=== PATIENT | male | born 1935 | race Caucasian/White ===

== ENCOUNTER 2016-12-04 18:40 | Emergency (ER) | payer MEDICARE, MEDICAID ==
[2016-12-04 19:13] LABS: HEMOGLOBIN 12.8 gm/dL (12.6-17.4); MEAN CORPUSCULAR HGB CONC 33.6 pg (28.0-36.0); RED BLOOD COUNT 3.65 Mil/cmm (3.80-5.80); RED CELL DISTRIBUTION WIDTH 18.3 % (11.5-20.0); WHITE BLOOD COUNT 4.7 Th/cmm (4.8-10.8)
--- NOTE | 2016-12-04 19:20 | ED Physician Chart ---
Chief Complaint/HPI - Patient Information Date Seen:: 12/04/16 Time Seen:: 19:00 Chief Complaint:: RIGHT HAND INJURY History of Present Illness:: THIS IS A 80 YO MALE CHRONICALLY ILL ESRD PATIENT SENT [facility] FOR AN EVALUATION OF HIS RIGHT HAND THAT HE INJURED ACCIDENTALLY HIT IT ON A MEDAL PIPE EARLIER TODAY. HE IS A DIALYSIS PATIENT. HE HAS NO OTHER COMPLAINTS Allergies:: Allergies Allergy/AdvReac Type Severity Reaction Status Date / Time milk Allergy Verified 12/04/16 18:53 Vitals:: Vital Signs - 8 hr 12/04/16 18:53 Temp 98.1 F HR 74 RR 16 BP 174/84 O2 Sat % 98 Historian:: Patient Review:: Nurse's Note Reviewed Review of Systems - Review of Systems General/Constitutional: No fever, No chills, No weight loss, No weakness, No diaphoresis, No edema, No loss of appetite Skin: No skin lesions, No rash, No bruising Head: No headache, No light-headedness Eyes: No loss of vision, No pain, No diplopia ENT: No earache, No nasal drainage, No sore throat, No tinnitus Neck: No neck pain, No swelling, No thyromegaly, No stiffness, No mass noted Cardio Vascular: No chest pain, No palpitations, No PND, No orthopnea, No edema Pulmonary: No SOB, No cough, No sputum, No wheezing GI: No nausea, No vomiting, No diarrhea, No pain, No melena, No hematochezia, No constipation, No hematemesis G/U: No dysuria, No frequency, No hematuria Musculoskeletal: Bone or joint pain (RIGHT HAND PAIN), No back pain, No muscle pain Endocrine: No polyuria, No polydipsia Psychiatric: No prior psych history, No depression, No anxiety, No suicidal ideation Hematopoietic: No bruising, No lymphadenopathy Allergic/Immuno: No urticaria, No angioedema Neurological: No syncope, No focal symptoms, No weakness, No paresthesia, No headache, No seizure, No dizziness, No confusion, No vertigo Past Medical History - Past Medical History Obtainable: Yes Past Medical History: HTN, CAD, ESRD, Other (PARKINSON DISEASE) Family History: None Social History: Non Smoker, No Alcohol, No Drug Use Surgical History: other ([facility]) Psychiatricy History: None Medication: Reviewed Family Medical History - Family Member Mother History Unknown: Yes Physical Exam - Physical Examination General/Constitutional: Awake, Well-developed, well-nourished, Alert, No distress, GCS 15, Non-toxic appearing, Ambulatory Head: Atraumatic Eyes: Lids, conjuctiva normal, PERRL, EOMI Skin: Nl inspection, No rash, No skin lesions, No ecchymosis, Well hydrated, No lymphadenopathy ENMT: External ears, nose nl, Nasal exam nl, Lips, teeth, gums nl Neck: Nontender, Full ROM w/o pain, No JVD, No nuchal rigidity, No bruit, No mass, No stridor Respiratory: Nl effort/Exclusion, Clear to Auscultation, No Wheeze/Rhonchi/Rales Cardio Vascular: RRR, No murmur, gallop, rubs, NL S1 S2 GI: No tenderness/rebounding/guarding, No organomegaly, No hernia, Normal BS's, Nondistended, No mass/bruits, No McBurney tenderness : No CVA tenderness Extremities: No tenderness or effusion, Full ROM, normal strength in all extremities, No edema, Normal digits & nails Other Extremities comments:: RIGHT DORSAL HAND OVER THE DISTAL 2ND METACARPAL BONE AREA Neuro/Psych: Alert/oriented, DTR's symmetric, Normal sensory exam, Normal motor strength, Judgement/insight normal, Mood normal, Normal gait, No focal deficits Misc: normal gait, Normal back, No paraspinal tenderness Labs/Radiology/EKG Results - Lab Results Results: Abnormal Lab Results 12/04/16 12/04/16 12/04/16 19:07 19:07 19:07 WBC 4.7 L RBC 3.65 L Hgb 12.8 Hct 38.2 L MCV 104.5 H MCH 35.1 H MCHC Differential 33.6 RDW 18.3 Plt Count 122 L MPV 6.8 PT 10.3 INR 1.04 Sodium 131 L Potassium 5.1 Chloride 97 L Carbon Dioxide 29.3 Anion Gap 9.8 BUN 44 H Creatinine 6.7 H* Est GFR ( Amer) TNP Est GFR (Non-Af Amer) TNP BUN/Creatinine Ratio 6.6 Glucose 138 H Calcium 9.8 Total Bilirubin 0.6 AST 57 H ALT 12 Alkaline Phosphatase 62 Troponin I Total Protein 7.2 Albumin 4.3 Globulin 2.9 Albumin/Globulin Ratio 1.5 12/04/16 19:07 WBC RBC Hgb Hct MCV MCH MCHC Differential RDW Plt Count MPV PT INR Sodium Potassium Chloride Carbon Dioxide Anion Gap BUN Creatinine Est GFR ( Amer) Est GFR (Non-Af Amer) BUN/Creatinine Ratio Glucose Calcium Total Bilirubin AST ALT Alkaline Phosphatase Troponin I 0.02 Total Protein Albumin Globulin Albumin/Globulin Ratio - Radiology Results Results: THE X-RAY OF THE RIGHT HAND WAS NEGATIVE FOR A FRACTURE. ED Septic Shock - . Is Septic Shock (SBP<90, OR Lactate>4 mmol\L) present?: No - <6hrs of presentation: Vital Signs: Vital Signs - 8 hr 12/04/16 18:53 Temp 98.1 F HR 74 RR 16 BP 174/84 O2 Sat % 98 Reassessment (Disposition) - Reassessment Reassessment Condition:: Unchanged - Diagnosis Diagnosis:: CONTUSION OF THE RIGHT HAND - Aftercare/Follow up Instructions Aftercare/Follow-Up Instructions:: Counseled pt regarding lab results/diagnosis & need follow up, Refer to Discharge Instructions, Counseled pt & family regarding lab results/diagnosis & need follow up - Patient Disposition Discharge/Transfer:: [facility] - SNF Condition at Disposition:: Unchanged ED Discharge Plan - Patient Disposition Admit/Discharge/Transfer: Discharge/Transfered to SNF Condition at Disposition: Unchanged
[2016-12-04 19:25] LABS: INR 1.04 (0.5-1.4); PROTHROMBIN TIME (TEST) 10.3 SECONDS (9.5-11.5)
[2016-12-04 19:27] LABS: ALB/GLOB RATIO 1.5 (1.0-1.8); ALKALINE PHOSPHATASE 62 U/L (34-104); ANION GAP 9.8 (7.0-16.0); BILIRUBIN,TOTAL 0.6 mg/dL (0.3-1.0); BUN - UREA NITROGEN 44 mg/dL (7-25); BUN/CREATININE RATIO 6.6; CALCIUM SERUM 9.8 mg/dL (8.6-10.3); CARBON DIOXIDE 29.3 mEq/L (21.0-31.0); CHLORIDE 97 mEq/L (98-107); GLUCOSE 138 mg/dL (70-105); POTASSIUM SERUM 5.1 mEq/L (3.5-5.1); SGOT 57 U/L (13-39); SGPT/ALT 12 U/L (7-52); SODIUM SERUM 131 mEq/L (136-145)
[2016-12-04 19:35] LABS: HEMATOCRIT 38.2 % (39.0-49.0); MEAN CORPUSCULAR HEMOGLOBIN 35.1 pg (27.0-31.0); MEAN PLATELET VOLUME 6.8 fl; PLATELET COUNT 122 Th/cmm (150-400)
[2016-12-04 19:50] LABS: CREATININE - SERUM 6.7 mg/dL (0.7-1.3)
[2016-12-04 20:08] LABS: MEAN CELL VOLUME 104.5 fl (80-99); NEUTROPHILS 48 % (40-80); TOTAL CELLS COUNTED 100
[2016-12-04 20:09] LABS: ANISOCYTOSIS 1+; EOSINOPHIL 2 % (0-5); PLATELET ESTIMATE ADEQUATE (NORMAL); PLATELET MORPHOLOGY NORMAL (NORMAL)
--- NOTE | 2016-12-05 12:04 | Diagnostic Imaging Report ---
Right hand (3 views) HISTORY: Pain, trauma There is deformity involving the head of the fifth metacarpal probably related to old trauma. Generalized narrowing of all DIP and PIP joints. IMPRESSION: 1. No acute bony abnormalities 2. Deformity involving the head of the fifth metacarpal probably related to old trauma 3. Osteoarthritis. In the presence of recent trauma and persistent symptoms, a repeat radiograph in 5-7 days may be helpful for detection of a subtle or occult fracture.
== END 2016-12-04 20:40 ==
LOC: ER 18:40
DX: S60.221A Contusion of right hand, initial encounter (principal); I12.0 Hypertensive chronic kidney disease with stage 5 chronic kidney disease or end stage renal disease; N18.6 End stage renal disease; I25.10 Atherosclerotic heart disease of native coronary artery without angina pectoris; G20 Parkinson's disease; Z91.011 Allergy to milk products; W22.8XXA Striking against or struck by other objects, initial encounter; Y93.89 Activity, other specified; Y92.89 Other specified places as the place of occurrence of the external cause; Y99.8 Other external cause status
CPT/HCPCS: 36415-UA; 73130-TC-RT; 80053-TC; 84484-TC; 85007-TC; 85027-TC; 85610-TC

== ENCOUNTER 2016-12-13 20:03 | Inpatient (IN) | payer MEDICARE, MEDICAID ==
--- NOTE | 2016-12-13 22:14 | ED Physician Chart ---
Chief Complaint/HPI - Patient Information Date Seen:: 12/13/16 Time Seen:: 20:05 Chief Complaint:: Cough for 3 days. History of Present Illness:: Brought in by ambulance from nursing facility because of cough for about 3 days. Pt was also noticed to have low grade fever. Cough has been productive of green sputum. No dyspnea. Pt has had generalized weakness. Pt has h/o ESRD but missed his hemodialysis yesterday. No N/V/D. No lightheadedness. Allergies:: Allergies Allergy/AdvReac Type Severity Reaction Status Date / Time milk Allergy Verified 12/04/16 18:53 Vitals:: Vital Signs - 8 hr 12/13/16 20:36 Temp 98.3 F HR 74 RR 18 BP 148/71 O2 Sat % 96 Historian:: Patient, Medical Records (from transferring facility.) Family MD/PCP:: Dr. Jordan LMP:: N/A Review:: Nurse's Note Reviewed, Transfer documents Reviewed Review of Systems - Review of Systems General/Constitutional: Fever, No chills, No weight loss, Weakness (generalized. ), No diaphoresis, No edema, No loss of appetite Skin: No skin lesions, No rash, No bruising Head: No headache, No light-headedness Eyes: No loss of vision, No pain, No diplopia ENT: No earache, No nasal drainage, No sore throat, No tinnitus Neck: No neck pain, No swelling, No thyromegaly, No stiffness, No mass noted Cardio Vascular: No chest pain, No palpitations, No PND, No orthopnea, No edema Pulmonary: No SOB, Cough, Sputum, No wheezing GI: No nausea, No vomiting, No diarrhea, No pain, No melena, No hematochezia, No constipation, No hematemesis G/U: No dysuria, No frequency, No hematuria Musculoskeletal: Other (chronic R hip pain due to R hip fx about 4 years ago, but he was not a candidate for R hip surgery.) Endocrine: No polyuria, No polydipsia Psychiatric: No prior psych history Hematopoietic: No bruising, No lymphadenopathy Allergic/Immuno: No urticaria, No angioedema Neurological: No syncope, No focal symptoms, No weakness, No paresthesia, No headache, No seizure, No dizziness, No confusion, No vertigo Past Medical History - Past Medical History Past Medical History: HTN, ESRD (on hemodialysis Tuesdays, , and Saturdays.), Other (h/o Parkinson's Disease, chronic anemia, h/o cardiac dysrrhythmia, h/o colon CA with colostomy , ?partial colectomy.) Family History: Heart disease (mother), HTN (mother), Cancer (mother) Social History: Non Smoker, No Alcohol, No Drug Use, , Care Facility Employment:: Retired. Surgical History: Appendectomy (at age 18), other (lower back surgery at age 26. ? partial colectomy with colostomy in related to colon CA) Psychiatricy History: None Medication: Reviewed Family Medical History - Family Member Mother History Unknown: Yes Physical Exam - Physical Examination General/Constitutional: Awake, Well-developed, well-nourished, Alert, No distress, Non-toxic appearing Other Gen/Cons comments:: Breathes comfortably, speaks clearly, and interacts normally. Eyes: Lids, conjuctiva normal, PERRL, EOMI Skin: No skin lesions, No ecchymosis, Well hydrated, No lymphadenopathy ENMT: External ears, nose nl, TM canals nl, Nasal exam nl, Oropharynx nl, Tonsils nl Other ENMT comments:: Poor dentition with multiple missing teeth. Neck: Nontender, Full ROM w/o pain, No JVD, No nuchal rigidity, No bruit, No mass, No stridor Respiratory: Nl effort/Exclusion Other Respiratory comments:: Mild rales at R lower lung field. No wheeze. Cardio Vascular: RRR, No murmur, gallop, rubs GI: No tenderness/rebounding/guarding, No organomegaly, No hernia, Normal BS's, Nondistended, No mass/bruits, No McBurney tenderness Other GI comments:: Abdomen is soft. Colostomy with colostomy bag noticed in L mid abdomen. : No CVA tenderness Extremities: No edema Neuro/Psych: Alert/oriented (oriented x 3.), Mood normal, No focal deficits Labs/Radiology/EKG Results - Lab Results Results: Laboratory Tests 12/13/16 12/13/16 12/13/16 22:30 22:30 22:30 WBC 6.9 D RBC 3.05 L Hgb 10.7 L D Hct 31.0 L D MCV 101.9 H MCH 35.0 H MCHC Differential 34.4 RDW 17.6 Plt Count 82 L D MPV 7.7 Neutrophils % 66.0 Lymphocytes % 16.9 L Monocytes % 12.6 H Eosinophils % 2.9 Basophils % 1.6 PT 10.6 INR 1.07 PTT (Actin FS) 36.2 Sodium 132 L Potassium 4.8 Chloride 100 Carbon Dioxide 20.7 L Anion Gap 16.1 H BUN 81 H* Creatinine 9.7 H* Est GFR ( Amer) TNP Est GFR (Non-Af Amer) TNP BUN/Creatinine Ratio 8.4 Glucose 104 Whole Bld Lactic Acid Calcium 9.6 Total Bilirubin 0.4 AST 31 ALT 10 Alkaline Phosphatase 68 Creatine Kinase 688 H CK-MB (CK-2) 13.7 H Troponin I Total Protein 6.6 Albumin 3.6 L Globulin 3.0 Albumin/Globulin Ratio 1.2 Urine Source Urine Color Urine Clarity Urine pH Ur Specific [place] Urine Protein Urine Glucose (UA) Urine Ketones Urine Blood Urine Nitrate Urine Bilirubin Urine Urobilinogen Ur Leukocyte Esterase Urine RBC Urine WBC Ur Epithelial Cells Urine Bacteria 12/13/16 12/13/16 12/13/16 22:30 22:30 22:55 WBC RBC Hgb Hct MCV MCH MCHC Differential RDW Plt Count MPV Neutrophils % Lymphocytes % Monocytes % Eosinophils % Basophils % PT INR PTT (Actin FS) Sodium Potassium Chloride Carbon Dioxide Anion Gap BUN Creatinine Est GFR ( Amer) Est GFR (Non-Af Amer) BUN/Creatinine Ratio Glucose Whole Bld Lactic Acid 0.54 L Calcium Total Bilirubin AST ALT Alkaline Phosphatase Creatine Kinase CK-MB (CK-2) Troponin I 0.05 Total Protein Albumin Globulin Albumin/Globulin Ratio Urine Source CLEAN C Urine Color YELLOW Urine Clarity CLEAR Urine pH 8.5 Ur Specific [place] 1.015 Urine Protein >300 H Urine Glucose (UA) 100 H Urine Ketones NEGATIVE Urine Blood MODERATE H Urine Nitrate NEGATIVE Urine Bilirubin NEGATIVE Urine Urobilinogen 0.2 Ur Leukocyte Esterase NEGATIVE Urine RBC 2-5 H Urine WBC 0-2 Ur Epithelial Cells OCCASIONAL Urine Bacteria OCCASIONAL - Radiology Results Results: PCXR: Based on my interpretation, cardiomegaly with prominent pulmonary vasculature. Increased density in R lower lung field. Consider early pneumonia. Official report is pending. - EKG Interpretations EKG Time:: 22:54 Rhythm: NSR Rate: 70 Comments:: No acute ischemic changes. ED Septic Shock - . Is Septic Shock (SBP<90, OR Lactate>4 mmol\L) present?: No - <6hrs of presentation: Vital Signs: Vital Signs - 8 hr 12/13/16 20:36 Temp 98.3 F HR 74 RR 18 BP 148/71 O2 Sat % 96 Reassessment (Disposition) - Reassessment Reassessment:: 0040 Pt has been repeatedly evaluated. Pt remains stable with no new findings. CXR just became available. Lab, EKG, and CXR findings have been reviewed with pt. Management plan has been discussed. Dr. Jordan is to be contacted. 0100 Case was discussed with Dr. Jordan with pertinent H & P, EKG, CXR, and lab findings reviewed. Pt is to be admitted to [facility] under his care. Reassessment Condition:: Improved - Diagnosis Diagnosis:: Early RLL pneumonia, stable. End Stage Renal Disease with chronic anemia, stable. h/o colon CA, s/p colostomy , stable HTN, stable. - Patient Disposition Admitted to:: Med/Surg Admitting Medical Physician:: Jose Jordan Time:: 01:05 Condition at Disposition:: Stable, Improved
[2016-12-13 22:36] LABS: % BASOPHILS 1.6 % (0.0-2.0); % EOSINOPHILS 2.9 % (0.0-5.0); % LYMPHOCYTES 16.9 % (20.0-50.0); % MONOCYTES 12.6 % (2.0-10.0); MEAN CELL VOLUME 101.9 fl (80-99); MEAN CORPUSCULAR HGB CONC 34.4 pg (28.0-36.0); MEAN PLATELET VOLUME 7.7 fl; NEUTROPHILE ABSOLUTE 4.5 Th/cmm (1.8-8.0); RED BLOOD COUNT 3.05 Mil/cmm (3.80-5.80); RED CELL DISTRIBUTION WIDTH 17.6 % (11.5-20.0)
[2016-12-13] MEDS ORDERED: cefTRIAXone 1 GM in Sodium Chloride 0.9% 50 ML IV ONE (22:41)
[2016-12-13] MEDS ORDERED: Azithromycin 500 MG in Sodium Chloride 0.9% 250 ML IV ONE (22:41)
[2016-12-13 22:43] LABS: WHITE BLOOD COUNT 6.9 Th/cmm (4.8-10.8)
[2016-12-13 22:44] LABS: HEMOGLOBIN 10.7 gm/dL (12.6-17.4); PLATELET COUNT 82 Th/cmm (150-400)
[2016-12-13 22:56] LABS: INR 1.07 (0.5-1.4); PROTHROMBIN TIME (TEST) 10.6 SECONDS (9.5-11.5)
[2016-12-13 22:59] LABS: ALB/GLOB RATIO 1.2 (1.0-1.8); ALKALINE PHOSPHATASE 68 U/L (34-104); ANION GAP 16.1 (7.0-16.0); BILIRUBIN,TOTAL 0.4 mg/dL (0.3-1.0); BUN/CREATININE RATIO 8.4; CALCIUM SERUM 9.6 mg/dL (8.6-10.3); CARBON DIOXIDE 20.7 mEq/L (21.0-31.0); CHLORIDE 100 mEq/L (98-107); GLUCOSE 104 mg/dL (70-105); POTASSIUM SERUM 4.8 mEq/L (3.5-5.1); SGOT 31 U/L (13-39); SGPT/ALT 10 U/L (7-52); SODIUM SERUM 132 mEq/L (136-145)
[2016-12-13 23:00] LABS: BUN - UREA NITROGEN 81 mg/dL (7-25); CREATININE - SERUM 9.7 mg/dL (0.7-1.3)
[2016-12-13 23:21] LABS: CREATINE KINASE MB 13.7 ng/mL (0.6-6.3)
[2016-12-13 23:28] LABS: URINE BILIRUBIN NEGATIVE (NEGATIVE); URINE COLOR YELLOW; URINE GLUCOSE (UA) 100 mg/dL (NEGATIVE); URINE KETONE NEGATIVE (NEGATIVE)
[2016-12-13 23:29] LABS: URINE BACTERIA OCCASIONAL /hpf (NONE SEEN); URINE BLOOD MODERATE (NEGATIVE); URINE EPITHELIAL CELLS OCCASIONAL /lpf (FEW); URINE PH 8.5; URINE PROTEIN >300 mg/dL (NEGATIVE); URINE UROBILINOGEN 0.2 E.U./dL (0.2 - 1.0); URINE WBC 0-2 /hpf (0-5)
[2016-12-14] MEDS ORDERED: Hydrocodone/APAP 5mg/325mg Tab PO PRN (02:41)
--- NOTE | 2016-12-14 05:14 | Admit Criteria Form ---
Admit Criteria Forms - Admit Criteria Diagnosis: PNEUMONIA, COMMUNITY ACQUIRED Clinical Indications for Admission to Inpatient Care ( Place 'X' for any and all applicable criteria): Admission is indicated for ANY ONE of the following (1)(2)(3): [ ]I. Hypoxemia indicated by ANY ONE of the following: [ ]a) Oxygen saturation less than 90% while breathing room air [ ]b) PO2 less than 60 mm Hg (8.0 kPa) while breathing room air [ ]c) Chronic lung disease with significant deterioration from baseline oxygenation [ ]II. Appropriate diagnostic testing and treatment unavailable in outpatient or recovery facility (eg,testing or infection control measures unavailable(10) [X]III. Moderate-risk or high-risk category patients (Pneumonia Severity Index (PSI) class IV or V, or CURB-65 score of 3 or greater). [ ]IV. Outpatient treatment failure as indicated by ANY ONE of the following(9) : [ ]a) Failure to respond to antibiotic (eg, resistant organism) [ ]b) Clinically significant adverse effects from medication (eg, vomiting) [ ]c) Complications of pneumonia (eg, empyema, bacteremia) [ ]d) Significant worsening of comorbid cond necessitating inpatient care (eg, chronic heart failure) [ ]V. Intermediate-risk category patients (eg, PSI class III or CURB-65 score 2) who do not improve with initial therapy and observation. [ ]. Immunocompromised patients (eg, AIDS, chronic steroid use) at moderate or high risk based on clinical evaluation. [ ]VII. Complicated pleural effusions (eg, exudative, loculated) [ ]VIII.Hemodynamic instability [ ] IX. Altered mental status that is severe or persistent. [ ]X. Dehydration that is severe or persistent. [ ]XI. Bacteremia [ ]XII. Respiratory finding (eg. tachypnea) that do not respond to outpatient or observation care treatment Extended stay beyond goal length of stay may be needed for (20) [ ]a) Unclear diagnosis [ ]b) Pleural disease [ ]c) Severe pneumonia or treatment failure (25 [ ]d) Respiratory failure (anticipate invasive or noninvasive ventilatory support) [ ]e) Abnormal serum electrolytes (serum Na concentration less than 135 mEq/L (mmol/L) (32)(33) [ ]f) Clinically significant comorbid illness (eg, heart failure, atrial fibrillation with rapid heart rate, alcohol withdrawal, renal insufficiency)(34)(35) [ ]g) Comorbid acute exacerbation of COPD(36) [ ]h) Concomitant diagnosis of malignancy that may be associated with malnutrition, immunologic impairment, or bronchial obstruction. [ ]i) Concomitant altered mental status [ ]j) Culture-identified Gram-negative or antibiotic-resistant organism (eg, Pseudomonas, methicillin-resistant Staphylococcus aureus)(30) [ ]k) Healthcare-associated pneumonia The original [facility] content created by [facility] has been revised. The portions of the content which have been revised are identified through the use of italic text or in bold, and [facility] has neither reviewed nor approved the modified material. All other unmodified content is copyright [facility]. Please see references footnoted in the original [facility] [employer] edition 2016 Admit Criteria Met?: Yes
[2016-12-14 07:26] LABS: % BASOPHILS 0.1 % (0.0-2.0); % EOSINOPHILS 1.7 % (0.0-5.0); % LYMPHOCYTES 15.3 % (20.0-50.0); % MONOCYTES 13.6 % (2.0-10.0); % NEUTROPHILS 69.3 % (40.0-80.0); HEMATOCRIT 30.9 % (39.0-49.0); HEMOGLOBIN 10.6 gm/dL (12.6-17.4); MEAN CELL VOLUME 101.8 fl (80-99); MEAN CORPUSCULAR HGB CONC 34.3 pg (28.0-36.0); MEAN PLATELET VOLUME 8.4 fl; NEUTROPHILE ABSOLUTE 4.3 Th/cmm (1.8-8.0); PLATELET COUNT 82 Th/cmm (150-400); RED BLOOD COUNT 3.04 Mil/cmm (3.80-5.80); RED CELL DISTRIBUTION WIDTH 17.9 % (11.5-20.0); WHITE BLOOD COUNT 6.1 Th/cmm (4.8-10.8)
[2016-12-14 07:36] LABS: ANION GAP 16.6 (7.0-16.0); BUN/CREATININE RATIO 8.3; CALCIUM SERUM 9.5 mg/dL (8.6-10.3); CARBON DIOXIDE 21.5 mEq/L (21.0-31.0); CHLORIDE 101 mEq/L (98-107); GLUCOSE 91 mg/dL (70-105); POTASSIUM SERUM 5.1 mEq/L (3.5-5.1); SODIUM SERUM 134 mEq/L (136-145)
[2016-12-14 07:53] LABS: BUN - UREA NITROGEN 84 mg/dL (7-25); CREATININE - SERUM 10.1 mg/dL (0.7-1.3)
--- NOTE | 2016-12-14 08:38 | General Progress Note ---
Objective - Results Result Diagrams: 12/14/16 06:10 12/14/16 06:10 Recent Labs: Laboratory Last Values WBC 6.1 Th/cmm (4.8-10.8) 12/14/16 06:10 RBC 3.04 Mil/cmm (3.80-5.80) L 12/14/16 06:10 Hgb 10.6 gm/dL (12.6-17.4) L 12/14/16 06:10 Hct 30.9 % (39.0-49.0) L 12/14/16 06:10 MCV 101.8 fl (80-99) H 12/14/16 06:10 MCH 35.0 pg (27.0-31.0) H 12/14/16 06:10 MCHC Differential 34.3 pg (28.0-36.0) 12/14/16 06:10 RDW 17.9 % (11.5-20.0) 12/14/16 06:10 Plt Count 82 Th/cmm (150-400) L 12/14/16 06:10 MPV 8.4 fl 12/14/16 06:10 Neutrophils % 69.3 % (40.0-80.0) 12/14/16 06:10 Lymphocytes % 15.3 % (20.0-50.0) L 12/14/16 06:10 Monocytes % 13.6 % (2.0-10.0) H 12/14/16 06:10 Eosinophils % 1.7 % (0.0-5.0) 12/14/16 06:10 Basophils % 0.1 % (0.0-2.0) 12/14/16 06:10 PT 10.6 SECONDS (9.5-11.5) 12/13/16 22:30 INR 1.07 (0.5-1.4) 12/13/16 22:30 PTT (Actin FS) 36.2 SECONDS (26.0-38.0) 12/13/16 22:30 Sodium 134 mEq/L (136-145) L 12/14/16 06:10 Potassium 5.1 mEq/L (3.5-5.1) 12/14/16 06:10 Chloride 101 mEq/L (98-107) 12/14/16 06:10 Carbon Dioxide 21.5 mEq/L (21.0-31.0) 12/14/16 06:10 Anion Gap 16.6 (7.0-16.0) H 12/14/16 06:10 BUN 84 mg/dL (7-25) H* 12/14/16 06:10 Creatinine 10.1 mg/dL (0.7-1.3) H* 12/14/16 06:10 Est GFR ( Amer) TNP 12/14/16 06:10 Est GFR (Non-Af Amer) TNP 12/14/16 06:10 BUN/Creatinine Ratio 8.3 12/14/16 06:10 Glucose 91 mg/dL (70-105) 12/14/16 06:10 Whole Bld Lactic Acid 0.54 mmol/L (0.60-2.00) L 12/13/16 22:30 Calcium 9.5 mg/dL (8.6-10.3) 12/14/16 06:10 Total Bilirubin 0.4 mg/dL (0.3-1.0) 12/13/16 22:30 AST 31 U/L (13-39) 12/13/16 22:30 ALT 10 U/L (7-52) 12/13/16 22:30 Alkaline Phosphatase 68 U/L (34-104) 12/13/16 22:30 Creatine Kinase 688 U/L (30-223) H 12/13/16 22:30 CK-MB (CK-2) 13.7 ng/mL (0.6-6.3) H 12/13/16 22:30 Troponin I 0.05 ng/mL (0.01-0.05) 12/13/16 22:30 Total Protein 6.6 gm/dL (6.0-8.3) 12/13/16 22:30 Albumin 3.6 gm/dL (4.2-5.5) L 12/13/16 22:30 Globulin 3.0 gm/dL 12/13/16 22:30 Albumin/Globulin Ratio 1.2 (1.0-1.8) 12/13/16 22:30 Urine Source CLEAN C 12/13/16 22:55 Urine Color YELLOW 12/13/16 22:55 Urine Clarity CLEAR (CLEAR) 12/13/16 22:55 Urine pH 8.5 12/13/16 22:55 Ur Specific [place] 1.015 (1.005-1.030) 12/13/16 22:55 Urine Protein >300 mg/dL (NEGATIVE) H 12/13/16 22:55 Urine Glucose (UA) 100 mg/dL (NEGATIVE) H 12/13/16 22:55 Urine Ketones NEGATIVE mg/dL (NEGATIVE) 12/13/16 22:55 Urine Blood MODERATE (NEGATIVE) H 12/13/16 22:55 Urine Nitrate NEGATIVE (NEGATIVE) 12/13/16 22:55 Urine Bilirubin NEGATIVE (NEGATIVE) 12/13/16 22:55 Urine Urobilinogen 0.2 E.U./dL (0.2 - 1.0) 12/13/16 22:55 Ur Leukocyte Esterase NEGATIVE (NEGATIVE) 12/13/16 22:55 Urine RBC 2-5 /hpf (0-5) H 12/13/16 22:55 Urine WBC 0-2 /hpf (0-5) 12/13/16 22:55 Ur Epithelial Cells OCCASIONAL /lpf (FEW) 12/13/16 22:55 Urine Bacteria OCCASIONAL /hpf (NONE SEEN) 12/13/16 22:55 - Physical Exam Vitals and I&O: Vital Signs Temp 99.2 F 12/14/16 04:00 Pulse 70 12/14/16 04:00 Resp 20 12/14/16 04:00 BP 145/69 12/14/16 04:00 Pulse Ox 97 12/14/16 04:00 Intake & Output 12/13/16 12/14/16 12/14/16 18:59 06:59 18:59 Intake Total 120 Output Total 200 Balance -80 Weight (lbs) 71.668 kg Intake: Oral 120 Output: Urine 200 Other: # Voids 1 # Bowel Movements 1 Stool Characteristics Soft Formed Brown Black Green Active Medications: Current Medications Acetaminophen (Tylenol) 650 mg PO Q4HR PRN PRN Reason: MILD PAIN Stop: 02/12/17 02:40 Acetaminophen/Hydrocodone Bitart ([place] 5mg/325mg) 1 tab PO Q12H PRN PRN Reason: MODERATE PAIN Stop: 02/12/17 02:40 Amiodarone HCl (Cordarone) 200 mg PO BID GABY Stop: 02/12/17 08:59 Calcitriol (Rocaltrol) 0.25 mcg PO DAILY GABY Stop: 02/12/17 08:59 Carbidopa/Levodopa (Sinemet 25 Mg-250 Mg) 1 tab PO QID GABY Stop: 02/12/17 08:59 Carvedilol (Coreg) 3.125 mg PO BID GABY Stop: 02/12/17 08:59 Cyanocobalamin (Vitamin B12) 100 mcg PO DAILY GABY Stop: 02/12/17 08:59 Docusate Sodium (Colace) 100 mg PO BID GABY Stop: 02/12/17 08:59 Enoxaparin Sodium (Lovenox) 40 mg SUBQ Q12HR GABY Stop: 02/12/17 08:59 Ceftriaxone Sodium 1 gm/ (Sodium Chloride) 50 mls @ 100 mls/hr IV X1 ONE Stop: 12/14/16 23:59 Azithromycin 500 mg/ Sodium (Chloride) 250 mls @ 250 mls/hr IV Q24HR GABY Stop: 02/13/17 00:00 Miscellaneous (Clinical Monitoring) 1 ea MC PRN PRN PRN Reason: RENAL DOSING Stop: 02/12/17 08:02 Sevelamer HCl (Renagel) 2,400 mg PO TIDWM GABY Stop: 02/12/17 07:59 Temazepam (Restoril) 15 mg PO HS PRN; Protocol PRN Reason: Insomnia Stop: 02/12/17 03:16 Last Admin: 12/14/16 03:56 Dose: 15 mg Vitamin B Complex/Vit C/Folic Acid (Vitamin B Complex W/Vitamin C) 1 tab PO DAILY GABY Stop: 02/12/17 08:59 Assessment/Plan - Problem List Patient Problems: All Active Problems COUGH WITH FEVER/CHILLS AND WEAKNESS (Acute) RIGHT HAND TRAUMA, NECK PAIN, FOOT EDEMA (Acute)
[2016-12-14] MEDS ORDERED: Enoxaparin 40 mg/0.4 mL 0.4mL Syr SUBQ SCH (09:00)
[2016-12-14] MEDS: Vitamin B Complex w/Vitamin C Tab PO SCH (09:11)
--- NOTE | 2016-12-14 11:49 | Diagnostic Imaging Report ---
Portable chest x-ray HISTORY: Cough The overall heart size is difficult to assess with portable technique and a poor inspiration. Atherosclerotic calcification seen in the aorta. Faint infiltrate is noted in the right lower lobe. Pneumonia cannot be excluded. Clinical correlation is needed. No evidence of pleural fluid. IMPRESSION: 1. Infiltrate right lower lobe. Findings suggest pneumonia. Clinical correlation is needed. 2. Atherosclerotic vascular changes
--- NOTE | 2016-12-14 13:59 | Infectious Disease Prog Note ---
Infectious Disease Subjective - Review of Systems Service Date: 12/14/16 Subjective: There is no new change. There is no fever. Feels congested. Infectious Disease Objective - Results Result Diagrams: 12/14/16 06:10 12/14/16 06:10 Recent Labs: Laboratory Last Values WBC 6.1 Th/cmm (4.8-10.8) 12/14/16 06:10 RBC 3.04 Mil/cmm (3.80-5.80) L 12/14/16 06:10 Hgb 10.6 gm/dL (12.6-17.4) L 12/14/16 06:10 Hct 30.9 % (39.0-49.0) L 12/14/16 06:10 MCV 101.8 fl (80-99) H 12/14/16 06:10 MCH 35.0 pg (27.0-31.0) H 12/14/16 06:10 MCHC Differential 34.3 pg (28.0-36.0) 12/14/16 06:10 RDW 17.9 % (11.5-20.0) 12/14/16 06:10 Plt Count 82 Th/cmm (150-400) L 12/14/16 06:10 MPV 8.4 fl 12/14/16 06:10 Neutrophils % 69.3 % (40.0-80.0) 12/14/16 06:10 Lymphocytes % 15.3 % (20.0-50.0) L 12/14/16 06:10 Monocytes % 13.6 % (2.0-10.0) H 12/14/16 06:10 Eosinophils % 1.7 % (0.0-5.0) 12/14/16 06:10 Basophils % 0.1 % (0.0-2.0) 12/14/16 06:10 PT 10.6 SECONDS (9.5-11.5) 12/13/16 22:30 INR 1.07 (0.5-1.4) 12/13/16 22:30 PTT (Actin FS) 36.2 SECONDS (26.0-38.0) 12/13/16 22:30 Sodium 134 mEq/L (136-145) L 12/14/16 06:10 Potassium 5.1 mEq/L (3.5-5.1) 12/14/16 06:10 Chloride 101 mEq/L (98-107) 12/14/16 06:10 Carbon Dioxide 21.5 mEq/L (21.0-31.0) 12/14/16 06:10 Anion Gap 16.6 (7.0-16.0) H 12/14/16 06:10 BUN 84 mg/dL (7-25) H* 12/14/16 06:10 Creatinine 10.1 mg/dL (0.7-1.3) H* 12/14/16 06:10 Est GFR ( Amer) TNP 12/14/16 06:10 Est GFR (Non-Af Amer) TNP 12/14/16 06:10 BUN/Creatinine Ratio 8.3 12/14/16 06:10 Glucose 91 mg/dL (70-105) 12/14/16 06:10 Whole Bld Lactic Acid 0.54 mmol/L (0.60-2.00) L 12/13/16 22:30 Calcium 9.5 mg/dL (8.6-10.3) 12/14/16 06:10 Total Bilirubin 0.4 mg/dL (0.3-1.0) 12/13/16 22:30 AST 31 U/L (13-39) 12/13/16 22:30 ALT 10 U/L (7-52) 12/13/16 22:30 Alkaline Phosphatase 68 U/L (34-104) 12/13/16 22:30 Creatine Kinase 688 U/L (30-223) H 12/13/16 22:30 CK-MB (CK-2) 13.7 ng/mL (0.6-6.3) H 12/13/16 22:30 Troponin I 0.05 ng/mL (0.01-0.05) 12/13/16 22:30 Total Protein 6.6 gm/dL (6.0-8.3) 12/13/16 22:30 Albumin 3.6 gm/dL (4.2-5.5) L 12/13/16 22:30 Globulin 3.0 gm/dL 12/13/16 22:30 Albumin/Globulin Ratio 1.2 (1.0-1.8) 12/13/16 22:30 Urine Source CLEAN C 12/13/16 22:55 Urine Color YELLOW 12/13/16 22:55 Urine Clarity CLEAR (CLEAR) 12/13/16 22:55 Urine pH 8.5 12/13/16 22:55 Ur Specific [place] 1.015 (1.005-1.030) 12/13/16 22:55 Urine Protein >300 mg/dL (NEGATIVE) H 12/13/16 22:55 Urine Glucose (UA) 100 mg/dL (NEGATIVE) H 12/13/16 22:55 Urine Ketones NEGATIVE mg/dL (NEGATIVE) 12/13/16 22:55 Urine Blood MODERATE (NEGATIVE) H 12/13/16 22:55 Urine Nitrate NEGATIVE (NEGATIVE) 12/13/16 22:55 Urine Bilirubin NEGATIVE (NEGATIVE) 12/13/16 22:55 Urine Urobilinogen 0.2 E.U./dL (0.2 - 1.0) 12/13/16 22:55 Ur Leukocyte Esterase NEGATIVE (NEGATIVE) 12/13/16 22:55 Urine RBC 2-5 /hpf (0-5) H 12/13/16 22:55 Urine WBC 0-2 /hpf (0-5) 12/13/16 22:55 Ur Epithelial Cells OCCASIONAL /lpf (FEW) 12/13/16 22:55 Urine Bacteria OCCASIONAL /hpf (NONE SEEN) 12/13/16 22:55 - Physical Exam Vitals and I&O: Vital Signs Temp 98.6 F 12/14/16 12:17 Pulse 75 12/14/16 12:17 Resp 19 12/14/16 12:17 BP 150/75 12/14/16 12:17 Pulse Ox 96 12/14/16 12:17 Intake & Output 12/13/16 12/14/16 12/14/16 18:59 06:59 18:59 Intake Total 120 Output Total 200 Balance -80 Weight (lbs) 71.668 kg Intake: Oral 120 Output: Urine 200 Other: # Voids 1 # Bowel Movements 1 Stool Characteristics Soft Soft Formed Formed Brown Brown Black Black Green Green Active Medications: Current Medications Acetaminophen (Tylenol) 650 mg PO Q4HR PRN PRN Reason: MILD PAIN Stop: 02/12/17 02:40 Acetaminophen/Hydrocodone Bitart ([place] 5mg/325mg) 1 tab PO Q12H PRN PRN Reason: MODERATE PAIN Stop: 02/12/17 02:40 Amiodarone HCl (Cordarone) 200 mg PO BID [facility] Stop: 02/12/17 08:59 Last Admin: 12/14/16 09:11 Dose: 200 mg Calcitriol (Rocaltrol) 0.25 mcg PO DAILY [facility] Stop: 02/12/17 08:59 Last Admin: 12/14/16 09:11 Dose: 0.25 mcg Carbidopa/Levodopa (Sinemet 25 Mg-250 Mg) 1 tab PO QID [facility] Stop: 02/12/17 08:59 Last Admin: 12/14/16 12:59 Dose: 1 tab Carvedilol (Coreg) 3.125 mg PO BID [facility] Stop: 02/12/17 08:59 Last Admin: 12/14/16 09:12 Dose: 3.125 mg Cyanocobalamin (Vitamin B12) 100 mcg PO DAILY [facility] Stop: 02/12/17 08:59 Last Admin: 12/14/16 09:11 Dose: 100 mcg Docusate Sodium (Colace) 100 mg PO BID [facility] Stop: 02/12/17 08:59 Last Admin: 12/14/16 09:12 Dose: 100 mg Enoxaparin Sodium (Lovenox) 40 mg SUBQ Q12HR [facility] Stop: 02/12/17 08:59 Ceftriaxone Sodium 1 gm/ (Sodium Chloride) 50 mls @ 100 mls/hr IV X1 ONE Stop: 12/14/16 23:59 Azithromycin 500 mg/ Sodium (Chloride) 250 mls @ 250 mls/hr IV Q24HR [facility] Stop: 02/13/17 00:00 Miscellaneous (Clinical Monitoring) 1 [facility] PRN PRN PRN Reason: RENAL DOSING Stop: 02/12/17 08:02 Sevelamer HCl (Renagel) 2,400 mg PO TIDWM [facility] Stop: 02/12/17 07:59 Last Admin: 12/14/16 12:34 Dose: 2,400 mg Temazepam (Restoril) 15 mg PO HS PRN; Protocol PRN Reason: Insomnia Stop: 02/12/17 03:16 Last Admin: 12/14/16 03:56 Dose: 15 mg Vitamin B Complex/Vit C/Folic Acid (Vitamin B Complex W/Vitamin C) 1 tab PO DAILY [facility] Stop: 02/12/17 08:59 Last Admin: 12/14/16 09:11 Dose: 1 tab General: no acute distress, well developed, well nourished HEENT: atraumatic, normocephalic, PERRLA, EOMI Neck: supple Cardiovascular: S1S2, regular Lungs: clear to auscultation bilaterally, clear to percussion Abdomen: soft, no tender, no distended Extremities: no cyanosis, no clubbing, no edema Neurological: awake, alert, oriented, CN 2-12 intact Skin: intact Infectious Disease Assmt/Plan - Problem List Patient Problems: All Active Problems COUGH WITH FEVER/CHILLS AND WEAKNESS (Acute) RIGHT HAND TRAUMA, NECK PAIN, FOOT EDEMA (Acute) - Assessment Assessment: 1. Pneumonia, RLL. CAP, atypical. 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 3. Colostomy, s/p partial colectomy for Colon CA. 4. HTN. 5. Anemia of CD. - Plan Plan: Continue rocephin and zithromax. Check CXR.
[2016-12-14 16:35] LABS: INR 1.07 (0.5-1.4); PROTHROMBIN TIME (TEST) 10.6 SECONDS (9.5-11.5)
[2016-12-14] MEDS: Albuterol Nebulizer 2.5mg/3mL HHN SCH (19:08)
[2016-12-14] MEDS ORDERED: Non-Formulary Item 1 EA (Temazepam [Restoril*] 7.5 MG) PO SCH (21:00)
[2016-12-14] MEDS ORDERED: cefTRIAXone 1 GM in Sodium Chloride 0.9% 50 ML IV ONE (23:30)
[2016-12-15] MEDS ORDERED: Albumin 25% 25gm/100mL 25 GM/100 ML BTL IV PRN
[2016-12-15] MEDS: Albuterol Nebulizer 2.5mg/3mL HHN SCH ×4 (01:15→19:23)
[2016-12-15] MEDS: Azithromycin 500 MG in Sodium Chloride 0.9% 250 ML IV SCH (05:20)
--- NOTE | 2016-12-15 06:45 | Consultation ---
The patient is patient of Dr. Rancho Eller and Dr. Jordan. HISTORY OF PRESENT ILLNESS: This is an 81-year-old male with 3-days history of cough, congestion and productive of some yellowish sputum. The patient is stating he does not have any lung problems from before and he is a nonsmoker. He is feeling little bit better, continues to have cough and congestion. PAST MEDICAL HISTORY: Hypertension, anemia and chronic kidney disease on dialysis. SOCIAL HISTORY: No smoking and drinking. PHYSICAL EXAMINATION: GENERAL: Awake, alert and in no acute distress. VITAL SIGNS: Temperature is 98.6, pulse 75, respiration is 19, blood pressure 150/75 and saturation 96%. HEENT: Atraumatic and normocephalic. Pupils are equal and react to light and accommodation. Ears, nose and throat are normal. NECK: Supple. No JVD. CHEST: There are scattered rhonchi bilaterally. HEART: Regular rate and rhythm. ABDOMEN: Soft. EXTREMITIES: No edema. LABORATORY DATA: WBC 6.1 and hemoglobin 10.6. Sodium 134 and potassium 5.1. BUN 84 and creatinine 10.1. IMAGING STUDIES: Chest x-ray, right lower lobe infiltrate. IMPRESSION: This is an 81-year-old male with underlying history of end-stage renal disease on dialysis with right lower lobe pneumonia. PLAN: 1. IV antibiotics. 2. Nebulizer treatment. 3. Pulmonary toilet. 4. Follow up chest x-ray and I will follow the patient with you. Thank you very much for this consultation. JOB# [id number] CARMEN
--- NOTE | 2016-12-15 08:07 | Consultation ---
INFECTIOUS DISEASE CONSULTATION REFERRING PHYSICIAN: Dr. Jordan REASON FOR CONSULTATION: Pneumonia. HISTORY OF PRESENT ILLNESS: The patient is an 81-year-old male with a past medical history of hypertension; CKD stage V, on hemodialysis, missed his hemodialysis for the last 3 days; Parkinson disease; dementia; anemia of chronic disease; cardiac arrhythmia; history of colon carcinoma status post colostomy and partial colectomy in 1980. He was brought in from the nursing facility for fever with associative cough producing phlegm. On initial evaluation, the patient's temperature was 98.3 degrees Fahrenheit and WBC count was 6900. Chest x-ray showed right lower lobe infiltrate, pneumonia, so the patient was admitted to the hospital for further antibiotic management. ID consult was called for further antibiotic management. Meanwhile, the patient was already started on Rocephin and Zithromax. PAST MEDICAL HISTORY: Includes hypertension; CKD stage V, on hemodialysis; Parkinson disease; dementia; chronic anemia; cardiac arrhythmia; history of colon carcinoma status post colostomy and partial colectomy performed in 1980, now stable. FAMILY HISTORY: Mother had cancer, hypertension, and heart disease. SOCIAL HISTORY: The patient lives in a nursing facility. No history of smoking, alcohol, or drug use. Retired. PAST SURGICAL HISTORY: Includes appendectomy at age 18, low back surgery at age 26, partial colectomy with colostomy in 1980, related to colon carcinoma. REVIEW OF SYSTEMS: GENERAL: The patient has had a fever at nursing facility. No chills, no weight loss; however, the patient has generalized weakness. No diaphoresis and no edema. No loss of appetite. HEENT: No diplopia, no photophobia, and no sore throat. RESPIRATORY: The patient had a cough with congestion of greenish phlegm. CARDIOVASCULAR: No chest pain or palpitation. GASTROINTESTINAL: The patient has no nausea, no vomiting, no diarrhea, no constipation, and no abdominal pain. GENITOURINARY: No dysuria. NEUROLOGIC: No headache and no dizziness. Nonfocal. PHYSICAL EXAMINATION: VITAL SIGNS: Shows temperature is 98.1 degrees Fahrenheit, pulse 78, respirations 19, and blood pressure 150/89. GENERAL: The patient is comfortable lying in the bed, not in acute distress. HEENT: Head is normocephalic and atraumatic. Oral cavity moist, pink tongue. Eyes: Pallor is present, no icterus. PERRLA. EOMI. NECK: Supple. No JVD. No carotid bruit. Trachea in midline. CHEST: Bilateral breath sounds. No crackles or wheezing. HEART: S1, S2 within normal limits. Regular rhythm. No murmur and no gallop. ABDOMEN: Soft, nontender, and nondistended. Bowel sounds are present, colostomy present. EXTREMITIES: No cyanosis, no clubbing, and no edema. Right upper extremity, the patient has AV shunt with aneurysms present. NEUROLOGIC: Alert, awake, and oriented x 3. Follows the commands. LABORATORY DATA: Current lab shows WBC count is 6900, hemoglobin 10.7, hematocrit 31, platelets are 82,000, neutrophil is 66%, lymphocytes 16.9%. Sodium is 132, potassium 4.8, chloride 100, bicarbonate is 21, BUN is 81, creatinine 9.7, and glucose is 104. Urinalysis showed wbc's 0-2, rbc's 2-5, and occasional bacteria. Chest x-ray showed right lower lobe infiltrate as per the ER physician's note. IMPRESSION: 1. Early pneumonia, right lower lobe. 2. Chronic kidney disease, stage V, on hemodialysis. 3. History of colon cancer status post colostomy and partial colectomy in 1980. 4. Hypertension. RECOMMENDATIONS: We will continue Rocephin and Zithromax, follow the chest x-ray report, and go from the there. Thank you Dr. Jordan for involving me taking care of this patient. JOB# [id number] [facility]
[2016-12-15] MEDS: Enoxaparin 40 mg/0.4 mL 0.4mL Syr SUBQ SCH (09:22)
[2016-12-15] MEDS: Vitamin B Complex w/Vitamin C Tab PO SCH (09:22)
--- NOTE | 2016-12-15 09:52 | General Progress Note ---
Objective - Results Result Diagrams: 12/14/16 06:10 12/14/16 06:10 Recent Labs: Laboratory Last Values WBC 6.1 Th/cmm (4.8-10.8) 12/14/16 06:10 RBC 3.04 Mil/cmm (3.80-5.80) L 12/14/16 06:10 Hgb 10.6 gm/dL (12.6-17.4) L 12/14/16 06:10 Hct 30.9 % (39.0-49.0) L 12/14/16 06:10 MCV 101.8 fl (80-99) H 12/14/16 06:10 MCH 35.0 pg (27.0-31.0) H 12/14/16 06:10 MCHC Differential 34.3 pg (28.0-36.0) 12/14/16 06:10 RDW 17.9 % (11.5-20.0) 12/14/16 06:10 Plt Count 82 Th/cmm (150-400) L 12/14/16 06:10 MPV 8.4 fl 12/14/16 06:10 Neutrophils % 69.3 % (40.0-80.0) 12/14/16 06:10 Lymphocytes % 15.3 % (20.0-50.0) L 12/14/16 06:10 Monocytes % 13.6 % (2.0-10.0) H 12/14/16 06:10 Eosinophils % 1.7 % (0.0-5.0) 12/14/16 06:10 Basophils % 0.1 % (0.0-2.0) 12/14/16 06:10 PT 10.6 SECONDS (9.5-11.5) 12/14/16 06:10 INR 1.07 (0.5-1.4) 12/14/16 06:10 PTT (Actin FS) 33.6 SECONDS (26.0-38.0) 12/14/16 06:10 Sodium 134 mEq/L (136-145) L 12/14/16 06:10 Potassium 5.1 mEq/L (3.5-5.1) 12/14/16 06:10 Chloride 101 mEq/L (98-107) 12/14/16 06:10 Carbon Dioxide 21.5 mEq/L (21.0-31.0) 12/14/16 06:10 Anion Gap 16.6 (7.0-16.0) H 12/14/16 06:10 BUN 84 mg/dL (7-25) H* 12/14/16 06:10 Creatinine 10.1 mg/dL (0.7-1.3) H* 12/14/16 06:10 Est GFR ( Amer) TNP 12/14/16 06:10 Est GFR (Non-Af Amer) TNP 12/14/16 06:10 BUN/Creatinine Ratio 8.3 12/14/16 06:10 Glucose 91 mg/dL (70-105) 12/14/16 06:10 Whole Bld Lactic Acid 0.54 mmol/L (0.60-2.00) L 12/13/16 22:30 Calcium 9.5 mg/dL (8.6-10.3) 12/14/16 06:10 Total Bilirubin 0.4 mg/dL (0.3-1.0) 12/13/16 22:30 AST 31 U/L (13-39) 12/13/16 22:30 ALT 10 U/L (7-52) 12/13/16 22:30 Alkaline Phosphatase 68 U/L (34-104) 12/13/16 22:30 Creatine Kinase 688 U/L (30-223) H 12/13/16 22:30 CK-MB (CK-2) 13.7 ng/mL (0.6-6.3) H 12/13/16 22:30 Troponin I 0.05 ng/mL (0.01-0.05) 12/13/16 22:30 Total Protein 6.6 gm/dL (6.0-8.3) 12/13/16 22:30 Albumin 3.6 gm/dL (4.2-5.5) L 12/13/16 22:30 Globulin 3.0 gm/dL 12/13/16 22:30 Albumin/Globulin Ratio 1.2 (1.0-1.8) 12/13/16 22:30 Urine Source CLEAN C 12/13/16 22:55 Urine Color YELLOW 12/13/16 22:55 Urine Clarity CLEAR (CLEAR) 12/13/16 22:55 Urine pH 8.5 12/13/16 22:55 Ur Specific [place] 1.015 (1.005-1.030) 12/13/16 22:55 Urine Protein >300 mg/dL (NEGATIVE) H 12/13/16 22:55 Urine Glucose (UA) 100 mg/dL (NEGATIVE) H 12/13/16 22:55 Urine Ketones NEGATIVE mg/dL (NEGATIVE) 12/13/16 22:55 Urine Blood MODERATE (NEGATIVE) H 12/13/16 22:55 Urine Nitrate NEGATIVE (NEGATIVE) 12/13/16 22:55 Urine Bilirubin NEGATIVE (NEGATIVE) 12/13/16 22:55 Urine Urobilinogen 0.2 E.U./dL (0.2 - 1.0) 12/13/16 22:55 Ur Leukocyte Esterase NEGATIVE (NEGATIVE) 12/13/16 22:55 Urine RBC 2-5 /hpf (0-5) H 12/13/16 22:55 Urine WBC 0-2 /hpf (0-5) 12/13/16 22:55 Ur Epithelial Cells OCCASIONAL /lpf (FEW) 12/13/16 22:55 Urine Bacteria OCCASIONAL /hpf (NONE SEEN) 12/13/16 22:55 - Physical Exam Vitals and I&O: Vital Signs Temp 99.0 F 12/15/16 04:00 Pulse 79 12/15/16 09:21 Resp 18 12/15/16 04:00 BP 139/68 12/15/16 09:21 Pulse Ox 97 12/15/16 04:00 Intake & Output 12/14/16 12/15/16 12/15/16 18:59 06:59 18:59 Intake Total 300 100 Balance 300 100 Intake: Oral 300 100 Other: # Voids 3 Stool Characteristics Soft Formed Brown Black Green Active Medications: Current Medications Acetaminophen (Tylenol) 650 mg PO Q4HR PRN PRN Reason: MILD PAIN Stop: 02/12/17 02:40 Acetaminophen/Hydrocodone Bitart ([place] 5mg/325mg) 1 tab PO Q12H PRN PRN Reason: MODERATE PAIN Stop: 02/12/17 02:40 Albuterol Sulfate (Albuterol 2.5mg/3ml Neb Ud) 2.5 mg HHN Q6HRT GABY Stop: 02/12/17 18:59 Last Admin: 12/15/16 08:09 Dose: 2.5 mg Amiodarone HCl (Cordarone) 200 mg PO BID [facility] Stop: 02/12/17 08:59 Last Admin: 12/15/16 09:21 Dose: 200 mg Calcitriol (Rocaltrol) 0.25 mcg PO DAILY GABY Stop: 02/12/17 08:59 Last Admin: 12/15/16 09:21 Dose: 0.25 mcg Carbidopa/Levodopa (Sinemet 25 Mg-250 Mg) 1 tab PO QID GABY Stop: 02/12/17 08:59 Last Admin: 12/15/16 09:22 Dose: 1 tab Carvedilol (Coreg) 3.125 mg PO BID GABY Stop: 02/12/17 08:59 Last Admin: 12/15/16 09:21 Dose: 3.125 mg Cyanocobalamin (Vitamin B12) 100 mcg PO DAILY [facility] Stop: 02/12/17 08:59 Last Admin: 12/15/16 09:22 Dose: 100 mcg Docusate Sodium (Colace) 100 mg PO BID [facility] Stop: 02/12/17 08:59 Last Admin: 12/15/16 09:22 Dose: 100 mg Enoxaparin Sodium (Lovenox) 40 mg SUBQ DAILY [facility] Stop: 02/13/17 08:59 Last Admin: 12/15/16 09:22 Dose: 40 mg Azithromycin 500 mg/ Sodium (Chloride) 250 mls @ 250 mls/hr IV Q24HR [facility] Stop: 02/13/17 00:00 Last Admin: 12/15/16 05:20 Dose: 250 mls/hr Albumin Human (Albuminar 25%) 25 gm in 100 mls @ 50 mls/hr IV PRN PRN PRN Reason: BP Support During HD Stop: 12/15/16 23:59 Miscellaneous (Clinical Monitoring) 1 [facility] PRN PRN PRN Reason: RENAL DOSING Stop: 02/12/17 08:02 Sevelamer HCl (Renagel) 2,400 mg PO TIDWM [facility] Stop: 02/12/17 07:59 Last Admin: 12/15/16 09:20 Dose: 2,400 mg Temazepam (Restoril) 15 mg PO HS PRN; Protocol PRN Reason: Insomnia Stop: 02/12/17 03:16 Last Admin: 12/14/16 22:35 Dose: 15 mg Vitamin B Complex/Vit C/Folic Acid (Vitamin B Complex W/Vitamin C) 1 tab PO DAILY [facility] Stop: 02/12/17 08:59 Last Admin: 12/15/16 09:22 Dose: 1 tab Assessment/Plan - Problem List Patient Problems: All Active Problems COUGH WITH FEVER/CHILLS AND WEAKNESS (Acute) RIGHT HAND TRAUMA, NECK PAIN, FOOT EDEMA (Acute)
[2016-12-15 10:24] LABS: % BASOPHILS 0.1 % (0.0-2.0); % EOSINOPHILS 1.5 % (0.0-5.0); % LYMPHOCYTES 19.5 % (20.0-50.0); % MONOCYTES 11.3 % (2.0-10.0); % NEUTROPHILS 67.6 % (40.0-80.0); HEMATOCRIT 30.8 % (39.0-49.0); HEMOGLOBIN 10.4 gm/dL (12.6-17.4); MEAN CELL VOLUME 103.1 fl (80-99); MEAN PLATELET VOLUME 8.2 fl; NEUTROPHILE ABSOLUTE 3.6 Th/cmm (1.8-8.0); RED BLOOD COUNT 2.98 Mil/cmm (3.80-5.80); RED CELL DISTRIBUTION WIDTH 17.5 % (11.5-20.0); WHITE BLOOD COUNT 5.3 Th/cmm (4.8-10.8)
[2016-12-15 10:36] LABS: PLATELET COUNT 105 Th/cmm (150-400)
--- NOTE | 2016-12-15 10:57 | History & Physical ---
HISTORY OF PRESENT ILLNESS: This is an 81-year-old male came in from a long term, [facility], with a chief complaint of coughing and weakness for 3 days. The patient was brought into the Emergency Room. REVIEW OF SYSTEMS: GENERAL: No fever, no chills, no weight loss, positive generalized weakness. SKIN: No skin lesions, no rash. HEENT: No headache. EYES: No eye pain. No loss of vision. ENT: No earache, no nasal drainage. NECK: No neck pain, no neck swelling. CARDIOVASCULAR: No chest pain, no palpitations. PULMONARY: No shortness of breath. RESPIRATORY: Positive with cough, sputum, no wheezing. GASTROINTESTINAL: No nausea, no vomiting, no abdominal pain. GENITOURINARY: No dysuria, no frequency. MUSCULOSKELETAL: Chronic right hip pain. ENDOCRINE: No polyuria, no polydipsia. NEUROLOGICAL: No syncope, no focal symptoms. No weaknesses, no paresthesias. PAST MEDICAL HISTORY: Includes ESRD with dialysis dependent every Wednesday, and Wednesday, history of colon CA, history of Parkinson disease, history of chronic anemia, history of bilateral cataracts. FAMILY HISTORY: Unremarkable. SOCIAL HISTORY: Unremarkable. SURGICAL HISTORY: The patient had surgery done for appendectomy, unknown when. The patient also had colostomy done about 10 years ago per patient. PHYSICAL EXAMINATION: GENERAL: Awake, alert, well-developed, well-nourished male. SKIN: No skin breakdown, but fragile. HEAD: Atraumatic, normocephalic. EYES: Bilateral PERRL. No conjunctival injection. SKIN: No lesions. No ecchymosis. NECK: No JVD, no nuchal rigidity. CARDIOVASCULAR: Regular rate and rhythm, S1 and S2. No murmurs or gallop. PULMONARY: Positive with inspiratory wheezing, patient still coughing. GASTROINTESTINAL: No tenderness. Soft. Positive bowel sounds. GENITOURINARY: Negative for CVA tenderness. EXTREMITIES: No edema. NEUROLOGIC: Awake, alert, oriented x 3. DIAGNOSES: 1. Pneumonia. 2. End-stage renal disease with hemodialysis dependent. 3. History of colon cancer. 4. Positive colostomy. 5. History of Parkinson disease. 6. History of chronic anemia. 7. Osteoarthritis. 8. Bilateral cataracts. PLAN: The patient will be admitted to the floor and we will get a consult with ID, Dr. Rancho Eller, for antibiotic management. We will also get a Renal consultation with Dr. Wild Stover for hemodialysis scheduling. JOB# [id number]
--- NOTE | 2016-12-15 10:57 | Consultation ---
ATTENDING PHYSICIAN: Julian Sierra M.D. REASON FOR CONSULTATION: Electrolyte imbalance and fluid management. HISTORY OF PRESENT ILLNESS: This is an 81-year-old male with past medical history of end-stage renal disease, on hemodialysis, who was brought in because of generalized weakness. Four days prior to admission, the patient was scheduled to have his dialysis treatment. However, his AV fistula was noted to be clotted. Three days prior to admission, he was brought to [facility] for thrombectomy. He had a successful thrombectomy. He missed his 7th day dialysis treatment. A few hours prior to admission, he was quite weak associated with body aches, low-grade fever/chills. He admitted to occasional cough with greenish phlegm. He was then brought to the Emergency Room. Chest x-ray revealed right lower infiltrate and white count was 6.9. He has a history of end-stage renal disease on hemodialysis for 3 years. He had no nausea or vomiting as well as headaches. PAST MEDICAL HISTORY: 1. End-stage renal disease, on hemodialysis. 2. Anemia of chronic kidney disease. 3. Colon CA. 4. Essential hypertension. 5. Parkinson disease. 6. Chronic atrial fibrillation. PAST SURGICAL HISTORY: Status post colectomy with colostomy in 1980. CURRENT MEDICATIONS: He is currently on acetaminophen, albuterol, amiodarone, Zithromax, Rocaltrol, carbidopa/levodopa, carvedilol, B12, Colace, Lovenox, hydrocodone, Sevelamer, temazepam, and vitamin B complex with C. ALLERGIES: No known drug allergies. 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 He does not drink alcoholic beverages. He used to work as a construction site manager. FAMILY HISTORY: This is significant for his father who had a history of heart disease. REVIEW OF SYSTEMS: CONSTITUTIONAL: He did complain of generalized weakness. Appetite had deteriorated. He had low-grade fever/chills. HEENT: No headaches, no dizziness. CARDIORESPIRATORY: No chest pain, palpitations. No diaphoresis or even shortness of breath. He did have occasional cough with greenish phlegm. GASTROINTESTINAL: No nausea or vomiting, abdominal pain or cramping, hematemesis, melena, hematochezia, nor diarrhea. ENDOCRINE: No history of diabetes, no thyroid abnormalities. MUSCULOSKELETAL: He has occasional arthralgias. HEMATOLOGIC: He has anemia of chronic kidney disease. 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 GENITOURINARY: History of kidney failure, now on hemodialysis. He still urinates. Denied any dysuria nor hematuria. NEUROPSYCHIATRIC: No syncopal episode nor seizure activity. PHYSICAL EXAMINATION: GENERAL: The patient is alert, verbal, and comfortable. VITAL SIGNS: Blood pressure is 150/75, pulse 75, and temperature 98.6 degrees. SKIN: Good turgor, warm, no rash, and no jaundice appreciated. HEENT: Head is normocephalic and atraumatic. EYES: Extraocular muscles intact. Pupils are equal, round, and reactive to light and accommodates. Anicteric sclerae. Pale conjunctivae. Nose, midline nasal septum. Mouth, moist mucosa with adequate dentition. NECK: Supple. No adenopathy, no thyromegaly, and no bruits. Trachea palpated in the midline. CHEST AND CVS: S1, S2. No rub, murmur nor gallop appreciated. Point of maximal impulse fifth intercostal space, left midclavicular line. No abdominal or femoral bruits appreciated. LUNGS: Equal expansion. No use of accessory muscles. No supraclavicular retractions, few rhonchi, but no rales nor wheezes appreciated. ABDOMEN: Mildly globular, soft. Positive for bowel sounds. No bruits either diastolic or systolic. RECTAL: The patient refused. GENITOURINARY: Normal appearing male genitalia. MUSCULOSKELETAL: Effusion present in his joints with adequate range of motion. EXTREMITIES: He has a scar on the medial aspect of his right lower leg. There is no evidence of any edema nor cyanosis. NEUROLOGIC: The patient is alert and verbal. Motor is 5/5. Cranial nerves -12 intact. Sensory intact. LABORATORY DATA: Showed sodium 134, potassium 5.1, chloride 101, bicarbonate 29, BUN 84, creatinine 10.1, glucose is 91, and calcium 9.5. White count 6.1, hemoglobin 10.6, hematocrit 30.9, polys 69%, platelets 82,000, and albumin is 3.6. IMPRESSION: 1. End-stage renal disease, on hemodialysis. 2. Generalized weakness with occasional cough/green phlegm secondary to right-sided healthcare-acquired pneumonia, possible uremia also cause of his weakness. 3. Colon cancer with colectomy and left colostomy bag. 4. Essential hypertension. 5. Parkinson disease. 6. Chronic atrial fibrillation. 7. Thrombocythemia, possibly due to Lovenox. PLAN: 1. Hemodialysis today. 2. Monitor electrolytes. 3. Follow up cultures. 4. Continue antibiotics. Thank you, Dr. Jordan for this consult. We will follow the patient closely with you. JOB# [id number]
[2016-12-15 11:02] LABS: ALB/GLOB RATIO 0.9 (1.0-1.8); ALKALINE PHOSPHATASE 68 U/L (34-104); ANION GAP 12.7 (7.0-16.0); BILIRUBIN,TOTAL 0.4 mg/dL (0.3-1.0); BUN - UREA NITROGEN 66 mg/dL (7-25); BUN/CREATININE RATIO 8.5; CALCIUM SERUM 9.7 mg/dL (8.6-10.3); CARBON DIOXIDE 23.6 mEq/L (21.0-31.0); CHLORIDE 107 mEq/L (98-107); GLUCOSE 148 mg/dL (70-105); POTASSIUM SERUM 4.3 mEq/L (3.5-5.1); SGOT 25 U/L (13-39); SGPT/ALT 8 U/L (7-52); SODIUM SERUM 139 mEq/L (136-145)
[2016-12-15 11:18] LABS: CREATININE - SERUM 7.8 mg/dL (0.7-1.3)
[2016-12-15 13:14] LABS: HEP B CORE IGM Negative (Negative); HEP C ANTIBODY >11.0 s/co ratio (0.0-0.9)
--- NOTE | 2016-12-15 15:05 | Infectious Disease Prog Note ---
Infectious Disease Subjective - Review of Systems Service Date: 12/15/16 Subjective: There is no new change. There is no fever. Feels congested. Infectious Disease Objective - Results Result Diagrams: 12/15/16 09:05 12/15/16 09:05 Recent Labs: Laboratory Last Values WBC 5.3 Th/cmm (4.8-10.8) 12/15/16 09:05 RBC 2.98 Mil/cmm (3.80-5.80) L 12/15/16 09:05 Hgb 10.4 gm/dL (12.6-17.4) L 12/15/16 09:05 Hct 30.8 % (39.0-49.0) L 12/15/16 09:05 MCV 103.1 fl (80-99) H 12/15/16 09:05 MCH 35.0 pg (27.0-31.0) H 12/15/16 09:05 MCHC Differential 34.0 pg (28.0-36.0) 12/15/16 09:05 RDW 17.5 % (11.5-20.0) 12/15/16 09:05 Plt Count 105 Th/cmm (150-400) L D 12/15/16 09:05 MPV 8.2 fl 12/15/16 09:05 Neutrophils % 67.6 % (40.0-80.0) 12/15/16 09:05 Lymphocytes % 19.5 % (20.0-50.0) L 12/15/16 09:05 Monocytes % 11.3 % (2.0-10.0) H 12/15/16 09:05 Eosinophils % 1.5 % (0.0-5.0) 12/15/16 09:05 Basophils % 0.1 % (0.0-2.0) 12/15/16 09:05 PT 10.6 SECONDS (9.5-11.5) 12/14/16 06:10 INR 1.07 (0.5-1.4) 12/14/16 06:10 PTT (Actin FS) 33.6 SECONDS (26.0-38.0) 12/14/16 06:10 Sodium 139 mEq/L (136-145) 12/15/16 09:05 Potassium 4.3 mEq/L (3.5-5.1) 12/15/16 09:05 Chloride 107 mEq/L (98-107) 12/15/16 09:05 Carbon Dioxide 23.6 mEq/L (21.0-31.0) 12/15/16 09:05 Anion Gap 12.7 (7.0-16.0) 12/15/16 09:05 BUN 66 mg/dL (7-25) H 12/15/16 09:05 Creatinine 7.8 mg/dL (0.7-1.3) H* 12/15/16 09:05 Est GFR ( Amer) TNP 12/15/16 09:05 Est GFR (Non-Af Amer) TNP 12/15/16 09:05 BUN/Creatinine Ratio 8.5 12/15/16 09:05 Glucose 148 mg/dL (70-105) H 12/15/16 09:05 Whole Bld Lactic Acid 0.54 mmol/L (0.60-2.00) L 12/13/16 22:30 Calcium 9.7 mg/dL (8.6-10.3) 12/15/16 09:05 Phosphorus 3.0 mg/dL (2.5-5.0) 12/15/16 09:05 Total Bilirubin 0.4 mg/dL (0.3-1.0) 12/15/16 09:05 AST 25 U/L (13-39) 12/15/16 09:05 ALT 8 U/L (7-52) 12/15/16 09:05 Alkaline Phosphatase 68 U/L (34-104) 12/15/16 09:05 Creatine Kinase 688 U/L (30-223) H 12/13/16 22:30 CK-MB (CK-2) 13.7 ng/mL (0.6-6.3) H 12/13/16 22:30 Troponin I 0.05 ng/mL (0.01-0.05) 12/13/16 22:30 Total Protein 6.8 gm/dL (6.0-8.3) 12/15/16 09:05 Albumin 3.2 gm/dL (4.2-5.5) L 12/15/16 09:05 Globulin 3.6 gm/dL 12/15/16 09:05 Albumin/Globulin Ratio 0.9 (1.0-1.8) L 12/15/16 09:05 Urine Source CLEAN C 12/13/16 22:55 Urine Color YELLOW 12/13/16 22:55 Urine Clarity CLEAR (CLEAR) 12/13/16 22:55 Urine pH 8.5 12/13/16 22:55 Ur Specific [place] 1.015 (1.005-1.030) 12/13/16 22:55 Urine Protein >300 mg/dL (NEGATIVE) H 12/13/16 22:55 Urine Glucose (UA) 100 mg/dL (NEGATIVE) H 12/13/16 22:55 Urine Ketones NEGATIVE mg/dL (NEGATIVE) 12/13/16 22:55 Urine Blood MODERATE (NEGATIVE) H 12/13/16 22:55 Urine Nitrate NEGATIVE (NEGATIVE) 12/13/16 22:55 Urine Bilirubin NEGATIVE (NEGATIVE) 12/13/16 22:55 Urine Urobilinogen 0.2 E.U./dL (0.2 - 1.0) 12/13/16 22:55 Ur Leukocyte Esterase NEGATIVE (NEGATIVE) 12/13/16 22:55 Urine RBC 2-5 /hpf (0-5) H 12/13/16 22:55 Urine WBC 0-2 /hpf (0-5) 12/13/16 22:55 Ur Epithelial Cells OCCASIONAL /lpf (FEW) 12/13/16 22:55 Urine Bacteria OCCASIONAL /hpf (NONE SEEN) 12/13/16 22:55 Hepatitis A IgM Ab Negative (Negative) 12/13/16 22:20 Hep Bs Antigen Negative (Negative) 12/13/16 22:20 Hep B Core IgM Ab Negative (Negative) 12/13/16 22:20 Hepatitis C Antibody >11.0 s/co ratio (0.0-0.9) H 12/13/16 22:20 - Physical Exam Vitals and I&O: Vital Signs Temp 98.9 F 12/15/16 12:00 Pulse 71 12/15/16 13:00 Resp 20 12/15/16 13:00 BP 142/71 12/15/16 12:00 Pulse Ox 96 12/15/16 13:00 Intake & Output 12/14/16 12/15/16 12/15/16 18:59 06:59 18:59 Intake Total 300 100 Balance 300 100 Intake: Oral 300 100 Other: # Voids 3 Stool Characteristics Soft Soft Formed Formed Brown Black Green Active Medications: Current Medications Acetaminophen (Tylenol) 650 mg PO Q4HR PRN PRN Reason: MILD PAIN Stop: 02/12/17 02:40 Acetaminophen/Hydrocodone Bitart ([place] 5mg/325mg) 1 tab PO Q12H PRN PRN Reason: MODERATE PAIN Stop: 02/12/17 02:40 Albuterol Sulfate (Albuterol 2.5mg/3ml Neb Ud) 2.5 mg HHN Q6HRT GABY Stop: 02/12/17 18:59 Last Admin: 12/15/16 13:25 Dose: 2.5 mg Amiodarone HCl (Cordarone) 200 mg PO BID GABY Stop: 02/12/17 08:59 Last Admin: 12/15/16 09:21 Dose: 200 mg Calcitriol (Rocaltrol) 0.25 mcg PO DAILY GABY Stop: 02/12/17 08:59 Last Admin: 12/15/16 09:21 Dose: 0.25 mcg Carbidopa/Levodopa (Sinemet 25 Mg-250 Mg) 1 tab PO QID GABY Stop: 02/12/17 08:59 Last Admin: 12/15/16 14:12 Dose: 1 tab Carvedilol (Coreg) 3.125 mg PO BID GABY Stop: 02/12/17 08:59 Last Admin: 12/15/16 09:21 Dose: 3.125 mg Cyanocobalamin (Vitamin B12) 100 mcg PO DAILY GABY Stop: 02/12/17 08:59 Last Admin: 12/15/16 09:22 Dose: 100 mcg Docusate Sodium (Colace) 100 mg PO BID GABY Stop: 02/12/17 08:59 Last Admin: 12/15/16 09:22 Dose: 100 mg Enoxaparin Sodium (Lovenox) 40 mg SUBQ DAILY GABY Stop: 02/13/17 08:59 Last Admin: 12/15/16 09:22 Dose: 40 mg Azithromycin 500 mg/ Sodium (Chloride) 250 mls @ 250 mls/hr IV Q24HR GABY Stop: 02/13/17 00:00 Last Admin: 12/15/16 05:20 Dose: 250 mls/hr Albumin Human (Albuminar 25%) 25 gm in 100 mls @ 50 mls/hr IV PRN PRN PRN Reason: BP Support During HD Stop: 12/15/16 23:59 Miscellaneous (Clinical Monitoring) 1 ea MC PRN PRN PRN Reason: RENAL DOSING Stop: 02/12/17 08:02 Sevelamer HCl (Renagel) 2,400 mg PO TIDWM GABY Stop: 02/12/17 07:59 Last Admin: 12/15/16 12:13 Dose: Not Given Temazepam (Restoril) 15 mg PO HS PRN; Protocol PRN Reason: Insomnia Stop: 02/12/17 03:16 Last Admin: 12/14/16 22:35 Dose: 15 mg Vitamin B Complex/Vit C/Folic Acid (Vitamin B Complex W/Vitamin C) 1 tab PO DAILY GABY Stop: 02/12/17 08:59 Last Admin: 12/15/16 09:22 Dose: 1 tab General: no acute distress, well developed, well nourished HEENT: atraumatic, normocephalic, PERRLA, EOMI, other Neck: supple, no thyromegaly, no lymphadenopathy Cardiovascular: S1S2, no regular, no irregular Lungs: clear to auscultation bilaterally, clear to percussion Abdomen: soft, no tender, no distended Extremities: other (right arm fistula.), no cyanosis, no clubbing, no edema Neurological: awake, alert, oriented Infectious Disease Assmt/Plan - Problem List Patient Problems: All Active Problems COUGH WITH FEVER/CHILLS AND WEAKNESS (Acute) RIGHT HAND TRAUMA, NECK PAIN, FOOT EDEMA (Acute) - Assessment Assessment: 1. Pneumonia, RLL. CAP, atypical. 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 3. Colostomy, s/p partial colectomy for Colon CA. 4. HTN. 5. Anemia of CD. - Plan Plan: Continue rocephin and zithromax. Check CXR.
--- NOTE | 2016-12-15 18:26 | General Progress Note ---
Subjective - Review of Systems Service Date: 12/15/16 Subjective: alert, less cough, regained strenght Objective - Results Result Diagrams: 12/15/16 09:05 12/15/16 09:05 Recent Labs: Laboratory Last Values WBC 5.3 Th/cmm (4.8-10.8) 12/15/16 09:05 RBC 2.98 Mil/cmm (3.80-5.80) L 12/15/16 09:05 Hgb 10.4 gm/dL (12.6-17.4) L 12/15/16 09:05 Hct 30.8 % (39.0-49.0) L 12/15/16 09:05 MCV 103.1 fl (80-99) H 12/15/16 09:05 MCH 35.0 pg (27.0-31.0) H 12/15/16 09:05 MCHC Differential 34.0 pg (28.0-36.0) 12/15/16 09:05 RDW 17.5 % (11.5-20.0) 12/15/16 09:05 Plt Count 105 Th/cmm (150-400) L D 12/15/16 09:05 MPV 8.2 fl 12/15/16 09:05 Neutrophils % 67.6 % (40.0-80.0) 12/15/16 09:05 Lymphocytes % 19.5 % (20.0-50.0) L 12/15/16 09:05 Monocytes % 11.3 % (2.0-10.0) H 12/15/16 09:05 Eosinophils % 1.5 % (0.0-5.0) 12/15/16 09:05 Basophils % 0.1 % (0.0-2.0) 12/15/16 09:05 PT 10.6 SECONDS (9.5-11.5) 12/14/16 06:10 INR 1.07 (0.5-1.4) 12/14/16 06:10 PTT (Actin FS) 33.6 SECONDS (26.0-38.0) 12/14/16 06:10 Sodium 139 mEq/L (136-145) 12/15/16 09:05 Potassium 4.3 mEq/L (3.5-5.1) 12/15/16 09:05 Chloride 107 mEq/L (98-107) 12/15/16 09:05 Carbon Dioxide 23.6 mEq/L (21.0-31.0) 12/15/16 09:05 Anion Gap 12.7 (7.0-16.0) 12/15/16 09:05 BUN 66 mg/dL (7-25) H 12/15/16 09:05 Creatinine 7.8 mg/dL (0.7-1.3) H* 12/15/16 09:05 Est GFR ( Amer) TNP 12/15/16 09:05 Est GFR (Non-Af Amer) TNP 12/15/16 09:05 BUN/Creatinine Ratio 8.5 12/15/16 09:05 Glucose 148 mg/dL (70-105) H 12/15/16 09:05 Whole Bld Lactic Acid 0.54 mmol/L (0.60-2.00) L 12/13/16 22:30 Calcium 9.7 mg/dL (8.6-10.3) 12/15/16 09:05 Phosphorus 3.0 mg/dL (2.5-5.0) 12/15/16 09:05 Total Bilirubin 0.4 mg/dL (0.3-1.0) 12/15/16 09:05 AST 25 U/L (13-39) 12/15/16 09:05 ALT 8 U/L (7-52) 12/15/16 09:05 Alkaline Phosphatase 68 U/L (34-104) 12/15/16 09:05 Creatine Kinase 688 U/L (30-223) H 12/13/16 22:30 CK-MB (CK-2) 13.7 ng/mL (0.6-6.3) H 12/13/16 22:30 Troponin I 0.05 ng/mL (0.01-0.05) 12/13/16 22:30 Total Protein 6.8 gm/dL (6.0-8.3) 12/15/16 09:05 Albumin 3.2 gm/dL (4.2-5.5) L 12/15/16 09:05 Globulin 3.6 gm/dL 12/15/16 09:05 Albumin/Globulin Ratio 0.9 (1.0-1.8) L 12/15/16 09:05 Urine Source CLEAN C 12/13/16 22:55 Urine Color YELLOW 12/13/16 22:55 Urine Clarity CLEAR (CLEAR) 12/13/16 22:55 Urine pH 8.5 12/13/16 22:55 Ur Specific [place] 1.015 (1.005-1.030) 12/13/16 22:55 Urine Protein >300 mg/dL (NEGATIVE) H 12/13/16 22:55 Urine Glucose (UA) 100 mg/dL (NEGATIVE) H 12/13/16 22:55 Urine Ketones NEGATIVE mg/dL (NEGATIVE) 12/13/16 22:55 Urine Blood MODERATE (NEGATIVE) H 12/13/16 22:55 Urine Nitrate NEGATIVE (NEGATIVE) 12/13/16 22:55 Urine Bilirubin NEGATIVE (NEGATIVE) 12/13/16 22:55 Urine Urobilinogen 0.2 E.U./dL (0.2 - 1.0) 12/13/16 22:55 Ur Leukocyte Esterase NEGATIVE (NEGATIVE) 12/13/16 22:55 Urine RBC 2-5 /hpf (0-5) H 12/13/16 22:55 Urine WBC 0-2 /hpf (0-5) 12/13/16 22:55 Ur Epithelial Cells OCCASIONAL /lpf (FEW) 12/13/16 22:55 Urine Bacteria OCCASIONAL /hpf (NONE SEEN) 12/13/16 22:55 Hepatitis A IgM Ab Negative (Negative) 12/13/16 22:20 Hep Bs Antigen Negative (Negative) 12/13/16 22:20 Hep B Core IgM Ab Negative (Negative) 12/13/16 22:20 Hepatitis C Antibody >11.0 s/co ratio (0.0-0.9) H 12/13/16 22:20 - Physical Exam Vitals and I&O: Vital Signs Temp 99.4 F 12/15/16 16:24 Pulse 72 12/15/16 16:58 Resp 19 12/15/16 16:24 BP 142/64 12/15/16 16:58 Pulse Ox 94 12/15/16 16:24 Intake & Output 12/14/16 12/15/16 12/15/16 18:59 06:59 18:59 Intake Total 300 100 Balance 300 100 Intake: Oral 300 100 Other: # Voids 3 Stool Characteristics Soft Soft Formed Formed Brown Black Green Active Medications: Current Medications Acetaminophen (Tylenol) 650 mg PO Q4HR PRN PRN Reason: MILD PAIN Stop: 02/12/17 02:40 Acetaminophen/Hydrocodone Bitart ([place] 5mg/325mg) 1 tab PO Q12H PRN PRN Reason: MODERATE PAIN Stop: 02/12/17 02:40 Albuterol Sulfate (Albuterol 2.5mg/3ml Neb Ud) 2.5 mg HHN Q6HRT GABY Stop: 02/12/17 18:59 Last Admin: 12/15/16 13:25 Dose: 2.5 mg Amiodarone HCl (Cordarone) 200 mg PO BID GABY Stop: 02/12/17 08:59 Last Admin: 12/15/16 16:57 Dose: 200 mg Calcitriol (Rocaltrol) 0.25 mcg PO DAILY GABY Stop: 02/12/17 08:59 Last Admin: 12/15/16 09:21 Dose: 0.25 mcg Carbidopa/Levodopa (Sinemet 25 Mg-250 Mg) 1 tab PO QID GABY Stop: 02/12/17 08:59 Last Admin: 12/15/16 16:57 Dose: 1 tab Carvedilol (Coreg) 3.125 mg PO BID GABY Stop: 02/12/17 08:59 Last Admin: 12/15/16 16:58 Dose: 3.125 mg Cyanocobalamin (Vitamin B12) 100 mcg PO DAILY GABY Stop: 02/12/17 08:59 Last Admin: 12/15/16 09:22 Dose: 100 mcg Docusate Sodium (Colace) 100 mg PO BID GABY Stop: 02/12/17 08:59 Last Admin: 12/15/16 16:57 Dose: 100 mg Enoxaparin Sodium (Lovenox) 40 mg SUBQ DAILY GABY Stop: 02/13/17 08:59 Last Admin: 12/15/16 09:22 Dose: 40 mg Azithromycin 500 mg/ Sodium (Chloride) 250 mls @ 250 mls/hr IV Q24HR GABY Stop: 02/13/17 00:00 Last Admin: 12/15/16 05:20 Dose: 250 mls/hr Albumin Human (Albuminar 25%) 25 gm in 100 mls @ 50 mls/hr IV PRN PRN PRN Reason: BP Support During HD Stop: 12/15/16 23:59 Miscellaneous (Clinical Monitoring) 1 ea MC PRN PRN PRN Reason: RENAL DOSING Stop: 02/12/17 08:02 Sevelamer HCl (Renagel) 2,400 mg PO TIDWM GABY Stop: 02/12/17 07:59 Last Admin: 12/15/16 16:57 Dose: 2,400 mg Temazepam (Restoril) 15 mg PO HS PRN; Protocol PRN Reason: Insomnia Stop: 02/12/17 03:16 Last Admin: 12/14/16 22:35 Dose: 15 mg Vitamin B Complex/Vit C/Folic Acid (Vitamin B Complex W/Vitamin C) 1 tab PO DAILY GABY Stop: 02/12/17 08:59 Last Admin: 12/15/16 09:22 Dose: 1 tab General: Alert, No acute distress HEENT: Atraumatic, Mucous membr. moist/pink Neck: Supple, +2 carotid pulse wo bruit Cardiovascular: Regular rate, Normal S1, Normal S2 Lungs: Other (scattered rhonchi) Abdomen: Bowel sounds, Soft Extremities: no Edema Neurological: Sensation intact Skin: no Rash Assessment/Plan - Problem List Patient Problems: All Active Problems COUGH WITH FEVER/CHILLS AND WEAKNESS (Acute) RIGHT HAND TRAUMA, NECK PAIN, FOOT EDEMA (Acute) - Assessment Assessment: esrd on hd right CAP colon ca w/ colectomy & left colostomy ess htn chronic A. fib thrombocytopenia hep C parkinson ds - Plan Plan: schedule for hd in am continue ABx f/u electrolytes, cbc
[2016-12-16] MEDS: Albuterol Nebulizer 2.5mg/3mL HHN SCH ×4 (01:41→19:28)
[2016-12-16] MEDS: Azithromycin 500 MG in Sodium Chloride 0.9% 250 ML IV SCH (03:08)
[2016-12-16] MEDS: Vitamin B Complex w/Vitamin C Tab PO SCH (08:44)
[2016-12-16] MEDS: Enoxaparin 40 mg/0.4 mL 0.4mL Syr SUBQ SCH (08:45)
--- NOTE | 2016-12-16 09:41 | General Progress Note ---
Objective - Results Result Diagrams: 12/15/16 09:05 12/15/16 09:05 Recent Labs: Laboratory Last Values WBC 5.3 Th/cmm (4.8-10.8) 12/15/16 09:05 RBC 2.98 Mil/cmm (3.80-5.80) L 12/15/16 09:05 Hgb 10.4 gm/dL (12.6-17.4) L 12/15/16 09:05 Hct 30.8 % (39.0-49.0) L 12/15/16 09:05 MCV 103.1 fl (80-99) H 12/15/16 09:05 MCH 35.0 pg (27.0-31.0) H 12/15/16 09:05 MCHC Differential 34.0 pg (28.0-36.0) 12/15/16 09:05 RDW 17.5 % (11.5-20.0) 12/15/16 09:05 Plt Count 105 Th/cmm (150-400) L D 12/15/16 09:05 MPV 8.2 fl 12/15/16 09:05 Neutrophils % 67.6 % (40.0-80.0) 12/15/16 09:05 Lymphocytes % 19.5 % (20.0-50.0) L 12/15/16 09:05 Monocytes % 11.3 % (2.0-10.0) H 12/15/16 09:05 Eosinophils % 1.5 % (0.0-5.0) 12/15/16 09:05 Basophils % 0.1 % (0.0-2.0) 12/15/16 09:05 PT 10.6 SECONDS (9.5-11.5) 12/14/16 06:10 INR 1.07 (0.5-1.4) 12/14/16 06:10 PTT (Actin FS) 33.6 SECONDS (26.0-38.0) 12/14/16 06:10 Sodium 139 mEq/L (136-145) 12/15/16 09:05 Potassium 4.3 mEq/L (3.5-5.1) 12/15/16 09:05 Chloride 107 mEq/L (98-107) 12/15/16 09:05 Carbon Dioxide 23.6 mEq/L (21.0-31.0) 12/15/16 09:05 Anion Gap 12.7 (7.0-16.0) 12/15/16 09:05 BUN 66 mg/dL (7-25) H 12/15/16 09:05 Creatinine 7.8 mg/dL (0.7-1.3) H* 12/15/16 09:05 Est GFR ( Amer) TNP 12/15/16 09:05 Est GFR (Non-Af Amer) TNP 12/15/16 09:05 BUN/Creatinine Ratio 8.5 12/15/16 09:05 Glucose 148 mg/dL (70-105) H 12/15/16 09:05 Whole Bld Lactic Acid 0.54 mmol/L (0.60-2.00) L 12/13/16 22:30 Calcium 9.7 mg/dL (8.6-10.3) 12/15/16 09:05 Phosphorus 3.0 mg/dL (2.5-5.0) 12/15/16 09:05 Total Bilirubin 0.4 mg/dL (0.3-1.0) 12/15/16 09:05 AST 25 U/L (13-39) 12/15/16 09:05 ALT 8 U/L (7-52) 12/15/16 09:05 Alkaline Phosphatase 68 U/L (34-104) 12/15/16 09:05 Creatine Kinase 688 U/L (30-223) H 12/13/16 22:30 CK-MB (CK-2) 13.7 ng/mL (0.6-6.3) H 12/13/16 22:30 Troponin I 0.05 ng/mL (0.01-0.05) 12/13/16 22:30 Total Protein 6.8 gm/dL (6.0-8.3) 12/15/16 09:05 Albumin 3.2 gm/dL (4.2-5.5) L 12/15/16 09:05 Globulin 3.6 gm/dL 12/15/16 09:05 Albumin/Globulin Ratio 0.9 (1.0-1.8) L 12/15/16 09:05 Urine Source CLEAN C 12/13/16 22:55 Urine Color YELLOW 12/13/16 22:55 Urine Clarity CLEAR (CLEAR) 12/13/16 22:55 Urine pH 8.5 12/13/16 22:55 Ur Specific [place] 1.015 (1.005-1.030) 12/13/16 22:55 Urine Protein >300 mg/dL (NEGATIVE) H 12/13/16 22:55 Urine Glucose (UA) 100 mg/dL (NEGATIVE) H 12/13/16 22:55 Urine Ketones NEGATIVE mg/dL (NEGATIVE) 12/13/16 22:55 Urine Blood MODERATE (NEGATIVE) H 12/13/16 22:55 Urine Nitrate NEGATIVE (NEGATIVE) 12/13/16 22:55 Urine Bilirubin NEGATIVE (NEGATIVE) 12/13/16 22:55 Urine Urobilinogen 0.2 E.U./dL (0.2 - 1.0) 12/13/16 22:55 Ur Leukocyte Esterase NEGATIVE (NEGATIVE) 12/13/16 22:55 Urine RBC 2-5 /hpf (0-5) H 12/13/16 22:55 Urine WBC 0-2 /hpf (0-5) 12/13/16 22:55 Ur Epithelial Cells OCCASIONAL /lpf (FEW) 12/13/16 22:55 Urine Bacteria OCCASIONAL /hpf (NONE SEEN) 12/13/16 22:55 Hepatitis A IgM Ab Negative (Negative) 12/13/16 22:20 Hep Bs Antigen Negative (Negative) 12/13/16 22:20 Hep B Core IgM Ab Negative (Negative) 12/13/16 22:20 Hepatitis C Antibody >11.0 s/co ratio (0.0-0.9) H 12/13/16 22:20 - Physical Exam Vitals and I&O: Vital Signs Temp 98.8 F 12/16/16 04:00 Pulse 69 12/16/16 08:44 Resp 18 12/16/16 07:43 BP 160/76 12/16/16 08:44 Pulse Ox 95 12/16/16 07:43 Intake & Output 12/15/16 12/16/16 12/16/16 18:59 06:59 18:59 Intake Total 1850 Output Total 900 Balance 950 Intake: Oral 1850 Output: Urine 900 Other: Stool Characteristics Soft Soft Formed Formed Active Medications: Current Medications Acetaminophen (Tylenol) 650 mg PO Q4HR PRN PRN Reason: MILD PAIN Stop: 02/12/17 02:40 Last Admin: 12/16/16 03:09 Dose: 650 mg Acetaminophen/Hydrocodone Bitart ([place] 5mg/325mg) 1 tab PO Q12H PRN PRN Reason: MODERATE PAIN Stop: 02/12/17 02:40 Albuterol Sulfate (Albuterol 2.5mg/3ml Neb Ud) 2.5 mg HHN Q6HRT GABY Stop: 02/12/17 18:59 Last Admin: 12/16/16 07:41 Dose: 2.5 mg Amiodarone HCl (Cordarone) 200 mg PO BID GABY Stop: 02/12/17 08:59 Last Admin: 12/16/16 08:43 Dose: 200 mg Calcitriol (Rocaltrol) 0.25 mcg PO DAILY GABY Stop: 02/12/17 08:59 Last Admin: 12/16/16 08:44 Dose: 0.25 mcg Carbidopa/Levodopa (Sinemet 25 Mg-250 Mg) 1 tab PO QID GABY Stop: 02/12/17 08:59 Last Admin: 12/16/16 08:44 Dose: 1 tab Carvedilol (Coreg) 3.125 mg PO BID GABY Stop: 02/12/17 08:59 Last Admin: 12/16/16 08:44 Dose: 3.125 mg Cyanocobalamin (Vitamin B12) 100 mcg PO DAILY GABY Stop: 02/12/17 08:59 Last Admin: 12/15/16 09:22 Dose: 100 mcg Docusate Sodium (Colace) 100 mg PO BID GABY Stop: 02/12/17 08:59 Last Admin: 12/16/16 08:44 Dose: 100 mg Enoxaparin Sodium (Lovenox) 40 mg SUBQ DAILY GABY Stop: 02/13/17 08:59 Last Admin: 12/16/16 08:45 Dose: 40 mg Azithromycin 500 mg/ Sodium (Chloride) 250 mls @ 250 mls/hr IV Q24HR GABY Stop: 02/13/17 00:00 Last Admin: 12/16/16 03:08 Dose: 250 mls/hr Miscellaneous (Clinical Monitoring) 1 ea MC PRN PRN PRN Reason: RENAL DOSING Stop: 02/12/17 08:02 Sevelamer HCl (Renagel) 2,400 mg PO TIDWM GABY Stop: 02/12/17 07:59 Last Admin: 12/16/16 08:45 Dose: Not Given Temazepam (Restoril) 15 mg PO HS PRN; Protocol PRN Reason: Insomnia Stop: 02/12/17 03:16 Last Admin: 12/15/16 22:52 Dose: 15 mg Vitamin B Complex/Vit C/Folic Acid (Vitamin B Complex W/Vitamin C) 1 tab PO DAILY [facility] Stop: 02/12/17 08:59 Last Admin: 12/16/16 08:44 Dose: 1 tab Assessment/Plan - Problem List Patient Problems: All Active Problems COUGH WITH FEVER/CHILLS AND WEAKNESS (Acute) RIGHT HAND TRAUMA, NECK PAIN, FOOT EDEMA (Acute)
--- NOTE | 2016-12-16 13:43 | General Progress Note ---
Subjective - Review of Systems Service Date: 12/16/16 Subjective: alert, less cough, regained strenght, eager to go home Objective - Results Result Diagrams: 12/15/16 09:05 12/15/16 09:05 Recent Labs: Laboratory Last Values WBC 5.3 Th/cmm (4.8-10.8) 12/15/16 09:05 RBC 2.98 Mil/cmm (3.80-5.80) L 12/15/16 09:05 Hgb 10.4 gm/dL (12.6-17.4) L 12/15/16 09:05 Hct 30.8 % (39.0-49.0) L 12/15/16 09:05 MCV 103.1 fl (80-99) H 12/15/16 09:05 MCH 35.0 pg (27.0-31.0) H 12/15/16 09:05 MCHC Differential 34.0 pg (28.0-36.0) 12/15/16 09:05 RDW 17.5 % (11.5-20.0) 12/15/16 09:05 Plt Count 105 Th/cmm (150-400) L D 12/15/16 09:05 MPV 8.2 fl 12/15/16 09:05 Neutrophils % 67.6 % (40.0-80.0) 12/15/16 09:05 Lymphocytes % 19.5 % (20.0-50.0) L 12/15/16 09:05 Monocytes % 11.3 % (2.0-10.0) H 12/15/16 09:05 Eosinophils % 1.5 % (0.0-5.0) 12/15/16 09:05 Basophils % 0.1 % (0.0-2.0) 12/15/16 09:05 PT 10.6 SECONDS (9.5-11.5) 12/14/16 06:10 INR 1.07 (0.5-1.4) 12/14/16 06:10 PTT (Actin FS) 33.6 SECONDS (26.0-38.0) 12/14/16 06:10 Sodium 139 mEq/L (136-145) 12/15/16 09:05 Potassium 4.3 mEq/L (3.5-5.1) 12/15/16 09:05 Chloride 107 mEq/L (98-107) 12/15/16 09:05 Carbon Dioxide 23.6 mEq/L (21.0-31.0) 12/15/16 09:05 Anion Gap 12.7 (7.0-16.0) 12/15/16 09:05 BUN 66 mg/dL (7-25) H 12/15/16 09:05 Creatinine 7.8 mg/dL (0.7-1.3) H* 12/15/16 09:05 Est GFR ( Amer) TNP 12/15/16 09:05 Est GFR (Non-Af Amer) TNP 12/15/16 09:05 BUN/Creatinine Ratio 8.5 12/15/16 09:05 Glucose 148 mg/dL (70-105) H 12/15/16 09:05 Whole Bld Lactic Acid 0.54 mmol/L (0.60-2.00) L 12/13/16 22:30 Calcium 9.7 mg/dL (8.6-10.3) 12/15/16 09:05 Phosphorus 3.0 mg/dL (2.5-5.0) 12/15/16 09:05 Total Bilirubin 0.4 mg/dL (0.3-1.0) 12/15/16 09:05 AST 25 U/L (13-39) 12/15/16 09:05 ALT 8 U/L (7-52) 12/15/16 09:05 Alkaline Phosphatase 68 U/L (34-104) 12/15/16 09:05 Creatine Kinase 688 U/L (30-223) H 12/13/16 22:30 CK-MB (CK-2) 13.7 ng/mL (0.6-6.3) H 12/13/16 22:30 Troponin I 0.05 ng/mL (0.01-0.05) 12/13/16 22:30 Total Protein 6.8 gm/dL (6.0-8.3) 12/15/16 09:05 Albumin 3.2 gm/dL (4.2-5.5) L 12/15/16 09:05 Globulin 3.6 gm/dL 12/15/16 09:05 Albumin/Globulin Ratio 0.9 (1.0-1.8) L 12/15/16 09:05 Urine Source CLEAN C 12/13/16 22:55 Urine Color YELLOW 12/13/16 22:55 Urine Clarity CLEAR (CLEAR) 12/13/16 22:55 Urine pH 8.5 12/13/16 22:55 Ur Specific [place] 1.015 (1.005-1.030) 12/13/16 22:55 Urine Protein >300 mg/dL (NEGATIVE) H 12/13/16 22:55 Urine Glucose (UA) 100 mg/dL (NEGATIVE) H 12/13/16 22:55 Urine Ketones NEGATIVE mg/dL (NEGATIVE) 12/13/16 22:55 Urine Blood MODERATE (NEGATIVE) H 12/13/16 22:55 Urine Nitrate NEGATIVE (NEGATIVE) 12/13/16 22:55 Urine Bilirubin NEGATIVE (NEGATIVE) 12/13/16 22:55 Urine Urobilinogen 0.2 E.U./dL (0.2 - 1.0) 12/13/16 22:55 Ur Leukocyte Esterase NEGATIVE (NEGATIVE) 12/13/16 22:55 Urine RBC 2-5 /hpf (0-5) H 12/13/16 22:55 Urine WBC 0-2 /hpf (0-5) 12/13/16 22:55 Ur Epithelial Cells OCCASIONAL /lpf (FEW) 12/13/16 22:55 Urine Bacteria OCCASIONAL /hpf (NONE SEEN) 12/13/16 22:55 Hepatitis A IgM Ab Negative (Negative) 12/13/16 22:20 Hep Bs Antigen Negative (Negative) 12/13/16 22:20 Hep B Core IgM Ab Negative (Negative) 12/13/16 22:20 Hepatitis C Antibody >11.0 s/co ratio (0.0-0.9) H 12/13/16 22:20 - Physical Exam Vitals and I&O: Vital Signs Temp 97.8 F 12/16/16 10:19 Pulse 69 12/16/16 10:19 Resp 18 12/16/16 10:19 BP 160/74 12/16/16 10:19 Pulse Ox 94 12/16/16 10:19 Intake & Output 12/15/16 12/16/16 12/16/16 18:59 06:59 18:59 Intake Total 1850 Output Total 900 Balance 950 Intake: Oral 1850 Output: Urine 900 Other: Stool Characteristics Soft Soft Formed Formed Active Medications: Current Medications Acetaminophen (Tylenol) 650 mg PO Q4HR PRN PRN Reason: MILD PAIN Stop: 02/12/17 02:40 Last Admin: 12/16/16 10:25 Dose: 650 mg Acetaminophen/Hydrocodone Bitart ([place] 5mg/325mg) 1 tab PO Q12H PRN PRN Reason: MODERATE PAIN Stop: 02/12/17 02:40 Albuterol Sulfate (Albuterol 2.5mg/3ml Neb Ud) 2.5 mg HHN Q6HRT GABY Stop: 02/12/17 18:59 Last Admin: 12/16/16 07:41 Dose: 2.5 mg Amiodarone HCl (Cordarone) 200 mg PO BID GABY Stop: 02/12/17 08:59 Last Admin: 12/16/16 08:43 Dose: 200 mg Calcitriol (Rocaltrol) 0.25 mcg PO DAILY GABY Stop: 02/12/17 08:59 Last Admin: 12/16/16 08:44 Dose: 0.25 mcg Carbidopa/Levodopa (Sinemet 25 Mg-250 Mg) 1 tab PO QID GABY Stop: 02/12/17 08:59 Last Admin: 12/16/16 12:28 Dose: 1 tab Carvedilol (Coreg) 3.125 mg PO BID GABY Stop: 02/12/17 08:59 Last Admin: 12/16/16 08:44 Dose: 3.125 mg Cyanocobalamin (Vitamin B12) 100 mcg PO DAILY GABY Stop: 02/12/17 08:59 Last Admin: 12/16/16 10:20 Dose: 100 mcg Docusate Sodium (Colace) 100 mg PO BID GABY Stop: 02/12/17 08:59 Last Admin: 12/16/16 08:44 Dose: 100 mg Enoxaparin Sodium (Lovenox) 40 mg SUBQ DAILY GABY Stop: 02/13/17 08:59 Last Admin: 12/16/16 08:45 Dose: 40 mg Azithromycin 500 mg/ Sodium (Chloride) 250 mls @ 250 mls/hr IV Q24HR GABY Stop: 02/13/17 00:00 Last Admin: 12/16/16 03:08 Dose: 250 mls/hr Miscellaneous (Clinical Monitoring) 1 ea MC PRN PRN PRN Reason: RENAL DOSING Stop: 02/12/17 08:02 Sevelamer HCl (Renagel) 2,400 mg PO TIDWM GABY Stop: 02/12/17 07:59 Last Admin: 12/16/16 12:28 Dose: 2,400 mg Temazepam (Restoril) 15 mg PO HS PRN; Protocol PRN Reason: Insomnia Stop: 02/12/17 03:16 Last Admin: 12/15/16 22:52 Dose: 15 mg Vitamin B Complex/Vit C/Folic Acid (Vitamin B Complex W/Vitamin C) 1 tab PO DAILY GABY Stop: 02/12/17 08:59 Last Admin: 12/16/16 08:44 Dose: 1 tab General: Alert, No acute distress HEENT: Atraumatic, EOMI, Mucous membr. 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 fib thrombocytopenia hep C parkinson ds - Plan Plan: schedule for hd today continue hd f/u cxr
[2016-12-17] MEDS: Albuterol Nebulizer 2.5mg/3mL HHN SCH ×4 (00:30→19:17)
[2016-12-17] MEDS: Azithromycin 500 MG in Sodium Chloride 0.9% 250 ML IV SCH (00:42)
--- NOTE | 2016-12-17 08:22 | General Progress Note ---
Objective - Results Result Diagrams: 12/15/16 09:05 12/15/16 09:05 Recent Labs: Laboratory Last Values WBC 5.3 Th/cmm (4.8-10.8) 12/15/16 09:05 RBC 2.98 Mil/cmm (3.80-5.80) L 12/15/16 09:05 Hgb 10.4 gm/dL (12.6-17.4) L 12/15/16 09:05 Hct 30.8 % (39.0-49.0) L 12/15/16 09:05 MCV 103.1 fl (80-99) H 12/15/16 09:05 MCH 35.0 pg (27.0-31.0) H 12/15/16 09:05 MCHC Differential 34.0 pg (28.0-36.0) 12/15/16 09:05 RDW 17.5 % (11.5-20.0) 12/15/16 09:05 Plt Count 105 Th/cmm (150-400) L D 12/15/16 09:05 MPV 8.2 fl 12/15/16 09:05 Neutrophils % 67.6 % (40.0-80.0) 12/15/16 09:05 Lymphocytes % 19.5 % (20.0-50.0) L 12/15/16 09:05 Monocytes % 11.3 % (2.0-10.0) H 12/15/16 09:05 Eosinophils % 1.5 % (0.0-5.0) 12/15/16 09:05 Basophils % 0.1 % (0.0-2.0) 12/15/16 09:05 PT 10.6 SECONDS (9.5-11.5) 12/14/16 06:10 INR 1.07 (0.5-1.4) 12/14/16 06:10 PTT (Actin FS) 33.6 SECONDS (26.0-38.0) 12/14/16 06:10 Sodium 139 mEq/L (136-145) 12/15/16 09:05 Potassium 4.3 mEq/L (3.5-5.1) 12/15/16 09:05 Chloride 107 mEq/L (98-107) 12/15/16 09:05 Carbon Dioxide 23.6 mEq/L (21.0-31.0) 12/15/16 09:05 Anion Gap 12.7 (7.0-16.0) 12/15/16 09:05 BUN 66 mg/dL (7-25) H 12/15/16 09:05 Creatinine 7.8 mg/dL (0.7-1.3) H* 12/15/16 09:05 Est GFR ( Amer) TNP 12/15/16 09:05 Est GFR (Non-Af Amer) TNP 12/15/16 09:05 BUN/Creatinine Ratio 8.5 12/15/16 09:05 Glucose 148 mg/dL (70-105) H 12/15/16 09:05 Whole Bld Lactic Acid 0.54 mmol/L (0.60-2.00) L 12/13/16 22:30 Calcium 9.7 mg/dL (8.6-10.3) 12/15/16 09:05 Phosphorus 3.0 mg/dL (2.5-5.0) 12/15/16 09:05 Total Bilirubin 0.4 mg/dL (0.3-1.0) 12/15/16 09:05 AST 25 U/L (13-39) 12/15/16 09:05 ALT 8 U/L (7-52) 12/15/16 09:05 Alkaline Phosphatase 68 U/L (34-104) 12/15/16 09:05 Creatine Kinase 688 U/L (30-223) H 12/13/16 22:30 CK-MB (CK-2) 13.7 ng/mL (0.6-6.3) H 12/13/16 22:30 Troponin I 0.05 ng/mL (0.01-0.05) 12/13/16 22:30 Total Protein 6.8 gm/dL (6.0-8.3) 12/15/16 09:05 Albumin 3.2 gm/dL (4.2-5.5) L 12/15/16 09:05 Globulin 3.6 gm/dL 12/15/16 09:05 Albumin/Globulin Ratio 0.9 (1.0-1.8) L 12/15/16 09:05 Urine Source CLEAN C 12/13/16 22:55 Urine Color YELLOW 12/13/16 22:55 Urine Clarity CLEAR (CLEAR) 12/13/16 22:55 Urine pH 8.5 12/13/16 22:55 Ur Specific [place] 1.015 (1.005-1.030) 12/13/16 22:55 Urine Protein >300 mg/dL (NEGATIVE) H 12/13/16 22:55 Urine Glucose (UA) 100 mg/dL (NEGATIVE) H 12/13/16 22:55 Urine Ketones NEGATIVE mg/dL (NEGATIVE) 12/13/16 22:55 Urine Blood MODERATE (NEGATIVE) H 12/13/16 22:55 Urine Nitrate NEGATIVE (NEGATIVE) 12/13/16 22:55 Urine Bilirubin NEGATIVE (NEGATIVE) 12/13/16 22:55 Urine Urobilinogen 0.2 E.U./dL (0.2 - 1.0) 12/13/16 22:55 Ur Leukocyte Esterase NEGATIVE (NEGATIVE) 12/13/16 22:55 Urine RBC 2-5 /hpf (0-5) H 12/13/16 22:55 Urine WBC 0-2 /hpf (0-5) 12/13/16 22:55 Ur Epithelial Cells OCCASIONAL /lpf (FEW) 12/13/16 22:55 Urine Bacteria OCCASIONAL /hpf (NONE SEEN) 12/13/16 22:55 Hepatitis A IgM Ab Negative (Negative) 12/13/16 22:20 Hep Bs Antigen Negative (Negative) 12/13/16 22:20 Hep B Core IgM Ab Negative (Negative) 12/13/16 22:20 Hepatitis C Antibody >11.0 s/co ratio (0.0-0.9) H 12/13/16 22:20 - Physical Exam Vitals and I&O: Vital Signs Temp 99.5 F 12/17/16 04:00 Pulse 64 12/17/16 04:00 Resp 18 12/17/16 04:00 BP 150/65 12/17/16 04:00 Pulse Ox 96 12/17/16 04:00 Intake & Output 12/16/16 12/17/16 12/17/16 18:59 06:59 18:59 Intake Total 1200 700 Output Total 2400 501 Balance -1200 199 Intake: Oral 1200 700 Output: Urine 400 500 Stool 1 Hemodialysis 2000 Other: # Bowel Movements 1 Stool Characteristics Soft Soft Formed Formed Active Medications: Current Medications Acetaminophen (Tylenol) 650 mg PO Q4HR PRN PRN Reason: MILD PAIN Stop: 02/12/17 02:40 Last Admin: 12/17/16 05:54 Dose: 650 mg Acetaminophen/Hydrocodone Bitart ([place] 5mg/325mg) 1 tab PO Q12H PRN PRN Reason: MODERATE PAIN Stop: 02/12/17 02:40 Albuterol Sulfate (Albuterol 2.5mg/3ml Neb Ud) 2.5 mg HHN Q6HRT GABY Stop: 02/12/17 18:59 Last Admin: 12/17/16 00:30 Dose: 2.5 mg Amiodarone HCl (Cordarone) 200 mg PO BID GABY Stop: 02/12/17 08:59 Last Admin: 12/16/16 17:27 Dose: 200 mg Calcitriol (Rocaltrol) 0.25 mcg PO DAILY GABY Stop: 02/12/17 08:59 Last Admin: 12/16/16 08:44 Dose: 0.25 mcg Carbidopa/Levodopa (Sinemet 25 Mg-250 Mg) 1 tab PO QID GABY Stop: 02/12/17 08:59 Last Admin: 12/16/16 21:06 Dose: 1 tab Carvedilol (Coreg) 3.125 mg PO BID GABY Stop: 02/12/17 08:59 Last Admin: 12/16/16 17:28 Dose: 3.125 mg Cyanocobalamin (Vitamin B12) 100 mcg PO DAILY GABY Stop: 02/12/17 08:59 Last Admin: 12/16/16 10:20 Dose: 100 mcg Docusate Sodium (Colace) 100 mg PO BID GABY Stop: 02/12/17 08:59 Last Admin: 12/16/16 17:27 Dose: 100 mg Enoxaparin Sodium (Lovenox) 40 mg SUBQ DAILY GABY Stop: 02/13/17 08:59 Last Admin: 12/16/16 08:45 Dose: 40 mg Azithromycin 500 mg/ Sodium (Chloride) 250 mls @ 250 mls/hr IV Q24HR GABY Stop: 02/13/17 00:00 Last Admin: 12/17/16 00:42 Dose: 250 mls/hr Miscellaneous (Clinical Monitoring) 1 ea MC PRN PRN PRN Reason: RENAL DOSING Stop: 02/12/17 08:02 Sevelamer HCl (Renagel) 2,400 mg PO TIDWM [facility] Stop: 02/12/17 07:59 Last Admin: 12/16/16 17:30 Dose: Not Given Temazepam (Restoril) 15 mg PO HS PRN; Protocol PRN Reason: Insomnia Stop: 02/12/17 03:16 Last Admin: 12/16/16 21:06 Dose: 15 mg Vitamin B Complex/Vit C/Folic Acid (Vitamin B Complex W/Vitamin C) 1 tab PO DAILY [facility] Stop: 02/12/17 08:59 Last Admin: 12/16/16 08:44 Dose: 1 tab Assessment/Plan - Problem List Patient Problems: All Active Problems COUGH WITH FEVER/CHILLS AND WEAKNESS (Acute) RIGHT HAND TRAUMA, NECK PAIN, FOOT EDEMA (Acute)
[2016-12-17] MEDS: Vitamin B Complex w/Vitamin C Tab PO SCH (08:51)
[2016-12-17] MEDS: Enoxaparin 40 mg/0.4 mL 0.4mL Syr SUBQ SCH (08:51)
--- NOTE | 2016-12-17 09:45 | Diagnostic Imaging Report ---
Portable chest x-ray HISTORY: Shortness of breath Compared with the prior exam of 12/13/2016, the heart remains enlarged. There is accentuation of the interstitial lung markings particularly within the right lower lobe. Faint infiltrate cannot be excluded. A linear density seen in the right perihilar region unchanged suggesting subsegmental atelectasis or scarring. IMPRESSION: 1. Little change in the cardiopulmonary status as noted above.
--- NOTE | 2016-12-17 15:00 | General Progress Note ---
Subjective - Review of Systems Service Date: 12/17/16 Subjective: alert, less cough, regained strenght, eager to go home Objective - Results Result Diagrams: 12/15/16 09:05 12/15/16 09:05 Recent Labs: Laboratory Last Values WBC 5.3 Th/cmm (4.8-10.8) 12/15/16 09:05 RBC 2.98 Mil/cmm (3.80-5.80) L 12/15/16 09:05 Hgb 10.4 gm/dL (12.6-17.4) L 12/15/16 09:05 Hct 30.8 % (39.0-49.0) L 12/15/16 09:05 MCV 103.1 fl (80-99) H 12/15/16 09:05 MCH 35.0 pg (27.0-31.0) H 12/15/16 09:05 MCHC Differential 34.0 pg (28.0-36.0) 12/15/16 09:05 RDW 17.5 % (11.5-20.0) 12/15/16 09:05 Plt Count 105 Th/cmm (150-400) L D 12/15/16 09:05 MPV 8.2 fl 12/15/16 09:05 Neutrophils % 67.6 % (40.0-80.0) 12/15/16 09:05 Lymphocytes % 19.5 % (20.0-50.0) L 12/15/16 09:05 Monocytes % 11.3 % (2.0-10.0) H 12/15/16 09:05 Eosinophils % 1.5 % (0.0-5.0) 12/15/16 09:05 Basophils % 0.1 % (0.0-2.0) 12/15/16 09:05 PT 10.6 SECONDS (9.5-11.5) 12/14/16 06:10 INR 1.07 (0.5-1.4) 12/14/16 06:10 PTT (Actin FS) 33.6 SECONDS (26.0-38.0) 12/14/16 06:10 Sodium 139 mEq/L (136-145) 12/15/16 09:05 Potassium 4.3 mEq/L (3.5-5.1) 12/15/16 09:05 Chloride 107 mEq/L (98-107) 12/15/16 09:05 Carbon Dioxide 23.6 mEq/L (21.0-31.0) 12/15/16 09:05 Anion Gap 12.7 (7.0-16.0) 12/15/16 09:05 BUN 66 mg/dL (7-25) H 12/15/16 09:05 Creatinine 7.8 mg/dL (0.7-1.3) H* 12/15/16 09:05 Est GFR ( Amer) TNP 12/15/16 09:05 Est GFR (Non-Af Amer) TNP 12/15/16 09:05 BUN/Creatinine Ratio 8.5 12/15/16 09:05 Glucose 148 mg/dL (70-105) H 12/15/16 09:05 Whole Bld Lactic Acid 0.54 mmol/L (0.60-2.00) L 12/13/16 22:30 Calcium 9.7 mg/dL (8.6-10.3) 12/15/16 09:05 Phosphorus 3.0 mg/dL (2.5-5.0) 12/15/16 09:05 Total Bilirubin 0.4 mg/dL (0.3-1.0) 12/15/16 09:05 AST 25 U/L (13-39) 12/15/16 09:05 ALT 8 U/L (7-52) 12/15/16 09:05 Alkaline Phosphatase 68 U/L (34-104) 12/15/16 09:05 Creatine Kinase 688 U/L (30-223) H 12/13/16 22:30 CK-MB (CK-2) 13.7 ng/mL (0.6-6.3) H 12/13/16 22:30 Troponin I 0.05 ng/mL (0.01-0.05) 12/13/16 22:30 Total Protein 6.8 gm/dL (6.0-8.3) 12/15/16 09:05 Albumin 3.2 gm/dL (4.2-5.5) L 12/15/16 09:05 Globulin 3.6 gm/dL 12/15/16 09:05 Albumin/Globulin Ratio 0.9 (1.0-1.8) L 12/15/16 09:05 Urine Source CLEAN C 12/13/16 22:55 Urine Color YELLOW 12/13/16 22:55 Urine Clarity CLEAR (CLEAR) 12/13/16 22:55 Urine pH 8.5 12/13/16 22:55 Ur Specific [place] 1.015 (1.005-1.030) 12/13/16 22:55 Urine Protein >300 mg/dL (NEGATIVE) H 12/13/16 22:55 Urine Glucose (UA) 100 mg/dL (NEGATIVE) H 12/13/16 22:55 Urine Ketones NEGATIVE mg/dL (NEGATIVE) 12/13/16 22:55 Urine Blood MODERATE (NEGATIVE) H 12/13/16 22:55 Urine Nitrate NEGATIVE (NEGATIVE) 12/13/16 22:55 Urine Bilirubin NEGATIVE (NEGATIVE) 12/13/16 22:55 Urine Urobilinogen 0.2 E.U./dL (0.2 - 1.0) 12/13/16 22:55 Ur Leukocyte Esterase NEGATIVE (NEGATIVE) 12/13/16 22:55 Urine RBC 2-5 /hpf (0-5) H 12/13/16 22:55 Urine WBC 0-2 /hpf (0-5) 12/13/16 22:55 Ur Epithelial Cells OCCASIONAL /lpf (FEW) 12/13/16 22:55 Urine Bacteria OCCASIONAL /hpf (NONE SEEN) 12/13/16 22:55 Hepatitis A IgM Ab Negative (Negative) 12/13/16 22:20 Hep Bs Antigen Negative (Negative) 12/13/16 22:20 Hep B Core IgM Ab Negative (Negative) 12/13/16 22:20 Hepatitis C Antibody >11.0 s/co ratio (0.0-0.9) H 12/13/16 22:20 - Physical Exam Vitals and I&O: Vital Signs Temp 99 F 12/17/16 12:00 Pulse 66 12/17/16 13:37 Resp 18 12/17/16 13:37 BP 175/85 12/17/16 12:00 Pulse Ox 95 12/17/16 13:37 Intake & Output 12/16/16 12/17/16 12/17/16 18:59 06:59 18:59 Intake Total 1200 700 Output Total 2400 501 Balance -1200 199 Intake: Oral 1200 700 Output: Urine 400 500 Stool 1 Hemodialysis 2000 Other: # Bowel Movements 1 Stool Characteristics Soft Soft Soft Formed Formed Formed Active Medications: Current Medications Acetaminophen (Tylenol) 650 mg PO Q4HR PRN PRN Reason: MILD PAIN Stop: 02/12/17 02:40 Last Admin: 12/17/16 05:54 Dose: 650 mg Acetaminophen/Hydrocodone Bitart ([place] 5mg/325mg) 1 tab PO Q12H PRN PRN Reason: MODERATE PAIN Stop: 02/12/17 02:40 Albuterol Sulfate (Albuterol 2.5mg/3ml Neb Ud) 2.5 mg HHN Q6HRT GABY Stop: 02/12/17 18:59 Last Admin: 12/17/16 13:36 Dose: 2.5 mg Amiodarone HCl (Cordarone) 200 mg PO BID GABY Stop: 02/12/17 08:59 Last Admin: 12/17/16 08:51 Dose: 200 mg Calcitriol (Rocaltrol) 0.25 mcg PO DAILY GABY Stop: 02/12/17 08:59 Last Admin: 12/17/16 08:52 Dose: 0.25 mcg Carbidopa/Levodopa (Sinemet 25 Mg-250 Mg) 1 tab PO QID GABY Stop: 02/12/17 08:59 Last Admin: 12/17/16 12:39 Dose: 1 tab Carvedilol (Coreg) 3.125 mg PO BID GABY Stop: 02/12/17 08:59 Last Admin: 12/17/16 08:52 Dose: 3.125 mg Cyanocobalamin (Vitamin B12) 100 mcg PO DAILY GABY Stop: 02/12/17 08:59 Last Admin: 12/17/16 08:52 Dose: 100 mcg Docusate Sodium (Colace) 100 mg PO BID GABY Stop: 02/12/17 08:59 Last Admin: 12/17/16 08:52 Dose: 100 mg Enoxaparin Sodium (Lovenox) 40 mg SUBQ DAILY GABY Stop: 02/13/17 08:59 Last Admin: 12/17/16 08:51 Dose: 40 mg Azithromycin 500 mg/ Sodium (Chloride) 250 mls @ 250 mls/hr IV Q24HR GABY Stop: 02/13/17 00:00 Last Admin: 12/17/16 00:42 Dose: 250 mls/hr Miscellaneous (Clinical Monitoring) 1 ea MC PRN PRN PRN Reason: RENAL DOSING Stop: 02/12/17 08:02 Sevelamer HCl (Renagel) 2,400 mg PO TIDWM GABY Stop: 02/12/17 07:59 Last Admin: 12/17/16 12:39 Dose: 2,400 mg Temazepam (Restoril) 15 mg PO HS PRN; Protocol PRN Reason: Insomnia Stop: 02/12/17 03:16 Last Admin: 12/16/16 21:06 Dose: 15 mg Vitamin B Complex/Vit C/Folic Acid (Vitamin B Complex W/Vitamin C) 1 tab PO DAILY GABY Stop: 02/12/17 08:59 Last Admin: 12/17/16 08:51 Dose: 1 tab General: Alert, No acute distress HEENT: Atraumatic, Mucous membr. 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 fib thrombocytopenia hep C parkinson ds - Plan Plan: pt. was dialyzed yesterday & tolerated it well continue ABx f/u cxr
--- NOTE | 2016-12-17 17:54 | Infectious Disease Prog Note ---
Infectious Disease Subjective - Review of Systems Service Date: 12/17/16 Subjective: There is no new change. There is no fever. Feels better. Infectious Disease Objective - Results Result Diagrams: 12/15/16 09:05 12/15/16 09:05 Recent Labs: Laboratory Last Values WBC 5.3 Th/cmm (4.8-10.8) 12/15/16 09:05 RBC 2.98 Mil/cmm (3.80-5.80) L 12/15/16 09:05 Hgb 10.4 gm/dL (12.6-17.4) L 12/15/16 09:05 Hct 30.8 % (39.0-49.0) L 12/15/16 09:05 MCV 103.1 fl (80-99) H 12/15/16 09:05 MCH 35.0 pg (27.0-31.0) H 12/15/16 09:05 MCHC Differential 34.0 pg (28.0-36.0) 12/15/16 09:05 RDW 17.5 % (11.5-20.0) 12/15/16 09:05 Plt Count 105 Th/cmm (150-400) L D 12/15/16 09:05 MPV 8.2 fl 12/15/16 09:05 Neutrophils % 67.6 % (40.0-80.0) 12/15/16 09:05 Lymphocytes % 19.5 % (20.0-50.0) L 12/15/16 09:05 Monocytes % 11.3 % (2.0-10.0) H 12/15/16 09:05 Eosinophils % 1.5 % (0.0-5.0) 12/15/16 09:05 Basophils % 0.1 % (0.0-2.0) 12/15/16 09:05 PT 10.6 SECONDS (9.5-11.5) 12/14/16 06:10 INR 1.07 (0.5-1.4) 12/14/16 06:10 PTT (Actin FS) 33.6 SECONDS (26.0-38.0) 12/14/16 06:10 Sodium 139 mEq/L (136-145) 12/15/16 09:05 Potassium 4.3 mEq/L (3.5-5.1) 12/15/16 09:05 Chloride 107 mEq/L (98-107) 12/15/16 09:05 Carbon Dioxide 23.6 mEq/L (21.0-31.0) 12/15/16 09:05 Anion Gap 12.7 (7.0-16.0) 12/15/16 09:05 BUN 66 mg/dL (7-25) H 12/15/16 09:05 Creatinine 7.8 mg/dL (0.7-1.3) H* 12/15/16 09:05 Est GFR ( Amer) TNP 12/15/16 09:05 Est GFR (Non-Af Amer) TNP 12/15/16 09:05 BUN/Creatinine Ratio 8.5 12/15/16 09:05 Glucose 148 mg/dL (70-105) H 12/15/16 09:05 Whole Bld Lactic Acid 0.54 mmol/L (0.60-2.00) L 12/13/16 22:30 Calcium 9.7 mg/dL (8.6-10.3) 12/15/16 09:05 Phosphorus 3.0 mg/dL (2.5-5.0) 12/15/16 09:05 Total Bilirubin 0.4 mg/dL (0.3-1.0) 12/15/16 09:05 AST 25 U/L (13-39) 12/15/16 09:05 ALT 8 U/L (7-52) 12/15/16 09:05 Alkaline Phosphatase 68 U/L (34-104) 12/15/16 09:05 Creatine Kinase 688 U/L (30-223) H 12/13/16 22:30 CK-MB (CK-2) 13.7 ng/mL (0.6-6.3) H 12/13/16 22:30 Troponin I 0.05 ng/mL (0.01-0.05) 12/13/16 22:30 Total Protein 6.8 gm/dL (6.0-8.3) 12/15/16 09:05 Albumin 3.2 gm/dL (4.2-5.5) L 12/15/16 09:05 Globulin 3.6 gm/dL 12/15/16 09:05 Albumin/Globulin Ratio 0.9 (1.0-1.8) L 12/15/16 09:05 Urine Source CLEAN C 12/13/16 22:55 Urine Color YELLOW 12/13/16 22:55 Urine Clarity CLEAR (CLEAR) 12/13/16 22:55 Urine pH 8.5 12/13/16 22:55 Ur Specific [place] 1.015 (1.005-1.030) 12/13/16 22:55 Urine Protein >300 mg/dL (NEGATIVE) H 12/13/16 22:55 Urine Glucose (UA) 100 mg/dL (NEGATIVE) H 12/13/16 22:55 Urine Ketones NEGATIVE mg/dL (NEGATIVE) 12/13/16 22:55 Urine Blood MODERATE (NEGATIVE) H 12/13/16 22:55 Urine Nitrate NEGATIVE (NEGATIVE) 12/13/16 22:55 Urine Bilirubin NEGATIVE (NEGATIVE) 12/13/16 22:55 Urine Urobilinogen 0.2 E.U./dL (0.2 - 1.0) 12/13/16 22:55 Ur Leukocyte Esterase NEGATIVE (NEGATIVE) 12/13/16 22:55 Urine RBC 2-5 /hpf (0-5) H 12/13/16 22:55 Urine WBC 0-2 /hpf (0-5) 12/13/16 22:55 Ur Epithelial Cells OCCASIONAL /lpf (FEW) 12/13/16 22:55 Urine Bacteria OCCASIONAL /hpf (NONE SEEN) 12/13/16 22:55 Hepatitis A IgM Ab Negative (Negative) 12/13/16 22:20 Hep Bs Antigen Negative (Negative) 12/13/16 22:20 Hep B Core IgM Ab Negative (Negative) 12/13/16 22:20 Hepatitis C Antibody >11.0 s/co ratio (0.0-0.9) H 12/13/16 22:20 - Physical Exam Vitals and I&O: Vital Signs Temp 98.8 F 12/17/16 16:00 Pulse 67 12/17/16 16:08 Resp 18 12/17/16 16:00 BP 175/70 12/17/16 16:08 Pulse Ox 97 12/17/16 16:00 Intake & Output 12/16/16 12/17/16 12/17/16 18:59 06:59 18:59 Intake Total 1200 700 Output Total 2400 501 Balance -1200 199 Intake: Oral 1200 700 Output: Urine 400 500 Stool 1 Hemodialysis 2000 Other: # Bowel Movements 1 Stool Characteristics Soft Soft Soft Formed Formed Formed Active Medications: Current Medications Acetaminophen (Tylenol) 650 mg PO Q4HR PRN PRN Reason: MILD PAIN Stop: 02/12/17 02:40 Last Admin: 12/17/16 05:54 Dose: 650 mg Acetaminophen/Hydrocodone Bitart ([place] 5mg/325mg) 1 tab PO Q12H PRN PRN Reason: MODERATE PAIN Stop: 02/12/17 02:40 Albuterol Sulfate (Albuterol 2.5mg/3ml Neb Ud) 2.5 mg HHN Q6HRT GABY Stop: 02/12/17 18:59 Last Admin: 12/17/16 13:36 Dose: 2.5 mg Amiodarone HCl (Cordarone) 200 mg PO BID GABY Stop: 02/12/17 08:59 Last Admin: 12/17/16 16:08 Dose: 200 mg Calcitriol (Rocaltrol) 0.25 mcg PO DAILY GABY Stop: 02/12/17 08:59 Last Admin: 12/17/16 08:52 Dose: 0.25 mcg Carbidopa/Levodopa (Sinemet 25 Mg-250 Mg) 1 tab PO QID GABY Stop: 02/12/17 08:59 Last Admin: 12/17/16 16:08 Dose: 1 tab Carvedilol (Coreg) 3.125 mg PO BID GABY Stop: 02/12/17 08:59 Last Admin: 12/17/16 16:08 Dose: 3.125 mg Cyanocobalamin (Vitamin B12) 100 mcg PO DAILY GABY Stop: 02/12/17 08:59 Last Admin: 12/17/16 08:52 Dose: 100 mcg Docusate Sodium (Colace) 100 mg PO BID GABY Stop: 02/12/17 08:59 Last Admin: 12/17/16 16:08 Dose: 100 mg Enoxaparin Sodium (Lovenox) 40 mg SUBQ DAILY GABY Stop: 02/13/17 08:59 Last Admin: 12/17/16 08:51 Dose: 40 mg Azithromycin 500 mg/ Sodium (Chloride) 250 mls @ 250 mls/hr IV Q24HR GABY Stop: 02/13/17 00:00 Last Admin: 12/17/16 00:42 Dose: 250 mls/hr Miscellaneous (Clinical Monitoring) 1 ea MC PRN PRN PRN Reason: RENAL DOSING Stop: 02/12/17 08:02 Sevelamer HCl (Renagel) 2,400 mg PO TIDWM GABY Stop: 02/12/17 07:59 Last Admin: 12/17/16 16:07 Dose: 2,400 mg Temazepam (Restoril) 15 mg PO HS PRN; Protocol PRN Reason: Insomnia Stop: 02/12/17 03:16 Last Admin: 12/16/16 21:06 Dose: 15 mg Vitamin B Complex/Vit C/Folic Acid (Vitamin B Complex W/Vitamin C) 1 tab PO DAILY GABY Stop: 02/12/17 08:59 Last Admin: 12/17/16 08:51 Dose: 1 tab General: no acute distress, well developed, well nourished HEENT: atraumatic, normocephalic, PERRLA Neck: supple, no thyromegaly, no lymphadenopathy Cardiovascular: S1S2, regular Lungs: clear to auscultation bilaterally, clear to percussion Abdomen: soft, no tender, no distended Extremities: no cyanosis, no clubbing, no edema Neurological: awake, alert, oriented, CN 2-12 intact Skin: intact Infectious Disease Assmt/Plan - Problem List Patient Problems: All Active Problems COUGH WITH FEVER/CHILLS AND WEAKNESS (Acute) RIGHT HAND TRAUMA, NECK PAIN, FOOT EDEMA (Acute) - Assessment Assessment: 1. Pneumonia, RLL. CAP, atypical. 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 3. Colostomy, s/p partial colectomy for Colon CA. 4. HTN. 5. Anemia of CD. - Plan Plan: Change antibiotics to Augmentin po.
--- NOTE | 2016-12-17 21:01 | General Progress Note ---
Subjective - Review of Systems Service Date: 12/17/16 Subjective: C/O HOARSE VOICE Objective - Results Result Diagrams: 12/15/16 09:05 12/15/16 09:05 Recent Labs: Laboratory Last Values WBC 5.3 Th/cmm (4.8-10.8) 12/15/16 09:05 RBC 2.98 Mil/cmm (3.80-5.80) L 12/15/16 09:05 Hgb 10.4 gm/dL (12.6-17.4) L 12/15/16 09:05 Hct 30.8 % (39.0-49.0) L 12/15/16 09:05 MCV 103.1 fl (80-99) H 12/15/16 09:05 MCH 35.0 pg (27.0-31.0) H 12/15/16 09:05 MCHC Differential 34.0 pg (28.0-36.0) 12/15/16 09:05 RDW 17.5 % (11.5-20.0) 12/15/16 09:05 Plt Count 105 Th/cmm (150-400) L D 12/15/16 09:05 MPV 8.2 fl 12/15/16 09:05 Neutrophils % 67.6 % (40.0-80.0) 12/15/16 09:05 Lymphocytes % 19.5 % (20.0-50.0) L 12/15/16 09:05 Monocytes % 11.3 % (2.0-10.0) H 12/15/16 09:05 Eosinophils % 1.5 % (0.0-5.0) 12/15/16 09:05 Basophils % 0.1 % (0.0-2.0) 12/15/16 09:05 PT 10.6 SECONDS (9.5-11.5) 12/14/16 06:10 INR 1.07 (0.5-1.4) 12/14/16 06:10 PTT (Actin FS) 33.6 SECONDS (26.0-38.0) 12/14/16 06:10 Sodium 139 mEq/L (136-145) 12/15/16 09:05 Potassium 4.3 mEq/L (3.5-5.1) 12/15/16 09:05 Chloride 107 mEq/L (98-107) 12/15/16 09:05 Carbon Dioxide 23.6 mEq/L (21.0-31.0) 12/15/16 09:05 Anion Gap 12.7 (7.0-16.0) 12/15/16 09:05 BUN 66 mg/dL (7-25) H 12/15/16 09:05 Creatinine 7.8 mg/dL (0.7-1.3) H* 12/15/16 09:05 Est GFR ( Amer) TNP 12/15/16 09:05 Est GFR (Non-Af Amer) TNP 12/15/16 09:05 BUN/Creatinine Ratio 8.5 12/15/16 09:05 Glucose 148 mg/dL (70-105) H 12/15/16 09:05 Whole Bld Lactic Acid 0.54 mmol/L (0.60-2.00) L 12/13/16 22:30 Calcium 9.7 mg/dL (8.6-10.3) 12/15/16 09:05 Phosphorus 3.0 mg/dL (2.5-5.0) 12/15/16 09:05 Total Bilirubin 0.4 mg/dL (0.3-1.0) 12/15/16 09:05 AST 25 U/L (13-39) 12/15/16 09:05 ALT 8 U/L (7-52) 12/15/16 09:05 Alkaline Phosphatase 68 U/L (34-104) 12/15/16 09:05 Creatine Kinase 688 U/L (30-223) H 12/13/16 22:30 CK-MB (CK-2) 13.7 ng/mL (0.6-6.3) H 12/13/16 22:30 Troponin I 0.05 ng/mL (0.01-0.05) 12/13/16 22:30 Total Protein 6.8 gm/dL (6.0-8.3) 12/15/16 09:05 Albumin 3.2 gm/dL (4.2-5.5) L 12/15/16 09:05 Globulin 3.6 gm/dL 12/15/16 09:05 Albumin/Globulin Ratio 0.9 (1.0-1.8) L 12/15/16 09:05 Urine Source CLEAN C 12/13/16 22:55 Urine Color YELLOW 12/13/16 22:55 Urine Clarity CLEAR (CLEAR) 12/13/16 22:55 Urine pH 8.5 12/13/16 22:55 Ur Specific [place] 1.015 (1.005-1.030) 12/13/16 22:55 Urine Protein >300 mg/dL (NEGATIVE) H 12/13/16 22:55 Urine Glucose (UA) 100 mg/dL (NEGATIVE) H 12/13/16 22:55 Urine Ketones NEGATIVE mg/dL (NEGATIVE) 12/13/16 22:55 Urine Blood MODERATE (NEGATIVE) H 12/13/16 22:55 Urine Nitrate NEGATIVE (NEGATIVE) 12/13/16 22:55 Urine Bilirubin NEGATIVE (NEGATIVE) 12/13/16 22:55 Urine Urobilinogen 0.2 E.U./dL (0.2 - 1.0) 12/13/16 22:55 Ur Leukocyte Esterase NEGATIVE (NEGATIVE) 12/13/16 22:55 Urine RBC 2-5 /hpf (0-5) H 12/13/16 22:55 Urine WBC 0-2 /hpf (0-5) 12/13/16 22:55 Ur Epithelial Cells OCCASIONAL /lpf (FEW) 12/13/16 22:55 Urine Bacteria OCCASIONAL /hpf (NONE SEEN) 12/13/16 22:55 Hepatitis A IgM Ab Negative (Negative) 12/13/16 22:20 Hep Bs Antigen Negative (Negative) 12/13/16 22:20 Hep B Core IgM Ab Negative (Negative) 12/13/16 22:20 Hepatitis C Antibody >11.0 s/co ratio (0.0-0.9) H 12/13/16 22:20 - Physical Exam Vitals and I&O: Vital Signs Temp 98.8 F 12/17/16 16:00 Pulse 69 12/17/16 19:17 Resp 18 12/17/16 19:17 BP 175/70 12/17/16 16:08 Pulse Ox 97 12/17/16 19:17 Intake & Output 12/17/16 12/17/16 12/18/16 06:59 18:59 06:59 Intake Total 700 850 Output Total 501 Balance 199 850 Intake: Intake, IV Amount 250 Azithromycin 500 mg In 250 Sodium Chloride 0.9% 250 ml @ 250 mls/hr IV Q24HR [facility] Rx#:[id number] Oral 700 600 Output: Urine 500 Stool 1 Other: # Voids 2 # Bowel Movements 1 Stool Characteristics Soft Soft Formed Formed Active Medications: Current Medications Acetaminophen (Tylenol) 650 mg PO Q4HR PRN PRN Reason: MILD PAIN Stop: 02/12/17 02:40 Last Admin: 12/17/16 05:54 Dose: 650 mg Acetaminophen/Hydrocodone Bitart ([place] 5mg/325mg) 1 tab PO Q12H PRN PRN Reason: MODERATE PAIN Stop: 02/12/17 02:40 Albuterol Sulfate (Albuterol 2.5mg/3ml Neb Ud) 2.5 mg HHN Q6HRT GABY Stop: 02/12/17 18:59 Last Admin: 12/17/16 19:17 Dose: 2.5 mg Amiodarone HCl (Cordarone) 200 mg PO BID GABY Stop: 02/12/17 08:59 Last Admin: 12/17/16 16:08 Dose: 200 mg Calcitriol (Rocaltrol) 0.25 mcg PO DAILY GABY Stop: 02/12/17 08:59 Last Admin: 12/17/16 08:52 Dose: 0.25 mcg Carbidopa/Levodopa (Sinemet 25 Mg-250 Mg) 1 tab PO QID GABY Stop: 02/12/17 08:59 Last Admin: 12/17/16 16:08 Dose: 1 tab Carvedilol (Coreg) 3.125 mg PO BID GABY Stop: 02/12/17 08:59 Last Admin: 12/17/16 16:08 Dose: 3.125 mg Cyanocobalamin (Vitamin B12) 100 mcg PO DAILY GABY Stop: 02/12/17 08:59 Last Admin: 12/17/16 08:52 Dose: 100 mcg Docusate Sodium (Colace) 100 mg PO BID GABY Stop: 02/12/17 08:59 Last Admin: 12/17/16 16:08 Dose: 100 mg Enoxaparin Sodium (Lovenox) 40 mg SUBQ DAILY GABY Stop: 02/13/17 08:59 Last Admin: 12/17/16 08:51 Dose: 40 mg Azithromycin 500 mg/ Sodium (Chloride) 250 mls @ 250 mls/hr IV Q24HR GABY Stop: 02/13/17 00:00 Last Infusion: 12/17/16 18:34 Dose: Infused Miscellaneous (Clinical Monitoring) 1 ea MC PRN PRN PRN Reason: RENAL DOSING Stop: 02/12/17 08:02 Sevelamer HCl (Renagel) 2,400 mg PO TIDWM GABY Stop: 02/12/17 07:59 Last Admin: 12/17/16 16:07 Dose: 2,400 mg Temazepam (Restoril) 15 mg PO HS PRN; Protocol PRN Reason: Insomnia Stop: 02/12/17 03:16 Last Admin: 12/16/16 21:06 Dose: 15 mg Vitamin B Complex/Vit C/Folic Acid (Vitamin B Complex W/Vitamin C) 1 tab PO DAILY GABY Stop: 02/12/17 08:59 Last Admin: 12/17/16 08:51 Dose: 1 tab General: Moderate distress Neck: Supple Cardiovascular: Regular rate Lungs: Clear to auscultation Abdomen: Bowel sounds, Soft Neurological: Normal gait (HIP PAIN) Psych/Mental Status: Mental status NL Assessment/Plan - Problem List Patient Problems: All Active Problems COUGH WITH FEVER/CHILLS AND WEAKNESS (Acute) LARYNGITIS (Acute) TRACHITIS (Acute) RIGHT HAND TRAUMA, NECK PAIN, FOOT EDEMA (Acute)
--- NOTE | 2016-12-28 19:26 | Discharge Summary ---
HOSPITAL COURSE: The patient was admitted from a longterm through the Emergency Room with chief complaint of cough and weakness for 3 days, and from ER, the patient was found to have right lower lobe pneumonia. Then, the patient was admitted to medical floor. The patient was given series of IV antibiotics with a consultation with ID doctor. The patient was discharged back to [facility]. FINAL DIAGNOSES: Right lower lobe pneumonia, end-stage renal disease, hypertension, anemia, Parkinson's disease, history of colon cancer, positive colostomy, and anemia. [facility]# [id number]
== END 2016-12-17 20:40 | DRG 682 ==
LOC: ER 20:03 → MSI 12-14 01:00
PROVIDERS: ADMIT Internal Medicine; ATTEND Internal Medicine
PROC: 5A1D60Z (ICD-10-PCS; principal; 2016-12-14)
DX: I12.0 Hypertensive chronic kidney disease with stage 5 chronic kidney disease or end stage renal disease (principal); J18.9 Pneumonia, unspecified organism; N18.6 End stage renal disease; G20 Parkinson's disease; D69.6 Thrombocytopenia, unspecified; I48.2 Chronic atrial fibrillation; B19.20 Unspecified viral hepatitis C without hepatic coma; M19.90 Unspecified osteoarthritis, unspecified site; M54.2 Cervicalgia; J04.0 Acute laryngitis; D63.1 Anemia in chronic kidney disease; Z99.2 Dependence on renal dialysis; Z93.3 Colostomy status; Z85.038 Personal history of other malignant neoplasm of large intestine; Z90.49 Acquired absence of other specified parts of digestive tract; Z91.011 Allergy to milk products; Z82.49 Family history of ischemic heart disease and other diseases of the circulatory system; Z98.42 Cataract extraction status, left eye; Z98.41 Cataract extraction status, right eye
CPT/HCPCS: 36415-UA; 71010-TC; 80048-TC; 80053-TC; 80074-90; 81001-TC; 82550-TC; 82553; 83605; 84100-TC; 84484-TC; 85025-TC; 85610-TC; 87070; 90937; 93005; 94760; 96379; J0456; J0696; J1650; J7030; J7613; Z7610

== ENCOUNTER 2017-06-15 21:45 | Inpatient (IN) | payer MEDICARE, MEDICAID ==
--- NOTE | 2017-06-15 21:57 | ED Physician Chart ---
Chief Complaint/HPI - Patient Information Date Seen:: 06/15/17 Time Seen:: 21:52 Chief Complaint:: pulmonary infiltrate History of Present Illness:: pt of Dr Ceballos...sent from [place] for pulmonary infiltrate (small LLL) on recent cxr from earlier today outpt. pt is alert on arrival. he recalls has had a cough prod of yellow/green sputum. no recall of fever. no cp. no sob. no rash. no stiff neck. no rhinitis. no st. no abd pain. pt has colostomy ...no infection there Allergies:: Allergies Allergy/AdvReac Type Severity Reaction Status Date / Time milk Allergy Verified 12/04/16 18:53 Historian:: Patient Review of Systems - Review of Systems General/Constitutional: No fever, No chills, No weight loss, No weakness, No diaphoresis, No edema, No loss of appetite Skin: No skin lesions, No rash, No bruising Head: No headache, No light-headedness Eyes: No loss of vision, No pain, No diplopia ENT: No earache, No nasal drainage, No sore throat, No tinnitus Neck: No neck pain, No swelling, No thyromegaly, No stiffness, No mass noted Cardio Vascular: No chest pain, No palpitations, No PND, No orthopnea, No edema Pulmonary: No SOB, Cough, Sputum, No wheezing GI: No nausea, No vomiting, No diarrhea, No pain, No melena, No hematochezia, No constipation, No hematemesis G/U: No dysuria, No frequency, No hematuria Musculoskeletal: No bone or joint pain, No back pain, No muscle pain Endocrine: No polyuria, No polydipsia Psychiatric: No prior psych history, No depression, No anxiety, No suicidal ideation Hematopoietic: No bruising, No lymphadenopathy Allergic/Immuno: No urticaria, No angioedema Neurological: No syncope, No focal symptoms, No weakness, No paresthesia, No headache, No seizure, No dizziness, No confusion, No vertigo Past Medical History - Past Medical History Past Medical History: ESRD, Other (afib, colostomy(ca hx)) Social History: Smoker (former), Care Facility Surgical History: other (colostomy, cateract eye sx 2 wks ago) Medication: Reviewed Family Medical History - Family Member Mother History Unknown: Yes Living Status: Physical Exam - Physical Examination General/Constitutional: Awake, Well-developed, well-nourished, Alert, No distress, GCS 15, Non-toxic appearing, Ambulatory Head: Atraumatic Eyes: Lids, conjuctiva normal, PERRL, EOMI Skin: Nl inspection, No rash, No skin lesions, No ecchymosis, Well hydrated, No lymphadenopathy ENMT: External ears, nose nl, Nasal exam nl, Lips, teeth, gums nl Neck: Nontender, Full ROM w/o pain, No JVD, No nuchal rigidity, No bruit, No mass, No stridor Respiratory: Nl effort/Exclusion, Clear to Auscultation, No Wheeze/Rhonchi/Rales Other Respiratory comments:: lungs clear no cough heard during my exam. nonlabored breathing. Cardio Vascular: RRR, No murmur, gallop, rubs, NL S1 S2 GI: No tenderness/rebounding/guarding, No organomegaly, No hernia, Normal BS's, Nondistended, No mass/bruits, No McBurney tenderness Other GI comments:: colostomy site llq ok no infection. nrml feces in bag. : No CVA tenderness Extremities: No tenderness or effusion, Full ROM, normal strength in all extremities, No edema, Normal digits & nails Neuro/Psych: Alert/oriented, DTR's symmetric, Normal sensory exam, Normal motor strength, Judgement/insight normal, Mood normal, Normal gait, No focal deficits Misc: normal gait, Normal back, No paraspinal tenderness Labs/Radiology/EKG Results - Lab Results Results: Laboratory Tests 06/15/17 06/15/17 23:13 23:13 WBC 6.3 RBC 2.97 L Hgb 10.7 L Hct 32.0 L MCH 35.9 H MCHC Differential 33.2 RDW 15.6 MPV 7.1 Neutrophils % 52.0 Lymphocytes % 34.6 Monocytes % 9.9 Eosinophils % 2.9 Basophils % 0.6 Sodium 130 L Potassium 3.7 Chloride 93 L Carbon Dioxide 26.8 Anion Gap 13.9 BUN 34 H Creatinine 6.0 H* Est GFR ( Amer) TNP Est GFR (Non-Af Amer) TNP BUN/Creatinine Ratio 5.7 Glucose 85 Calcium 9.8 Total Bilirubin 0.4 AST 72 H ALT 13 Alkaline Phosphatase 74 Total Protein 7.1 Albumin 4.2 Globulin 2.9 Albumin/Globulin Ratio 1.5 - Radiology Results Results: cxr l base obscurred poss inf - EKG Interpretations EKG Time:: 22:30 Rate & Rhythm: nsr 67 [place]: -14 Intervals: qtc 543 Comments:: nsr, nonspecific interventric cond delay ED Septic Shock - . Is Septic Shock (SBP<90, OR Lactate>4 mmol\L) present?: No Reassessment (Disposition) - Reassessment Reassessment:: 3am have been awaiting callback from dr ceballos >3 phone calls and 2+ hrs.... dr ceballos called in admit orders to staff. Reassessment Condition:: Unchanged - Diagnosis Diagnosis:: 1 pneumonia - Patient Disposition Admitted to:: Telemetry Condition at Disposition:: Improved ED Discharge Plan - Patient Disposition Admit/Discharge/Transfer: Acute Care w/in this hosp
[2017-06-15 23:32] LABS: % BASOPHILS 0.6 % (0.0-2.0); % EOSINOPHILS 2.9 % (0.0-5.0); % LYMPHOCYTES 34.6 % (20.0-50.0); % MONOCYTES 9.9 % (2.0-10.0); HEMOGLOBIN 10.7 gm/dL (12.6-17.4); MEAN CORPUSCULAR HEMOGLOBIN 35.9 pg (27.0-31.0); MEAN CORPUSCULAR HGB CONC 33.2 pg (28.0-36.0); MEAN PLATELET VOLUME 7.1 fl; NEUTROPHILE ABSOLUTE 3.3 Th/cmm (1.8-8.0); RED BLOOD COUNT 2.97 Mil/cmm (3.80-5.80); RED CELL DISTRIBUTION WIDTH 15.6 % (11.5-20.0); WHITE BLOOD COUNT 6.3 Th/cmm (4.8-10.8)
[2017-06-15 23:42] LABS: ALB/GLOB RATIO 1.5 (1.0-1.8); ALKALINE PHOSPHATASE 74 U/L (34-104); ANION GAP 13.9 (7.0-16.0); BILIRUBIN,TOTAL 0.4 mg/dL (0.3-1.0); BUN - UREA NITROGEN 34 mg/dL (7-25); BUN/CREATININE RATIO 5.7; CALCIUM SERUM 9.8 mg/dL (8.6-10.3); CARBON DIOXIDE 26.8 mEq/L (21.0-31.0); CHLORIDE 93 mEq/L (98-107); GLUCOSE 85 mg/dL (70-105); POTASSIUM SERUM 3.7 mEq/L (3.5-5.1); SGOT 72 U/L (13-39); SGPT/ALT 13 U/L (7-52); SODIUM SERUM 130 mEq/L (136-145)
[2017-06-15 23:58] LABS: PLATELET COUNT 119 Th/cmm (150-400)
[2017-06-15 23:59] LABS: MEAN CELL VOLUME 107.9 fl (80-99)
[2017-06-16] MEDS ORDERED: Levofloxacin 500mg/100mL 500 MG/100 ML BAG IV ONE ×2 (00:28→01:00)
[2017-06-16] MEDS ORDERED: Sodium Chloride 0.9% 1,000 ML IV ONE (02:53)
[2017-06-16] MEDS ORDERED: Codeine /Guaifenesin 10 mL UDC PO STA (03:00)
[2017-06-16] MEDS ORDERED: Codeine /Guaifenesin 10 mL UDC ONE (03:01)
[2017-06-16] MEDS ORDERED: Piperacillin/Tazobact 2.25 gm in 0.9% NS 50 ML IV ONE (05:00)
[2017-06-16 05:31] VITALS: BP 138/77
[2017-06-16] MEDS ORDERED: Piperacillin Sodium/Tazobact 2.25 gm Vial IV ONE (06:15)
[2017-06-16] MEDS: Ipratropium Neb 0.5 mg/2.5 mL UD HHN SCH ×3 (08:00→23:41)
[2017-06-16] MEDS: Albuterol Nebulizer 2.5mg/3mL HHN SCH ×5 (08:00→23:41)
[2017-06-16] MEDS ORDERED: Vancomycin HCl 1.75 GM in Sodium Chloride 0.9% 500 ML IV ONE (08:45)
[2017-06-16] MEDS ORDERED: Vancomycin HCl 1.5 GM in Sodium Chloride 0.9% 500 ML IV ONE (10:00)
--- NOTE | 2017-06-16 10:09 | Diagnostic Imaging Report ---
CHEST X-RAY: AP view INDICATION: Cough COMPARISON: 12/17/2016 FINDINGS: Chronic lung changes are seen with increased left basal lung markings and trace left effusion versus left basal pleural thickening. No focal consolidation identified. Borderline prominent heart is noted with atherosclerosis. Degenerative changes of the spine are noted. IMPRESSION: Chronic lung changes with trace left effusion versus left basal pleural thickening. No focal consolidation identified. Left basal atelectatic changes. Atherosclerotic vascular disease.
[2017-06-16] MEDS ORDERED: Hydrocodone/APAP 5mg/325mg Tab PO PRN (10:20)
[2017-06-16] MEDS: Piperacillin/Tazobact 2.25 gm in 0.9% NS 50 ML IV SCH ×3 (12:51→23:29)
[2017-06-16 13:33] LABS: ANION GAP 17.7 (7.0-16.0); BUN - UREA NITROGEN 45 mg/dL (7-25); BUN/CREATININE RATIO 6.5; CALCIUM SERUM 10.1 mg/dL (8.6-10.3); CARBON DIOXIDE 24.4 mEq/L (21.0-31.0); CHLORIDE 95 mEq/L (98-107); GLUCOSE 170 mg/dL (70-105); POTASSIUM SERUM 5.1 mEq/L (3.5-5.1); SODIUM SERUM 132 mEq/L (136-145)
[2017-06-16 13:36] LABS: CREATININE - SERUM 6.9 mg/dL (0.7-1.3)
[2017-06-16 13:39] LABS: % BASOPHILS 0.1 % (0.0-2.0); % EOSINOPHILS 0.3 % (0.0-5.0); % MONOCYTES 1.3 % (2.0-10.0); % NEUTROPHILS 84.3 % (40.0-80.0); HEMATOCRIT 34.2 % (39.0-49.0); HEMOGLOBIN 11.5 gm/dL (12.6-17.4); MEAN CORPUSCULAR HEMOGLOBIN 35.5 pg (27.0-31.0); MEAN CORPUSCULAR HGB CONC 33.6 pg (28.0-36.0); MEAN PLATELET VOLUME 6.7 fl; NEUTROPHILE ABSOLUTE 4.7 Th/cmm (1.8-8.0); PLATELET COUNT 121 Th/cmm (150-400); RED BLOOD COUNT 3.24 Mil/cmm (3.80-5.80); RED CELL DISTRIBUTION WIDTH 14.9 % (11.5-20.0); WHITE BLOOD COUNT 5.6 Th/cmm (4.8-10.8)
[2017-06-16 13:40] LABS: MEAN CELL VOLUME 105.5 fl (80-99)
--- NOTE | 2017-06-16 14:01 | Consultation ---
Consult Note - Consult Note Service Date: 06/16/17 Referring Physician: Jose Jordan Consult Note: PHYSICIAN Consultation Note: Date of Admission: 06/16/17 Purpose of Consultation: Pneumonia. Chief Complaint: . Patient SHANNON LYNN was admitted to [facility] with PNEUMONIA. 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 Patient denies any fever or chills. As patient had complained of a cough chest x-ray was performed and it revealed left lower lobe infiltrate so he was sent to the ER for further evaluation and management. On initial evaluation, the patient's temperature was 97.9F and 6300. Chest x-ray has revealed left lower lobe chronic changes and pleural effusion. Past Medical History: CKD stage V on hemodialysis, colon carcinoma colostomy. Allergies Allergy/AdvReac Type Severity Reaction Status Date / Time milk Allergy Verified 12/04/16 18:53 Vital Signs Temp 97.8 F 06/16/17 08:32 Pulse 72 06/16/17 11:56 Resp 18 06/16/17 13:00 BP 138/77 06/16/17 08:32 Pulse Ox 96 06/16/17 11:56 Intake & Output 06/15/17 06/16/17 06/16/17 18:59 06:59 18:59 Intake Total 360 Balance 360 Weight (lbs) 87.997 kg Intake: Intake, IV Amount 260 Sodium Chloride 0.9% 1, 130 000 ml @ 100 mls/hr IV . Q10H ONE Rx#:[id number] Oral 100 Other: Stool Characteristics Soft Soft Laboratory Results - last 24 hr 06/16/17 06/16/17 12:56 12:56 WBC 5.6 RBC 3.24 L Hgb 11.5 L Hct 34.2 L MCV 105.5 H MCH 35.5 H MCHC Differential 33.6 RDW 14.9 Plt Count 121 L MPV 6.7 Neutrophils % 84.3 H Lymphocytes % 14.0 L Monocytes % 1.3 L Eosinophils % 0.3 Basophils % 0.1 Sodium 132 L Potassium 5.1 Chloride 95 L Carbon Dioxide 24.4 Anion Gap 17.7 H BUN 45 H Creatinine 6.9 H* Est GFR ( Amer) TNP Est GFR (Non-Af Amer) TNP BUN/Creatinine Ratio 6.5 Glucose 170 H Calcium 10.1 Home Medication Medication Instructions Recorded Type Acetaminophen [Tylenol] 325 mg PO Q6HR PRN 06/15/17 History Amiodarone [Cordarone] 200 mg PO BID 06/15/17 History Calcitriol [Rocaltrol] 0.25 mcg PO DAILY 06/15/17 History Carbidopa/Levodopa 25/250 mg 1 tab PO QID 06/15/17 History [Sinemet 25 mg-250 mg] Carvedilol [Coreg] 3.125 mg PO QSUN 06/15/17 History Clonidine HCl [Catapres] 0.1 mg PO Q8H PRN 06/15/17 History Cyanocobalamin [Vitamin B12] 100 mcg PO DAILY 06/15/[address] [Depmariselate DR] 250 mg PO Q12H 06/15/17 History Ferrous Sulfate [Iron] 325 mg PO BID 06/15/17 History Folic Acid [Folate*] 1 mg PO DAILY 06/15/17 History Folic Acid/Vit Bcomp,C [Full 0.8 mg PO DAILY 06/15/17 History Spectrum B with Vit C Tab] Hydrocodone/Acetaminophen [[place] 1 tab PO BID PRN 06/15/17 History 325 mg-5 mg*] Sevelamer [Renagel] 2,400 mg PO TID 06/15/17 History Temazepam [Restoril*] 7.5 mg PO HS PRN 06/15/17 History Current Medications Generic Name Dose Route Start Last Admin Trade Name Vladislav PRN Reason Stop Dose Admin Acetaminophen 650 mg 06/16/17 12:41 Tylenol PO 08/15/17 12:35 Q6H PRN pain and fever >100 F Acetaminophen/Hydrocodone Bitart 1 tab 06/16/17 10:20 [place] 5mg/325mg PO 08/15/17 10:19 BID PRN Pain (Moderate) Albuterol Sulfate 2.5 mg 06/16/17 07:00 06/16/17 11:50 Albuterol 2.5mg/3ml Neb Ud HHN 08/15/17 06:59 2.5 mg Q4HRT GABY Administration Amiodarone HCl 200 mg 06/16/17 17:00 Cordarone PO 08/15/17 16:59 BID GABY Calcitriol 0.25 mcg 06/17/17 09:00 Rocaltrol PO 08/16/17 08:59 DAILY GABY Carbidopa/Levodopa 1 tab 06/16/17 13:00 06/16/17 12:47 Sinemet 25 Mg-250 Mg PO 08/15/17 12:59 1 tab QID GABY Administration Carvedilol 3.125 mg 06/16/17 14:00 Coreg PO 08/15/17 13:59 [email or web address] Clonidine HCl 0.1 mg 06/16/17 10:20 Catapres PO 08/15/17 10:19 Q8H PRN SBP ABOVE 160 Cyanocobalamin 100 mcg 06/17/17 09:00 Vitamin B12 PO 08/16/17 08:59 DAILY [facility] Divalproex Sodium 250 mg 06/16/17 10:30 06/16/17 11:[address] PO 08/15/17 10:29 250 mg Q12H GABY Administration Protocol Docusate Sodium 100 mg 06/16/17 13:39 06/16/17 13:58 Colace PO 08/16/17 08:59 100 mg DAILY PRN Administration Constipation Ferrous Sulfate 325 mg 06/16/17 17:00 Iron PO 08/15/17 16:59 BID GABY Folic Acid 1 mg 06/17/17 09:00 Folate PO 08/16/17 08:59 DAILY [facility] Piperacillin Sod/Tazobactam 50 mls @ 100 mls/hr 06/16/17 12:00 06/16/17 12:51 Sod 2.25 gm/ Sodium Chloride IV 08/15/17 11:59 100 mls/hr Q6HR GABY Administration Ipratropium [place] 0.5 mg 06/16/17 07:00 06/16/17 08:00 Atrovent Neb 0.5mg/2.5ml HHN 08/15/17 06:59 0.5 mg Q8HRT GABY Administration Methylprednisolone Sodium Succinate 60 mg 06/16/17 05:00 06/16/17 12:47 Solu-Medrol IVP 08/15/17 04:59 60 mg Q8HR GABY Administration Miscellaneous 1 ea 06/16/17 04:50 Vancomycin Iv Per Pharmacy 08/15/17 04:49 PRN PRN PROTOCOL Miscellaneous 1 ea 06/16/17 04:50 Zosyn Iv Per Pharmacy 08/15/17 04:49 PRN PRN PROTOCOL Sevelamer HCl 2,400 mg 06/16/17 14:00 06/16/17 13:58 Renagel PO 08/15/17 13:59 2,400 mg TID GABY Administration Temazepam 7.5 mg 06/16/17 10:20 Restoril PO HS PRN Insomnia Vitamin B Complex/Vit C/Folic Acid 1 tab 06/17/17 09:00 Vitamin B Complex W/Vitamin C PO 08/16/17 08:59 DAILY GABY Review of Systems: A 12 point ROS was reviewed with the pertinent positive and negatives noted in the HPI. Social History Smoking Status Former smoker, quit smoking at the age of 46. Drug Use Yes: LONG TIME AGO Alcohol Use Yes: LONG TIME AGO Family Medical History Unknown Physical Exam: General: Comfortable, not in distress. HEENT: Head: Normocephalic, atraumatic. Oral cavity: Moist, pink tongue. Eyes : Pallor is present. No icterus. Neck: Supple, no JVD, no use of X his neck muscles. Cardio: S1 and S2 within normal limits regular rhythm no murmur or gallop. Respiratory: Vesicular breath sound, crackles present mainly on the right side. Abdominal: Abdomen soft, nontender, bowel sounds present colostomy. Genital/Urinary: Deferred. Extremities: No cyanosis, no clubbing 1 no edema. Neurological: Alert, awake, oriented 3 Assessment: 1. Pneumonia, left lower lobe. 2. CK D5 on hemodialysis. 3. History of colon CA 4. Colostomy. Plan: Continue Zosyn. When patient is stable may change antibiotic to Levaquin by mouth for total 10 days from now. Patient was seen and discussed and presents off RN. Thank you, Dr. Jordan for involving me taking care of Mr. Lynn. Signed, Rancho Eller M.D. [id number]
[2017-06-16] MEDS ORDERED: VTE Chemical Prophylaxis Screen/Admission MC PRN (16:32)
[2017-06-16] MEDS: Ferrous Sulfate 325 MG TAB PO SCH (17:47)
--- NOTE | 2017-06-16 21:40 | Consultation ---
DATE OF CONSULTATION: 06/16/2017 ATTENDING: Jose Martin Jordan M.D. MENAGERIE SUPERINTENDENT: Yaron Stover M.D. REASON FOR CONSULTATION: Electrolyte imbalance and fluid management. HISTORY OF PRESENT ILLNESS: This is an 81-year-old male with past medical history of end-stage renal disease, on hemodialysis; who came in because of cough and congestion. Two weeks prior to admission, the patient developed cough and congestion. This was associated with progressive hoarseness of his voice and mild sore throat. A few hours prior to admission, his respiratory status worsened along with his cough and congestion. He then proceeded to the Emergency Room. Chest x-ray revealed chronic lung changes with trace left effusion versus pleural thickening. His temperature was 97.9 degrees with a white count of 6.3. He does have a history of end-stage renal disease and his schedule is on Tuesdays, , and Saturdays. PAST MEDICAL HISTORY: 1. End-stage renal disease, on hemodialysis. 2. Colon cancer. 3. Anemia of chronic kidney disease. 4. Parkinson disease. 5. Chronic atrial fibrillation. PAST SURGICAL HISTORY: 1. Status post colectomy with left colostomy in 1980. 2. Status post creation of right AV fistula. CURRENT MEDICATIONS: He is currently on acetaminophen, albuterol, amiodarone, calcitriol, calcium acetate, carbidopa/levodopa, carvedilol, codeine with guaifenesin, divalproex, docusate sodium, ferrous sulfate, folic acid, hydrocodone APAP, ipratropium, methylprednisolone, Zosyn, , temazepam, and vancomycin. ALLERGIES: Milk. SOCIAL HISTORY: No history of alcohol or tobacco use. He used to be a construction safety manager. FAMILY HISTORY: Father had a history of heart disease. REVIEW OF SYSTEMS: CONSTITUTIONAL: Denied any weakness. Appetite had been fair. HEENT: No mention of headaches or dizziness. Vision and hearing acuity has diminished due to age. CARDIORESPIRATORY: He has a history of hypertension and chronic AFib. Denied any chest pain, palpitations, or diaphoresis. He does have cough and shortness of breath. GASTROINTESTINAL: No nausea and vomiting, abdominal pain or cramping, hematemesis, melena, hematochezia, no diarrhea. ENDOCRINE: No history of diabetes or thyroid abnormalities. MUSCULOSKELETAL: Multiple joint arthralgias. GENITOURINARY: History of kidney failure, on hemodialysis. The patient no longer urinates. MUSCULOSKELETAL: Multiple joint arthralgias. HEMATOLOGIC: History of anemia of chronic kidney disease. NEUROPSYCH: No syncopal episode. No seizure activity. Has Parkinson disease. NEUROLOGIC: The patient is alert, verbal, continue to have cough, respiratory status much improved. SKIN: Good turgor, warm, no rash, no jaundice appreciated. HEENT: Head normocephalic and atraumatic. EYES: Extraocular muscles intact. Pupils are equal, round, and reactive to light and accommodates. Anicteric sclerae. Pale conjunctivae. Nose, midline nasal septum. Mouth, moist mucosa with adequate dentition. NECK: Supple. No adenopathy, no thyromegaly, and no bruits. Trachea palpated in the midline. CHEST AND CVS: S1 and S2. No rub, murmur, or gallop appreciated. Point of maximal impulse fifth intercostal space, left midclavicular line. No abdominal or femoral bruits appreciated. LUNGS: Equal expansion. No use of accessory muscles. No supraclavicular retractions, a few rhonchi, but no rales nor wheezes appreciated. ABDOMEN: Mildly globular, soft. Positive for bowel sounds. No bruits either diastolic or systolic, presence of a left colostomy bag. RECTAL: Lax sphincter tone. GENITOURINARY: Normal appearing male genitalia. MUSCULOSKELETAL: No effusions present in his joints with adequate range of motion. EXTREMITIES: No evidence of edema, cyanosis, no clubbing with palpable femoral, popliteal and dorsalis pedis pulses. 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 NEUROLOGIC: Alert and oriented. Motor is 5/5. Cranial nerves 3-12 intact. Sensory intact. LABORATORY DATA: Did reveal a white count 5.6, hemoglobin 11.5, hematocrit 34.2, platelets 121,000, sodium 132, potassium 5.5, chloride 95, bicarbonate 24, BUN 45, creatinine 6.9, glucose 170, and calcium 10.1. Troponin 0.02 and albumin 4.2. IMPRESSION: 1. End-stage renal disease, on hemodialysis. 2. Cough with congestion, likely secondary to acute tracheobronchitis, possible healthcare-acquired pneumonia. 3. Colon cancer, status post left colectomy with colostomy. 4. Anemia of chronic kidney disease. 5. Parkinson disease. 6. Chronic atrial fibrillation. 7. Essential hypertension. PLAN: 1. Continue hemodialysis as scheduled. 2. Follow up sputum culture and sensitivity. 3. Continue on with antibiotics. 4. Follow up chest x-ray. Thank you Dr. Jordan for this consult. I will follow the patient closely with you. JOB# [id number]
--- NOTE | 2017-06-16 23:22 | Admit Criteria Form ---
Admit Criteria Forms - Admit Criteria Diagnosis: PNEUMONIA, COMMUNITY ACQUIRED Clinical Indications for Admission to Inpatient Care (Place ' X' for any and all applicable criteria): Admission to inpatient status for two midnights or more is indicated for ANY ONE of the following (1)(2)(3): [ ]I. Hypoxia [ ]II. Hemodynamic instability [ ]III. Altered mental status that is severe or persistent [ ]IV. Dehydration that is severe or persistent. [ ]V. Bacteremia [X ]. Moderate-risk or high-risk category patients (Pneumonia Severity Index ( PSI) class IV or V, or CURB-65 score of 3 or greater). [ ]VII. Intermediate-risk category patients (e.g., PSI class III or CURB-65 score 2) who do not improve with outpatient and observation care treatment [ ]VIII. Outpatient treatment failure as indicated by 1 or more of the following(9): [ ]a) Failure to respond to antibiotic (eg, resistant organism) [ ]b) Clinically significant adverse effects from medication (eg, vomiting) [ ]c) Complications of pneumonia (eg, empyema, bacteremia) [ ]d) Significant worsening of comorbid cond necessitating inpatient care (eg, chronic heart failure) [ ]IX. Appropriate diagnostic testing and treatment unavailable in outpatient or recovery facility (eg, testing or infection control measures unavailable) [ ]X. Respiratory finding (eg. tachypnea) that do not respond to outpatient observation care treatment [ ]XI. Complicated pleural effusions (eg, emphysema, exudative, loculated) [ ]XII. Immunocompromised patients (e.g., AIDS, chronic steroid use) at moderate or high risk based on clinical evaluation. Extended stay beyond goal length of stay may be needed for (20) [ ]a) Unclear diagnosis [ ]b) Pleural disease [ ]c) Severe pneumonia or treatment failure [ ]d) Respiratory failure [ ]e) New onset hyponatremia (serum Na concentration less than 135 mEq/L(mmol/ L) [ ]f) Clinically significant comorbid illness (eg, heart failure, atrial fibrillation with rapid heart rate, alcohol withdrawal, renal insufficiency)(34)(35) [ ]g) Comorbid acute exacerbation of COPD(36) [ ]h) Concomitant diagnosis of malignancy [ ]i) Concomitant altered mental status [ ]j) Culture-identified Gram-negative or antibiotic-resistant organism (eg, Pseudomonas, methicillin-resistant Staphylococcus aureus MRSA)(30) [ ]k) Healthcare-associated pneumonia (36) The original [facility] [employer] content created by [facility] has been revised. The portions of the content which have been revised are identified through the use of italic text or in bold, and [facility] has neither reviewed nor approved the modified material. All other unmodified content is copyright [facility]. Please see references footnoted in the original [facility] edition 2017 Admit Criteria Met?: Yes
[2017-06-17] MEDS ORDERED: Albumin 25% 25gm/100mL 25 GM/100 ML BTL IV PRN
[2017-06-17] MEDS: Albuterol Nebulizer 2.5mg/3mL HHN SCH ×6 (02:59→19:37)
--- NOTE | 2017-06-17 04:37 | Consultation ---
DATE OF CONSULTATION: 06/16/2017 PATIENT OF: Dr. Jordan. Thank you very much Dr. Jordan for this consultation. HISTORY OF PRESENT ILLNESS: This is a pleasant 81-year-old male with history of end-stage renal disease, on dialysis, presented with cough and congestion and some shortness of breath and was admitted for further treatment and management. The patient is feeling better. Cough has decreased. He denies any chest pain. No fever or chills. Last chest x-ray done in [place] showed an infiltrate in the left lower lobe area. PAST MEDICAL HISTORY: History of colostomy. SOCIAL HISTORY: Smoking. Said he was a heavy smoker and quit at the age of 46. At that time, he was also doing heroin REVIEW OF SYSTEMS: GENERAL: No weakness or fatigue. CARDIOVASCULAR: No chest pain. RESPIRATORY: Shortness of breath and cough. GASTROINTESTINAL: No nausea, no vomiting. PHYSICAL EXAMINATION: GENERAL: Awake, alert, not in acute distress. VITAL SIGNS: Temperature is 97.8, pulse is 86, respirations 18, blood pressure 132/77, saturation 97%. HEENT: Atraumatic, normocephalic. Eyes: Pupils are reactive to light and accommodation. Ears, nose, and throat normal. NECK: Supple. No JVD. CHEST: There are decreased breath sounds, few rhonchi and wheezing. HEART: Regular rate and rhythm. ABDOMEN: Soft. EXTREMITIES: No edema. LABORATORY DATA: WBC is 5.6, hemoglobin 11.5, hematocrit 34.2, platelets 121. Sodium 132, potassium 5.1, BUN is 45, creatinine 6.9. Chest x-ray showed a small infiltrate in the left lower lobe area with pulmonary hypertension with prominent pulmonary arteries. IMPRESSION: This is an 81-year-old male with: 1. Early pneumonia. 2. Chronic obstructive pulmonary disease exacerbation. 3. End-stage renal disease, on dialysis. PLAN: 1. IV antibiotics. 2. Nebulizer treatment. 3. Add Pulmicort nebulizer to Solu-Medrol. 4. Followup chest x-ray. Thank you very much for this consultation. I will follow the patient with you. JOB# [id number] [email or web address]
[2017-06-17] MEDS: Piperacillin/Tazobact 2.25 gm in 0.9% NS 50 ML IV SCH ×3 (05:11→17:23)
[2017-06-17] MEDS: Ipratropium Neb 0.5 mg/2.5 mL UD HHN SCH ×2 (07:29→16:20)
[2017-06-17] MEDS: Ferrous Sulfate 325 MG TAB PO SCH ×2 (09:02→16:12)
[2017-06-17] MEDS: Vitamin B Complex w/Vitamin C Tab PO SCH (09:02)
--- NOTE | 2017-06-17 09:08 | General Progress Note ---
Subjective - Review of Systems Events since last encounter: patient c/o cough patient is congested , no fever Objective - Results Result Diagrams: 06/16/17 12:56 06/16/17 12:56 Recent Labs: Laboratory Last Values WBC 5.6 Th/cmm (4.8-10.8) 06/16/17 12:56 RBC 3.24 Mil/cmm (3.80-5.80) L 06/16/17 12:56 Hgb 11.5 gm/dL (12.6-17.4) L 06/16/17 12:56 Hct 34.2 % (39.0-49.0) L 06/16/17 12:56 MCV 105.5 fl (80-99) H 06/16/17 12:56 MCH 35.5 pg (27.0-31.0) H 06/16/17 12:56 MCHC Differential 33.6 pg (28.0-36.0) 06/16/17 12:56 RDW 14.9 % (11.5-20.0) 06/16/17 12:56 Plt Count 121 Th/cmm (150-400) L 06/16/17 12:56 MPV 6.7 fl 06/16/17 12:56 Neutrophils % 84.3 % (40.0-80.0) H 06/16/17 12:56 Lymphocytes % 14.0 % (20.0-50.0) L 06/16/17 12:56 Monocytes % 1.3 % (2.0-10.0) L 06/16/17 12:56 Eosinophils % 0.3 % (0.0-5.0) 06/16/17 12:56 Basophils % 0.1 % (0.0-2.0) 06/16/17 12:56 Sodium 132 mEq/L (136-145) L 06/16/17 12:56 Potassium 5.1 mEq/L (3.5-5.1) 06/16/17 12:56 Chloride 95 mEq/L (98-107) L 06/16/17 12:56 Carbon Dioxide 24.4 mEq/L (21.0-31.0) 06/16/17 12:56 Anion Gap 17.7 (7.0-16.0) H 06/16/17 12:56 BUN 45 mg/dL (7-25) H 06/16/17 12:56 Creatinine 6.9 mg/dL (0.7-1.3) H* 06/16/17 12:56 Est GFR ( Amer) TNP 06/16/17 12:56 Est GFR (Non-Af Amer) TNP 06/16/17 12:56 BUN/Creatinine Ratio 6.5 06/16/17 12:56 Glucose 170 mg/dL (70-105) H 06/16/17 12:56 Whole Bld Lactic Acid 0.73 mmol/L (0.60-1.99) 06/15/17 23:13 Calcium 10.1 mg/dL (8.6-10.3) 06/16/17 12:56 Total Bilirubin 0.4 mg/dL (0.3-1.0) 06/15/17 23:13 AST 72 U/L (13-39) H 06/15/17 23:13 ALT 13 U/L (7-52) 06/15/17 23:13 Alkaline Phosphatase 74 U/L (34-104) 06/15/17 23:13 Troponin I 0.02 ng/mL (0.01-0.05) 06/15/17 23:13 Total Protein 7.1 gm/dL (6.0-8.3) 06/15/17 23:13 Albumin 4.2 gm/dL (4.2-5.5) 06/15/17 23:13 Globulin 2.9 gm/dL 06/15/17 23:13 Albumin/Globulin Ratio 1.5 (1.0-1.8) 06/15/17 23:13 Random Vancomycin 14.0 ug/mL (5.0-40.0) 06/17/17 06:50 - Physical Exam Vitals and I&O: Vital Signs Temp 97.7 F 06/17/17 07:51 Pulse 69 06/17/17 07:51 Resp 19 06/17/17 07:51 BP 150/71 06/17/17 07:51 Pulse Ox 95 06/17/17 07:51 Intake & Output 06/16/17 06/17/17 06/17/17 18:59 06:59 18:59 Intake Total 1000 350 Output Total 400 0 Balance 600 350 Weight (lbs) 87.997 kg 88.632 kg Intake: Intake, IV Amount 100 50 Piperacillin Sodium/ 100 50 Tazobact 2.25 gm In Sodium Chloride 0.9% 50 ml @ 100 mls/hr IV Q6HR [facility] Rx#:[id number] Oral 900 300 Output: Urine 400 0 Other: # Voids 3 # Bowel Movements 1 0 Stool Characteristics Soft Soft Active Medications: Current Medications Acetaminophen (Tylenol) 650 mg PO Q6H PRN PRN Reason: pain and fever >100 F Stop: 08/15/17 12:35 Last Admin: 06/16/17 21:45 Dose: 650 mg Acetaminophen/Hydrocodone Bitart ([place] 5mg/325mg) 1 tab PO BID PRN PRN Reason: Pain (Moderate) Stop: 08/15/17 10:19 Albuterol Sulfate (Albuterol 2.5mg/3ml Neb Ud) 2.5 mg HHN Q4HRT [facility] Stop: 08/15/17 06:59 Last Admin: 06/17/17 07:29 Dose: 2.5 mg Amiodarone HCl (Cordarone) 200 mg PO BID [facility] Stop: 08/15/17 16:59 Last Admin: 06/16/17 17:51 Dose: 200 mg Calcitriol (Rocaltrol) 0.25 mcg PO DAILY [facility] Stop: 08/16/17 08:59 Carbidopa/Levodopa (Sinemet 25 Mg-250 Mg) 1 tab PO QID [facility] Stop: 08/15/17 12:59 Last Admin: 06/16/17 21:44 Dose: 1 tab Carvedilol (Coreg) 3.125 mg PO SuMoWe@TID [facility] Stop: 08/15/17 13:59 Last Admin: 06/16/17 21:47 Dose: 3.125 mg Clonidine HCl (Catapres) 0.1 mg PO Q8H PRN PRN Reason: SBP ABOVE 160 Stop: 08/15/17 10:19 Cyanocobalamin (Vitamin B12) 100 mcg PO DAILY [facility] Stop: 08/16/17 08:59 Divalproex Sodium (Depakote Dr) 250 mg PO Q12H GABY PRN Reason: Protocol Stop: 08/15/17 10:29 Last Admin: 06/16/17 21:44 Dose: 250 mg Docusate Sodium (Colace) 100 mg PO DAILY PRN PRN Reason: Constipation Stop: 10/02/17 08:59 Last Admin: 06/16/17 13:58 Dose: 100 mg Ferrous Sulfate (Iron) 325 mg PO BID [facility] Stop: 08/15/17 16:59 Last Admin: 06/16/17 17:47 Dose: 325 mg Folic Acid (Folate) 1 mg PO DAILY [facility] Stop: 08/16/17 08:59 Piperacillin Sod/Tazobactam (Sod 2.25 gm/ Sodium Chloride) 50 mls @ 100 mls/hr IV Q6HR GABY Stop: 08/15/17 11:59 Last Admin: 06/17/17 05:11 Dose: 100 mls/hr Albumin Human (Albuminar 25%) 25 gm in 100 mls @ 50 mls/hr IV PRN PRN PRN Reason: BP Support During HD Stop: 06/18/17 00:00 Ipratropium [place] (Atrovent Neb 0.5mg/2.5ml) 0.5 mg HHN Q8HRT [facility] Stop: 08/15/17 06:59 Last Admin: 06/17/17 07:29 Dose: 0.5 mg Methylprednisolone Sodium Succinate (Solu-Medrol) 60 mg IVP Q8HR [facility] Stop: 08/15/17 04:59 Last Admin: 06/17/17 05:11 Dose: 60 mg Miscellaneous (Vancomycin Iv Per Pharmacy) 1 [facility] PRN PRN PRN Reason: PROTOCOL Stop: 08/15/17 04:49 Miscellaneous (Zosyn Iv Per Pharmacy) 1 [facility] PRN PRN PRN Reason: PROTOCOL Stop: 08/15/17 04:49 Miscellaneous (Clinical Monitoring) 1 [facility] DAILY PRN PRN Reason: RENAL/CA LEVEL Stop: 08/15/17 15:01 Miscellaneous ([employer] Prophylaxis Screen/ Admission) 1 [facility] PRN PRN PRN Reason: PROTOCOL Stop: 08/15/17 16:31 Sevelamer HCl (Renagel) 2,400 mg PO TID [facility] Stop: 08/15/17 20:59 Last Admin: 06/16/17 21:44 Dose: 2,400 mg Temazepam (Restoril) 7.5 mg PO HS PRN PRN Reason: Insomnia Last Admin: 06/16/17 23:42 Dose: 7.5 mg Vitamin B Complex/Vit C/Folic Acid (Vitamin B Complex W/Vitamin C) 1 tab PO DAILY GABY Stop: 08/16/17 08:59 General: No acute distress HEENT: Atraumatic Cardiovascular: Regular rate, Normal S1, Normal S2 Lungs: Other (aisha rhonchi) - Procedures Procedures: Procedures Procedure Code Date PERFORMANCE OF URINARY FILTRATION, MULTIPLE [id number] 12/14/16 Assessment/Plan - Problem List Patient Problems: All Active Problems COUGH WITH FEVER/CHILLS AND WEAKNESS (Acute) LARYNGITIS (Acute) RIGHT HAND TRAUMA, NECK PAIN, FOOT EDEMA (Acute) TRACHITIS (Acute) - Assessment Assessment: pneumonia - Plan Plan: monitor vitals/diet labs f/up pulmo continue current management
[2017-06-17] MEDS ORDERED: Vancomycin HCl 1.5 GM in Sodium Chloride 0.9% 500 ML IV ONE (10:00)
--- NOTE | 2017-06-17 13:11 | Infectious Disease Prog Note ---
Infectious Disease Subjective - Review of Systems Service Date: 06/17/17 Subjective: There is no new change, there is no fever. Infectious Disease Objective - Results Result Diagrams: 06/18/17 09:15 06/18/17 09:15 Recent Labs: Laboratory Last Values WBC 5.6 Th/cmm (4.8-10.8) 06/16/17 12:56 RBC 3.24 Mil/cmm (3.80-5.80) L 06/16/17 12:56 Hgb 11.5 gm/dL (12.6-17.4) L 06/16/17 12:56 Hct 34.2 % (39.0-49.0) L 06/16/17 12:56 MCV 105.5 fl (80-99) H 06/16/17 12:56 MCH 35.5 pg (27.0-31.0) H 06/16/17 12:56 MCHC Differential 33.6 pg (28.0-36.0) 06/16/17 12:56 RDW 14.9 % (11.5-20.0) 06/16/17 12:56 Plt Count 121 Th/cmm (150-400) L 06/16/17 12:56 MPV 6.7 fl 06/16/17 12:56 Neutrophils % 84.3 % (40.0-80.0) H 06/16/17 12:56 Lymphocytes % 14.0 % (20.0-50.0) L 06/16/17 12:56 Monocytes % 1.3 % (2.0-10.0) L 06/16/17 12:56 Eosinophils % 0.3 % (0.0-5.0) 06/16/17 12:56 Basophils % 0.1 % (0.0-2.0) 06/16/17 12:56 Sodium 132 mEq/L (136-145) L 06/16/17 12:56 Potassium 5.1 mEq/L (3.5-5.1) 06/16/17 12:56 Chloride 95 mEq/L (98-107) L 06/16/17 12:56 Carbon Dioxide 24.4 mEq/L (21.0-31.0) 06/16/17 12:56 Anion Gap 17.7 (7.0-16.0) H 06/16/17 12:56 BUN 45 mg/dL (7-25) H 06/16/17 12:56 Creatinine 6.9 mg/dL (0.7-1.3) H* 06/16/17 12:56 Est GFR ( Amer) TNP 06/16/17 12:56 Est GFR (Non-Af Amer) TNP 06/16/17 12:56 BUN/Creatinine Ratio 6.5 06/16/17 12:56 Glucose 170 mg/dL (70-105) H 06/16/17 12:56 Whole Bld Lactic Acid 0.73 mmol/L (0.60-1.99) 06/15/17 23:13 Calcium 10.1 mg/dL (8.6-10.3) 06/16/17 12:56 Total Bilirubin 0.4 mg/dL (0.3-1.0) 06/15/17 23:13 AST 72 U/L (13-39) H 06/15/17 23:13 ALT 13 U/L (7-52) 06/15/17 23:13 Alkaline Phosphatase 74 U/L (34-104) 06/15/17 23:13 Troponin I 0.02 ng/mL (0.01-0.05) 06/15/17 23:13 Total Protein 7.1 gm/dL (6.0-8.3) 06/15/17 23:13 Albumin 4.2 gm/dL (4.2-5.5) 06/15/17 23:13 Globulin 2.9 gm/dL 06/15/17 23:13 Albumin/Globulin Ratio 1.5 (1.0-1.8) 06/15/17 23:13 Random Vancomycin 14.0 ug/mL (5.0-40.0) 06/17/17 06:50 - Physical Exam Vitals and I&O: Vital Signs Temp 97.7 F 06/17/17 07:51 Pulse 69 06/17/17 09:04 Resp 19 06/17/17 07:51 BP 150/71 06/17/17 07:51 Pulse Ox 95 06/17/17 07:51 Intake & Output 06/16/17 06/17/17 06/17/17 18:59 06:59 18:59 Intake Total 1000 400 Output Total 400 0 Balance 600 400 Weight (lbs) 87.997 kg 88.632 kg Intake: Intake, IV Amount 100 100 Piperacillin Sodium/ 100 100 Tazobact 2.25 gm In Sodium Chloride 0.9% 50 ml @ 100 mls/hr IV Q6HR [facility] Rx#:[id number] Oral 900 300 Output: Urine 400 0 Other: # Voids 3 # Bowel Movements 1 0 Stool Characteristics Soft Soft Active Medications: Current Medications Acetaminophen (Tylenol) 650 mg PO Q6H PRN PRN Reason: pain and fever >100 F Stop: 08/15/17 12:35 Last Admin: 06/16/17 21:45 Dose: 650 mg Acetaminophen/Hydrocodone Bitart ([place] 5mg/325mg) 1 tab PO BID PRN PRN Reason: Pain (Moderate) Stop: 08/15/17 10:19 Albuterol Sulfate (Albuterol 2.5mg/3ml Neb Ud) 2.5 mg HHN Q4HRT [facility] Stop: 08/15/17 06:59 Last Admin: 06/17/17 07:29 Dose: 2.5 mg Amiodarone HCl (Cordarone) 200 mg PO BID [facility] Stop: 08/15/17 16:59 Last Admin: 06/17/17 09:04 Dose: Not Given Calcitriol (Rocaltrol) 0.25 mcg PO DAILY [facility] Stop: 08/16/17 08:59 Last Admin: 06/17/17 09:02 Dose: 0.25 mcg Carbidopa/Levodopa (Sinemet 25 Mg-250 Mg) 1 tab PO QID [facility] Stop: 08/15/17 12:59 Last Admin: 06/17/17 09:02 Dose: 1 tab Carvedilol (Coreg) 3.125 mg PO SuMoWe@TID [facility] Stop: 08/15/17 13:59 Last Admin: 06/16/17 21:47 Dose: 3.125 mg Clonidine HCl (Catapres) 0.1 mg PO Q8H PRN PRN Reason: SBP ABOVE 160 Stop: 08/15/17 10:19 Cyanocobalamin (Vitamin B12) 100 mcg PO DAILY [facility] Stop: 08/16/17 08:59 Last Admin: 06/17/17 09:01 Dose: 100 mcg Divalproex Sodium (Depakote Dr) 250 mg PO Q12H [facility] PRN Reason: Protocol Stop: 08/15/17 10:29 Last Admin: 06/17/17 11:03 Dose: 250 mg Docusate Sodium (Colace) 100 mg PO DAILY PRN PRN Reason: Constipation Stop: 08/16/17 08:59 Last Admin: 06/16/17 13:58 Dose: 100 mg Ferrous Sulfate (Iron) 325 mg PO BID [facility] Stop: 08/15/17 16:59 Last Admin: 06/17/17 09:02 Dose: 325 mg Folic Acid (Folate) 1 mg PO DAILY [facility] Stop: 08/16/17 08:59 Last Admin: 06/17/17 09:02 Dose: 1 mg Piperacillin Sod/Tazobactam (Sod 2.25 gm/ Sodium Chloride) 50 mls @ 100 mls/hr IV Q6HR [facility] Stop: 08/15/17 11:59 Last Admin: 06/17/17 11:07 Dose: 100 mls/hr Albumin Human (Albuminar 25%) 25 gm in 100 mls @ 50 mls/hr IV PRN PRN PRN Reason: BP Support During HD Stop: 06/18/17 00:00 Vancomycin HCl 1.5 gm/ Sodium (Chloride) 500 mls @ 250 mls/hr IV 1000 ONE Stop: 06/17/17 11:59 Ipratropium [place] (Atrovent Neb 0.5mg/2.5ml) 0.5 mg HHN Q8HRT [facility] Stop: 08/15/17 06:59 Last Admin: 06/17/17 07:29 Dose: 0.5 mg Methylprednisolone Sodium Succinate (Solu-Medrol) 60 mg IVP Q8HR [facility] Stop: 08/15/17 04:59 Last Admin: 06/17/17 05:11 Dose: 60 mg Miscellaneous (Vancomycin Iv Per Pharmacy) 1 ea [facility] PRN PRN PRN Reason: PROTOCOL Stop: 08/15/17 04:49 Miscellaneous (Zosyn Iv Per Pharmacy) 1 ea [facility] PRN PRN PRN Reason: PROTOCOL Stop: 08/15/17 04:49 Miscellaneous (Clinical Monitoring) 1 ea [facility] DAILY PRN PRN Reason: RENAL/CA LEVEL Stop: 08/15/17 15:01 Miscellaneous (Vte Chemical Prophylaxis Screen/ Admission) 1 e[facility] PRN PRN PRN Reason: PROTOCOL Stop: 08/15/17 16:31 Sevelamer HCl (Renagel) 2,400 mg PO TID [facility] Stop: 08/15/17 20:59 Last Admin: 06/17/17 09:02 Dose: 2,400 mg Temazepam (Restoril) 7.5 mg PO HS PRN PRN Reason: Insomnia Last Admin: 06/16/17 23:42 Dose: 7.5 mg Vitamin B Complex/Vit C/Folic Acid (Vitamin B Complex W/Vitamin C) 1 tab PO DAILY [facility] Stop: 08/16/17 08:59 Last Admin: 06/17/17 09:02 Dose: 1 tab General: no acute distress, well developed, well nourished HEENT: atraumatic, normocephalic, PERRLA, EOMI Neck: supple, no thyromegaly Cardiovascular: S1S2, regular Lungs: clear to auscultation bilaterally, crackles Abdomen: soft, no tender, no distended, no mass Extremities: no cyanosis, no clubbing, no edema Neurological: awake, alert, oriented Skin: intact - Procedures Procedures: Procedures Procedure Code Date PERFORMANCE OF URINARY FILTRATION, MULTIPLE [id number] 12/14/16 Infectious Disease Assmt/Plan - Problem List Patient Problems: All Active Problems COUGH WITH FEVER/CHILLS AND WEAKNESS (Acute) LARYNGITIS (Acute) RIGHT HAND TRAUMA, NECK PAIN, FOOT EDEMA (Acute) TRACHITIS (Acute) - Assessment Assessment: 1. Pneumonia, left lower lobe. 2. CK D5 on hemodialysis. 3. History of colon CA 4. Colostomy. - Plan Plan: Continue Zosyn. When patient is stable may change antibiotic to Levaquin by mouth for total 8 days from now.
--- NOTE | 2017-06-17 13:13 | General Progress Note ---
Subjective - Review of Systems Service Date: 06/17/17 Subjective: Alert, still has cough but less hoarseness of voice Objective - Results Result Diagrams: 06/16/17 12:56 06/16/17 12:56 Recent Labs: Laboratory Last Values WBC 5.6 Th/cmm (4.8-10.8) 06/16/17 12:56 RBC 3.24 Mil/cmm (3.80-5.80) L 06/16/17 12:56 Hgb 11.5 gm/dL (12.6-17.4) L 06/16/17 12:56 Hct 34.2 % (39.0-49.0) L 06/16/17 12:56 MCV 105.5 fl (80-99) H 06/16/17 12:56 MCH 35.5 pg (27.0-31.0) H 06/16/17 12:56 MCHC Differential 33.6 pg (28.0-36.0) 06/16/17 12:56 RDW 14.9 % (11.5-20.0) 06/16/17 12:56 Plt Count 121 Th/cmm (150-400) L 06/16/17 12:56 MPV 6.7 fl 06/16/17 12:56 Neutrophils % 84.3 % (40.0-80.0) H 06/16/17 12:56 Lymphocytes % 14.0 % (20.0-50.0) L 06/16/17 12:56 Monocytes % 1.3 % (2.0-10.0) L 06/16/17 12:56 Eosinophils % 0.3 % (0.0-5.0) 06/16/17 12:56 Basophils % 0.1 % (0.0-2.0) 06/16/17 12:56 Sodium 132 mEq/L (136-145) L 06/16/17 12:56 Potassium 5.1 mEq/L (3.5-5.1) 06/16/17 12:56 Chloride 95 mEq/L (98-107) L 06/16/17 12:56 Carbon Dioxide 24.4 mEq/L (21.0-31.0) 06/16/17 12:56 Anion Gap 17.7 (7.0-16.0) H 06/16/17 12:56 BUN 45 mg/dL (7-25) H 06/16/17 12:56 Creatinine 6.9 mg/dL (0.7-1.3) H* 06/16/17 12:56 Est GFR ( Amer) TNP 06/16/17 12:56 Est GFR (Non-Af Amer) TNP 06/16/17 12:56 BUN/Creatinine Ratio 6.5 06/16/17 12:56 Glucose 170 mg/dL (70-105) H 06/16/17 12:56 Whole Bld Lactic Acid 0.73 mmol/L (0.60-1.99) 06/15/17 23:13 Calcium 10.1 mg/dL (8.6-10.3) 06/16/17 12:56 Total Bilirubin 0.4 mg/dL (0.3-1.0) 06/15/17 23:13 AST 72 U/L (13-39) H 06/15/17 23:13 ALT 13 U/L (7-52) 06/15/17 23:13 Alkaline Phosphatase 74 U/L (34-104) 06/15/17 23:13 Troponin I 0.02 ng/mL (0.01-0.05) 06/15/17 23:13 Total Protein 7.1 gm/dL (6.0-8.3) 06/15/17 23:13 Albumin 4.2 gm/dL (4.2-5.5) 06/15/17 23:13 Globulin 2.9 gm/dL 06/15/17 23:13 Albumin/Globulin Ratio 1.5 (1.0-1.8) 06/15/17 23:13 Random Vancomycin 14.0 ug/mL (5.0-40.0) 06/17/17 06:50 - Physical Exam Vitals and I&O: Vital Signs Temp 98.4 F 06/17/17 11:50 Pulse 70 06/17/17 12:09 Resp 18 06/17/17 12:09 BP 154/74 06/17/17 11:50 Pulse Ox 95 06/17/17 12:09 Intake & Output 06/16/17 06/17/17 06/17/17 18:59 06:59 18:59 Intake Total 1000 400 Output Total 400 0 Balance 600 400 Weight (lbs) 87.997 kg 88.632 kg Intake: Intake, IV Amount 100 100 Piperacillin Sodium/ 100 100 Tazobact 2.25 gm In Sodium Chloride 0.9% 50 ml @ 100 mls/hr IV Q6HR [facility] Rx#:[id number] Oral 900 300 Output: Urine 400 0 Other: # Voids 3 # Bowel Movements 1 0 Stool Characteristics Soft Soft Active Medications: Current Medications Acetaminophen (Tylenol) 650 mg PO Q6H PRN PRN Reason: pain and fever >100 F Stop: 08/15/17 12:35 Last Admin: 06/16/17 21:45 Dose: 650 mg Acetaminophen/Hydrocodone Bitart ([place] 5mg/325mg) 1 tab PO BID PRN PRN Reason: Pain (Moderate) Stop: 08/15/17 10:19 Albuterol Sulfate (Albuterol 2.5mg/3ml Neb Ud) 2.5 mg HHN Q4HRT [facility] Stop: 08/15/17 06:59 Last Admin: 06/17/17 12:09 Dose: 2.5 mg Amiodarone HCl (Cordarone) 200 mg PO BID [facility] Stop: 08/15/17 16:59 Last Admin: 06/17/17 09:04 Dose: Not Given Calcitriol (Rocaltrol) 0.25 mcg PO DAILY [facility] Stop: 08/16/17 08:59 Last Admin: 06/17/17 09:02 Dose: 0.25 mcg Carbidopa/Levodopa (Sinemet 25 Mg-250 Mg) 1 tab PO QID [facility] Stop: 08/15/17 12:59 Last Admin: 06/17/17 12:38 Dose: 1 tab Carvedilol (Coreg) 3.125 mg PO SuMoWe@TID [facility] Stop: 08/15/17 13:59 Last Admin: 06/16/17 21:47 Dose: 3.125 mg Clonidine HCl (Catapres) 0.1 mg PO Q8H PRN PRN Reason: SBP ABOVE 160 Stop: 08/15/17 10:19 Cyanocobalamin (Vitamin B12) 100 mcg PO DAILY [facility] Stop: 08/16/17 08:59 Last Admin: 06/17/17 09:01 Dose: 100 mcg Divalproex Sodium (Depakote Dr) 250 mg PO Q12H [facility] PRN Reason: Protocol Stop: 08/15/17 10:29 Last Admin: 06/17/17 11:03 Dose: 250 mg Docusate Sodium (Colace) 100 mg PO DAILY PRN PRN Reason: Constipation Stop: 08/16/17 08:59 Last Admin: 06/16/17 13:58 Dose: 100 mg Ferrous Sulfate (Iron) 325 mg PO BID [facility] Stop: 08/15/17 16:59 Last Admin: 06/17/17 09:02 Dose: 325 mg Folic Acid (Folate) 1 mg PO DAILY [facility] Stop: 08/16/17 08:59 Last Admin: 06/17/17 09:02 Dose: 1 mg Piperacillin Sod/Tazobactam (Sod 2.25 gm/ Sodium Chloride) 50 mls @ 100 mls/hr IV Q6HR [facility] Stop: 08/15/17 11:59 Last Admin: 06/17/17 11:07 Dose: 100 mls/hr Albumin Human (Albuminar 25%) 25 gm in 100 mls @ 50 mls/hr IV PRN PRN PRN Reason: BP Support During HD Stop: 06/18/17 00:00 Ipratropium [place] (Atrovent Neb 0.5mg/2.5ml) 0.5 mg HHN Q8HRT [facility] Stop: 08/15/17 06:59 Last Admin: 06/17/17 07:29 Dose: 0.5 mg Methylprednisolone Sodium Succinate (Solu-Medrol) 60 mg IVP Q8HR [facility] Stop: 08/15/17 04:59 Last Admin: 06/17/17 12:38 Dose: 60 mg Miscellaneous (Vancomycin Iv Per Pharmacy) 1 [facility] PRN PRN PRN Reason: PROTOCOL Stop: 08/15/17 04:49 Miscellaneous (Zosyn Iv Per Pharmacy) 1 [facility] PRN PRN PRN Reason: PROTOCOL Stop: 08/15/17 04:49 Miscellaneous (Clinical Monitoring) 1 [facility] DAILY PRN PRN Reason: RENAL/CA LEVEL Stop: 08/15/17 15:01 Miscellaneous (Vte Chemical Prophylaxis Screen/ Admission) 1 [facility] PRN PRN PRN Reason: PROTOCOL Stop: 08/15/17 16:31 Sevelamer HCl (Renagel) 2,400 mg PO TID [facility] Stop: 08/15/17 20:59 Last Admin: 06/17/17 09:02 Dose: 2,400 mg Temazepam (Restoril) 7.5 mg PO HS PRN PRN Reason: Insomnia Last Admin: 06/16/17 23:42 Dose: 7.5 mg Vitamin B Complex/Vit C/Folic Acid (Vitamin B Complex W/Vitamin C) 1 tab PO DAILY [facility] Stop: 08/16/17 08:59 Last Admin: 06/17/17 09:02 Dose: 1 tab General: No acute distress HEENT: Atraumatic Cardiovascular: Regular rate, Normal S1, Normal S2 Lungs: Other (aisha rhonchi) Abdomen: Bowel sounds, Soft Extremities: Other (bruit right avf), no Edema Neurological: Strength at 5/5 X4 ext, Sensation intact Skin: no Rash Psych/Mental Status: Mood NL - Procedures Procedures: Procedures Procedure Code Date PERFORMANCE OF URINARY FILTRATION, MULTIPLE [id number] 12/14/16 Assessment/Plan - Problem List Patient Problems: All Active Problems COUGH WITH FEVER/CHILLS AND WEAKNESS (Acute) LARYNGITIS (Acute) RIGHT HAND TRAUMA, NECK PAIN, FOOT EDEMA (Acute) TRACHITIS (Acute) - Assessment Assessment: End-stage renal disease on hemodialysis Acute tracheobronchitis Colon CA status post colectomy with colostomy Anemia of chronic kidney disease Parkinson disease Chronic atrial fibrillation Essential hypertension - Plan Plan: Lab - Result Diagrams 06/16/17 12:56 06/16/17 12:56 Current Medications Acetaminophen (Tylenol) 650 mg PO Q6H PRN PRN Reason: pain and fever >100 F Stop: 08/15/17 12:35 Last Admin: 06/16/17 21:45 Dose: 650 mg Acetaminophen/Hydrocodone Bitart ([place] 5mg/325mg) 1 tab PO BID PRN PRN Reason: Pain (Moderate) Stop: 08/15/17 10:19 Albuterol Sulfate (Albuterol 2.5mg/3ml Neb Ud) 2.5 mg HHN Q4HRT [facility] Stop: 08/15/17 06:59 Last Admin: 06/17/17 12:09 Dose: 2.5 mg Amiodarone HCl (Cordarone) 200 mg PO BID [facility] Stop: 08/15/17 16:59 Last Admin: 06/17/17 09:04 Dose: Not Given Calcitriol (Rocaltrol) 0.25 mcg PO DAILY [facility] Stop: 08/16/17 08:59 Last Admin: 06/17/17 09:02 Dose: 0.25 mcg Carbidopa/Levodopa (Sinemet 25 Mg-250 Mg) 1 tab PO QID [facility] Stop: 08/15/17 12:59 Last Admin: 06/17/17 12:38 Dose: 1 tab Carvedilol (Coreg) 3.125 mg PO SuMoWe@TID [facility] Stop: 08/15/17 13:59 Last Admin: 06/16/17 21:47 Dose: 3.125 mg Clonidine HCl (Catapres) 0.1 mg PO Q8H PRN PRN Reason: SBP ABOVE 160 Stop: 08/15/17 10:19 Cyanocobalamin (Vitamin B12) 100 mcg PO DAILY [facility] Stop: 08/16/17 08:59 Last Admin: 06/17/17 09:01 Dose: 100 mcg Divalproex Sodium (Depakote Dr) 250 mg PO Q12H [facility] PRN Reason: Protocol Stop: 08/15/17 10:29 Last Admin: 06/17/17 11:03 Dose: 250 mg Docusate Sodium (Colace) 100 mg PO DAILY PRN PRN Reason: Constipation Stop: 08/16/17 08:59 Last Admin: 06/16/17 13:58 Dose: 100 mg Ferrous Sulfate (Iron) 325 mg PO BID [facility] Stop: 08/15/17 16:59 Last Admin: 06/17/17 09:02 Dose: 325 mg Folic Acid (Folate) 1 mg PO DAILY [facility] Stop: 08/16/17 08:59 Last Admin: 06/17/17 09:02 Dose: 1 mg Piperacillin Sod/Tazobactam (Sod 2.25 gm/ Sodium Chloride) 50 mls @ 100 mls/hr IV Q6HR [facility] Stop: 08/15/17 11:59 Last Admin: 06/17/17 11:07 Dose: 100 mls/hr Albumin Human (Albuminar 25%) 25 gm in 100 mls @ 50 mls/hr IV PRN PRN PRN Reason: BP Support During HD Stop: 06/18/17 00:00 Ipratropium [place] (Atrovent Neb 0.5mg/2.5ml) 0.5 mg HHN Q8HRT [facility] Stop: 08/15/17 06:59 Last Admin: 06/17/17 07:29 Dose: 0.5 mg Methylprednisolone Sodium Succinate (Solu-Medrol) 60 mg IVP Q8HR [facility] Stop: 08/15/17 04:59 Last Admin: 06/17/17 12:38 Dose: 60 mg Miscellaneous (Vancomycin Iv Per Pharmacy) 1 ea PRN PRN PRN Reason: PROTOCOL Stop: 08/15/17 04:49 Miscellaneous (Zosyn Iv Per Pharmacy) 1 ea PRN PRN PRN Reason: PROTOCOL Stop: 08/15/17 04:49 Miscellaneous (Clinical Monitoring) 1 ea DAILY PRN PRN Reason: RENAL/CA LEVEL Stop: 08/15/17 15:01 Miscellaneous (Vte Chemical Prophylaxis Screen/ Admission) 1 [facility] PRN PRN PRN Reason: PROTOCOL Stop: 08/15/17 16:31 Sevelamer HCl (Renagel) 2,400 mg PO TID [facility] Stop: 08/15/17 20:59 Last Admin: 06/17/17 09:02 Dose: 2,400 mg Temazepam (Restoril) 7.5 mg PO HS PRN PRN Reason: Insomnia Last Admin: 06/16/17 23:42 Dose: 7.5 mg Vitamin B Complex/Vit C/Folic Acid (Vitamin B Complex W/Vitamin C) 1 tab PO DAILY [facility] Stop: 08/16/17 08:59 Last Admin: 06/17/17 09:02 Dose: 1 tab Scheduled for hemodialysis today Continue on antibiotics Follow-up chest x-ray
[2017-06-18] MEDS: Albuterol Nebulizer 2.5mg/3mL HHN SCH ×7 (00:04→22:51)
[2017-06-18] MEDS: Ipratropium Neb 0.5 mg/2.5 mL UD HHN SCH ×4 (00:04→22:51)
[2017-06-18] MEDS: Piperacillin/Tazobact 2.25 gm in 0.9% NS 50 ML IV SCH ×5 (01:00→23:27)
--- NOTE | 2017-06-18 08:37 | General Progress Note ---
Subjective - Review of Systems Events since last encounter: patient still c/o cough but better Objective - Results Result Diagrams: 06/16/17 12:56 06/16/17 12:56 Recent Labs: Laboratory Last Values WBC 5.6 Th/cmm (4.8-10.8) 06/16/17 12:56 RBC 3.24 Mil/cmm (3.80-5.80) L 06/16/17 12:56 Hgb 11.5 gm/dL (12.6-17.4) L 06/16/17 12:56 Hct 34.2 % (39.0-49.0) L 06/16/17 12:56 MCV 105.5 fl (80-99) H 06/16/17 12:56 MCH 35.5 pg (27.0-31.0) H 06/16/17 12:56 MCHC Differential 33.6 pg (28.0-36.0) 06/16/17 12:56 RDW 14.9 % (11.5-20.0) 06/16/17 12:56 Plt Count 121 Th/cmm (150-400) L 06/16/17 12:56 MPV 6.7 fl 06/16/17 12:56 Neutrophils % 84.3 % (40.0-80.0) H 06/16/17 12:56 Lymphocytes % 14.0 % (20.0-50.0) L 06/16/17 12:56 Monocytes % 1.3 % (2.0-10.0) L 06/16/17 12:56 Eosinophils % 0.3 % (0.0-5.0) 06/16/17 12:56 Basophils % 0.1 % (0.0-2.0) 06/16/17 12:56 Sodium 132 mEq/L (136-145) L 06/16/17 12:56 Potassium 5.1 mEq/L (3.5-5.1) 06/16/17 12:56 Chloride 95 mEq/L (98-107) L 06/16/17 12:56 Carbon Dioxide 24.4 mEq/L (21.0-31.0) 06/16/17 12:56 Anion Gap 17.7 (7.0-16.0) H 06/16/17 12:56 BUN 45 mg/dL (7-25) H 06/16/17 12:56 Creatinine 6.9 mg/dL (0.7-1.3) H* 06/16/17 12:56 Est GFR ( Amer) TNP 06/16/17 12:56 Est GFR (Non-Af Amer) TNP 06/16/17 12:56 BUN/Creatinine Ratio 6.5 06/16/17 12:56 Glucose 170 mg/dL (70-105) H 06/16/17 12:56 Whole Bld Lactic Acid 0.73 mmol/L (0.60-1.99) 06/15/17 23:13 Calcium 10.1 mg/dL (8.6-10.3) 06/16/17 12:56 Total Bilirubin 0.4 mg/dL (0.3-1.0) 06/15/17 23:13 AST 72 U/L (13-39) H 06/15/17 23:13 ALT 13 U/L (7-52) 06/15/17 23:13 Alkaline Phosphatase 74 U/L (34-104) 06/15/17 23:13 Troponin I 0.02 ng/mL (0.01-0.05) 06/15/17 23:13 Total Protein 7.1 gm/dL (6.0-8.3) 06/15/17 23:13 Albumin 4.2 gm/dL (4.2-5.5) 06/15/17 23:13 Globulin 2.9 gm/dL 06/15/17 23:13 Albumin/Globulin Ratio 1.5 (1.0-1.8) 06/15/17 23:13 Random Vancomycin 14.0 ug/mL (5.0-40.0) 06/17/17 06:50 - Physical Exam Vitals and I&O: Vital Signs Temp 97.1 F 06/18/17 08:00 Pulse 66 06/18/17 08:00 Resp 18 06/18/17 08:00 BP 159/77 06/18/17 08:00 Pulse Ox 99 06/18/17 08:00 Intake & Output 06/17/17 06/18/17 06/18/17 18:59 06:59 18:59 Intake Total 100 50 Balance 100 50 Weight (lbs) 88.632 kg Intake: Intake, IV Amount 100 50 Piperacillin Sodium/ 100 50 Tazobact 2.25 gm In Sodium Chloride 0.9% 50 ml @ 100 mls/hr IV Q6HR [facility] Rx#:[id number] Other: Stool Characteristics Soft Active Medications: Current Medications Acetaminophen (Tylenol) 650 mg PO Q6H PRN PRN Reason: pain and fever >100 F Stop: 08/15/17 12:35 Last Admin: 06/16/17 21:45 Dose: 650 mg Acetaminophen/Hydrocodone Bitart ([place] 5mg/325mg) 1 tab PO BID PRN PRN Reason: Pain (Moderate) Stop: 08/15/17 10:19 Albuterol Sulfate (Albuterol 2.5mg/3ml Neb Ud) 2.5 mg HHN Q4HRT [facility] Stop: 08/15/17 06:59 Last Admin: 06/18/17 07:31 Dose: 2.5 mg Amiodarone HCl (Cordarone) 200 mg PO BID [facility] Stop: 08/15/17 16:59 Last Admin: 06/17/17 16:13 Dose: Not Given Calcitriol (Rocaltrol) 0.25 mcg PO DAILY [facility] Stop: 08/16/17 08:59 Last Admin: 06/17/17 09:02 Dose: 0.25 mcg Carbidopa/Levodopa (Sinemet 25 Mg-250 Mg) 1 tab PO QID [facility] Stop: 08/15/17 12:59 Last Admin: 06/17/17 21:34 Dose: 1 tab Carvedilol (Coreg) 3.125 mg PO SuMoWe@TID [facility] Stop: 08/15/17 13:59 Last Admin: 06/17/17 21:44 Dose: 3.125 mg Clonidine HCl (Catapres) 0.1 mg PO Q8H PRN PRN Reason: SBP ABOVE 160 Stop: 08/15/17 10:19 Cyanocobalamin (Vitamin B12) 100 mcg PO DAILY [facility] Stop: 08/16/17 08:59 Last Admin: 06/17/17 09:01 Dose: 100 mcg Divalproex Sodium (Depakote Dr) 250 mg PO Q12H [facility] PRN Reason: Protocol Stop: 08/15/17 10:29 Last Admin: 06/17/17 22:53 Dose: Not Given Docusate Sodium (Colace) 100 mg PO DAILY PRN PRN Reason: Constipation Stop: 08/16/17 08:59 Last Admin: 06/16/17 13:58 Dose: 100 mg Ferrous Sulfate (Iron) 325 mg PO BID [facility] Stop: 08/15/17 16:59 Last Admin: 06/17/17 16:12 Dose: 325 mg Folic Acid (Folate) 1 mg PO DAILY [facility] Stop: 08/16/17 08:59 Last Admin: 06/17/17 09:02 Dose: 1 mg Piperacillin Sod/Tazobactam (Sod 2.25 gm/ Sodium Chloride) 50 mls @ 100 mls/hr IV Q6HR [facility] Stop: 08/15/17 11:59 Last Admin: 06/18/17 05:42 Dose: 50 mls/hr Ipratropium Paia (Atrovent Neb 0.5mg/2.5ml) 0.5 mg HHN Q8HRT [facility] Stop: 08/15/17 06:59 Last Admin: 06/18/17 07:31 Dose: 0.5 mg Methylprednisolone Sodium Succinate (Solu-Medrol) 60 mg IVP Q8HR [facility] Stop: 08/15/17 04:59 Last Admin: 06/18/17 05:41 Dose: 60 mg Miscellaneous (Vancomycin Iv Per Pharmacy) 1 [facility] PRN PRN PRN Reason: PROTOCOL Stop: 08/15/17 04:49 Miscellaneous (Zosyn Iv Per Pharmacy) 1 [facility] PRN PRN PRN Reason: PROTOCOL Stop: 08/15/17 04:49 Miscellaneous (Clinical Monitoring) 1 [facility] DAILY PRN PRN Reason: RENAL/CA LEVEL Stop: 08/15/17 15:01 Miscellaneous (Vte Chemical Prophylaxis Screen/ Admission) 1 [facility] PRN PRN PRN Reason: PROTOCOL Stop: 08/15/17 16:31 Sevelamer HCl (Renagel) 2,400 mg PO TID [facility] Stop: 08/15/17 20:59 Last Admin: 06/17/17 21:34 Dose: Not Given Temazepam (Restoril) 7.5 mg PO HS PRN PRN Reason: Insomnia Last Admin: 06/16/17 23:42 Dose: 7.5 mg Vitamin B Complex/Vit C/Folic Acid (Vitamin B Complex W/Vitamin C) 1 tab PO DAILY [facility] Stop: 08/16/17 08:59 Last Admin: 06/17/17 09:02 Dose: 1 tab General: No acute distress HEENT: Atraumatic Cardiovascular: Regular rate, Normal S1, Normal S2 Lungs: Other (aisha rhonchi) Abdomen: Bowel sounds, Soft Extremities: Other (bruit right avf), no Edema Neurological: Strength at 5/5 X4 ext, Sensation intact Skin: no Rash Psych/Mental Status: Mood NL - Procedures Procedures: Procedures Procedure Code Date PERFORMANCE OF URINARY FILTRATION, MULTIPLE [id number] 12/14/16 Assessment/Plan - Problem List Patient Problems: All Active Problems COUGH WITH FEVER/CHILLS AND WEAKNESS (Acute) LARYNGITIS (Acute) RIGHT HAND TRAUMA, NECK PAIN, FOOT EDEMA (Acute) TRACHITIS (Acute) - Assessment Assessment: pneumonia - Plan Plan: monitor vitals/diet labs f/up pulmo continue current management
[2017-06-18] MEDS: Vitamin B Complex w/Vitamin C Tab PO SCH (08:54)
[2017-06-18] MEDS: Ferrous Sulfate 325 MG TAB PO SCH ×2 (09:01→16:03)
--- NOTE | 2017-06-18 09:24 | Diagnostic Imaging Report ---
Portable chest x-ray HISTORY: Pneumonia Compared with prior exam of June 15, 2017, faint parenchymal density noted in the left lower lobe unchanged. Findings may be chronic. Pneumonia or subsegmental atelectasis cannot be excluded. No other changes. IMPRESSION: 1. Persistent faint parenchymal density left lower lobe. This may be chronic. Pneumonia or subsegmental atelectasis cannot be definitely excluded.
[2017-06-18 10:02] LABS: ANION GAP 16.6 (7.0-16.0); BUN - UREA NITROGEN 51 mg/dL (7-25); BUN/CREATININE RATIO 7.7; CALCIUM SERUM 9.6 mg/dL (8.6-10.3); CARBON DIOXIDE 23.7 mEq/L (21.0-31.0); CHLORIDE 98 mEq/L (98-107); GLUCOSE 184 mg/dL (70-105); POTASSIUM SERUM 4.3 mEq/L (3.5-5.1); SODIUM SERUM 134 mEq/L (136-145)
[2017-06-18 10:06] LABS: CREATININE - SERUM 6.6 mg/dL (0.7-1.3)
[2017-06-18 10:20] LABS: HEMATOCRIT 32.2 % (39.0-49.0); HEMOGLOBIN 10.8 gm/dL (12.6-17.4); RED BLOOD COUNT 3.04 Mil/cmm (3.80-5.80); WHITE BLOOD COUNT 5.1 Th/cmm (4.8-10.8)
[2017-06-18 10:24] LABS: MEAN CELL VOLUME 106.2 fl (80-99); MEAN CORPUSCULAR HEMOGLOBIN 35.5 pg (27.0-31.0); MEAN CORPUSCULAR HGB CONC 33.5 pg (28.0-36.0); PLATELET COUNT 115 Th/cmm (150-400); RED CELL DISTRIBUTION WIDTH 15.5 % (11.5-20.0)
[2017-06-18 10:49] LABS: BAND NEUTROPHILE 1 % (0-10); NEUTROPHILS 90 % (40-80); TOTAL CELLS COUNTED 100
[2017-06-18 10:50] LABS: PLATELET ESTIMATE DECREASED PLATELETS (NORMAL); PLATELET MORPHOLOGY NORMAL (NORMAL)
--- NOTE | 2017-06-18 12:50 | General Progress Note ---
Subjective - Review of Systems Service Date: 06/18/17 Subjective: Alert, still has cough but much less hoarseness of voice Objective - Results Result Diagrams: 06/18/17 09:15 06/18/17 09:15 Recent Labs: Laboratory Last Values WBC 5.1 Th/cmm (4.8-10.8) 06/18/17 09:15 RBC 3.04 Mil/cmm (3.80-5.80) L 06/18/17 09:15 Hgb 10.8 gm/dL (12.6-17.4) L 06/18/17 09:15 Hct 32.2 % (39.0-49.0) L 06/18/17 09:15 MCV 106.2 fl (80-99) H 06/18/17 09:15 MCH 35.5 pg (27.0-31.0) H 06/18/17 09:15 MCHC Differential 33.5 pg (28.0-36.0) 06/18/17 09:15 RDW 15.5 % (11.5-20.0) 06/18/17 09:15 Plt Count 115 Th/cmm (150-400) L 06/18/17 09:15 MPV 7.0 fl 06/18/17 09:15 Neutrophils % 84.3 % (40.0-80.0) H 06/16/17 12:56 Band Neutrophils % 1 % (0-10) 06/18/17 09:15 Lymphocytes % 14.0 % (20.0-50.0) L 06/16/17 12:56 Monocytes % 1.3 % (2.0-10.0) L 06/16/17 12:56 Eosinophils % 0.3 % (0.0-5.0) 06/16/17 12:56 Basophils % 0.1 % (0.0-2.0) 06/16/17 12:56 Neutrophils (Manual) 90 % (40-80) H 06/18/17 09:15 Lymphocytes 8 % (20-50) L 06/18/17 09:15 Monocytes 1 % (2-10) L 06/18/17 09:15 Platelet Estimate DECREASED PLATELETS (NORMAL) 06/18/17 09:15 Platelet Morphology NORMAL (NORMAL) 06/18/17 09:15 Macrocytosis 1+ 06/18/17 09:15 RBC Morph Micro Appear ABNORMAL (NORMAL) 06/18/17 09:15 Sodium 134 mEq/L (136-145) L 06/18/17 09:15 Potassium 4.3 mEq/L (3.5-5.1) 06/18/17 09:15 Chloride 98 mEq/L (98-107) 06/18/17 09:15 Carbon Dioxide 23.7 mEq/L (21.0-31.0) 06/18/17 09:15 Anion Gap 16.6 (7.0-16.0) H 06/18/17 09:15 BUN 51 mg/dL (7-25) H 06/18/17 09:15 Creatinine 6.6 mg/dL (0.7-1.3) H* 06/18/17 09:15 Est GFR ( Amer) TNP 06/18/17 09:15 Est GFR (Non-Af Amer) TNP 06/18/17 09:15 BUN/Creatinine Ratio 7.7 06/18/17 09:15 Glucose 184 mg/dL (70-105) H 06/18/17 09:15 Hemoglobin A1c % 4.9 % (4.0-6.0) 06/18/17 09:15 Whole Bld Lactic Acid 0.73 mmol/L (0.60-1.99) 06/15/17 23:13 Calcium 9.6 mg/dL (8.6-10.3) 06/18/17 09:15 Total Bilirubin 0.4 mg/dL (0.3-1.0) 06/15/17 23:13 AST 72 U/L (13-39) H 06/15/17 23:13 ALT 13 U/L (7-52) 06/15/17 23:13 Alkaline Phosphatase 74 U/L (34-104) 06/15/17 23:13 Troponin I 0.02 ng/mL (0.01-0.05) 06/15/17 23:13 Total Protein 7.1 gm/dL (6.0-8.3) 06/15/17 23:13 Albumin 4.2 gm/dL (4.2-5.5) 06/15/17 23:13 Globulin 2.9 gm/dL 06/15/17 23:13 Albumin/Globulin Ratio 1.5 (1.0-1.8) 06/15/17 23:13 Random Vancomycin 24.9 ug/mL (5.0-40.0) 06/18/17 09:15 - Physical Exam Vitals and I&O: Vital Signs Temp 98.1 F 06/18/17 11:53 Pulse 55 06/18/17 12:43 Resp 18 06/18/17 12:43 BP 169/84 06/18/17 11:53 Pulse Ox 98 06/18/17 12:43 Intake & Output 06/17/17 06/18/17 06/18/17 18:59 06:59 18:59 Intake Total 100 100 Balance 100 100 Weight (lbs) 88.632 kg 88.632 kg Intake: Intake, IV Amount 100 100 Piperacillin Sodium/ 100 100 Tazobact 2.25 gm In Sodium Chloride 0.9% 50 ml @ 100 mls/hr IV Q6HR [facility] Rx#:[id number] Other: Stool Characteristics Soft Active Medications: Current Medications Acetaminophen (Tylenol) 650 mg PO Q6H PRN PRN Reason: pain and fever >100 F Stop: 08/15/17 12:35 Last Admin: 06/16/17 21:45 Dose: 650 mg Acetaminophen/Hydrocodone Bitart ([place] 5mg/325mg) 1 tab PO BID PRN PRN Reason: Pain (Moderate) Stop: 08/15/17 10:19 Albuterol Sulfate (Albuterol 2.5mg/3ml Neb Ud) 2.5 mg HHN Q4HRT [facility] Stop: 08/15/17 06:59 Last Admin: 06/18/17 12:42 Dose: Not Given Amiodarone HCl (Cordarone) 200 mg PO BID [facility] Stop: 08/15/17 16:59 Last Admin: 06/18/17 08:55 Dose: 200 mg Calcitriol (Rocaltrol) 0.25 mcg PO DAILY [facility] Stop: 08/16/17 08:59 Last Admin: 06/18/17 08:54 Dose: 0.25 mcg Carbidopa/Levodopa (Sinemet 25 Mg-250 Mg) 1 tab PO QID [facility] Stop: 08/15/17 12:59 Last Admin: 06/18/17 08:54 Dose: 1 tab Carvedilol (Coreg) 3.125 mg PO SuMoWe@TID [facility] Stop: 08/15/17 13:59 Last Admin: 06/17/17 21:44 Dose: 3.125 mg Clonidine HCl (Catapres) 0.1 mg PO Q8H PRN PRN Reason: SBP ABOVE 160 Stop: 08/15/17 10:19 Cyanocobalamin (Vitamin B12) 100 mcg PO DAILY [facility] Stop: 08/16/17 08:59 Last Admin: 06/18/17 08:54 Dose: 100 mcg Divalproex Sodium (Depakote Dr) 250 mg PO Q12H [facility] PRN Reason: Protocol Stop: 08/15/17 10:29 Last Admin: 06/18/17 11:12 Dose: 250 mg Docusate Sodium (Colace) 100 mg PO DAILY PRN PRN Reason: Constipation Stop: 08/16/17 08:59 Last Admin: 06/16/17 13:58 Dose: 100 mg Ferrous Sulfate (Iron) 325 mg PO BID [facility] Stop: 08/15/17 16:59 Last Admin: 06/18/17 09:01 Dose: 325 mg Folic Acid (Folate) 1 mg PO DAILY [facility] Stop: 08/16/17 08:59 Last Admin: 06/18/17 08:54 Dose: 1 mg Piperacillin Sod/Tazobactam (Sod 2.25 gm/ Sodium Chloride) 50 mls @ 100 mls/hr IV Q6HR [facility] Stop: 08/15/17 11:59 Last Admin: 06/18/17 11:12 Dose: 50 mls/hr Ipratropium [place] (Atrovent Neb 0.5mg/2.5ml) 0.5 mg HHN Q8HRT [facility] Stop: 08/15/17 06:59 Last Admin: 06/18/17 07:31 Dose: 0.5 mg Methylprednisolone Sodium Succinate (Solu-Medrol) 60 mg IVP Q8HR [facility] Stop: 08/15/17 04:59 Last Admin: 06/18/17 05:41 Dose: 60 mg Miscellaneous (Vancomycin Iv Per Pharmacy) 1 ea PRN PRN PRN Reason: PROTOCOL Stop: 08/15/17 04:49 Miscellaneous (Zosyn Iv Per Pharmacy) 1 ea PRN PRN PRN Reason: PROTOCOL Stop: 08/15/17 04:49 Miscellaneous (Clinical Monitoring) 1 ea [facility] DAILY PRN PRN Reason: RENAL/CA LEVEL Stop: 08/15/17 15:01 Miscellaneous (Vte Chemical Prophylaxis Screen/ Admission) 1 ea [facility] PRN PRN PRN Reason: PROTOCOL Stop: 08/15/17 16:31 Sevelamer HCl (Renagel) 2,400 mg PO TID [facility] Stop: 08/15/17 20:59 Last Admin: 06/18/17 08:54 Dose: 2,400 mg Temazepam (Restoril) 7.5 mg PO HS PRN PRN Reason: Insomnia Last Admin: 06/16/17 23:42 Dose: 7.5 mg Vitamin B Complex/Vit C/Folic Acid (Vitamin B Complex W/Vitamin C) 1 tab PO DAILY [facility] Stop: 08/16/17 08:59 Last Admin: 06/18/17 08:54 Dose: 1 tab General: No acute distress HEENT: Atraumatic Cardiovascular: Regular rate, Normal S1, Normal S2 Lungs: Other (few rhonchi) Abdomen: Bowel sounds, Soft Extremities: Other (bruit right avf), no Edema Neurological: Strength at 5/5 X4 ext, Sensation intact Skin: no Rash Psych/Mental Status: Mood NL - Procedures Procedures: Procedures Procedure Code Date PERFORMANCE OF URINARY FILTRATION, MULTIPLE [id number] 12/14/16 Assessment/Plan - Problem List Patient Problems: All Active Problems COUGH WITH FEVER/CHILLS AND WEAKNESS (Acute) LARYNGITIS (Acute) RIGHT HAND TRAUMA, NECK PAIN, FOOT EDEMA (Acute) TRACHITIS (Acute) - Assessment Assessment: End-stage renal disease on hemodialysis Acute tracheobronchitis possible Left HAP vs. ATx Colon CA status post colectomy with colostomy Anemia of chronic kidney disease Parkinson disease Chronic atrial fibrillation Essential hypertension - Plan Plan: Lab - Result Diagrams 06/16/17 12:56 06/16/17 12:56 Current Medications Acetaminophen (Tylenol) 650 mg PO Q6H PRN PRN Reason: pain and fever >100 F Stop: 08/15/17 12:35 Last Admin: 06/16/17 21:45 Dose: 650 mg Acetaminophen/Hydrocodone Bitart ([place] 5mg/325mg) 1 tab PO BID PRN PRN Reason: Pain (Moderate) Stop: 08/15/17 10:19 Albuterol Sulfate (Albuterol 2.5mg/3ml Neb Ud) 2.5 mg HHN Q4HRT [facility] Stop: 08/15/17 06:59 Last Admin: 06/17/17 12:09 Dose: 2.5 mg Amiodarone HCl (Cordarone) 200 mg PO BID [facility] Stop: 08/15/17 16:59 Last Admin: 06/17/17 09:04 Dose: Not Given Calcitriol (Rocaltrol) 0.25 mcg PO DAILY [facility] Stop: 08/16/17 08:59 Last Admin: 06/17/17 09:02 Dose: 0.25 mcg Carbidopa/Levodopa (Sinemet 25 Mg-250 Mg) 1 tab PO QID [facility] Stop: 08/15/17 12:59 Last Admin: 06/17/17 12:38 Dose: 1 tab Carvedilol (Coreg) 3.125 mg PO SuMoWe@TID [facility] Stop: 08/15/17 13:59 Last Admin: 06/16/17 21:47 Dose: 3.125 mg Clonidine HCl (Catapres) 0.1 mg PO Q8H PRN PRN Reason: SBP ABOVE 160 Stop: 08/15/17 10:19 Cyanocobalamin (Vitamin B12) 100 mcg PO DAILY [facility] Stop: 08/16/17 08:59 Last Admin: 06/17/17 09:01 Dose: 100 mcg Divalproex Sodium (Depakote Dr) 250 mg PO Q12H [facility] PRN Reason: Protocol Stop: 08/15/17 10:29 Last Admin: 06/17/17 11:03 Dose: 250 mg Docusate Sodium (Colace) 100 mg PO DAILY PRN PRN Reason: Constipation Stop: 08/16/17 08:59 Last Admin: 06/16/17 13:58 Dose: 100 mg Ferrous Sulfate (Iron) 325 mg PO BID [facility] Stop: 08/15/17 16:59 Last Admin: 06/17/17 09:02 Dose: 325 mg Folic Acid (Folate) 1 mg PO DAILY [facility] Stop: 08/16/17 08:59 Last Admin: 06/17/17 09:02 Dose: 1 mg Piperacillin Sod/Tazobactam (Sod 2.25 gm/ Sodium Chloride) 50 mls @ 100 mls/hr IV Q6HR [facility] Stop: 08/15/17 11:59 Last Admin: 06/17/17 11:07 Dose: 100 mls/hr Albumin Human (Albuminar 25%) 25 gm in 100 mls @ 50 mls/hr IV PRN PRN PRN Reason: BP Support During HD Stop: 06/18/17 00:00 Ipratropium [place] (Atrovent Neb 0.5mg/2.5ml) 0.5 mg HHN Q8HRT [facility] Stop: 08/15/17 06:59 Last Admin: 06/17/17 07:29 Dose: 0.5 mg Methylprednisolone Sodium Succinate (Solu-Medrol) 60 mg IVP Q8HR [facility] Stop: 08/15/17 04:59 Last Admin: 06/17/17 12:38 Dose: 60 mg Miscellaneous (Vancomycin Iv Per Pharmacy) 1 [facility] PRN PRN PRN Reason: PROTOCOL Stop: 08/15/17 04:49 Miscellaneous (Zosyn Iv Per Pharmacy) 1 [facility] PRN PRN PRN Reason: PROTOCOL Stop: 08/15/17 04:49 Miscellaneous (Clinical Monitoring) 1 [facility] DAILY PRN PRN Reason: RENAL/CA LEVEL Stop: 08/15/17 15:01 Miscellaneous (Vte Chemical Prophylaxis Screen/ Admission) 1 [facility] PRN PRN PRN Reason: PROTOCOL Stop: 08/15/17 16:31 Sevelamer HCl (Renagel) 2,400 mg PO TID [facility] Stop: 08/15/17 20:59 Last Admin: 06/17/17 09:02 Dose: 2,400 mg Temazepam (Restoril) 7.5 mg PO HS PRN PRN Reason: Insomnia Last Admin: 06/16/17 23:42 Dose: 7.5 mg Vitamin B Complex/Vit C/Folic Acid (Vitamin B Complex W/Vitamin C) 1 tab PO DAILY [facility] Stop: 08/16/17 08:59 Last Admin: 06/17/17 09:02 Dose: 1 tab Scheduled for hemodialysis tomorrow Continue on antibiotics WBC stable, afebrile
--- NOTE | 2017-06-18 13:07 | History & Physical ---
ADMIT DATE: 06/16/2017 HISTORY OF PRESENT ILLNESS: The patient is very well known to me. This patient is a gentleman. The patient is known to have a history of hypertension, history of end-stage renal disease on dialysis. [facility], the patient was complaining of shortness of breath and was having some rhonchi and rales. The patient had an x-ray done antibiotics and will begin treatment. Apparently, the x-ray showed pneumonia, occasionally more short of breath, the patient was brought to the hospital. The patient was seen in the Emergency Room and the patient was admitted for right lower lobe pneumonia and increasing shortness of breath, and increasing respiratory insufficiency. The patient had all the labs done in the Emergency Room. The patient was given bronchodilators and antibiotic therapy and I had asked Dr. Eller to see the patient as well as Dr. Cardoso to see the patient. PAST MEDICAL HISTORY: As enumerated above, history of hypertension, history of end-stage renal disease. MEDICATIONS: See medication reconciliation sheet. ALLERGIES: As noted. PHYSICAL EXAMINATION: GENERAL: The patient is alert, oriented male. HEAD: Normal. ENT: Normal. LUNGS: Bilateral rales. CARDIOVASCULAR SYSTEM: S1, S2 heard. ABDOMEN: Soft. Bowel sounds are heard, ____ fistula was noted. DIAGNOSES: 1. Pneumonia, possible sepsis. 2. History of end-stage renal disease. 3. Left lower lobe pneumonia. PLAN: The patient is going to be treated with IV antibiotics, bronchodilators and both ID as well as pulmonary consults and I will follow the patient. JOB# [id number]
--- NOTE | 2017-06-18 17:22 | Infectious Disease Prog Note ---
Infectious Disease Subjective - Review of Systems Service Date: 06/18/17 Subjective: There is no new change, there is no fever. Infectious Disease Objective - Results Result Diagrams: 06/18/17 09:15 06/18/17 09:15 Recent Labs: Laboratory Last Values WBC 5.1 Th/cmm (4.8-10.8) 06/18/17 09:15 RBC 3.04 Mil/cmm (3.80-5.80) L 06/18/17 09:15 Hgb 10.8 gm/dL (12.6-17.4) L 06/18/17 09:15 Hct 32.2 % (39.0-49.0) L 06/18/17 09:15 MCV 106.2 fl (80-99) H 06/18/17 09:15 MCH 35.5 pg (27.0-31.0) H 06/18/17 09:15 MCHC Differential 33.5 pg (28.0-36.0) 06/18/17 09:15 RDW 15.5 % (11.5-20.0) 06/18/17 09:15 Plt Count 115 Th/cmm (150-400) L 06/18/17 09:15 MPV 7.0 fl 06/18/17 09:15 Neutrophils % 84.3 % (40.0-80.0) H 06/16/17 12:56 Band Neutrophils % 1 % (0-10) 06/18/17 09:15 Lymphocytes % 14.0 % (20.0-50.0) L 06/16/17 12:56 Monocytes % 1.3 % (2.0-10.0) L 06/16/17 12:56 Eosinophils % 0.3 % (0.0-5.0) 06/16/17 12:56 Basophils % 0.1 % (0.0-2.0) 06/16/17 12:56 Neutrophils (Manual) 90 % (40-80) H 06/18/17 09:15 Lymphocytes 8 % (20-50) L 06/18/17 09:15 Monocytes 1 % (2-10) L 06/18/17 09:15 Platelet Estimate DECREASED PLATELETS (NORMAL) 06/18/17 09:15 Platelet Morphology NORMAL (NORMAL) 06/18/17 09:15 Macrocytosis 1+ 06/18/17 09:15 RBC Morph Micro Appear ABNORMAL (NORMAL) 06/18/17 09:15 Sodium 134 mEq/L (136-145) L 06/18/17 09:15 Potassium 4.3 mEq/L (3.5-5.1) 06/18/17 09:15 Chloride 98 mEq/L (98-107) 06/18/17 09:15 Carbon Dioxide 23.7 mEq/L (21.0-31.0) 06/18/17 09:15 Anion Gap 16.6 (7.0-16.0) H 06/18/17 09:15 BUN 51 mg/dL (7-25) H 06/18/17 09:15 Creatinine 6.6 mg/dL (0.7-1.3) H* 06/18/17 09:15 Est GFR ( Amer) TNP 06/18/17 09:15 Est GFR (Non-Af Amer) TNP 06/18/17 09:15 BUN/Creatinine Ratio 7.7 06/18/17 09:15 Glucose 184 mg/dL (70-105) H 06/18/17 09:15 Hemoglobin A1c % 4.9 % (4.0-6.0) 06/18/17 09:15 Whole Bld Lactic Acid 0.73 mmol/L (0.60-1.99) 06/15/17 23:13 Calcium 9.6 mg/dL (8.6-10.3) 06/18/17 09:15 Total Bilirubin 0.4 mg/dL (0.3-1.0) 06/15/17 23:13 AST 72 U/L (13-39) H 06/15/17 23:13 ALT 13 U/L (7-52) 06/15/17 23:13 Alkaline Phosphatase 74 U/L (34-104) 06/15/17 23:13 Troponin I 0.02 ng/mL (0.01-0.05) 06/15/17 23:13 Total Protein 7.1 gm/dL (6.0-8.3) 06/15/17 23:13 Albumin 4.2 gm/dL (4.2-5.5) 06/15/17 23:13 Globulin 2.9 gm/dL 06/15/17 23:13 Albumin/Globulin Ratio 1.5 (1.0-1.8) 06/15/17 23:13 Random Vancomycin 24.9 ug/mL (5.0-40.0) 06/18/17 09:15 - Physical Exam Vitals and I&O: Vital Signs Temp 98.2 F 06/18/17 15:22 Pulse 77 06/18/17 16:02 Resp 18 06/18/17 15:40 BP 188/99 06/18/17 15:22 Pulse Ox 98 06/18/17 15:40 Intake & Output 06/17/17 06/18/17 06/18/17 18:59 06:59 18:59 Intake Total 100 100 50 Balance 100 100 50 Weight (lbs) 88.632 kg 88.632 kg Intake: Intake, IV Amount 100 100 50 Piperacillin Sodium/ 100 100 50 Tazobact 2.25 gm In Sodium Chloride 0.9% 50 ml @ 100 mls/hr IV Q6HR [facility] Rx#:[id number] Other: Stool Characteristics Soft Active Medications: Current Medications Acetaminophen (Tylenol) 650 mg PO Q6H PRN PRN Reason: pain and fever >100 F Stop: 08/15/17 12:35 Last Admin: 06/16/17 21:45 Dose: 650 mg Acetaminophen/Hydrocodone Bitart ([place] 5mg/325mg) 1 tab PO BID PRN PRN Reason: Pain (Moderate) Stop: 08/15/17 10:19 Albuterol Sulfate (Albuterol 2.5mg/3ml Neb Ud) 2.5 mg HHN Q4HRT [facility] Stop: 08/15/17 06:59 Last Admin: 06/18/17 15:40 Dose: 2.5 mg Amiodarone HCl (Cordarone) 200 mg PO BID [facility] Stop: 08/15/17 16:59 Last Admin: 06/18/17 16:02 Dose: 200 mg Calcitriol (Rocaltrol) 0.25 mcg PO DAILY [facility] Stop: 08/16/17 08:59 Last Admin: 06/18/17 08:54 Dose: 0.25 mcg Carbidopa/Levodopa (Sinemet 25 Mg-250 Mg) 1 tab PO QID [facility] Stop: 08/15/17 12:59 Last Admin: 06/18/17 16:02 Dose: 1 tab Carvedilol (Coreg) 3.125 mg PO SuMoWe@TID [facility] Stop: 08/15/17 13:59 Last Admin: 06/17/17 21:44 Dose: 3.125 mg Cyanocobalamin (Vitamin B12) 100 mcg PO DAILY [facility] Stop: 08/16/17 08:59 Last Admin: 06/18/17 08:54 Dose: 100 mcg Divalproex Sodium (Depakote Dr) 250 mg PO Q12H [facility] PRN Reason: Protocol Stop: 08/15/17 10:29 Last Admin: 06/18/17 11:12 Dose: 250 mg Docusate Sodium (Colace) 100 mg PO DAILY PRN PRN Reason: Constipation Stop: 08/16/17 08:59 Last Admin: 06/16/17 13:58 Dose: 100 mg Ferrous Sulfate (Iron) 325 mg PO BID [facility] Stop: 08/15/17 16:59 Last Admin: 06/18/17 16:03 Dose: 325 mg Folic Acid (Folate) 1 mg PO DAILY [facility] Stop: 08/16/17 08:59 Last Admin: 06/18/17 08:54 Dose: 1 mg Piperacillin Sod/Tazobactam (Sod 2.25 gm/ Sodium Chloride) 50 mls @ 100 mls/hr IV Q6HR [facility] Stop: 08/15/17 11:59 Last Infusion: 06/18/17 12:15 Dose: Infused Albumin Human (Albuminar 25%) 25 gm in 100 mls @ 50 mls/hr IV X1 ONE Stop: 06/19/17 14:51 Ipratropium [place] (Atrovent Neb 0.5mg/2.5ml) 0.5 mg HHN Q8HRT [facility] Stop: 08/15/17 06:59 Last Admin: 06/18/17 15:40 Dose: 0.5 mg Methylprednisolone Sodium Succinate (Solu-Medrol) 40 mg IVP Q12H [facility] Stop: 08/17/17 20:59 Miscellaneous (Vancomycin Iv Per Pharmacy) 1 ea PRN PRN PRN Reason: PROTOCOL Stop: 08/15/17 04:49 Miscellaneous (Zosyn Iv Per Pharmacy) 1 ea PRN PRN PRN Reason: PROTOCOL Stop: 08/15/17 04:49 Miscellaneous (Clinical Monitoring) 1 ea DAILY PRN PRN Reason: RENAL/CA LEVEL Stop: 08/15/17 15:01 Miscellaneous (Vte Chemical Prophylaxis Screen/ Admission) 1 ea PRN PRN PRN Reason: PROTOCOL Stop: 08/15/17 16:31 Sevelamer HCl (Renagel) 2,400 mg PO TIDWM [facility] Stop: 08/17/17 16:59 Last Admin: 06/18/17 16:34 Dose: 2,400 mg Temazepam (Restoril) 7.5 mg PO HS PRN PRN Reason: Insomnia Last Admin: 06/16/17 23:42 Dose: 7.5 mg Vitamin B Complex/Vit C/Folic Acid (Vitamin B Complex W/Vitamin C) 1 tab PO DAILY [facility] Stop: 08/16/17 08:59 Last Admin: 06/18/17 08:54 Dose: 1 tab General: no acute distress, well developed, well nourished HEENT: atraumatic, normocephalic, EOMI Neck: supple, no thyromegaly, no rigid Cardiovascular: S1S2, regular, no systolic murmur Lungs: clear to auscultation bilaterally, clear to percussion, no crackles Abdomen: soft, bowel sounds, no tender, no distended Extremities: no cyanosis, no clubbing, no edema Neurological: awake, alert, oriented - Procedures Procedures: Procedures Procedure Code Date PERFORMANCE OF URINARY FILTRATION, MULTIPLE [id number] 12/14/16 Infectious Disease Assmt/Plan - Problem List Patient Problems: All Active Problems COUGH WITH FEVER/CHILLS AND WEAKNESS (Acute) LARYNGITIS (Acute) RIGHT HAND TRAUMA, NECK PAIN, FOOT EDEMA (Acute) TRACHITIS (Acute) - Assessment Assessment: 1. Pneumonia, left lower lobe. 2. CK D5 on hemodialysis. 3. History of colon CA 4. Colostomy. - Plan Plan: Continue Zosyn. When patient is stable may change antibiotic to Levaquin by mouth for total 8 days from now.
[2017-06-18] MEDS: methylPREDNISolone SS 40 mg Vial IVP SCH (21:43)
[2017-06-19] MEDS: Albuterol Nebulizer 2.5mg/3mL HHN SCH ×6 (02:52→23:36)
[2017-06-19] MEDS: Piperacillin/Tazobact 2.25 gm in 0.9% NS 50 ML IV SCH ×4 (05:26→23:19)
[2017-06-19] MEDS: Ipratropium Neb 0.5 mg/2.5 mL UD HHN SCH ×3 (07:06→23:38)
[2017-06-19] MEDS: Ferrous Sulfate 325 MG TAB PO SCH ×2 (08:10→17:51)
[2017-06-19] MEDS: methylPREDNISolone SS 40 mg Vial IVP SCH ×2 (08:11→20:20)
[2017-06-19] MEDS: Vitamin B Complex w/Vitamin C Tab PO SCH (08:11)
[2017-06-19] MEDS ORDERED: Albumin 25% 25gm/100mL 25 GM/100 ML BTL IV ONE (12:52)
--- NOTE | 2017-06-19 13:11 | General Progress Note ---
Subjective - Review of Systems Service Date: 06/19/17 Subjective: Alert, still has cough but much less hoarseness of voice, eating lunch Objective - Results Result Diagrams: 06/18/17 09:15 06/18/17 09:15 Recent Labs: Laboratory Last Values WBC 5.1 Th/cmm (4.8-10.8) 06/18/17 09:15 RBC 3.04 Mil/cmm (3.80-5.80) L 06/18/17 09:15 Hgb 10.8 gm/dL (12.6-17.4) L 06/18/17 09:15 Hct 32.2 % (39.0-49.0) L 06/18/17 09:15 MCV 106.2 fl (80-99) H 06/18/17 09:15 MCH 35.5 pg (27.0-31.0) H 06/18/17 09:15 MCHC Differential 33.5 pg (28.0-36.0) 06/18/17 09:15 RDW 15.5 % (11.5-20.0) 06/18/17 09:15 Plt Count 115 Th/cmm (150-400) L 06/18/17 09:15 MPV 7.0 fl 06/18/17 09:15 Neutrophils % 84.3 % (40.0-80.0) H 06/16/17 12:56 Band Neutrophils % 1 % (0-10) 06/18/17 09:15 Lymphocytes % 14.0 % (20.0-50.0) L 06/16/17 12:56 Monocytes % 1.3 % (2.0-10.0) L 06/16/17 12:56 Eosinophils % 0.3 % (0.0-5.0) 06/16/17 12:56 Basophils % 0.1 % (0.0-2.0) 06/16/17 12:56 Neutrophils (Manual) 90 % (40-80) H 06/18/17 09:15 Lymphocytes 8 % (20-50) L 06/18/17 09:15 Monocytes 1 % (2-10) L 06/18/17 09:15 Platelet Estimate DECREASED PLATELETS (NORMAL) 06/18/17 09:15 Platelet Morphology NORMAL (NORMAL) 06/18/17 09:15 Macrocytosis 1+ 06/18/17 09:15 RBC Morph Micro Appear ABNORMAL (NORMAL) 06/18/17 09:15 Sodium 134 mEq/L (136-145) L 06/18/17 09:15 Potassium 4.3 mEq/L (3.5-5.1) 06/18/17 09:15 Chloride 98 mEq/L (98-107) 06/18/17 09:15 Carbon Dioxide 23.7 mEq/L (21.0-31.0) 06/18/17 09:15 Anion Gap 16.6 (7.0-16.0) H 06/18/17 09:15 BUN 51 mg/dL (7-25) H 06/18/17 09:15 Creatinine 6.6 mg/dL (0.7-1.3) H* 06/18/17 09:15 Est GFR ( Amer) TNP 06/18/17 09:15 Est GFR (Non-Af Amer) TNP 06/18/17 09:15 BUN/Creatinine Ratio 7.7 06/18/17 09:15 Glucose 184 mg/dL (70-105) H 06/18/17 09:15 Hemoglobin A1c % 4.9 % (4.0-6.0) 06/18/17 09:15 Whole Bld Lactic Acid 0.73 mmol/L (0.60-1.99) 06/15/17 23:13 Calcium 9.6 mg/dL (8.6-10.3) 06/18/17 09:15 Total Bilirubin 0.4 mg/dL (0.3-1.0) 06/15/17 23:13 AST 72 U/L (13-39) H 06/15/17 23:13 ALT 13 U/L (7-52) 06/15/17 23:13 Alkaline Phosphatase 74 U/L (34-104) 06/15/17 23:13 Troponin I 0.02 ng/mL (0.01-0.05) 06/15/17 23:13 Total Protein 7.1 gm/dL (6.0-8.3) 06/15/17 23:13 Albumin 4.2 gm/dL (4.2-5.5) 06/15/17 23:13 Globulin 2.9 gm/dL 06/15/17 23:13 Albumin/Globulin Ratio 1.5 (1.0-1.8) 06/15/17 23:13 Random Vancomycin 22.2 ug/mL (5.0-40.0) 06/19/17 08:34 - Physical Exam Vitals and I&O: Vital Signs Temp 97.3 F 06/19/17 11:51 Pulse 67 06/19/17 11:51 Resp 18 06/19/17 11:51 BP 139/70 06/19/17 11:51 Pulse Ox 97 06/19/17 11:51 Intake & Output 06/18/17 06/19/17 06/19/17 18:59 06:59 18:59 Intake Total 500 50 300 Output Total 350 Balance 500 50 -50 Weight (lbs) 88.451 kg 87.175 kg 87.175 kg Intake: Intake, IV Amount 100 50 100 Piperacillin Sodium/ 100 50 100 Tazobact 2.25 gm In Sodium Chloride 0.9% 50 ml @ 100 mls/hr IV Q6HR [facility] Rx#:[id number] Oral 400 200 Output: Urine 350 Other: # Voids 3 # Bowel Movements 1 Active Medications: Current Medications Acetaminophen (Tylenol) 650 mg PO Q6H PRN PRN Reason: pain and fever >100 F Stop: 08/15/17 12:35 Last Admin: 06/16/17 21:45 Dose: 650 mg Acetaminophen/Hydrocodone Bitart ([place] 5mg/325mg) 1 tab PO BID PRN PRN Reason: Pain (Moderate) Stop: 08/15/17 10:19 Albuterol Sulfate (Albuterol 2.5mg/3ml Neb Ud) 2.5 mg HHN Q4HRT [facility] Stop: 08/15/17 06:59 Last Admin: 06/19/17 10:40 Dose: 2.5 mg Amiodarone HCl (Cordarone) 200 mg PO BID [facility] Stop: 08/15/17 16:59 Last Admin: 06/19/17 08:10 Dose: 200 mg Calcitriol (Rocaltrol) 0.25 mcg PO DAILY [facility] Stop: 08/16/17 08:59 Last Admin: 06/19/17 08:10 Dose: 0.25 mcg Carbidopa/Levodopa (Sinemet 25 Mg-250 Mg) 1 tab PO QID [facility] Stop: 08/15/17 12:59 Last Admin: 06/19/17 12:27 Dose: 1 tab Carvedilol (Coreg) 3.125 mg PO SuMoWe@TID [facility] Stop: 08/15/17 13:59 Last Admin: 06/17/17 21:44 Dose: 3.125 mg Cyanocobalamin (Vitamin B12) 100 mcg PO DAILY [facility] Stop: 08/16/17 08:59 Last Admin: 06/19/17 10:47 Dose: 100 mcg Divalproex Sodium (Depakote Dr) 250 mg PO Q12H [facility] PRN Reason: Protocol Stop: 08/15/17 10:29 Last Admin: 06/19/17 10:44 Dose: 250 mg Docusate Sodium (Colace) 100 mg PO DAILY PRN PRN Reason: Constipation Stop: 08/16/17 08:59 Last Admin: 06/16/17 13:58 Dose: 100 mg Ferrous Sulfate (Iron) 325 mg PO BID [facility] Stop: 08/15/17 16:59 Last Admin: 06/19/17 08:10 Dose: 325 mg Folic Acid (Folate) 1 mg PO DAILY [facility] Stop: 08/16/17 08:59 Last Admin: 06/19/17 08:10 Dose: 1 mg Piperacillin Sod/Tazobactam (Sod 2.25 gm/ Sodium Chloride) 50 mls @ 100 mls/hr IV Q6HR [facility] Stop: 08/15/17 11:59 Last Infusion: 06/19/17 12:27 Dose: Infused Albumin Human (Albuminar 25%) 25 gm in 100 mls @ 50 mls/hr IV X1 ONE Stop: 06/19/17 14:51 Ipratropium [place] (Atrovent Neb 0.5mg/2.5ml) 0.5 mg HHN Q8HRT [facility] Stop: 08/15/17 06:59 Last Admin: 06/19/17 07:06 Dose: 0.5 mg Methylprednisolone Sodium Succinate (Solu-Medrol) 40 mg IVP Q12H [facility] Stop: 08/17/17 20:59 Last Admin: 06/19/17 08:11 Dose: 40 mg Miscellaneous (Vancomycin Iv Per Pharmacy) [address] [facility] PRN PRN PRN Reason: PROTOCOL Stop: 08/15/17 04:49 Miscellaneous (Zosyn Iv Per Pharmacy) [address] [facility] PRN PRN PRN Reason: PROTOCOL Stop: 08/15/17 04:49 Miscellaneous (Clinical Monitoring) 1 ea [facility] DAILY PRN PRN Reason: RENAL/CA LEVEL Stop: 08/15/17 15:01 Miscellaneous (Vte Chemical Prophylaxis Screen/ Admission) 1 [facility] PRN PRN PRN Reason: PROTOCOL Stop: 08/15/17 16:31 Sevelamer HCl (Renagel) 2,400 mg PO TIDWM [facility] Stop: 08/17/17 16:59 Last Admin: 06/19/17 12:26 Dose: 2,400 mg Vitamin B Complex/Vit C/Folic Acid (Vitamin B Complex W/Vitamin C) 1 tab PO DAILY [facility] Stop: 08/16/17 08:59 Last Admin: 06/19/17 08:11 Dose: 1 tab Zolpidem Tartrate (Ambien) 10 mg PO HS PRN PRN Reason: Insomnia Stop: 08/17/17 20:58 Last Admin: 06/19/17 01:24 Dose: 10 mg General: Alert, No acute distress HEENT: Atraumatic, PERRLA, EOMI, Mucous membr. moist/pink Neck: Supple Cardiovascular: Regular rate, Normal S1, Normal S2 Lungs: Other (few rhonchi) Abdomen: Bowel sounds, Soft Extremities: Other (bruit right avf), no Edema Neurological: Strength at 5/5 X4 ext, Sensation intact Skin: no Rash Psych/Mental Status: Mood NL - Procedures Procedures: Procedures Procedure Code Date PERFORMANCE OF URINARY FILTRATION, MULTIPLE [id number] 12/14/16 Assessment/Plan - Problem List Patient Problems: All Active Problems COUGH WITH FEVER/CHILLS AND WEAKNESS (Acute) LARYNGITIS (Acute) RIGHT HAND TRAUMA, NECK PAIN, FOOT EDEMA (Acute) TRACHITIS (Acute) - Assessment Assessment: End-stage renal disease on hemodialysis Acute tracheobronchitis possible Left HAP vs. ATx Colon CA status post colectomy with colostomy Anemia of chronic kidney disease Parkinson disease Chronic atrial fibrillation Essential hypertension - Plan Plan: Lab - Result Diagrams 06/16/17 12:56 06/16/17 12:56 Current Medications Acetaminophen (Tylenol) 650 mg PO Q6H PRN PRN Reason: pain and fever >100 F Stop: 08/15/17 12:35 Last Admin: 06/16/17 21:45 Dose: 650 mg Acetaminophen/Hydrocodone Bitart ([place] 5mg/325mg) 1 tab PO BID PRN PRN Reason: Pain (Moderate) Stop: 08/15/17 10:19 Albuterol Sulfate (Albuterol 2.5mg/3ml Neb Ud) 2.5 mg HHN Q4HRT [facility] Stop: 08/15/17 06:59 Last Admin: 06/17/17 12:09 Dose: 2.5 mg Amiodarone HCl (Cordarone) 200 mg PO BID [facility] Stop: 08/15/17 16:59 Last Admin: 06/17/17 09:04 Dose: Not Given Calcitriol (Rocaltrol) 0.25 mcg PO DAILY [facility] Stop: 08/16/17 08:59 Last Admin: 06/17/17 09:02 Dose: 0.25 mcg Carbidopa/Levodopa (Sinemet 25 Mg-250 Mg) 1 tab PO QID [facility] Stop: 08/15/17 12:59 Last Admin: 06/17/17 12:38 Dose: 1 tab Carvedilol (Coreg) 3.125 mg PO SuMoWe@TID [facility] Stop: 08/15/17 13:59 Last Admin: 06/16/17 21:47 Dose: 3.125 mg Clonidine HCl (Catapres) 0.1 mg PO Q8H PRN PRN Reason: SBP ABOVE 160 Stop: 08/15/17 10:19 Cyanocobalamin (Vitamin B12) 100 mcg PO DAILY [facility] Stop: 08/16/17 08:59 Last Admin: 06/17/17 09:01 Dose: 100 mcg Divalproex Sodium (Depakote Dr) 250 mg PO Q12H [facility] PRN Reason: Protocol Stop: 08/15/17 10:29 Last Admin: 06/17/17 11:03 Dose: 250 mg Docusate Sodium (Colace) 100 mg PO DAILY PRN PRN Reason: Constipation Stop: 08/16/17 08:59 Last Admin: 06/16/17 13:58 Dose: 100 mg Ferrous Sulfate (Iron) 325 mg PO BID [facility] Stop: 08/15/17 16:59 Last Admin: 06/17/17 09:02 Dose: 325 mg Folic Acid (Folate) 1 mg PO DAILY [facility] Stop: 08/16/17 08:59 Last Admin: 06/17/17 09:02 Dose: 1 mg Piperacillin Sod/Tazobactam (Sod 2.25 gm/ Sodium Chloride) 50 mls @ 100 mls/hr IV Q6HR [facility] Stop: 08/15/17 11:59 Last Admin: 06/17/17 11:07 Dose: 100 mls/hr Albumin Human (Albuminar 25%) 25 gm in 100 mls @ 50 mls/hr IV PRN PRN PRN Reason: BP Support During HD Stop: 06/18/17 00:00 Ipratropium [place] (Atrovent Neb 0.5mg/2.5ml) 0.5 mg HHN Q8HRT [facility] Stop: 08/15/17 06:59 Last Admin: 06/17/17 07:29 Dose: 0.5 mg Methylprednisolone Sodium Succinate (Solu-Medrol) 60 mg IVP Q8HR [facility] Stop: 08/15/17 04:59 Last Admin: 06/17/17 12:38 Dose: 60 mg Miscellaneous (Vancomycin Iv Per Pharmacy) [address] [facility] PRN PRN PRN Reason: PROTOCOL Stop: 08/15/17 04:49 Miscellaneous (Zosyn Iv Per Pharmacy) [address] [facility] PRN PRN PRN Reason: PROTOCOL Stop: 08/15/17 04:49 Miscellaneous (Clinical Monitoring) [address] [facility] DAILY PRN PRN Reason: RENAL/CA LEVEL Stop: 08/15/17 15:01 Miscellaneous (Vte Chemical Prophylaxis Screen/ Admission) [address] [facility] PRN PRN PRN Reason: PROTOCOL Stop: 08/15/17 16:31 Sevelamer HCl (Renagel) 2,400 mg PO TID [facility] Stop: 08/15/17 20:59 Last Admin: 06/17/17 09:02 Dose: 2,400 mg Temazepam (Restoril) 7.5 mg PO HS PRN PRN Reason: Insomnia Last Admin: 06/16/17 23:42 Dose: 7.5 mg Vitamin B Complex/Vit C/Folic Acid (Vitamin B Complex W/Vitamin C) 1 tab PO DAILY [facility] Stop: 08/16/17 08:59 Last Admin: 06/17/17 09:02 Dose: 1 tab Scheduled for hemodialysis today Continue on antibiotics WBC stable, afebrile
[2017-06-20] MEDS: Albuterol Nebulizer 2.5mg/3mL HHN SCH ×6 (03:34→22:14)
[2017-06-20] MEDS: Piperacillin/Tazobact 2.25 gm in 0.9% NS 50 ML IV SCH ×4 (05:12→23:32)
--- NOTE | 2017-06-20 07:25 | General Progress Note ---
Subjective - Review of Systems Events since last encounter: no new changes, no fever Objective - Results Result Diagrams: 06/18/17 09:15 06/18/17 09:15 Recent Labs: Laboratory Last Values WBC 5.1 Th/cmm (4.8-10.8) 06/18/17 09:15 RBC 3.04 Mil/cmm (3.80-5.80) L 06/18/17 09:15 Hgb 10.8 gm/dL (12.6-17.4) L 06/18/17 09:15 Hct 32.2 % (39.0-49.0) L 06/18/17 09:15 MCV 106.2 fl (80-99) H 06/18/17 09:15 MCH 35.5 pg (27.0-31.0) H 06/18/17 09:15 MCHC Differential 33.5 pg (28.0-36.0) 06/18/17 09:15 RDW 15.5 % (11.5-20.0) 06/18/17 09:15 Plt Count 115 Th/cmm (150-400) L 06/18/17 09:15 MPV 7.0 fl 06/18/17 09:15 Neutrophils % 84.3 % (40.0-80.0) H 06/16/17 12:56 Band Neutrophils % 1 % (0-10) 06/18/17 09:15 Lymphocytes % 14.0 % (20.0-50.0) L 06/16/17 12:56 Monocytes % 1.3 % (2.0-10.0) L 06/16/17 12:56 Eosinophils % 0.3 % (0.0-5.0) 06/16/17 12:56 Basophils % 0.1 % (0.0-2.0) 06/16/17 12:56 Neutrophils (Manual) 90 % (40-80) H 06/18/17 09:15 Lymphocytes 8 % (20-50) L 06/18/17 09:15 Monocytes 1 % (2-10) L 06/18/17 09:15 Platelet Estimate DECREASED PLATELETS (NORMAL) 06/18/17 09:15 Platelet Morphology NORMAL (NORMAL) 06/18/17 09:15 Macrocytosis 1+ 06/18/17 09:15 RBC Morph Micro Appear ABNORMAL (NORMAL) 06/18/17 09:15 Sodium 134 mEq/L (136-145) L 06/18/17 09:15 Potassium 4.3 mEq/L (3.5-5.1) 06/18/17 09:15 Chloride 98 mEq/L (98-107) 06/18/17 09:15 Carbon Dioxide 23.7 mEq/L (21.0-31.0) 06/18/17 09:15 Anion Gap 16.6 (7.0-16.0) H 06/18/17 09:15 BUN 51 mg/dL (7-25) H 06/18/17 09:15 Creatinine 6.6 mg/dL (0.7-1.3) H* 06/18/17 09:15 Est GFR ( Amer) TNP 06/18/17 09:15 Est GFR (Non-Af Amer) TNP 06/18/17 09:15 BUN/Creatinine Ratio 7.7 06/18/17 09:15 Glucose 184 mg/dL (70-105) H 06/18/17 09:15 Hemoglobin A1c % 4.9 % (4.0-6.0) 06/18/17 09:15 Whole Bld Lactic Acid 0.73 mmol/L (0.60-1.99) 06/15/17 23:13 Calcium 9.6 mg/dL (8.6-10.3) 06/18/17 09:15 Total Bilirubin 0.4 mg/dL (0.3-1.0) 06/15/17 23:13 AST 72 U/L (13-39) H 06/15/17 23:13 ALT 13 U/L (7-52) 06/15/17 23:13 Alkaline Phosphatase 74 U/L (34-104) 06/15/17 23:13 Troponin I 0.02 ng/mL (0.01-0.05) 06/15/17 23:13 Total Protein 7.1 gm/dL (6.0-8.3) 06/15/17 23:13 Albumin 4.2 gm/dL (4.2-5.5) 06/15/17 23:13 Globulin 2.9 gm/dL 06/15/17 23:13 Albumin/Globulin Ratio 1.5 (1.0-1.8) 06/15/17 23:13 Random Vancomycin 22.2 ug/mL (5.0-40.0) 06/19/17 08:34 - Physical Exam Vitals and I&O: Vital Signs Temp 98.0 F 06/20/17 04:00 Pulse 83 06/20/17 04:00 Resp 18 06/20/17 04:00 BP 112/77 06/20/17 04:00 Pulse Ox 95 06/20/17 04:00 Intake & Output 06/19/17 06/20/17 06/20/17 18:59 06:59 18:59 Intake Total 350 50 Output Total 350 Balance 0 50 Weight (lbs) 87.175 kg Intake: Intake, IV Amount 150 50 Piperacillin Sodium/ 150 50 Tazobact 2.25 gm In Sodium Chloride 0.9% 50 ml @ 100 mls/hr IV Q6HR [facility] Rx#:[id number] Oral 200 Output: Urine 350 Other: # Voids 3 Active Medications: Current Medications Acetaminophen (Tylenol) 650 mg PO Q6H PRN PRN Reason: pain and fever >100 F Stop: 08/15/17 12:35 Last Admin: 06/16/17 21:45 Dose: 650 mg Acetaminophen/Hydrocodone Bitart ([place] 5mg/325mg) 1 tab PO BID PRN PRN Reason: Pain (Moderate) Stop: 08/15/17 10:19 Albuterol Sulfate (Albuterol 2.5mg/3ml Neb Ud) 2.5 mg HHN Q4HRT [facility] Stop: 08/15/17 06:59 Last Admin: 06/20/17 03:34 Dose: 2.5 mg Amiodarone HCl (Cordarone) 200 mg PO BID [facility] Stop: 08/15/17 16:59 Last Admin: 06/19/17 17:51 Dose: 200 mg Calcitriol (Rocaltrol) 0.25 mcg PO DAILY [facility] Stop: 08/16/17 08:59 Last Admin: 06/19/17 08:10 Dose: 0.25 mcg Carbidopa/Levodopa (Sinemet 25 Mg-250 Mg) 1 tab PO QID [facility] Stop: 08/15/17 12:59 Last Admin: 06/19/17 20:20 Dose: 1 tab Carvedilol (Coreg) 3.125 mg PO SuMoWe@TID [facility] Stop: 08/15/17 13:59 Last Admin: 06/17/17 21:44 Dose: 3.125 mg Cyanocobalamin (Vitamin B12) 100 mcg PO DAILY [facility] Stop: 08/16/17 08:59 Last Admin: 06/19/17 10:47 Dose: 100 mcg Divalproex Sodium (Depakote Dr) 250 mg PO Q12H [facility] PRN Reason: Protocol Stop: 08/15/17 10:29 Last Admin: 06/20/17 00:11 Dose: 250 mg Docusate Sodium (Colace) 100 mg PO DAILY PRN PRN Reason: Constipation Stop: 08/16/17 08:59 Last Admin: 06/16/17 13:58 Dose: 100 mg Ferrous Sulfate (Iron) 325 mg PO BID [facility] Stop: 08/15/17 16:59 Last Admin: 06/19/17 17:51 Dose: 325 mg Folic Acid (Folate) 1 mg PO DAILY [facility] Stop: 08/16/17 08:59 Last Admin: 06/19/17 08:10 Dose: 1 mg Piperacillin Sod/Tazobactam (Sod 2.25 gm/ Sodium Chloride) 50 mls @ 100 mls/hr IV Q6HR [facility] Stop: 08/15/17 11:59 Last Admin: 06/20/17 05:12 Dose: 100 mls/hr Ipratropium [place] (Atrovent Neb 0.5mg/2.5ml) 0.5 mg HHN Q8HRT [facility] Stop: 08/15/17 06:59 Last Admin: 06/19/17 23:38 Dose: 0.5 mg Methylprednisolone Sodium Succinate (Solu-Medrol) 40 mg IVP Q12H [facility] Stop: 08/17/17 20:59 Last Admin: 06/19/17 20:20 Dose: 40 mg Miscellaneous (Vancomycin Iv Per Pharmacy) 1 [facility]a PRN PRN PRN Reason: PROTOCOL Stop: 08/15/17 04:49 Miscellaneous (Zosyn Iv Per Pharmacy) 1 [facility] PRN PRN PRN Reason: PROTOCOL Stop: 08/15/17 04:49 Miscellaneous (Clinical Monitoring) 1 ea DAILY PRN PRN Reason: RENAL/CA LEVEL Stop: 08/15/17 15:01 Miscellaneous (Vte Chemical Prophylaxis Screen/ Admission) 1 ea PRN PRN PRN Reason: PROTOCOL Stop: 08/15/17 16:31 Sevelamer HCl (Renagel) 2,400 mg PO TIDWM [facility] Stop: 08/17/17 16:59 Last Admin: 06/19/17 17:51 Dose: 2,400 mg Vitamin B Complex/Vit C/Folic Acid (Vitamin B Complex W/Vitamin C) 1 tab PO DAILY [facility] Stop: 08/16/17 08:59 Last Admin: 06/19/17 08:11 Dose: 1 tab Zolpidem Tartrate (Ambien) 10 mg PO HS PRN PRN Reason: Insomnia Stop: 08/17/17 20:58 Last Admin: 06/20/17 01:17 Dose: 10 mg General: Alert, No acute distress HEENT: Atraumatic, PERRLA, EOMI, Mucous membr. moist/pink Neck: Supple Cardiovascular: Regular rate, Normal S1, Normal S2 Lungs: Other (few rhonchi) Abdomen: Bowel sounds, Soft Extremities: Other (bruit right avf), no Edema Neurological: Strength at 5/5 X4 ext, Sensation intact Skin: no Rash Psych/Mental Status: Mood NL - Procedures Procedures: Procedures Procedure Code Date PERFORMANCE OF URINARY FILTRATION, MULTIPLE 6E0I58H 12/14/16 Assessment/Plan - Problem List Patient Problems: All Active Problems COUGH WITH FEVER/CHILLS AND WEAKNESS (Acute) LARYNGITIS (Acute) RIGHT HAND TRAUMA, NECK PAIN, FOOT EDEMA (Acute) TRACHITIS (Acute) - Assessment Assessment: pneumonia - Plan Plan: monitor vitals/diet labs f/up pulmo continue current management
[2017-06-20] MEDS: Ipratropium Neb 0.5 mg/2.5 mL UD HHN SCH ×3 (07:51→22:14)
[2017-06-20] MEDS: Vitamin B Complex w/Vitamin C Tab PO SCH (08:46)
[2017-06-20] MEDS: Ferrous Sulfate 325 MG TAB PO SCH ×2 (08:46→16:29)
[2017-06-20] MEDS: methylPREDNISolone SS 40 mg Vial IVP SCH ×2 (08:46→20:39)
--- NOTE | 2017-06-20 13:04 | General Progress Note ---
Subjective - Review of Systems Service Date: 06/20/17 Subjective: Alert, still has cough but no more hoarseness of voice, eating lunch Objective - Results Result Diagrams: 06/18/17 09:15 06/18/17 09:15 Recent Labs: Laboratory Last Values WBC 5.1 Th/cmm (4.8-10.8) 06/18/17 09:15 RBC 3.04 Mil/cmm (3.80-5.80) L 06/18/17 09:15 Hgb 10.8 gm/dL (12.6-17.4) L 06/18/17 09:15 Hct 32.2 % (39.0-49.0) L 06/18/17 09:15 MCV 106.2 fl (80-99) H 06/18/17 09:15 MCH 35.5 pg (27.0-31.0) H 06/18/17 09:15 MCHC Differential 33.5 pg (28.0-36.0) 06/18/17 09:15 RDW 15.5 % (11.5-20.0) 06/18/17 09:15 Plt Count 115 Th/cmm (150-400) L 06/18/17 09:15 MPV 7.0 fl 06/18/17 09:15 Neutrophils % 84.3 % (40.0-80.0) H 06/16/17 12:56 Band Neutrophils % 1 % (0-10) 06/18/17 09:15 Lymphocytes % 14.0 % (20.0-50.0) L 06/16/17 12:56 Monocytes % 1.3 % (2.0-10.0) L 06/16/17 12:56 Eosinophils % 0.3 % (0.0-5.0) 06/16/17 12:56 Basophils % 0.1 % (0.0-2.0) 06/16/17 12:56 Neutrophils (Manual) 90 % (40-80) H 06/18/17 09:15 Lymphocytes 8 % (20-50) L 06/18/17 09:15 Monocytes 1 % (2-10) L 06/18/17 09:15 Platelet Estimate DECREASED PLATELETS (NORMAL) 06/18/17 09:15 Platelet Morphology NORMAL (NORMAL) 06/18/17 09:15 Macrocytosis 1+ 06/18/17 09:15 RBC Morph Micro Appear ABNORMAL (NORMAL) 06/18/17 09:15 Sodium 134 mEq/L (136-145) L 06/18/17 09:15 Potassium 4.3 mEq/L (3.5-5.1) 06/18/17 09:15 Chloride 98 mEq/L (98-107) 06/18/17 09:15 Carbon Dioxide 23.7 mEq/L (21.0-31.0) 06/18/17 09:15 Anion Gap 16.6 (7.0-16.0) H 06/18/17 09:15 BUN 51 mg/dL (7-25) H 06/18/17 09:15 Creatinine 6.6 mg/dL (0.7-1.3) H* 06/18/17 09:15 Est GFR ( Amer) TNP 06/18/17 09:15 Est GFR (Non-Af Amer) TNP 06/18/17 09:15 BUN/Creatinine Ratio 7.7 06/18/17 09:15 Glucose 184 mg/dL (70-105) H 06/18/17 09:15 Hemoglobin A1c % 4.9 % (4.0-6.0) 06/18/17 09:15 Whole Bld Lactic Acid 0.73 mmol/L (0.60-1.99) 06/15/17 23:13 Calcium 9.6 mg/dL (8.6-10.3) 06/18/17 09:15 Total Bilirubin 0.4 mg/dL (0.3-1.0) 06/15/17 23:13 AST 72 U/L (13-39) H 06/15/17 23:13 ALT 13 U/L (7-52) 06/15/17 23:13 Alkaline Phosphatase 74 U/L (34-104) 06/15/17 23:13 Troponin I 0.02 ng/mL (0.01-0.05) 06/15/17 23:13 Total Protein 7.1 gm/dL (6.0-8.3) 06/15/17 23:13 Albumin 4.2 gm/dL (4.2-5.5) 06/15/17 23:13 Globulin 2.9 gm/dL 06/15/17 23:13 Albumin/Globulin Ratio 1.5 (1.0-1.8) 06/15/17 23:13 Random Vancomycin 16.8 ug/mL (5.0-40.0) 06/20/17 07:30 - Physical Exam Vitals and I&O: Vital Signs Temp 97.3 F 06/20/17 11:50 Pulse 77 06/20/17 11:56 Resp 19 06/20/17 11:50 BP 172/85 06/20/17 11:50 Pulse Ox 99 06/20/17 11:50 Intake & Output 06/19/17 06/20/17 06/20/17 18:59 06:59 18:59 Intake Total 350 100 Output Total 350 Balance 0 100 Weight (lbs) 87.175 kg Intake: Intake, IV Amount 150 100 Piperacillin Sodium/ 150 100 Tazobact 2.25 gm In Sodium Chloride 0.9% 50 ml @ 100 mls/hr IV Q6HR [facility] Rx#:[id number] Oral 200 Output: Urine 350 Other: # Voids 3 Stool Characteristics Soft Active Medications: Current Medications Acetaminophen (Tylenol) 650 mg PO Q6H PRN PRN Reason: pain and fever >100 F Stop: 08/15/17 12:35 Last Admin: 06/16/17 21:45 Dose: 650 mg Acetaminophen/Hydrocodone Bitart ([place] 5mg/325mg) 1 tab PO BID PRN PRN Reason: Pain (Moderate) Stop: 08/15/17 10:19 Albuterol Sulfate (Albuterol 2.5mg/3ml Neb Ud) 2.5 mg HHN Q4HRT [facility] Stop: 08/15/17 06:59 Last Admin: 06/20/17 11:15 Dose: 2.5 mg Amiodarone HCl (Cordarone) 200 mg PO BID [facility] Stop: 08/15/17 16:59 Last Admin: 06/20/17 08:47 Dose: 200 mg Calcitriol (Rocaltrol) 0.25 mcg PO DAILY [facility] Stop: 08/16/17 08:59 Last Admin: 06/20/17 08:46 Dose: 0.25 mcg Carbidopa/Levodopa (Sinemet 25 Mg-250 Mg) 1 tab PO QID [facility] Stop: 08/15/17 12:59 Last Admin: 06/20/17 08:47 Dose: 1 tab Carvedilol (Coreg) 3.125 mg PO SuMoWe@TID [facility] Stop: 08/15/17 13:59 Last Admin: 06/20/17 08:47 Dose: 3.125 mg Cyanocobalamin (Vitamin B12) 100 mcg PO DAILY [facility] Stop: 08/16/17 08:59 Last Admin: 06/20/17 08:46 Dose: 100 mcg Divalproex Sodium (Depakote Dr) 250 mg PO Q12H [facility] PRN Reason: Protocol Stop: 08/15/17 10:29 Last Admin: 06/20/17 09:54 Dose: 250 mg Docusate Sodium (Colace) 100 mg PO DAILY PRN PRN Reason: Constipation Stop: 08/16/17 08:59 Last Admin: 06/16/17 13:58 Dose: 100 mg Ferrous Sulfate (Iron) 325 mg PO BID [facility] Stop: 08/15/17 16:59 Last Admin: 06/20/17 08:46 Dose: 325 mg Folic Acid (Folate) 1 mg PO DAILY [facility] Stop: 08/16/17 08:59 Last Admin: 06/20/17 08:47 Dose: 1 mg Piperacillin Sod/Tazobactam (Sod 2.25 gm/ Sodium Chloride) 50 mls @ 100 mls/hr IV Q6HR [facility] Stop: 08/15/17 11:59 Last Admin: 06/20/17 11:55 Dose: 100 mls/hr Ipratropium [place] (Atrovent Neb 0.5mg/2.5ml) 0.5 mg HHN Q8HRT [facility] Stop: 08/15/17 06:59 Last Admin: 06/20/17 07:51 Dose: 0.5 mg Methylprednisolone Sodium Succinate (Solu-Medrol) 40 mg IVP Q12H [facility] Stop: 08/17/17 20:59 Last Admin: 06/20/17 08:46 Dose: 40 mg Miscellaneous (Vancomycin Iv Per Pharmacy) 1 ea PRN PRN PRN Reason: PROTOCOL Stop: 08/15/17 04:49 Miscellaneous (Zosyn Iv Per Pharmacy) 1 ea PRN PRN PRN Reason: PROTOCOL Stop: 08/15/17 04:49 Miscellaneous (Clinical Monitoring) 1 ea DAILY PRN PRN Reason: RENAL/CA LEVEL Stop: 08/15/17 15:01 Miscellaneous (Vte Chemical Prophylaxis Screen/ Admission) 1 e[facility] PRN PRN PRN Reason: PROTOCOL Stop: 08/15/17 16:31 Sevelamer HCl (Renagel) 2,400 mg PO TIDWM [facility] Stop: 08/17/17 16:59 Last Admin: 06/20/17 11:54 Dose: 2,400 mg Vitamin B Complex/Vit C/Folic Acid (Vitamin B Complex W/Vitamin C) 1 tab PO DAILY [facility] Stop: 08/16/17 08:59 Last Admin: 06/20/17 08:46 Dose: 1 tab Zolpidem Tartrate (Ambien) 10 mg PO HS PRN PRN Reason: Insomnia Stop: 08/17/17 20:58 Last Admin: 06/20/17 01:17 Dose: 10 mg General: Alert, No acute distress HEENT: Atraumatic, PERRLA, EOMI, Mucous membr. moist/pink Neck: Supple Cardiovascular: Regular rate, Normal S1, Normal S2 Lungs: Other (few rhonchi) Abdomen: Bowel sounds, Soft Extremities: Other (bruit right avf), no Edema Neurological: Strength at 5/5 X4 ext, Sensation intact Skin: no Rash Psych/Mental Status: Mood NL - Procedures Procedures: Procedures Procedure Code Date PERFORMANCE OF URINARY FILTRATION, MULTIPLE 9A4H03C 12/14/16 Assessment/Plan - Problem List Patient Problems: All Active Problems COUGH WITH FEVER/CHILLS AND WEAKNESS (Acute) LARYNGITIS (Acute) RIGHT HAND TRAUMA, NECK PAIN, FOOT EDEMA (Acute) TRACHITIS (Acute) - Assessment Assessment: End-stage renal disease on hemodialysis Acute tracheobronchitis possible Left HAP vs. ATx Colon CA status post colectomy with colostomy Anemia of chronic kidney disease Parkinson disease Chronic atrial fibrillation Essential hypertension - Plan Plan: Lab - Result Diagrams 06/16/17 12:56 06/16/17 12:56 Current Medications Acetaminophen (Tylenol) 650 mg PO Q6H PRN PRN Reason: pain and fever >100 F Stop: 08/15/17 12:35 Last Admin: 06/16/17 21:45 Dose: 650 mg Acetaminophen/Hydrocodone Bitart ([place] 5mg/325mg) 1 tab PO BID PRN PRN Reason: Pain (Moderate) Stop: 08/15/17 10:19 Albuterol Sulfate (Albuterol 2.5mg/3ml Neb Ud) 2.5 mg HHN Q4HRT [facility] Stop: 08/15/17 06:59 Last Admin: 06/17/17 12:09 Dose: 2.5 mg Amiodarone HCl (Cordarone) 200 mg PO BID [facility] Stop: 08/15/17 16:59 Last Admin: 06/17/17 09:04 Dose: Not Given Calcitriol (Rocaltrol) 0.25 mcg PO DAILY [facility] Stop: 08/16/17 08:59 Last Admin: 06/17/17 09:02 Dose: 0.25 mcg Carbidopa/Levodopa (Sinemet 25 Mg-250 Mg) 1 tab PO QID [facility] Stop: 08/15/17 12:59 Last Admin: 06/17/17 12:38 Dose: 1 tab Carvedilol (Coreg) 3.125 mg PO SuMoWe@TID [facility] Stop: 08/15/17 13:59 Last Admin: 06/16/17 21:47 Dose: 3.125 mg Clonidine HCl (Catapres) 0.1 mg PO Q8H PRN PRN Reason: SBP ABOVE 160 Stop: 08/15/17 10:19 Cyanocobalamin (Vitamin B12) 100 mcg PO DAILY [facility] Stop: 08/16/17 08:59 Last Admin: 06/17/17 09:01 Dose: 100 mcg Divalproex Sodium (Depakote Dr) 250 mg PO Q12H [facility] PRN Reason: Protocol Stop: 08/15/17 10:29 Last Admin: 06/17/17 11:03 Dose: 250 mg Docusate Sodium (Colace) 100 mg PO DAILY PRN PRN Reason: Constipation Stop: 08/16/17 08:59 Last Admin: 06/16/17 13:58 Dose: 100 mg Ferrous Sulfate (Iron) 325 mg PO BID [facility] Stop: 08/15/17 16:59 Last Admin: 06/17/17 09:02 Dose: 325 mg Folic Acid (Folate) 1 mg PO DAILY [facility] Stop: 08/16/17 08:59 Last Admin: 06/17/17 09:02 Dose: 1 mg Piperacillin Sod/Tazobactam (Sod 2.25 gm/ Sodium Chloride) 50 mls @ 100 mls/hr IV Q6HR [facility] Stop: 08/15/17 11:59 Last Admin: 06/17/17 11:07 Dose: 100 mls/hr Albumin Human (Albuminar 25%) 25 gm in 100 mls @ 50 mls/hr IV PRN PRN PRN Reason: BP Support During HD Stop: 06/18/17 00:00 Ipratropium [place] (Atrovent Neb 0.5mg/2.5ml) 0.5 mg HHN Q8HRT [facility] Stop: 08/15/17 06:59 Last Admin: 06/17/17 07:29 Dose: 0.5 mg Methylprednisolone Sodium Succinate (Solu-Medrol) 60 mg IVP Q8HR [facility] Stop: 08/15/17 04:59 Last Admin: 06/17/17 12:38 Dose: 60 mg Miscellaneous (Vancomycin Iv Per Pharmacy) 1 [facility] PRN PRN PRN Reason: PROTOCOL Stop: 08/15/17 04:49 Miscellaneous (Zosyn Iv Per Pharmacy) 1 [facility] PRN PRN PRN Reason: PROTOCOL Stop: 08/15/17 04:49 Miscellaneous (Clinical Monitoring) 1 [facility] DAILY PRN PRN Reason: RENAL/CA LEVEL Stop: 08/15/17 15:01 Miscellaneous (Vte Chemical Prophylaxis Screen/ Admission) 1 [facility] PRN PRN PRN Reason: PROTOCOL Stop: 08/15/17 16:31 Sevelamer HCl (Renagel) 2,400 mg PO TID [facility] Stop: 08/15/17 20:59 Last Admin: 06/17/17 09:02 Dose: 2,400 mg Temazepam (Restoril) 7.5 mg PO HS PRN PRN Reason: Insomnia Last Admin: 06/16/17 23:42 Dose: 7.5 mg Vitamin B Complex/Vit C/Folic Acid (Vitamin B Complex W/Vitamin C) 1 tab PO DAILY [facility] Stop: 08/16/17 08:59 Last Admin: 06/17/17 09:02 Dose: 1 tab Pt. was dialyzed yesterday & tolerated it well Continue on antibiotics WBC stable, afebrile repeat cxr
--- NOTE | 2017-06-20 23:58 | Infectious Disease Prog Note ---
Infectious Disease Subjective - Review of Systems Service Date: 06/20/17 Subjective: There is no new change, there is no fever. Infectious Disease Objective - Results Result Diagrams: 06/18/17 09:15 06/18/17 09:15 Recent Labs: Laboratory Last Values WBC 5.1 Th/cmm (4.8-10.8) 06/18/17 09:15 RBC 3.04 Mil/cmm (3.80-5.80) L 06/18/17 09:15 Hgb 10.8 gm/dL (12.6-17.4) L 06/18/17 09:15 Hct 32.2 % (39.0-49.0) L 06/18/17 09:15 MCV 106.2 fl (80-99) H 06/18/17 09:15 MCH 35.5 pg (27.0-31.0) H 06/18/17 09:15 MCHC Differential 33.5 pg (28.0-36.0) 06/18/17 09:15 RDW 15.5 % (11.5-20.0) 06/18/17 09:15 Plt Count 115 Th/cmm (150-400) L 06/18/17 09:15 MPV 7.0 fl 06/18/17 09:15 Neutrophils % 84.3 % (40.0-80.0) H 06/16/17 12:56 Band Neutrophils % 1 % (0-10) 06/18/17 09:15 Lymphocytes % 14.0 % (20.0-50.0) L 06/16/17 12:56 Monocytes % 1.3 % (2.0-10.0) L 06/16/17 12:56 Eosinophils % 0.3 % (0.0-5.0) 06/16/17 12:56 Basophils % 0.1 % (0.0-2.0) 06/16/17 12:56 Neutrophils (Manual) 90 % (40-80) H 06/18/17 09:15 Lymphocytes 8 % (20-50) L 06/18/17 09:15 Monocytes 1 % (2-10) L 06/18/17 09:15 Platelet Estimate DECREASED PLATELETS (NORMAL) 06/18/17 09:15 Platelet Morphology NORMAL (NORMAL) 06/18/17 09:15 Macrocytosis 1+ 06/18/17 09:15 RBC Morph Micro Appear ABNORMAL (NORMAL) 06/18/17 09:15 Sodium 134 mEq/L (136-145) L 06/18/17 09:15 Potassium 4.3 mEq/L (3.5-5.1) 06/18/17 09:15 Chloride 98 mEq/L (98-107) 06/18/17 09:15 Carbon Dioxide 23.7 mEq/L (21.0-31.0) 06/18/17 09:15 Anion Gap 16.6 (7.0-16.0) H 06/18/17 09:15 BUN 51 mg/dL (7-25) H 06/18/17 09:15 Creatinine 6.6 mg/dL (0.7-1.3) H* 06/18/17 09:15 Est GFR ( Amer) TNP 06/18/17 09:15 Est GFR (Non-Af Amer) TNP 06/18/17 09:15 BUN/Creatinine Ratio 7.7 06/18/17 09:15 Glucose 184 mg/dL (70-105) H 06/18/17 09:15 Hemoglobin A1c % 4.9 % (4.0-6.0) 06/18/17 09:15 Whole Bld Lactic Acid 0.73 mmol/L (0.60-1.99) 06/15/17 23:13 Calcium 9.6 mg/dL (8.6-10.3) 06/18/17 09:15 Total Bilirubin 0.4 mg/dL (0.3-1.0) 06/15/17 23:13 AST 72 U/L (13-39) H 06/15/17 23:13 ALT 13 U/L (7-52) 06/15/17 23:13 Alkaline Phosphatase 74 U/L (34-104) 06/15/17 23:13 Troponin I 0.02 ng/mL (0.01-0.05) 06/15/17 23:13 Total Protein 7.1 gm/dL (6.0-8.3) 06/15/17 23:13 Albumin 4.2 gm/dL (4.2-5.5) 06/15/17 23:13 Globulin 2.9 gm/dL 06/15/17 23:13 Albumin/Globulin Ratio 1.5 (1.0-1.8) 06/15/17 23:13 Random Vancomycin 16.8 ug/mL (5.0-40.0) 06/20/17 07:30 - Physical Exam Vitals and I&O: Vital Signs Temp 97.4 F 06/20/17 23:36 Pulse 72 06/20/17 23:36 Resp 19 06/20/17 23:36 BP 163/84 06/20/17 23:36 Pulse Ox 98 06/20/17 23:36 Intake & Output 06/20/17 06/20/17 06/21/17 06:59 18:59 06:59 Intake Total 100 100 Balance 100 100 Intake: Intake, IV Amount 100 100 Piperacillin Sodium/ 100 100 Tazobact 2.25 gm In Sodium Chloride 0.9% 50 ml @ 100 mls/hr IV Q6HR [facility] Rx#:[id number] Other: Stool Characteristics Soft Active Medications: Current Medications Acetaminophen (Tylenol) 650 mg PO Q6H PRN PRN Reason: pain and fever >100 F Stop: 08/15/17 12:35 Last Admin: 06/16/17 21:45 Dose: 650 mg Acetaminophen/Hydrocodone Bitart ([place] 5mg/325mg) 1 tab PO BID PRN PRN Reason: Pain (Moderate) Stop: 08/15/17 10:19 Albuterol Sulfate (Albuterol 2.5mg/3ml Neb Ud) 2.5 mg HHN Q4HRT [facility] Stop: 08/15/17 06:59 Last Admin: 06/20/17 22:14 Dose: 2.5 mg Amiodarone HCl (Cordarone) 200 mg PO BID [facility] Stop: 08/15/17 16:59 Last Admin: 06/20/17 16:29 Dose: 200 mg Calcitriol (Rocaltrol) 0.25 mcg PO DAILY [facility] Stop: 08/16/17 08:59 Last Admin: 06/20/17 08:46 Dose: 0.25 mcg Carbidopa/Levodopa (Sinemet 25 Mg-250 Mg) 1 tab PO QID [facility] Stop: 08/15/17 12:59 Last Admin: 06/20/17 20:38 Dose: 1 tab Carvedilol (Coreg) 3.125 mg PO SuMoWe@TID [facility] Stop: 08/15/17 13:59 Last Admin: 06/20/17 20:38 Dose: 3.125 mg Cyanocobalamin (Vitamin B12) 100 mcg PO DAILY [facility] Stop: 08/16/17 08:59 Last Admin: 06/20/17 08:46 Dose: 100 mcg Divalproex Sodium (Depakote Dr) 250 mg PO Q12H [facility] PRN Reason: Protocol Stop: 08/15/17 10:29 Last Admin: 06/20/17 21:41 Dose: 250 mg Docusate Sodium (Colace) 100 mg PO DAILY PRN PRN Reason: Constipation Stop: 08/16/17 08:59 Last Admin: 06/16/17 13:58 Dose: 100 mg Ferrous Sulfate (Iron) 325 mg PO BID [facility] Stop: 08/15/17 16:59 Last Admin: 06/20/17 16:29 Dose: 325 mg Folic Acid (Folate) 1 mg PO DAILY [facility] Stop: 08/16/17 08:59 Last Admin: 06/20/17 08:47 Dose: 1 mg Piperacillin Sod/Tazobactam (Sod 2.25 gm/ Sodium Chloride) 50 mls @ 100 mls/hr IV Q6HR [facility] Stop: 08/15/17 11:59 Last Admin: 06/20/17 23:32 Dose: 100 mls/hr Ipratropium [place] (Atrovent Neb 0.5mg/2.5ml) 0.5 mg HHN Q8HRT [facility] Stop: 08/15/17 06:59 Last Admin: 06/20/17 22:14 Dose: 0.5 mg Methylprednisolone Sodium Succinate (Solu-Medrol) 40 mg IVP Q12H [facility] Stop: 08/17/17 20:59 Last Admin: 06/20/17 20:39 Dose: 40 mg Miscellaneous (Vancomycin Iv Per Pharmacy) 1 ea [facility] PRN PRN PRN Reason: PROTOCOL Stop: 08/15/17 04:49 Miscellaneous (Zosyn Iv Per Pharmacy) 1 ea PRN PRN PRN Reason: PROTOCOL Stop: 08/15/17 04:49 Miscellaneous (Clinical Monitoring) 1 ea [facility] DAILY PRN PRN Reason: RENAL/CA LEVEL Stop: 08/15/17 15:01 Miscellaneous (Vte Chemical Prophylaxis Screen/ Admission) 1 ea PRN PRN PRN Reason: PROTOCOL Stop: 08/15/17 16:31 Sevelamer HCl (Renagel) 2,400 mg PO TIDWM [facility] Stop: 08/17/17 16:59 Last Admin: 06/20/17 16:34 Dose: 2,400 mg Vitamin B Complex/Vit C/Folic Acid (Vitamin B Complex W/Vitamin C) 1 tab PO DAILY [facility] Stop: 08/16/17 08:59 Last Admin: 06/20/17 08:46 Dose: 1 tab Zolpidem Tartrate (Ambien) 10 mg PO HS PRN PRN Reason: Insomnia Stop: 08/17/17 20:58 Last Admin: 06/20/17 01:17 Dose: 10 mg General: no acute distress, well developed, well nourished HEENT: atraumatic, normocephalic, PERRLA, EOMI Neck: supple, no thyromegaly Cardiovascular: S1S2, regular Lungs: clear to auscultation bilaterally, clear to percussion, crackles Abdomen: soft, bowel sounds, other (Colostomy.), no tender, no distended, no mass, no hepatomegaly, no splenomegaly, no obese Extremities: no cyanosis, no clubbing, no edema, no lines Neurological: awake, alert, oriented Skin: intact - Procedures Procedures: Procedures Procedure Code Date PERFORMANCE OF URINARY FILTRATION, MULTIPLE [id number] 12/14/16 Infectious Disease Assmt/Plan - Problem List Patient Problems: All Active Problems COUGH WITH FEVER/CHILLS AND WEAKNESS (Acute) LARYNGITIS (Acute) RIGHT HAND TRAUMA, NECK PAIN, FOOT EDEMA (Acute) TRACHITIS (Acute) - Assessment Assessment: 1. Pneumonia, left lower lobe. 2. CK D5 on hemodialysis. 3. History of colon CA 4. Colostomy. - Plan Plan: Continue Zosyn. When patient is stable may change antibiotic to Levaquin by mouth for total 6 days from now.
[2017-06-21] MEDS: Albuterol Nebulizer 2.5mg/3mL HHN SCH ×4 (02:04→14:37)
[2017-06-21] MEDS: Piperacillin/Tazobact 2.25 gm in 0.9% NS 50 ML IV SCH ×2 (05:07→12:15)
[2017-06-21 06:02] LABS: % BASOPHILS 0.1 % (0.0-2.0); % EOSINOPHILS 0.2 % (0.0-5.0); % LYMPHOCYTES 11.4 % (20.0-50.0); % MONOCYTES 4.8 % (2.0-10.0); % NEUTROPHILS 83.5 % (40.0-80.0); HEMATOCRIT 32.7 % (39.0-49.0); HEMOGLOBIN 11.1 gm/dL (12.6-17.4); MEAN CORPUSCULAR HEMOGLOBIN 36.3 pg (27.0-31.0); MEAN CORPUSCULAR HGB CONC 33.9 pg (28.0-36.0); MEAN PLATELET VOLUME 7.7 fl; NEUTROPHILE ABSOLUTE 4.6 Th/cmm (1.8-8.0); PLATELET COUNT 98 Th/cmm (150-400); RED BLOOD COUNT 3.06 Mil/cmm (3.80-5.80); RED CELL DISTRIBUTION WIDTH 15.5 % (11.5-20.0); WHITE BLOOD COUNT 5.5 Th/cmm (4.8-10.8)
[2017-06-21 06:06] LABS: MEAN CELL VOLUME 107.1 fl (80-99)
[2017-06-21] MEDS: Ipratropium Neb 0.5 mg/2.5 mL UD HHN SCH ×2 (06:42→14:37)
[2017-06-21] MEDS: methylPREDNISolone SS 40 mg Vial IVP SCH (08:34)
[2017-06-21] MEDS: Ferrous Sulfate 325 MG TAB PO SCH (08:34)
[2017-06-21] MEDS: Vitamin B Complex w/Vitamin C Tab PO SCH (08:34)
--- NOTE | 2017-06-21 10:30 | General Progress Note ---
Subjective - Review of Systems Events since last encounter: no new changes Objective - Results Result Diagrams: 06/21/17 05:25 06/18/17 09:15 Recent Labs: Laboratory Last Values WBC 5.5 Th/cmm (4.8-10.8) 06/21/17 05:25 RBC 3.06 Mil/cmm (3.80-5.80) L 06/21/17 05:25 Hgb 11.1 gm/dL (12.6-17.4) L 06/21/17 05:25 Hct 32.7 % (39.0-49.0) L 06/21/17 05:25 MCV 107.1 fl (80-99) H 06/21/17 05:25 MCH 36.3 pg (27.0-31.0) H 06/21/17 05:25 MCHC Differential 33.9 pg (28.0-36.0) 06/21/17 05:25 RDW 15.5 % (11.5-20.0) 06/21/17 05:25 Plt Count 98 Th/cmm (150-400) L 06/21/17 05:25 MPV 7.7 fl 06/21/17 05:25 Neutrophils % 83.5 % (40.0-80.0) H 06/21/17 05:25 Band Neutrophils % 1 % (0-10) 06/18/17 09:15 Lymphocytes % 11.4 % (20.0-50.0) L 06/21/17 05:25 Monocytes % 4.8 % (2.0-10.0) 06/21/17 05:25 Eosinophils % 0.2 % (0.0-5.0) 06/21/17 05:25 Basophils % 0.1 % (0.0-2.0) 06/21/17 05:25 Neutrophils (Manual) 90 % (40-80) H 06/18/17 09:15 Lymphocytes 8 % (20-50) L 06/18/17 09:15 Monocytes 1 % (2-10) L 06/18/17 09:15 Platelet Estimate DECREASED PLATELETS (NORMAL) 06/18/17 09:15 Platelet Morphology NORMAL (NORMAL) 06/18/17 09:15 Macrocytosis 1+ 06/18/17 09:15 RBC Morph Micro Appear ABNORMAL (NORMAL) 08/04/17 09:15 Sodium 134 mEq/L (136-145) L 06/18/17 09:15 Potassium 4.3 mEq/L (3.5-5.1) 06/18/17 09:15 Chloride 98 mEq/L (98-107) 06/18/17 09:15 Carbon Dioxide 23.7 mEq/L (21.0-31.0) 06/18/17 09:15 Anion Gap 16.6 (7.0-16.0) H 06/18/17 09:15 BUN 51 mg/dL (7-25) H 06/18/17 09:15 Creatinine 6.6 mg/dL (0.7-1.3) H* 06/18/17 09:15 Est GFR ( Amer) TNP 06/18/17 09:15 Est GFR (Non-Af Amer) TNP 06/18/17 09:15 BUN/Creatinine Ratio 7.7 06/18/17 09:15 Glucose 184 mg/dL (70-105) H 06/18/17 09:15 Hemoglobin A1c % 4.9 % (4.0-6.0) 06/18/17 09:15 Whole Bld Lactic Acid 0.73 mmol/L (0.60-1.99) 06/15/17 23:13 Calcium 9.6 mg/dL (8.6-10.3) 06/18/17 09:15 Total Bilirubin 0.4 mg/dL (0.3-1.0) 06/15/17 23:13 AST 72 U/L (13-39) H 06/15/17 23:13 ALT 13 U/L (7-52) 06/15/17 23:13 Alkaline Phosphatase 74 U/L (34-104) 06/15/17 23:13 Troponin I 0.02 ng/mL (0.01-0.05) 06/15/17 23:13 Total Protein 7.1 gm/dL (6.0-8.3) 06/15/17 23:13 Albumin 4.2 gm/dL (4.2-5.5) 06/15/17 23:13 Globulin 2.9 gm/dL 06/15/17 23:13 Albumin/Globulin Ratio 1.5 (1.0-1.8) 06/15/17 23:13 Random Vancomycin 26.0 ug/mL (5.0-40.0) 06/21/17 05:25 - Physical Exam Vitals and I&O: Vital Signs Temp 97.1 F 06/21/17 07:31 Pulse 62 06/21/17 08:39 Resp 18 06/21/17 07:31 BP 143/75 06/21/17 08:39 Pulse Ox 100 06/21/17 07:31 Intake & Output 06/20/17 06/21/17 06/21/17 18:59 06:59 18:59 Intake Total 100 100 Balance 100 100 Intake: Intake, IV Amount 100 100 Piperacillin Sodium/ 100 100 Tazobact 2.25 gm In Sodium Chloride 0.9% 50 ml @ 100 mls/hr IV Q6HR [facility] Rx#:[id number] Other: Stool Characteristics Soft Active Medications: Current Medications Acetaminophen (Tylenol) 650 mg PO Q6H PRN PRN Reason: pain and fever >100 F Stop: 08/15/17 12:35 Last Admin: 06/16/17 21:45 Dose: 650 mg Acetaminophen/Hydrocodone Bitart ([place] 5mg/325mg) 1 tab PO BID PRN PRN Reason: Pain (Moderate) Stop: 08/15/17 10:19 Albuterol Sulfate (Albuterol 2.5mg/3ml Neb Ud) 2.5 mg HHN Q4HRT [facility] Stop: 08/15/17 06:59 Last Admin: 06/21/17 06:42 Dose: 2.5 mg Amiodarone HCl (Cordarone) 200 mg PO BID [facility] Stop: 08/15/17 16:59 Last Admin: 06/21/17 08:34 Dose: 200 mg Calcitriol (Rocaltrol) 0.25 mcg PO DAILY [facility] Stop: 08/16/17 08:59 Last Admin: 06/21/17 08:38 Dose: 0.25 mcg Carbidopa/Levodopa (Sinemet 25 Mg-250 Mg) 1 tab PO QID [facility] Stop: 08/15/17 12:59 Last Admin: 06/21/17 08:34 Dose: 1 tab Carvedilol (Coreg) 3.125 mg PO SuMoWe@TID [facility] Stop: 08/15/17 13:59 Last Admin: 06/21/17 08:39 Dose: Not Given Cyanocobalamin (Vitamin B12) 100 mcg PO DAILY [facility] Stop: 08/16/17 08:59 Last Admin: 06/21/17 08:34 Dose: 100 mcg Divalproex Sodium (Depakote Dr) 250 mg PO Q12H [facility] PRN Reason: Protocol Stop: 08/15/17 10:29 Last Admin: 06/20/17 21:41 Dose: 250 mg Docusate Sodium (Colace) 100 mg PO DAILY PRN PRN Reason: Constipation Stop: 08/16/17 08:59 Last Admin: 06/16/17 13:58 Dose: 100 mg Ferrous Sulfate (Iron) 325 mg PO BID [facility] Stop: 08/15/17 16:59 Last Admin: 06/21/17 08:34 Dose: 325 mg Folic Acid (Folate) 1 mg PO DAILY [facility] Stop: 08/16/17 08:59 Last Admin: 06/21/17 08:34 Dose: 1 mg Piperacillin Sod/Tazobactam (Sod 2.25 gm/ Sodium Chloride) 50 mls @ 100 mls/hr IV Q6HR [facility] Stop: 08/15/17 11:59 Last Infusion: 06/21/17 05:37 Dose: Infused Ipratropium [place] (Atrovent Neb 0.5mg/2.5ml) 0.5 mg HHN Q8HRT [facility] Stop: 08/15/17 06:59 Last Admin: 06/21/17 06:42 Dose: 0.5 mg Methylprednisolone Sodium Succinate (Solu-Medrol) 40 mg IVP Q12H [facility] Stop: 08/17/17 20:59 Last Admin: 06/21/17 08:34 Dose: 40 mg Miscellaneous (Vancomycin Iv Per Pharmacy) 1 ea PRN PRN PRN Reason: PROTOCOL Stop: 08/15/17 04:49 Miscellaneous (Zosyn Iv Per Pharmacy) 1 ea PRN PRN PRN Reason: PROTOCOL Stop: 08/15/17 04:49 Miscellaneous (Clinical Monitoring) 1 ea DAILY PRN PRN Reason: RENAL/CA LEVEL Stop: 08/15/17 15:01 Miscellaneous (Vte Chemical Prophylaxis Screen/ Admission) 1 ea PRN PRN PRN Reason: PROTOCOL Stop: 08/15/17 16:31 Sevelamer HCl (Renagel) 2,400 mg PO TIDWM [facility] Stop: 08/17/17 16:59 Last Admin: 06/21/17 08:52 Dose: 2,400 mg Vitamin B Complex/Vit C/Folic Acid (Vitamin B Complex W/Vitamin C) 1 tab PO DAILY [facility] Stop: 08/16/17 08:59 Last Admin: 06/21/17 08:34 Dose: 1 tab Zolpidem Tartrate (Ambien) 10 mg PO HS PRN PRN Reason: Insomnia Stop: 08/17/17 20:58 Last Admin: 06/21/17 01:08 Dose: 10 mg General: Alert, No acute distress HEENT: Atraumatic, PERRLA, EOMI, Mucous membr. moist/pink Neck: Supple Cardiovascular: Regular rate, Normal S1, Normal S2 Lungs: Other (few rhonchi) Abdomen: Bowel sounds, Soft Extremities: Other (bruit right avf), no Edema Neurological: Strength at 5/5 X4 ext, Sensation intact Skin: no Rash Psych/Mental Status: Mood NL - Procedures Procedures: Procedures Procedure Code Date PERFORMANCE OF URINARY FILTRATION, MULTIPLE [id number] 12/14/16 Assessment/Plan - Problem List Patient Problems: All Active Problems COUGH WITH FEVER/CHILLS AND WEAKNESS (Acute) LARYNGITIS (Acute) RIGHT HAND TRAUMA, NECK PAIN, FOOT EDEMA (Acute) TRACHITIS (Acute) - Assessment Assessment: pneumonia - Plan Plan: monitor vitals/diet labs f/up pulmo continue current management
--- NOTE | 2017-06-21 10:57 | Diagnostic Imaging Report ---
Portable chest x-ray HISTORY: Shortness of breath Compared to prior exam of June 18, 2017, there remains accentuation of interstitial lung markings in the left lung base. This appears chronic. A chronic linear density remains in the right perihilar region consistent with scarring. The heart appears enlarged. Atherosclerotic calcification noted in the aorta. IMPRESSION: 1. Bilateral parenchymal changes that appear chronic. No definite acute abnormalities 2. Generous heart size with atherosclerotic vascular changes
--- NOTE | 2017-06-21 13:41 | General Progress Note ---
Subjective - Review of Systems Service Date: 06/21/17 Subjective: Alert, feels better, eating lunch Objective - Results Result Diagrams: 06/21/17 05:25 06/18/17 09:15 Recent Labs: Laboratory Last Values WBC 5.5 Th/cmm (4.8-10.8) 06/21/17 05:25 RBC 3.06 Mil/cmm (3.80-5.80) L 06/21/17 05:25 Hgb 11.1 gm/dL (12.6-17.4) L 06/21/17 05:25 Hct 32.7 % (39.0-49.0) L 06/21/17 05:25 MCV 107.1 fl (80-99) H 06/21/17 05:25 MCH 36.3 pg (27.0-31.0) H 06/21/17 05:25 MCHC Differential 33.9 pg (28.0-36.0) 06/21/17 05:25 RDW 15.5 % (11.5-20.0) 06/21/17 05:25 Plt Count 98 Th/cmm (150-400) L 06/21/17 05:25 MPV 7.7 fl 06/21/17 05:25 Neutrophils % 83.5 % (40.0-80.0) H 06/21/17 05:25 Band Neutrophils % 1 % (0-10) 06/18/17 09:15 Lymphocytes % 11.4 % (20.0-50.0) L 06/21/17 05:25 Monocytes % 4.8 % (2.0-10.0) 06/21/17 05:25 Eosinophils % 0.2 % (0.0-5.0) 06/21/17 05:25 Basophils % 0.1 % (0.0-2.0) 06/21/17 05:25 Neutrophils (Manual) 90 % (40-80) H 06/18/17 09:15 Lymphocytes 8 % (20-50) L 06/18/17 09:15 Monocytes 1 % (2-10) L 06/18/17 09:15 Platelet Estimate DECREASED PLATELETS (NORMAL) 06/18/17 09:15 Platelet Morphology NORMAL (NORMAL) 06/18/17 09:15 Macrocytosis 1+ 06/18/17 09:15 RBC Morph Micro Appear ABNORMAL (NORMAL) 06/18/17 09:15 Sodium 134 mEq/L (136-145) L 06/18/17 09:15 Potassium 4.3 mEq/L (3.5-5.1) 06/18/17 09:15 Chloride 98 mEq/L (98-107) 06/18/17 09:15 Carbon Dioxide 23.7 mEq/L (21.0-31.0) 06/18/17 09:15 Anion Gap 16.6 (7.0-16.0) H 06/18/17 09:15 BUN 51 mg/dL (7-25) H 06/18/17 09:15 Creatinine 6.6 mg/dL (0.7-1.3) H* 06/18/17 09:15 Est GFR ( Amer) TNP 06/18/17 09:15 Est GFR (Non-Af Amer) TNP 06/18/17 09:15 BUN/Creatinine Ratio 7.7 06/18/17 09:15 Glucose 184 mg/dL (70-105) H 06/18/17 09:15 Hemoglobin A1c % 4.9 % (4.0-6.0) 06/18/17 09:15 Whole Bld Lactic Acid 0.73 mmol/L (0.60-1.99) 06/15/17 23:13 Calcium 9.6 mg/dL (8.6-10.3) 06/18/17 09:15 Total Bilirubin 0.4 mg/dL (0.3-1.0) 06/15/17 23:13 AST 72 U/L (13-39) H 06/15/17 23:13 ALT 13 U/L (7-52) 06/15/17 23:13 Alkaline Phosphatase 74 U/L (34-104) 06/15/17 23:13 Troponin I 0.02 ng/mL (0.01-0.05) 06/15/17 23:13 Total Protein 7.1 gm/dL (6.0-8.3) 06/15/17 23:13 Albumin 4.2 gm/dL (4.2-5.5) 06/15/17 23:13 Globulin 2.9 gm/dL 06/15/17 23:13 Albumin/Globulin Ratio 1.5 (1.0-1.8) 06/15/17 23:13 Random Vancomycin 26.0 ug/mL (5.0-40.0) 06/21/17 05:25 - Physical Exam Vitals and I&O: Vital Signs Temp 97.4 F 06/21/17 11:34 Pulse 74 06/21/17 11:34 Resp 17 06/21/17 11:34 BP 161/78 06/21/17 11:34 Pulse Ox 98 06/21/17 11:34 Intake & Output 06/20/17 06/21/17 06/21/17 18:59 06:59 18:59 Intake Total 100 100 Balance 100 100 Intake: Intake, IV Amount 100 100 Piperacillin Sodium/ 100 100 Tazobact 2.25 gm In Sodium Chloride 0.9% 50 ml @ 100 mls/hr IV Q6HR [facility] Rx#:[id number] Other: Stool Characteristics Soft Active Medications: Current Medications Acetaminophen (Tylenol) 650 mg PO Q6H PRN PRN Reason: pain and fever >100 F Stop: 08/15/17 12:35 Last Admin: 06/16/17 21:45 Dose: 650 mg Acetaminophen/Hydrocodone Bitart ([place] 5mg/325mg) 1 tab PO BID PRN PRN Reason: Pain (Moderate) Stop: 08/15/17 10:19 Albuterol Sulfate (Albuterol 2.5mg/3ml Neb Ud) 2.5 mg HHN Q4HRT [facility] Stop: 08/15/17 06:59 Last Admin: 06/21/17 10:40 Dose: 2.5 mg Amiodarone HCl (Cordarone) 200 mg PO BID [facility] Stop: 08/15/17 16:59 Last Admin: 06/21/17 08:34 Dose: 200 mg Calcitriol (Rocaltrol) 0.25 mcg PO DAILY [facility] Stop: 08/16/17 08:59 Last Admin: 06/21/17 08:38 Dose: 0.25 mcg Carbidopa/Levodopa (Sinemet 25 Mg-250 Mg) 1 tab PO QID [facility] Stop: 08/15/17 12:59 Last Admin: 06/21/17 12:25 Dose: 1 tab Carvedilol (Coreg) 3.125 mg PO [email or web address] [facility] Stop: 08/15/17 13:59 Last Admin: 06/21/17 08:39 Dose: Not Given Cyanocobalamin (Vitamin B12) 100 mcg PO DAILY [facility] Stop: 08/16/17 08:59 Last Admin: 06/21/17 08:34 Dose: 100 mcg Divalproex Sodium (Depakote Dr) 250 mg PO Q12H [facility] PRN Reason: Protocol Stop: 08/15/17 10:29 Last Admin: 06/21/17 10:54 Dose: 250 mg Docusate Sodium (Colace) 100 mg PO DAILY PRN PRN Reason: Constipation Stop: 08/16/17 08:59 Last Admin: 06/16/17 13:58 Dose: 100 mg Ferrous Sulfate (Iron) 325 mg PO BID [facility] Stop: 08/15/17 16:59 Last Admin: 06/21/17 08:34 Dose: 325 mg Folic Acid (Folate) 1 mg PO DAILY [facility] Stop: 08/16/17 08:59 Last Admin: 06/21/17 08:34 Dose: 1 mg Piperacillin Sod/Tazobactam (Sod 2.25 gm/ Sodium Chloride) 50 mls @ 100 mls/hr IV Q6HR [facility] Stop: 08/15/17 11:59 Last Admin: 06/21/17 12:15 Dose: 100 mls/hr Ipratropium [place] (Atrovent Neb 0.5mg/2.5ml) 0.5 mg HHN Q8HRT [facility] Stop: 08/15/17 06:59 Last Admin: 06/21/17 06:42 Dose: 0.5 mg Methylprednisolone Sodium Succinate (Solu-Medrol) 40 mg IVP Q12H [facility] Stop: 08/17/17 20:59 Last Admin: 06/21/17 08:34 Dose: 40 mg Miscellaneous (Vancomycin Iv Per Pharmacy) 1 ea [facility] PRN PRN PRN Reason: PROTOCOL Stop: 08/15/17 04:49 Miscellaneous (Zosyn Iv Per Pharmacy) 1 ea [facility] PRN PRN PRN Reason: PROTOCOL Stop: 08/15/17 04:49 Miscellaneous (Clinical Monitoring) 1 ea [facility] DAILY PRN PRN Reason: RENAL/CA LEVEL Stop: 08/15/17 15:01 Miscellaneous (Vte Chemical Prophylaxis Screen/ Admission) 1 ea [facility] PRN PRN PRN Reason: PROTOCOL Stop: 08/15/17 16:31 Sevelamer HCl (Renagel) 2,400 mg PO TIDWM [facility] Stop: 08/17/17 16:59 Last Admin: 06/21/17 12:25 Dose: 2,400 mg Vitamin B Complex/Vit C/Folic Acid (Vitamin B Complex W/Vitamin C) 1 tab PO DAILY [facility] Stop: 08/16/17 08:59 Last Admin: 06/21/17 08:34 Dose: 1 tab Zolpidem Tartrate (Ambien) 10 mg PO HS PRN PRN Reason: Insomnia Stop: 08/17/17 20:58 Last Admin: 06/21/17 01:08 Dose: 10 mg General: Alert, No acute distress HEENT: Atraumatic, PERRLA, EOMI, Mucous membr. moist/pink Neck: Supple Cardiovascular: Regular rate, Normal S1, Normal S2 Lungs: Other (few rhonchi) Abdomen: Bowel sounds, Soft Extremities: Other (bruit right avf), no Edema Neurological: Strength at 5/5 X4 ext, Sensation intact Skin: no Rash Psych/Mental Status: Mood NL - Procedures Procedures: Procedures Procedure Code Date PERFORMANCE OF URINARY FILTRATION, MULTIPLE [id number] 12/14/16 Assessment/Plan - Problem List Patient Problems: All Active Problems COUGH WITH FEVER/CHILLS AND WEAKNESS (Acute) LARYNGITIS (Acute) RIGHT HAND TRAUMA, NECK PAIN, FOOT EDEMA (Acute) TRACHITIS (Acute) - Assessment Assessment: End-stage renal disease on hemodialysis Acute tracheobronchitis possible Left HAP vs. ATx Colon CA status post colectomy with colostomy Anemia of chronic kidney disease Parkinson disease Chronic atrial fibrillation Essential hypertension - Plan Plan: Lab - Result Diagrams 06/16/17 12:56 06/16/17 12:56 Current Medications Acetaminophen (Tylenol) 650 mg PO Q6H PRN PRN Reason: pain and fever >100 F Stop: 08/15/17 12:35 Last Admin: 06/16/17 21:45 Dose: 650 mg Acetaminophen/Hydrocodone Bitart ([place] 5mg/325mg) 1 tab PO BID PRN PRN Reason: Pain (Moderate) Stop: 08/15/17 10:19 Albuterol Sulfate (Albuterol 2.5mg/3ml Neb Ud) 2.5 mg HHN Q4HRT [facility] Stop: 08/15/17 06:59 Last Admin: 06/17/17 12:09 Dose: 2.5 mg Amiodarone HCl (Cordarone) 200 mg PO BID [facility] Stop: 08/15/17 16:59 Last Admin: 06/17/17 09:04 Dose: Not Given Calcitriol (Rocaltrol) 0.25 mcg PO DAILY [facility] Stop: 08/16/17 08:59 Last Admin: 06/17/17 09:02 Dose: 0.25 mcg Carbidopa/Levodopa (Sinemet 25 Mg-250 Mg) 1 tab PO QID [facility] Stop: 08/15/17 12:59 Last Admin: 06/17/17 12:38 Dose: 1 tab Carvedilol (Coreg) 3.125 mg PO [email or web address]@TID [facility] Stop: 08/15/17 13:59 Last Admin: 06/16/17 21:47 Dose: 3.125 mg Clonidine HCl (Catapres) 0.1 mg PO Q8H PRN PRN Reason: SBP ABOVE 160 Stop: 08/15/17 10:19 Cyanocobalamin (Vitamin B12) 100 mcg PO DAILY [facility] Stop: 08/16/17 08:59 Last Admin: 06/17/17 09:01 Dose: 100 mcg Divalproex Sodium (Depakote Dr) 250 mg PO Q12H [facility] PRN Reason: Protocol Stop: 08/15/17 10:29 Last Admin: 06/17/17 11:03 Dose: 250 mg Docusate Sodium (Colace) 100 mg PO DAILY PRN PRN Reason: Constipation Stop: 08/16/17 08:59 Last Admin: 06/16/17 13:58 Dose: 100 mg Ferrous Sulfate (Iron) 325 mg PO BID [facility] Stop: 08/15/17 16:59 Last Admin: 06/17/17 09:02 Dose: 325 mg Folic Acid (Folate) 1 mg PO DAILY [facility] Stop: 08/16/17 08:59 Last Admin: 06/17/17 09:02 Dose: 1 mg Piperacillin Sod/Tazobactam (Sod 2.25 gm/ Sodium Chloride) 50 mls @ 100 mls/hr IV Q6HR [facility] Stop: 08/15/17 11:59 Last Admin: 06/17/17 11:07 Dose: 100 mls/hr Albumin Human (Albuminar 25%) 25 gm in 100 mls @ 50 mls/hr IV PRN PRN PRN Reason: BP Support During HD Stop: 06/18/17 00:00 Ipratropium [place] (Atrovent Neb 0.5mg/2.5ml) 0.5 mg HHN Q8HRT [facility] Stop: 08/15/17 06:59 Last Admin: 06/17/17 07:29 Dose: 0.5 mg Methylprednisolone Sodium Succinate (Solu-Medrol) 60 mg IVP Q8HR [facility] Stop: 08/15/17 04:59 Last Admin: 06/17/17 12:38 Dose: 60 mg Miscellaneous (Vancomycin Iv Per Pharmacy) 1 [facility] PRN PRN PRN Reason: PROTOCOL Stop: 08/15/17 04:49 Miscellaneous (Zosyn Iv Per Pharmacy) 1 [facility] PRN PRN PRN Reason: PROTOCOL Stop: 08/15/17 04:49 Miscellaneous (Clinical Monitoring) 1 [facility] DAILY PRN PRN Reason: RENAL/CA LEVEL Stop: 08/15/17 15:01 Miscellaneous (Vte Chemical Prophylaxis Screen/ Admission) 1 [facility] PRN PRN PRN Reason: PROTOCOL Stop: 08/15/17 16:31 Sevelamer HCl (Renagel) 2,400 mg PO TID [facility] Stop: 08/15/17 20:59 Last Admin: 06/17/17 09:02 Dose: 2,400 mg Temazepam (Restoril) 7.5 mg PO HS PRN PRN Reason: Insomnia Last Admin: 06/16/17 23:42 Dose: 7.5 mg Vitamin B Complex/Vit C/Folic Acid (Vitamin B Complex W/Vitamin C) 1 tab PO DAILY [facility] Stop: 08/16/17 08:59 Last Admin: 06/17/17 09:02 Dose: 1 tab Pt. was dialyzed Sat & tolerated it well Continue on antibiotics WBC stable, afebrile CXR revealed no definite acute abnormalities DC planning
--- NOTE | 2017-06-24 16:59 | Discharge Summary ---
DATE OF DISCHARGE: 06/21/2017 The patient is very well known to me. The patient is from [facility], apparently developed shortness of breath, had bronchospasm and ____ acute respiratory problem, was sent to [facility] where he was admitted for acute pneumonia, left lower lobe pneumonia, end-stage renal disease, acute exacerbation of COPD. The patient was given IV antibiotics. ID doctor saw the patient, Dr. Eller, and the patient gradually improved. The patient was in stable condition on June 21, and the patient was sent back to [facility] where I will be following the patient. CONDITION AT THE TIME OF DISCHARGE: Stable. JOB# [id number]
== END 2017-06-21 15:40 | disposition home or self-care (01) | DRG 177 ==
LOC: ER 21:45 → TELE 06-16 04:28 → MSI 06-16 18:36
PROVIDERS: ADMIT Internal Medicine; ATTEND Internal Medicine
PROC: 5A1D60Z (ICD-10-PCS; principal; 2017-06-17)
DX: J69.0 Pneumonitis due to inhalation of food and vomit (principal); N18.6 End stage renal disease; I12.0 Hypertensive chronic kidney disease with stage 5 chronic kidney disease or end stage renal disease; J90 Pleural effusion, not elsewhere classified; G20 Parkinson's disease; I48.2 Chronic atrial fibrillation; J44.0 Chronic obstructive pulmonary disease with (acute) lower respiratory infection; J44.1 Chronic obstructive pulmonary disease with (acute) exacerbation; J20.9 Acute bronchitis, unspecified; D63.1 Anemia in chronic kidney disease; Z93.3 Colostomy status; Z85.038 Personal history of other malignant neoplasm of large intestine; Z99.2 Dependence on renal dialysis; Z87.891 Personal history of nicotine dependence; Z91.011 Allergy to milk products; Z79.899 Other long term (current) drug therapy
CPT/HCPCS: 36415-UA; 71010-TC; 80048-TC; 80053-TC; 80202-TC; 83036-90; 83605; 84484-TC; 85007-TC; 85025-TC; 85027-TC; 87070; 90779; 93005; 94760; 96379; J1956; J2543; J2920; J2930; J3370; J7030; J7040; J7613; P9046; Z7610

== ENCOUNTER 2017-10-03 13:51 | Inpatient (IN) | payer MEDICARE, MEDICAID ==
--- NOTE | 2017-10-03 15:05 | ED Physician Chart ---
ED Chief Complaint/HPI - Patient Information Date Seen:: 10/03/17 Time Seen:: 14:09 Chief Complaint:: Right hand swelling for one week. History of Present Illness:: Brought in by ambulance from nursing facility because of R hand swelling for one week. Pt denies any injury to R hand. No fever. No definite pain in R hand. No weakness or numbness in R hand or RUE. Allergies:: Allergies Allergy/AdvReac Type Severity Reaction Status Date / Time milk Allergy Verified 10/03/17 14:44 Vitals:: Vital Signs - 8 hr 10/03/17 14:44 Temp 98.4 F HR 74 RR 18 BP 168/77 O2 Sat % 97 Historian:: Patient, Medical Records (from transferring facility.) Family MD/PCP:: Dr. Jordan LMP:: N/A Review:: Nurse's Note Reviewed, Transfer documents Reviewed ED Past Medical History - Past Medical History Past Medical History: HTN, ESRD (on hemodialysis), Other (A. fibrillation, chronic anemia, Parkinson's Dz., h/o colon CA, s/p partial colectomy with colostomy .) Family History: Heart disease (parents), Diabetes Melitus (father), HTN (mother) , Cancer (mother) Social History: Non Smoker, No Alcohol, No Drug Use, , Care Facility Employment:: Retired. Surgical History: Appendectomy (about 20 y/a), other (Partial colectomy with colostomy.) Psychiatricy History: None Medication: Reviewed Family Medical History - Family Member Mother History Unknown: Yes Living Status: Hx Family Cancer: Yes Hx Family Coronary Artery Disease: No Hx Family Congestive Heart Failure: No Hx Family Hypertension: No Hx Family Stroke: No Hx Family Diabetes: No Hx Family Seizures: No Hx Family Dementia: No Hx Family AIDS: No Hx Family HIV: No Hx Family COPD: No Hx Family Hepatitis: No Hx Family Psychiatric Problems: No Hx Family Tuberculosis: No ED Physical Exam - Physical Examination General/Constitutional: Awake, Well-developed, well-nourished, Alert, No distress, Non-toxic appearing Other Gen/Cons comments:: Breathes comfortably, speaks clearly, and interacts normally. Head: Atraumatic Eyes: Lids, conjuctiva normal, PERRL, EOMI Skin: No ecchymosis, Well hydrated, No lymphadenopathy ENMT: External ears, nose nl, Nasal exam nl, Oropharynx nl Neck: Nontender, Full ROM w/o pain, No JVD, No nuchal rigidity, No mass, No stridor Respiratory: Nl effort/Exclusion, Clear to Auscultation, No Wheeze/Rhonchi/Rales Cardio Vascular: RRR, No murmur, gallop, rubs GI: No tenderness/rebounding/guarding, No organomegaly, Nondistended, No mass/ bruits Other GI comments:: Colostomy bag noticed in L flank. There an oblique well healed surgical scar noticed in upper abdomen extending from right to left side. There is a midline well healed longitudinal surgical scar above the umbilicus. Abdomen is soft. Other Extremities comments:: RUE: An AV shunt noticed in upper arm with thrill. No erythema, swelling or open wound. R hand shows mild to moderate edema in dorsum, especially at medial aspect with mild erythema. No red streaking. No unusual warmth. Pt can make full fist with R hand without difficulty. No detectable motor/sensory/vascular deficit. Good distal capillary refill. Neuro/Psych: Alert/oriented (oriented x 3), No focal deficits ED Labs/Radiology/EKG Results - Lab Results Results: Laboratory Tests 10/03/17 17:19 WBC 5.2 RBC 3.23 L Hgb 10.4 L Hct 31.3 L MCV 97.0 MCH 32.1 H MCHC Differential 33.1 RDW 14.4 Plt Count 86 L MPV 6.2 Neutrophils % 46.1 Lymphocytes % 33.5 Monocytes % 13.6 H Eosinophils % 6.1 H Basophils % 0.7 Laboratory Last Values WBC 5.2 Th/cmm (4.8-10.8) 10/03/17 17:19 RBC 3.23 Mil/cmm (3.80-5.80) L 10/03/17 17:19 Hgb 10.4 gm/dL (12-16) L 10/03/17 17:19 Hct 31.3 % (41.0-60) L 10/03/17 17:19 MCV 97.0 fl (80-99) 10/03/17 17:19 MCH 32.1 pg (27.0-31.0) H 10/03/17 17:19 MCHC Differential 33.1 pg (28.0-36.0) 10/03/17 17:19 RDW 14.4 % (11.5-20.0) 10/03/17 17:19 Plt Count 86 Th/cmm (150-400) L 10/03/17 17:19 MPV 6.2 fl 10/03/17 17:19 Neutrophils % 46.1 % (40.0-80.0) 10/03/17 17:19 Lymphocytes % 33.5 % (20.0-50.0) 10/03/17 17:19 Monocytes % 13.6 % (2.0-10.0) H 10/03/17 17:19 Eosinophils % 6.1 % (0.0-5.0) H 10/03/17 17: Basophils % 0.7 % (0.0-2.0) 10/03/17 17:19 PT 10.1 SECONDS (9.5-11.5) 10/03/17 17:19 INR 0.97 (0.5-1.4) 10/03/17 17:19 PTT (Actin FS) 28.1 SECONDS (26.0-38.0) 10/03/17 17:19 Sodium 135 mEq/L (136-145) L 10/03/17 17:19 Potassium 4.4 mEq/L (3.5-5.1) 10/03/17 17:19 Chloride 100 mEq/L (98-107) 10/03/17 17:19 Carbon Dioxide 28.2 mEq/L (21.0-31.0) 10/03/17 17:19 Anion Gap 11.2 (7.0-16.0) 10/03/17 17:19 BUN 41 mg/dL (7-25) H 10/03/17 17:19 Creatinine 6.5 mg/dL (0.7-1.3) H* 10/03/17 17:19 Est GFR ( Amer) TNP 10/03/17 17:19 Est GFR (Non-Af Amer) TNP 10/03/17 17:19 BUN/Creatinine Ratio 6.3 10/03/17 17:19 Glucose 92 mg/dL (70-105) 10/03/17 17:19 Calcium 9.4 mg/dL (8.6-10.3) 10/03/17 17:19 Total Bilirubin 0.5 mg/dL (0.3-1.0) 10/03/17 17:19 AST 19 U/L (13-39) 10/03/17 17:19 ALT 5 U/L (7-52) L 10/03/17 17:19 Alkaline Phosphatase 99 U/L (34-104) 10/03/17 17:19 Total Protein 6.5 gm/dL (6.0-8.3) 10/03/17 17:19 Albumin 3.8 gm/dL (4.2-5.5) L 10/03/17 17:19 Globulin 2.7 gm/dL 10/03/17 17:19 Albumin/Globulin Ratio 1.4 (1.0-1.8) 10/03/17 17:19 - Radiology Results Results: R hand X-ray (3v): Based on my interpretation, mild soft tissue swelling. No acute fx or subluxation. Offfical report is pending. ED Septic Shock - . Is Septic Shock (SBP<90, OR Lactate>4 mmol\L) present?: No - <6hrs of presentation: Vital Signs: Vital Signs - 8 hr 10/03/17 14:44 Temp 98.4 F HR 74 RR 18 BP 168/77 O2 Sat % 97 ED Reassessment (Disposition) - Reassessment Reassessment:: 1755 Pt remains stable. No new complaint or findings. Remaining lab results just became available. Lab findings have been reviewed with pt. Management plan has been discussed. Pt's attending physician is to be contacted. 1802 Case was discussed with Dr. Jordan with pertinent H & P, and lab findings reviewed. He concurred with present management and decided to admit pt to [facility] under his care. - Diagnosis Diagnosis:: R hand edema with erythema c/w early cellulitis. ESRD on hemodiaysis. Chronic anemia. H/O colon CA, s/p colostomy. HTN. - Patient Disposition Admitted to:: Med/Surg Admitting Medical Physician:: Jose Jordan Time:: 18:05 Condition at Disposition:: Stable ED Discharge Plan - Patient Disposition Admit/Discharge/Transfer: Acute Care w/in this hosp
[2017-10-03 17:25] LABS: % BASOPHILS 0.7 % (0.0-2.0); % EOSINOPHILS 6.1 % (0.0-5.0); % LYMPHOCYTES 33.5 % (20.0-50.0); % MONOCYTES 13.6 % (2.0-10.0); % NEUTROPHILS 46.1 % (40.0-80.0); HEMATOCRIT 31.3 % (41.0-60); HEMOGLOBIN 10.4 gm/dL (12-16); MEAN CORPUSCULAR HEMOGLOBIN 32.1 pg (27.0-31.0); MEAN CORPUSCULAR HGB CONC 33.1 pg (28.0-36.0); MEAN PLATELET VOLUME 6.2 fl; NEUTROPHILE ABSOLUTE 2.5 Th/cmm (1.8-8.0); PLATELET COUNT 86 Th/cmm (150-400); RED BLOOD COUNT 3.23 Mil/cmm (3.80-5.80); RED CELL DISTRIBUTION WIDTH 14.4 % (11.5-20.0); WHITE BLOOD COUNT 5.2 Th/cmm (4.8-10.8)
[2017-10-03 17:38] LABS: INR 0.97 (0.5-1.4); PROTHROMBIN TIME (TEST) 10.1 SECONDS (9.5-11.5)
[2017-10-03] MEDS ORDERED: ceFAZolin 1 GM in Sodium Chloride 0.9% 50 ML IV ONE (17:38)
[2017-10-03 17:42] LABS: ALB/GLOB RATIO 1.4 (1.0-1.8); ALKALINE PHOSPHATASE 99 U/L (34-104); ANION GAP 11.2 (7.0-16.0); BILIRUBIN,TOTAL 0.5 mg/dL (0.3-1.0); BUN - UREA NITROGEN 41 mg/dL (7-25); BUN/CREATININE RATIO 6.3; CALCIUM SERUM 9.4 mg/dL (8.6-10.3); CARBON DIOXIDE 28.2 mEq/L (21.0-31.0); CHLORIDE 100 mEq/L (98-107); GLUCOSE 92 mg/dL (70-105); POTASSIUM SERUM 4.4 mEq/L (3.5-5.1); SGOT 19 U/L (13-39); SGPT/ALT 5 U/L (7-52); SODIUM SERUM 135 mEq/L (136-145)
[2017-10-03 17:44] LABS: CREATININE - SERUM 6.5 mg/dL (0.7-1.3)
[2017-10-04 01:42] VITALS: BP 138/62
[2017-10-04 06:31] LABS: % BASOPHILS 0.2 % (0.0-2.0); % EOSINOPHILS 6.1 % (0.0-5.0); % LYMPHOCYTES 32.9 % (20.0-50.0); % MONOCYTES 11.5 % (2.0-10.0); % NEUTROPHILS 49.3 % (40.0-80.0); HEMATOCRIT 31.5 % (41.0-60); HEMOGLOBIN 10.3 gm/dL (12-16); MEAN CELL VOLUME 97.1 fl (80-99); MEAN CORPUSCULAR HEMOGLOBIN 31.6 pg (27.0-31.0); MEAN CORPUSCULAR HGB CONC 32.5 pg (28.0-36.0); MEAN PLATELET VOLUME 6.8 fl; NEUTROPHILE ABSOLUTE 2.9 Th/cmm (1.8-8.0); PLATELET COUNT 90 Th/cmm (150-400); RED BLOOD COUNT 3.25 Mil/cmm (3.80-5.80); RED CELL DISTRIBUTION WIDTH 14.7 % (11.5-20.0); WHITE BLOOD COUNT 5.9 Th/cmm (4.8-10.8)
[2017-10-04 06:38] LABS: ALB/GLOB RATIO 1.3 (1.0-1.8); ALKALINE PHOSPHATASE 90 U/L (34-104); ANION GAP 12.5 (7.0-16.0); BILIRUBIN,TOTAL 0.5 mg/dL (0.3-1.0); BUN - UREA NITROGEN 51 mg/dL (7-25); BUN/CREATININE RATIO 6.8; CALCIUM SERUM 9.3 mg/dL (8.6-10.3); CHLORIDE 99 mEq/L (98-107); GLUCOSE 84 mg/dL (70-105); POTASSIUM SERUM 4.5 mEq/L (3.5-5.1); SGOT 15 U/L (13-39); SGPT/ALT 8 U/L (7-52); SODIUM SERUM 134 mEq/L (136-145)
[2017-10-04 06:54] LABS: CREATININE - SERUM 7.5 mg/dL (0.7-1.3)
--- NOTE | 2017-10-04 07:53 | Diagnostic Imaging Report ---
Exam: Right hand. HISTORY: Pain swelling Findings: Multiple views of right hand reviewed. The study demonstrates degenerative osteopenia with superimposed osteopenia changes. There is no evidence for acute fracture dislocation. Soft tissue swelling consistent with cellulitis. There is evidence for deformity of the distal and of the right fifth metacarpal bone. IMPRESSION 1. Cellulitis right hand right hand 2. Degenerative osteopenia
[2017-10-04] MEDS ORDERED: Albuterol Nebulizer 2.5mg/3mL HHN ONE (08:00)
[2017-10-04] MEDS ORDERED: Magnesium Hydroxide (MOM) 30 mL UDC PO PRN (09:00)
[2017-10-04] MEDS: Ferrous Sulfate 325 MG TAB PO SCH ×2 (09:03→18:29)
[2017-10-04] MEDS: Albuterol Nebulizer 2.5mg/3mL HHN PRN ×2 (09:36→16:39)
--- NOTE | 2017-10-04 13:15 | Consultation ---
Consult Note - Consult Note Service Date: 10/04/17 Referring Physician: Jose Jordan Consult Note: PHYSICIAN Consultation Note: Date of Admission: 10/03/17 Purpose of Consultation: right hand cellulitis. Chief Complaint: Patient SHANNON LYNN was admitted to location Medical/ Surgical Unit I with RIGHT HAND SWELLING. History of Present Illness: 81 year old male with history of ckd 5 on HD, HTN admitted to the hospital for swelling of the right hand, av fistula in the right arm. He stated that he developed intermittent swelling of the right arm and had vascular surgeries ( 3 times ) performed at the [facility] [place]. He was thought to have cellulitis and ID consult was called for antibiotic management. On initial evaluation, his temperature was 98.4 degree F and WBC count was 5,200. Past Medical History: HTN, CKD 5 on hd, h/o colon CA with colostomy in 1980. Parkinson's disease. Allergies Allergy/AdvReac Type Severity Reaction Status Date / Time milk Allergy Verified 10/03/17 14:44 Vital Signs Temp 97.8 F 10/04/17 12:00 Pulse 69 10/04/17 12:00 Resp 18 10/04/17 12:00 BP 164/68 10/04/17 12:00 Pulse Ox 96 10/04/17 12:00 Intake & Output 10/03/17 10/04/17 10/04/17 18:59 06:59 18:59 Weight (lbs) 81.238 kg Other: Stool Characteristics Soft Soft Laboratory Results - last 24 hr 10/04/17 10/04/17 06:00 06:00 WBC 5.9 RBC 3.25 L Hgb 10.3 L Hct 31.5 L MCV 97.1 MCH 31.6 H MCHC Differential 32.5 RDW 14.7 Plt Count 90 L MPV 6.8 Neutrophils % 49.3 Lymphocytes % 32.9 Monocytes % 11.5 H Eosinophils % 6.1 H Basophils % 0.2 Sodium 134 L Potassium 4.5 Chloride 99 Carbon Dioxide 27.0 Anion Gap 12.5 BUN 51 H Creatinine 7.5 H* Est GFR ( Amer) TNP Est GFR (Non-Af Amer) TNP BUN/Creatinine Ratio 6.8 Glucose 84 Calcium 9.3 Total Bilirubin 0.5 AST 15 ALT 8 Alkaline Phosphatase 90 Total Protein 6.3 Albumin 3.5 L Globulin 2.8 Albumin/Globulin Ratio 1.3 Home Medication Medication Instructions Recorded Type Acetaminophen [Tylenol] 325 mg PO Q6HR PRN 06/15/17 History Amiodarone [Cordarone] 200 mg PO BID 06/15/17 History Calcitriol [Rocaltrol] 0.25 mcg PO DAILY 06/15/17 History Carbidopa/Levodopa 25/250 mg 1 tab PO QID 06/15/17 History [Sinemet 25 mg-250 mg] Carvedilol [Coreg] 3.125 mg PO QSUN 06/15/17 History Clonidine HCl [Catapres] 0.1 mg PO Q8H PRN 06/15/17 History Cyanocobalamin [Vitamin B12] 100 mcg PO DAILY 06/15/17 History Ferrous Sulfate [Iron] 325 mg PO BID 06/15/17 History Folic Acid [Folate*] 1 mg PO DAILY 06/15/17 History Sevelamer Hydrochloride [Renagel] 2,400 mg PO TID 06/15/17 History Acetaminophen 650 mg PO Q4H PRN 10/03/17 History Albuterol Nebulizer 2.5mg/3mL 0.63 mg HHN Q4H PRN 10/03/17 History [Albuterol Neb UD*] Docusate Sodium [Colace] 100 mg PO DAILY 10/03/17 History Docusate Sodium [Stool Softener] 250 mg PO DAILY 10/03/17 History Magnesium Hydroxide [Milk of 30 ml PO PRN PRN 10/03/17 History Magnesia] Zolpidem Tartrate [Ambien] 5 mg PO HS PRN 10/03/17 History Current Medications Generic Name Dose Route Start Last Admin Trade Name Freq PRN Reason Stop Dose Admin Acetaminophen 650 mg 10/04/17 07:28 10/04/17 08:52 Tylenol PO 12/03/17 07:27 650 mg Q4H PRN Administration Fever > 101 Acetaminophen 325 mg 10/04/17 07:28 Tylenol PO 12/03/17 07:27 Q6H PRN Pain (Mild) Albuterol Sulfate 2.5 mg 10/04/17 07:28 10/04/17 09:36 Albuterol 2.5mg/3ml Neb Ud HHN 12/03/17 07:27 2.5 mg Q4HRT PRN Administration Wheezing Amiodarone HCl 200 mg 10/04/17 09:00 10/04/17 08:52 Cordarone PO 12/03/17 08:59 200 mg BID GABY Administration Calcitriol 0.25 mcg 10/04/17 09:00 10/04/17 08:50 Rocaltrol PO 12/03/17 08:59 0.25 mcg DAILY GABY Administration Carbidopa/Levodopa 1 tab 10/04/17 09:00 10/04/17 08:52 Sinemet 25 Mg-250 Mg PO 12/03/17 08:59 1 tab QID G[facility]Y Administration Carvedilol 3.125 mg 10/10/17 09:00 Coreg PO 12/09/17 08:59 QSUN GABY Cyanocobalamin 100 mcg 10/04/17 09:00 10/04/17 08:57 Vitamin B12 PO 12/03/17 08:59 100 mcg DAILY GABY Administration Docusate Sodium 250 mg 10/04/17 09:00 10/04/17 09:03 Colace PO 12/03/17 08:59 250 mg DAILY GABY Administration Ferrous Sulfate 325 mg 10/04/17 09:00 10/04/17 09:03 Iron PO 12/03/17 08:59 325 mg BID GABY Administration Folic Acid 1 mg 10/04/17 09:00 10/04/17 09:03 Folate PO 12/03/17 08:59 1 mg DAILY GABY Administration Albumin Human 25 gm in 100 mls @ 50 mls/hr 10/05/17 12:46 Albuminar 25% IV 10/05/17 14:45 X1 ONE Magnesium Hydroxide 30 ml 10/04/17 09:00 Milk Of Magnesia PO 12/03/17 08:59 DAILY PRN bowel management Miscellaneous 1 ea 10/04/17 13:15 Vancomycin Iv Per Pharmacy 12/03/17 13:14 PRN GABY Sevelamer HCl 2,400 mg 10/04/17 09:00 10/04/17 10:26 Renagel PO 12/03/17 08:59 Not Given TID [facility]Y Zolpidem Tartrate 5 mg 10/04/17 21:00 Ambien PO 12/03/17 20:59 HS PRN Insomnia Review of Systems: A 12 point ROS was reviewed with the pertinent positive and negatives noted in the HPI. Social History Smoking Status Unknown if ever smoked Family Medical History Unknown. Physical Exam: General: Comfortable, not in any acute distress. HEENT: Head is normocephalic, atraumatic, oral cavity moist pink tongue. Eys n o pallor, no icterus. Neck: supple no JVD, no carotid bruit. Cardio: S1 and S2 WNL. no murmur. Respiratory: CTAP. Abdominal: soft NT ND BS present. Genital/Urinary: Extremities: NCCE, swollen right hand, no significant erythema. Right upper extremity av fistula is working well. bruit and thrill present. Neurological: AAAOx3, Assessment: 1. Right hand swelling , likely of vascular origin. cannot rule out cellulitis absolutely. 2. htn. 3. ckd 5 on hd. Plan: Will ask vascular surgery consult and give vanco IV as per pharmacy. Thank you Dr Jordan for involving me in taking care of this patient. Signed, Rancho Eller M.D. [id number]/04/[id number]
--- NOTE | 2017-10-04 13:24 | General Progress Note ---
Subjective - Review of Systems Service Date: 10/04/17 Events since last encounter: has had 2 revisions of right arm Saeid fistula right forearm is moderately swollen, no steal no surgical intervention Objective - Results Result Diagrams: 10/04/17 06:00 10/04/17 06:00 Recent Labs: Laboratory Last Values WBC 5.9 Th/cmm (4.8-10.8) 10/04/17 06:00 RBC 3.25 Mil/cmm (3.80-5.80) L 10/04/17 06:00 Hgb 10.3 gm/dL (12-16) L 10/04/17 06:00 Hct 31.5 % (41.0-60) L 10/04/17 06:00 MCV 97.1 fl (80-99) 10/04/17 06:00 MCH 31.6 pg (27.0-31.0) H 10/04/17 06:00 MCHC Differential 32.5 pg (28.0-36.0) 10/04/17 06:00 RDW 14.7 % (11.5-20.0) 10/04/17 06:00 Plt Count 90 Th/cmm (150-400) L 10/04/17 06:00 MPV 6.8 fl 10/04/17 06:00 Neutrophils % 49.3 % (40.0-80.0) 10/04/17 06:00 Lymphocytes % 32.9 % (20.0-50.0) 10/04/17 06:00 Monocytes % 11.5 % (2.0-10.0) H 10/04/17 06:00 Eosinophils % 6.1 % (0.0-5.0) H 10/04/17 06:00 Basophils % 0.2 % (0.0-2.0) 10/04/17 06:00 PT 10.1 SECONDS (9.5-11.5) 10/03/17 17:19 INR 0.97 (0.5-1.4) 10/03/17 17:19 PTT (Actin FS) 28.1 SECONDS (26.0-38.0) 10/03/17 17:19 Sodium 134 mEq/L (136-145) L 10/04/17 06:00 Potassium 4.5 mEq/L (3.5-5.1) 10/04/17 06:00 Chloride 99 mEq/L (98-107) 10/04/17 06:00 Carbon Dioxide 27.0 mEq/L (21.0-31.0) 10/04/17 06:00 Anion Gap 12.5 (7.0-16.0) 10/04/17 06:00 BUN 51 mg/dL (7-25) H 10/04/17 06:00 Creatinine 7.5 mg/dL (0.7-1.3) H* 10/04/17 06:00 Est GFR ( Amer) TNP 10/04/17 06:00 Est GFR (Non-Af Amer) TNP 10/04/17 06:00 BUN/Creatinine Ratio 6.8 10/04/17 06:00 Glucose 84 mg/dL (70-105) 10/04/17 06:00 Calcium 9.3 mg/dL (8.6-10.3) 10/04/17 06:00 Total Bilirubin 0.5 mg/dL (0.3-1.0) 10/04/17 06:00 AST 15 U/L (13-39) 10/04/17 06:00 ALT 8 U/L (7-52) 10/04/17 06:00 Alkaline Phosphatase 90 U/L (34-104) 10/04/17 06:00 Total Protein 6.3 gm/dL (6.0-8.3) 10/04/17 06:00 Albumin 3.5 gm/dL (4.2-5.5) L 10/04/17 06:00 Globulin 2.8 gm/dL 10/04/17 06:00 Albumin/Globulin Ratio 1.3 (1.0-1.8) 10/04/17 06:00 - Physical Exam Vitals and I&O: Vital Signs Temp 97.8 F 10/04/17 12:00 Pulse 69 10/04/17 12:00 Resp 18 10/04/17 12:00 BP 164/68 10/04/17 12:00 Pulse Ox 96 10/04/17 12:00 Intake & Output 10/03/17 10/04/17 10/04/17 18:59 06:59 18:59 Weight (lbs) 81.238 kg Other: Stool Characteristics Soft Soft Active Medications: Current Medications Acetaminophen (Tylenol) 650 mg PO Q4H PRN PRN Reason: Fever > 101 Stop: 12/03/17 07:27 Last Admin: 10/04/17 08:52 Dose: 650 mg Acetaminophen (Tylenol) 325 mg PO Q6H PRN PRN Reason: Pain (Mild) Stop: 12/03/17 07:27 Albuterol Sulfate (Albuterol 2.5mg/3ml Neb Ud) 2.5 mg HHN Q4HRT PRN PRN Reason: Wheezing Stop: 12/03/17 07:27 Last Admin: 10/04/17 09:36 Dose: 2.5 mg Amiodarone HCl (Cordarone) 200 mg PO BID [facility] Stop: 12/03/17 08:59 Last Admin: 10/04/17 08:52 Dose: 200 mg Calcitriol (Rocaltrol) 0.25 mcg PO DAILY [facility] Stop: 12/03/17 08:59 Last Admin: 10/04/17 08:50 Dose: 0.25 mcg Carbidopa/Levodopa (Sinemet 25 Mg-250 Mg) 1 tab PO QID [facility] Stop: 12/03/17 08:59 Last Admin: 10/04/17 08:52 Dose: 1 tab Carvedilol (Coreg) 3.125 mg PO QSUN [facility] Stop: 12/09/17 08:59 Cyanocobalamin (Vitamin B12) 100 mcg PO DAILY [facility] Stop: 12/03/17 08:59 Last Admin: 10/04/17 08:57 Dose: 100 mcg Docusate Sodium (Colace) 250 mg PO DAILY [facility] Stop: 12/03/17 08:59 Last Admin: 10/04/17 09:03 Dose: 250 mg Ferrous Sulfate (Iron) 325 mg PO BID [facility] Stop: 12/03/17 08:59 Last Admin: 10/04/17 09:03 Dose: 325 mg Folic Acid (Folate) 1 mg PO DAILY [facility] Stop: 12/03/17 08:59 Last Admin: 10/04/17 09:03 Dose: 1 mg Albumin Human (Albuminar 25%) 25 gm in 100 mls @ 50 mls/hr IV X1 ONE Stop: 10/05/17 14:45 Magnesium Hydroxide (Milk Of Magnesia) 30 ml PO DAILY PRN PRN Reason: bowel management Stop: 12/03/17 08:59 Miscellaneous (Vancomycin Iv Per Pharmacy) 1 ea MC PRN [facility] Stop: 12/03/17 13:14 Miscellaneous (Vancomycin Iv Per Pharmacy) 1 ea MC PRN [facility] Stop: 12/03/17 13:29 Sevelamer HCl (Renagel) 2,400 mg PO TID [facility] Stop: 12/03/17 08:59 Last Admin: 10/04/17 10:26 Dose: Not Given Zolpidem Tartrate (Ambien) 5 mg PO HS PRN PRN Reason: Insomnia Stop: 12/03/17 20:59 - Procedures Procedures: Procedures Procedure Code Date PERFORMANCE OF URINARY FILTRATION, MULTIPLE [id number] 06/16/17 Assessment/Plan - Problem List Patient Problems: All Active Problems COUGH WITH FEVER/CHILLS AND WEAKNESS (Acute) LARYNGITIS (Acute) RIGHT HAND TRAUMA, NECK PAIN, FOOT EDEMA (Acute) TRACHITIS (Acute)
[2017-10-04] MEDS ORDERED: Albumin 25% 12.5gm/50mL 25 GM/100 ML BTL IV ONE (14:15)
[2017-10-04] MEDS ORDERED: VTE Chemical Prophylaxis Screen/Admission MC PRN (14:18)
--- NOTE | 2017-10-04 15:25 | Diagnostic Imaging Report ---
Right upper extremity Doppler venous ultrasound exam HISTORY: Swelling, arteriovenous fistula Sonographic sector images were obtained to the venous system the right arm. The exam demonstrates patency of the right internal jugular, subclavian, axillary, brachial, and basilic veins. Arterial structures are also noted. An abdomen appears somewhat complex and associated with what appears to be per history and arteriovenous fistula. Mild to moderate atherosclerotic plaque noted within the arterial structures. Question aneurysmal dilatation through the region of the fistula. An angiogram would provide for further assessment and anatomic evaluation. IMPRESSION: 1. Findings consistent with patient's history of an arteriovenous fistula. Anatomic delineation is suboptimal. Question aneurysm formation. Atherosclerotic changes noted within the arterial structures delineated. No occlusion identified. Angiographic evaluation would provide additional assessment and detail. 2. Patency of the venous system of the right arm.
--- NOTE | 2017-10-04 15:37 | Consultation ---
DATE OF CONSULTATION: 10/04/2017 ATTENDING PHYSICIAN: Dr. Jordan. TRAUMA SURGEON: Yaron Stover M.D. REASON FOR CONSULTATION: Electrolyte imbalance and fluid management. HISTORY OF PRESENT ILLNESS: This is an 81-year-old male with past medical history of end-stage renal disease, on hemodialysis, who came in because of right hand edema. The patient stated that he had intermittent edema of his right hand. A few days prior to admission, he noted progressive edema of right hand. A few hours prior to admission, his right edema had worsened. He was then brought to the Emergency Room. Chest x-ray revealed right hand cellulitis. However, white count was 5.2 with a temperature of 98.4 degrees. He denied any trauma, fall, or any bites on his hand. PAST MEDICAL HISTORY: 1. End-stage renal disease, on hemodialysis. 2. Chronic atrial fibrillation. 3. Anemia of chronic disease. 4. Colon CA. 5. Essential hypertension with chronic kidney disease. 6. Parkinson's disease. PAST SURGICAL HISTORY: Status post partial colectomy with colostomy in 1980. CURRENT MEDICATIONS: Currently on acetaminophen, amiodarone, Rocaltrol, carbidopa and levodopa, carvedilol, docusate sodium, ferrous sulfate, folic acid, Sevelamer, and zolpidem. ALLERGIES: Allergic to milk. SOCIAL HISTORY: Denied any history of alcohol or tobacco use. Currently resides at an [facility]. REVIEW OF SYSTEMS: GENERAL: Has occasional weakness, appetite had been fair, no fever, no chills. HEENT: Has poor vision. Hearing acuity remains within accepting limits. No headaches, no dizziness. CARDIORESPIRATORY: History of hypertension and chronic atrial fibrillation. At the present time, no chest pain, palpitations, diaphoresis, cough, or shortness of breath. GASTROINTESTINAL: No nausea and vomiting, abdominal pain or cramping, hematemesis, melena, hematochezia, or diarrhea. ENDOCRINE: He does have a history of colon CA and underwent partial colectomy. HEMATOLOGIC: He has anemia of chronic kidney disease. MUSCULOSKELETAL: Multiple joint arthralgias. GENITOURINARY: History of kidney failure on hemodialysis. Rarely urinates, but if he does, denies any dysuria or hematuria. NEUROPSYCHIATRY: No syncopal episode or seizure activity. History of Parkinson's disease. PHYSICAL EXAMINATION: GENERAL: The patient is awake, verbal, somewhat anxious. VITAL SIGNS: Blood pressure is 162/66, pulse 63, temperature 98.4 degrees. SKIN: Good turgor, warm, no rash, no jaundice appreciated. HEENT: Head normocephalic, atraumatic. EYES: Extraocular muscles intact. Pupils equal, round, reactive to light and accommodates. Anicteric sclerae. [place] conjunctivae. Nose, midline nasal septum. Mouth: Dry mucosa with adequate dentition. NECK: Supple, no adenopathy, no thyromegaly, no bruits. Trachea palpated in the midline. CHEST AND CVS: S1, S2. No rub, murmur, or gallop appreciated. Point of maximal impulse, fifth intercostal space, left midclavicular line. No abdominal or femoral bruits appreciated. LUNGS: Equal expansion. No use of accessory muscles. No supraclavicular retractions. Decreased breath sounds, few rhonchi, but no rales or wheezes appreciated. ABDOMEN: Mildly globular, soft. Positive for bowel sounds, presence of a left colostomy bag. No bruits, either diastolic or systolic. Presence of a left lower quadrant colostomy bag. RECTAL: The patient refused. GENITOURINARY: Normal appearing male genitalia. MUSCULOSKELETAL: No effusions present in his joints with adequate range of motion. EXTREMITIES: Right upper extremity, he has a right AV fistula with very good bruits and thrill and he has edema involving his right hand. However, very, very minimal erythema. There is no tenderness, no warmth. Left arm, no edema, no tenderness, or warm. Lower extremities reveals also no edema. No cyanosis or clubbing. He has a palpable femoral, but unable to fully appreciate popliteal and dorsalis pedis pulses. NEUROLOGIC: The patient is alert, verbal, motor is 5/5. Cranial nerves 2-12 intact. Sensory intact. LABORATORY DATA: Revealed a white count of 5.9, hemoglobin 10.3, hematocrit 31.5, platelets of 90, polys 49.3, sodium 134, potassium 4.5, chloride 99, bicarbonate 27. BUN 51, creatinine of 7.5, calcium 9.3, albumin 3.5. IMPRESSION: 1. End-stage renal disease, on hemodialysis. 2. Right hand swelling secondary to possible cellulitis. However, I would consider more possibility of partial stenosis involving the right AV fistula. 3. Chronic atrial fibrillation. 4. Anemia of chronic disease. 5. Colon CA, status post left colostomy. 6. Essential hypertension with chronic kidney disease. 7. Parkinson disease. PLAN: 1. Add vancomycin x 1. 2. Will request duplex scan of right upper fistula, but would prefer patient to undergo fistulogram with possible angioplasty as needed. 3. Hemodialysis as scheduled. Thank you Dr. Jordan for this consult. I will follow the patient closely with you. JOB# [id number]
[2017-10-04] MEDS ORDERED: Morphine Sulfate 2 mg/mL 1mL Syr IVP PRN (20:29)
[2017-10-04] MEDS: Codeine/Promethazine Susp 5 mL UDC PO SCH (21:01)
--- NOTE | 2017-10-04 21:03 | History & Physical ---
ADMIT DATE: 10/03/2017 HISTORY OF PRESENT ILLNESS: The patient is very well known to me. The patient is known to have history of hypertension, history of diabetes, history of renal failure on hemodialysis. The patient was brought through the Emergency Room because of the right hand swelling for the last one week, increasing cellulitis, was evaluated in the Emergency Room and was noted that he also has history of Parkinson, history of colon CA, partial colectomy with colostomy. The patient was admitted for right hand cellulitis. REVIEW OF SYSTEMS: Basically has no other problems except for the right hand cellulitis and swelling and pain. PHYSICAL EXAMINATION: HEAD: Head atraumatic. Eyes are normal. NECK: Supple, nontender. LUNGS: Clear. CARDIOVASCULAR SYSTEM: S1, S2 heard. ABDOMEN: Soft. Bowel sounds are heard. Colostomy bag was noted on the left side. AV shunt on the right upper lobe. LABORATORY DATA: The patient's white count was 5.2, hemoglobin 10.4, hematocrit was 31.3. Electrolytes are normal. Albumin was slightly on the low side, 3.8. The patient's right hand x-ray showed no fracture. DIAGNOSES: The patient was admitted for right hand edema; cellulitis; end-stage renal disease, on hemodialysis; chronic anemia; history of colon cancer; history of colostomy; history of hypertension. I will follow the patient. We will give him IV antibiotics and allow Dr. Rancho Eller to see the patient. Dr. Stover for consult and I will follow the patient. [facility]# [id number]
[2017-10-05] MEDS: Codeine/Promethazine Susp 5 mL UDC PO SCH ×2 (08:10→12:50)
[2017-10-05] MEDS: Ferrous Sulfate 325 MG TAB PO SCH ×2 (08:11→16:27)
--- NOTE | 2017-10-05 09:49 | Internal Medicine Prog Note ---
Internal Medicine Subjective - Subjective Service Date: 10/05/17 Patient seen and examined:: with staff Patient is:: awake Per staff patient has:: tolerating meds Internal Medicine Objective - Results Result Diagrams: 10/04/17 06:00 10/04/17 06:00 Recent Labs: Laboratory Last Values WBC 5.9 Th/cmm (4.8-10.8) 10/04/17 06:00 RBC 3.25 Mil/cmm (3.80-5.80) L 10/04/17 06:00 Hgb 10.3 gm/dL (12-16) L 10/04/17 06:00 Hct 31.5 % (41.0-60) L 10/04/17 06:00 MCV 97.1 fl (80-99) 10/04/17 06:00 MCH 31.6 pg (27.0-31.0) H 10/04/17 06:00 MCHC Differential 32.5 pg (28.0-36.0) 10/04/17 06:00 RDW 14.7 % (11.5-20.0) 10/04/17 06:00 Plt Count 90 Th/cmm (150-400) L 10/04/17 06:00 MPV 6.8 fl 10/04/17 06:00 Neutrophils % 49.3 % (40.0-80.0) 10/04/17 06:00 Lymphocytes % 32.9 % (20.0-50.0) 10/04/17 06:00 Monocytes % 11.5 % (2.0-10.0) H 10/04/17 06:00 Eosinophils % 6.1 % (0.0-5.0) H 10/04/17 06:00 Basophils % 0.2 % (0.0-2.0) 10/04/17 06:00 PT 10.1 SECONDS (9.5-11.5) 10/03/17 17:19 INR 0.97 (0.5-1.4) 10/03/17 17:19 PTT (Actin FS) 28.1 SECONDS (26.0-38.0) 10/03/17 17:19 Sodium 134 mEq/L (136-145) L 10/04/17 06:00 Potassium 4.5 mEq/L (3.5-5.1) 10/04/17 06:00 Chloride 99 mEq/L (98-107) 10/04/17 06:00 Carbon Dioxide 27.0 mEq/L (21.0-31.0) 10/04/17 06:00 Anion Gap 12.5 (7.0-16.0) 10/04/17 06:00 BUN 51 mg/dL (7-25) H 10/04/17 06:00 Creatinine 7.5 mg/dL (0.7-1.3) H* 10/04/17 06:00 Est GFR ( Amer) TNP 10/04/17 06:00 Est GFR (Non-Af Amer) TNP 10/04/17 06:00 BUN/Creatinine Ratio 6.8 10/04/17 06:00 Glucose 84 mg/dL (70-105) 10/04/17 06:00 Calcium 9.3 mg/dL (8.6-10.3) 10/04/17 06:00 Total Bilirubin 0.5 mg/dL (0.3-1.0) 10/04/17 06:00 AST 15 U/L (13-39) 10/04/17 06:00 ALT 8 U/L (7-52) 10/04/17 06:00 Alkaline Phosphatase 90 U/L (34-104) 10/04/17 06:00 Total Protein 6.3 gm/dL (6.0-8.3) 10/04/17 06:00 Albumin 3.5 gm/dL (4.2-5.5) L 10/04/17 06:00 Globulin 2.8 gm/dL 10/04/17 06:00 Albumin/Globulin Ratio 1.3 (1.0-1.8) 10/04/17 06:00 - Physical Exam Vitals and I&O: Vital Signs Temp 97.3 F 10/05/17 08:47 Pulse 73 10/05/17 08:47 Resp 19 10/05/17 08:47 BP 132/81 10/05/17 08:47 Pulse Ox 96 10/05/17 08:47 Intake & Output 10/04/17 10/05/17 10/05/17 18:59 06:59 18:59 Intake Total 1150 Output Total 500 Balance 650 Weight (lbs) 186 lb 8 oz Intake: Intake, IV Amount 350 Oral 800 Output: Urine 500 Other: # Bowel Movements 1 Stool Characteristics Soft Soft Soft Active Medications: Current Medications Acetaminophen (Tylenol) 650 mg PO Q4H PRN PRN Reason: Fever > 101 Stop: 12/03/17 07:27 Last Admin: 10/04/17 08:52 Dose: 650 mg Acetaminophen (Tylenol) 325 mg PO Q6H PRN PRN Reason: Pain (Mild) Stop: 12/03/17 07:27 Albuterol Sulfate (Albuterol 2.5mg/3ml Neb Ud) 2.5 mg HHN Q4HRT PRN PRN Reason: Wheezing Stop: 12/03/17 07:27 Last Admin: 10/04/17 16:39 Dose: 2.5 mg Amiodarone HCl (Cordarone) 200 mg PO BID [facility] Stop: 12/03/17 08:59 Last Admin: 10/05/17 08:10 Dose: Not Given Calcitriol (Rocaltrol) 0.25 mcg PO DAILY [facility] Stop: 12/03/17 08:59 Last Admin: 10/05/17 08:10 Dose: Not Given Carbidopa/Levodopa (Sinemet 25 Mg-250 Mg) 1 tab PO QID [facility] Stop: 12/03/17 08:59 Last Admin: 10/05/17 08:10 Dose: Not Given Carvedilol (Coreg) 3.125 mg PO QSUN [facility] Stop: 12/09/17 08:59 Cyanocobalamin (Vitamin B12) 100 mcg PO DAILY [facility] Stop: 12/03/17 08:59 Last Admin: 10/05/17 08:11 Dose: Not Given Docusate Sodium (Colace) 250 mg PO DAILY [facility] Stop: 12/03/17 08:59 Last Admin: 10/05/17 08:11 Dose: Not Given Ferrous Sulfate (Iron) 325 mg PO BID [facility] Stop: 12/03/17 08:59 Last Admin: 10/05/17 08:11 Dose: Not Given Folic Acid (Folate) 1 mg PO DAILY [facility] Stop: 12/03/17 08:59 Last Admin: 10/05/17 08:11 Dose: Not Given Heparin Sodium (Porcine) (Heparin) 5,000 units SUBQ Q12HR [facility] Stop: 12/03/17 20:59 Last Admin: 10/05/17 08:43 Dose: Not Given Magnesium Hydroxide (Milk Of Magnesia) 30 ml PO DAILY PRN PRN Reason: bowel management Stop: 12/03/17 08:59 Miscellaneous (Vancomycin Iv Per Pharmacy) 1 ea MC PRN [facility] Stop: 12/03/17 13:29 Miscellaneous (Vte Chemical Prophylaxis Screen/ Admission) 1 ea PRN PRN PRN Reason: PROTOCOL Stop: 12/03/17 14:17 Morphine Sulfate (Morphine) 2 mg IVP Q4HR PRN PRN Reason: Pain (Moderate) Stop: 12/03/17 20:28 Last Admin: 10/04/17 20:54 Dose: 2 mg Promethazine HCl/Codeine (Phenergan W/Cod Susp) 10 ml PO TID [facility] Stop: 10/07/17 20:59 Last Admin: 10/05/17 08:10 Dose: Not Given Sevelamer Carbonate (Renvela) 2,400 mg PO TID [facility] Stop: 12/03/17 14:59 Last Admin: 10/05/17 08:12 Dose: Not Given Zolpidem Tartrate (Ambien) 5 mg PO HS PRN PRN Reason: Insomnia Stop: 12/03/17 20:59 Last Admin: 10/05/17 02:33 Dose: 5 mg General: weak, alert HEENT: NC/AT, PERRLA Neck: Supple Lungs: CTAB Cardiovascular: RRR, Normal S1, Normal S2, without murmur Abdomen: soft, non-tender, non-distended, positive bowel sound Neurological: no change - Procedures Procedures: Procedures Procedure Code Date PERFORMANCE OF URINARY FILTRATION, MULTIPLE [id number] 06/16/17 Internal Medicine Assmt/Plan - Assessment Assessment: RIGHT HAND EDEMA, CELLULITIS ESRD ON HD CHRONIC ANEMIA HX COLON CA HX HTN - Plan Plan: CONTINUE IVABX PER ID CONTINUE WITH HD FOLLOW UP LABS IN AM CONTINUE CURRENT PLAN OF CARE
[2017-10-05] MEDS ORDERED: Albumin 25% 25gm/100mL 25 GM/100 ML BTL IV ONE (12:46)
--- NOTE | 2017-10-05 13:34 | Consultation ---
DATE OF CONSULTATION: 10/04/2017 VASCULAR CONSULT REFERRING PHYSICIAN: Dr. Rancho Eller/Dr. Jordan. REASON FOR CONSULTATION: Swollen right upper extremity. Thank you for referring this patient to me. HISTORY OF PRESENT ILLNESS: This is an 81-year-old male with end-stage renal disease. He has Saeid fistula in the right arm, which has been revised a couple of times. Consequent to this, the patient developed some edema and swelling. LABORATORY STUDIES: On this admission, the CBC is normal. BUN is 41, creatinine of 6.5. PHYSICAL EXAMINATION: There is moderate swelling of the upper extremity on the right side. There is a functioning Saeid fistula. There is a palpable radial pulse, and there is no evidence of any ischemia to the right hand. RECOMMENDATIONS: Continue present treatment. No additional recommendation on surgery is made at this point. JOB# [id number]
--- NOTE | 2017-10-05 13:50 | General Progress Note ---
Subjective - Review of Systems Service Date: 10/05/17 Subjective: alert, comfortable Objective - Results Result Diagrams: 10/04/17 06:00 10/04/17 06:00 Recent Labs: Laboratory Last Values WBC 5.9 Th/cmm (4.8-10.8) 10/04/17 06:00 RBC 3.25 Mil/cmm (3.80-5.80) L 10/04/17 06:00 Hgb 10.3 gm/dL (12-16) L 10/04/17 06:00 Hct 31.5 % (41.0-60) L 10/04/17 06:00 MCV 97.1 fl (80-99) 10/04/17 06:00 MCH 31.6 pg (27.0-31.0) H 10/04/17 06:00 MCHC Differential 32.5 pg (28.0-36.0) 10/04/17 06:00 RDW 14.7 % (11.5-20.0) 10/04/17 06:00 Plt Count 90 Th/cmm (150-400) L 10/04/17 06:00 MPV 6.8 fl 10/04/17 06:00 Neutrophils % 49.3 % (40.0-80.0) 10/04/17 06:00 Lymphocytes % 32.9 % (20.0-50.0) 10/04/17 06:00 Monocytes % 11.5 % (2.0-10.0) H 10/04/17 06:00 Eosinophils % 6.1 % (0.0-5.0) H 10/04/17 06:00 Basophils % 0.2 % (0.0-2.0) 10/04/17 06:00 PT 10.1 SECONDS (9.5-11.5) 10/03/17 17:19 INR 0.97 (0.5-1.4) 10/03/17 17:19 PTT (Actin FS) 28.1 SECONDS (26.0-38.0) 10/03/17 17:19 Sodium 134 mEq/L (136-145) L 10/04/17 06:00 Potassium 4.5 mEq/L (3.5-5.1) 10/04/17 06:00 Chloride 99 mEq/L (98-107) 10/04/17 06:00 Carbon Dioxide 27.0 mEq/L (21.0-31.0) 10/04/17 06:00 Anion Gap 12.5 (7.0-16.0) 10/04/17 06:00 BUN 51 mg/dL (7-25) H 10/04/17 06:00 Creatinine 7.5 mg/dL (0.7-1.3) H* 10/04/17 06:00 Est GFR ( Amer) TNP 10/04/17 06:00 Est GFR (Non-Af Amer) TNP 10/04/17 06:00 BUN/Creatinine Ratio 6.8 10/04/17 06:00 Glucose 84 mg/dL (70-105) 10/04/17 06:00 Calcium 9.3 mg/dL (8.6-10.3) 10/04/17 06:00 Total Bilirubin 0.5 mg/dL (0.3-1.0) 10/04/17 06:00 AST 15 U/L (13-39) 10/04/17 06:00 ALT 8 U/L (7-52) 10/04/17 06:00 Alkaline Phosphatase 90 U/L (34-104) 10/04/17 06:00 Total Protein 6.3 gm/dL (6.0-8.3) 10/04/17 06:00 Albumin 3.5 gm/dL (4.2-5.5) L 10/04/17 06:00 Globulin 2.8 gm/dL 10/04/17 06:00 Albumin/Globulin Ratio 1.3 (1.0-1.8) 10/04/17 06:00 - Physical Exam Vitals and I&O: Vital Signs Temp 97.6 F 10/05/17 12:00 Pulse 66 10/05/17 12:00 Resp 19 10/05/17 12:00 BP 128/54 10/05/17 12:00 Pulse Ox 97 10/05/17 12:00 Intake & Output 10/04/17 10/05/17 10/05/17 18:59 06:59 18:59 Intake Total 1150 Output Total 500 Balance 650 Weight (lbs) 84.595 kg Intake: Intake, IV Amount 350 Oral 800 Output: Urine 500 Other: # Bowel Movements 1 Stool Characteristics Soft Soft Soft Active Medications: Current Medications Acetaminophen (Tylenol) 650 mg PO Q4H PRN PRN Reason: Fever > 101 Stop: 12/03/17 07:27 Last Admin: 10/04/17 08:52 Dose: 650 mg Acetaminophen (Tylenol) 325 mg PO Q6H PRN PRN Reason: Pain (Mild) Stop: 12/03/17 07:27 Albuterol Sulfate (Albuterol 2.5mg/3ml Neb Ud) 2.5 mg HHN Q4HRT PRN PRN Reason: Wheezing Stop: 12/03/17 07:27 Last Admin: 10/04/17 16:39 Dose: 2.5 mg Amiodarone HCl (Cordarone) 200 mg PO BID [facility] Stop: 12/03/17 08:59 Last Admin: 10/05/17 08:10 Dose: Not Given Calcitriol (Rocaltrol) 0.25 mcg PO DAILY [facility] Stop: 12/03/17 08:59 Last Admin: 10/05/17 08:10 Dose: Not Given Carbidopa/Levodopa (Sinemet 25 Mg-250 Mg) 1 tab PO QID [facility] Stop: 12/03/17 08:59 Last Admin: 10/05/17 12:50 Dose: 1 tab Carvedilol (Coreg) 3.125 mg PO QSUN [facility] Stop: 12/09/17 08:59 Cyanocobalamin (Vitamin B12) 100 mcg PO DAILY [facility] Stop: 12/03/17 08:59 Last Admin: 10/05/17 08:11 Dose: Not Given Docusate Sodium (Colace) 250 mg PO DAILY [facility] Stop: 12/03/17 08:59 Last Admin: 10/05/17 08:11 Dose: Not Given Ferrous Sulfate (Iron) 325 mg PO BID [facility] Stop: 12/03/17 08:59 Last Admin: 10/05/17 08:11 Dose: Not Given Folic Acid (Folate) 1 mg PO DAILY [facility] Stop: 12/03/17 08:59 Last Admin: 10/05/17 08:11 Dose: Not Given Heparin Sodium (Porcine) (Heparin) 5,000 units SUBQ Q12HR [facility] Stop: 12/03/17 20:59 Last Admin: 10/05/17 08:43 Dose: Not Given Magnesium Hydroxide (Milk Of Magnesia) 30 ml PO DAILY PRN PRN Reason: bowel management Stop: 12/03/17 08:59 Miscellaneous (Vancomycin Iv Per Pharmacy) 1 ea MC PRN [facility] Stop: 12/03/17 13:29 Miscellaneous (Vte Chemical Prophylaxis Screen/ Admission) 1 ea MC PRN PRN PRN Reason: PROTOCOL Stop: 12/03/17 14:17 Morphine Sulfate (Morphine) 2 mg IVP Q4HR PRN PRN Reason: Pain (Moderate) Stop: 12/03/17 20:28 Last Admin: 10/04/17 20:54 Dose: 2 mg Promethazine HCl/Codeine (Phenergan W/Cod Susp) 10 ml PO TID [facility] Stop: 10/07/17 20:59 Last Admin: 10/05/17 12:50 Dose: 10 ml Sevelamer Carbonate (Renvela) 2,400 mg PO TID [facility] Stop: 12/03/17 14:59 Last Admin: 10/05/17 12:50 Dose: 2,400 mg Zolpidem Tartrate (Ambien) 5 mg PO HS PRN PRN Reason: Insomnia Stop: 12/03/17 20:59 Last Admin: 10/05/17 02:33 Dose: 5 mg General: Alert, Oriented x3, No acute distress HEENT: PERRLA, EOMI, Mucous membr. moist/pink Neck: Supple, +2 carotid pulse wo bruit Cardiovascular: Regular rate, Normal S1, Normal S2 Lungs: Clear to auscultation Abdomen: Bowel sounds, Soft Extremities: Edema (right hand) Neurological: Sensation intact Skin: no Rash Psych/Mental Status: Mood NL - Procedures Procedures: Procedures Procedure Code Date PERFORMANCE OF URINARY FILTRATION, MULTIPLE [id number] 06/16/17 Assessment/Plan - Problem List Patient Problems: All Active Problems COUGH WITH FEVER/CHILLS AND WEAKNESS (Acute) LARYNGITIS (Acute) RIGHT HAND TRAUMA, NECK PAIN, FOOT EDEMA (Acute) TRACHITIS (Acute) - Assessment Assessment: ESRD on HD Right hand edema possible stenosis of AVF, cellulitis Ess Htn w/ CKD Colon Ca s/p Partial colectomy Anemia of CKD - Plan Plan: Lab - Result Diagrams 10/04/17 06:00 10/04/17 06:00 Current Medications Acetaminophen (Tylenol) 650 mg PO Q4H PRN PRN Reason: Fever > 101 Stop: 12/03/17 07:27 Last Admin: 10/04/17 08:52 Dose: 650 mg Acetaminophen (Tylenol) 325 mg PO Q6H PRN PRN Reason: Pain (Mild) Stop: 12/03/17 07:27 Albuterol Sulfate (Albuterol 2.5mg/3ml Neb Ud) 2.5 mg HHN Q4HRT PRN PRN Reason: Wheezing Stop: 12/03/17 07:27 Last Admin: 10/04/17 16:39 Dose: 2.5 mg Amiodarone HCl (Cordarone) 200 mg PO BID [facility] Stop: 12/03/17 08:59 Last Admin: 10/05/17 08:10 Dose: Not Given Calcitriol (Rocaltrol) 0.25 mcg PO DAILY [facility] Stop: 12/03/17 08:59 Last Admin: 10/05/17 08:10 Dose: Not Given Carbidopa/Levodopa (Sinemet 25 Mg-250 Mg) 1 tab PO QID [facility] Stop: 12/03/17 08:59 Last Admin: 10/05/17 12:50 Dose: 1 tab Carvedilol (Coreg) 3.125 mg PO QSUN [facility] Stop: 12/09/17 08:59 Cyanocobalamin (Vitamin B12) 100 mcg PO DAILY [facility] Stop: 12/03/17 08:59 Last Admin: 10/05/17 08:11 Dose: Not Given Docusate Sodium (Colace) 250 mg PO DAILY [facility] Stop: 12/03/17 08:59 Last Admin: 10/05/17 08:11 Dose: Not Given Ferrous Sulfate (Iron) 325 mg PO BID [facility] Stop: 12/03/17 08:59 Last Admin: 10/05/17 08:11 Dose: Not Given Folic Acid (Folate) 1 mg PO DAILY [facility] Stop: 12/03/17 08:59 Last Admin: 10/05/17 08:11 Dose: Not Given Heparin Sodium (Porcine) (Heparin) 5,000 units SUBQ Q12HR [facility] Stop: 12/03/17 20:59 Last Admin: 10/05/17 08:43 Dose: Not Given Magnesium Hydroxide (Milk Of Magnesia) 30 ml PO DAILY PRN PRN Reason: bowel management Stop: 12/03/17 08:59 Miscellaneous (Vancomycin Iv Per Pharmacy) 1 ea MC PRN [facility] Stop: 12/03/17 13:29 Miscellaneous (Vte Chemical Prophylaxis Screen/ Admission) 1 ea MC PRN PRN PRN Reason: PROTOCOL Stop: 12/03/17 14:17 Morphine Sulfate (Morphine) 2 mg IVP Q4HR PRN PRN Reason: Pain (Moderate) Stop: 12/03/17 20:28 Last Admin: 10/04/17 20:54 Dose: 2 mg Promethazine HCl/Codeine (Phenergan W/Cod Susp) 10 ml PO TID [facility] Stop: 10/07/17 20:59 Last Admin: 10/05/17 12:50 Dose: 10 ml Sevelamer Carbonate (Renvela) 2,400 mg PO TID [facility] Stop: 12/03/17 14:59 Last Admin: 10/05/17 12:50 Dose: 2,400 mg Zolpidem Tartrate (Ambien) 5 mg PO HS PRN PRN Reason: Insomnia Stop: 12/03/17 20:59 Last Admin: 10/05/17 02:33 Dose: 5 mg Lab - Result Diagrams 10/04/17 06:00 10/04/17 06:00 For HD today RUE duplex scan negative Outpt Fistulogram & Angio
--- NOTE | 2017-10-07 20:34 | Discharge Summary ---
DATE OF DISCHARGE: 10/05/2017 HOSPITAL COURSE: A very well known patient to me, who was admitted to [facility] on 10/03/2017. The patient will be discharged on 10/05/2017, who basically has a swelling of his right hand. The patient is known to have history of diabetes, history of chronic kidney disease, on dialysis. The patient has a shunt on the right upper arm as well. Also, the colostomy and the patient was found to have right hand swelling, initially found to be cellulitis, later on it was evaluated by the ID as well as the vascular surgeon felt that this patient has problem with the shunt causing his right hand swelling and he needs a fistulogram and since we did not have diagnostic studies done in this hospital, the patient will be discharged back to [facility]. From there, I am going to send him for a fistulogram as an outpatient. DIAGNOSES: Right hand swelling, possible cellulitis ruled out and shunt malfunction in the right upper arm, history of ESRD, history of diabetes. CONDITION AT THE TIME OF DISCHARGE: Stable. MEDICATION: See medication reconciliation sheet. DIET: 2 gram sodium, 2000 ADA, renal diet. JOB# [id number]
== END 2017-10-05 18:02 | disposition home or self-care (01) | DRG 314 ==
LOC: ER 13:51 → MSI 18:26
PROVIDERS: ADMIT Internal Medicine; ATTEND Internal Medicine
PROC: 5A1D70Z Performance of Urinary Filtration, Intermittent, Less than 6 Hours Per Day (ICD-10-PCS; principal; 2017-10-05)
DX: T82.858A Stenosis of other vascular prosthetic devices, implants and grafts, initial encounter (principal); N18.6 End stage renal disease; G20 Parkinson's disease; I12.0 Hypertensive chronic kidney disease with stage 5 chronic kidney disease or end stage renal disease; L03.113 Cellulitis of right upper limb; Y83.8 Other surgical procedures as the cause of abnormal reaction of the patient, or of later complication, without mention of misadventure at the time of the procedure; Y92.89 Other specified places as the place of occurrence of the external cause; I48.2 Chronic atrial fibrillation; D63.1 Anemia in chronic kidney disease; Z85.038 Personal history of other malignant neoplasm of large intestine; Z90.49 Acquired absence of other specified parts of digestive tract; Z93.3 Colostomy status; Z82.49 Family history of ischemic heart disease and other diseases of the circulatory system; Z79.899 Other long term (current) drug therapy; Z83.3 Family history of diabetes mellitus; Z91.011 Allergy to milk products; Z99.2 Dependence on renal dialysis
CPT/HCPCS: 36415-UA; 73130-TC-RT; 80053-TC; 85025-TC; 85610-TC; 93971-TC-RT; 94640; 94760; 96379; J0690; J1644; J2270; J3370; J7030; J7613; P9047; Z7610

== ENCOUNTER 2018-01-15 11:46 | Inpatient (IN) | payer MEDICARE, MEDICAID ==
--- NOTE | 2018-01-15 12:23 | ED Physician Chart ---
ED Chief Complaint/HPI - Patient Information Date Seen:: 01/15/18 Time Seen:: 12:09 Chief Complaint:: HEAD INJURY IN FALL LAST PM. History of Present Illness:: THIS 82-YEAR-OLD MALE HAD A FALL FOUR YEARS AGO WITH A FRACTURE OF HIS RIGHT HIP AT THAT TIME. THE PATIENT'S BONES WERE CONSIDERED TOO BRITTLE FOR ORTHOPEDIC FIXATION AND HE HAS BEEN EQUIPPED WITH A PROSTHESIS FOR HIS RIGHT FOOT. SINCE THAT TIME THE PATIENT HAS HAD FREQUENT FALLS. HIS MOST RECENT FALL WAS LAST NIGHT AND HE STRUCK THE BACK OF HIS HEAD ON A SMALL TABLE WHICH WAS NEXT TO HIS BED. THERE WAS NO LOSS OF CONSCIOUSNESS BUT THE PATIENT HAS RESIDUAL PAIN IN THE ED AND THE POSTERIOR NECK. PATIENT ALSO HAS PAIN IN THE RIGHT HIP AREA WHICH IS CHRONIC. PATIENT RATES HIS HEADACHE AN 8/10 SEVERITY. HE IS HAD NO ASSOCIATED NAUSEA OR VOMITING. Allergies:: Allergies Allergy/AdvReac Type Severity Reaction Status Date / Time milk Allergy Verified 10/03/17 14:44 Vitals:: Vital Signs - 8 hr 01/15/18 11:59 Temp 98.1 F HR 70 RR 16 BP 160/72 O2 Sat % 97 ED Past Medical History - Past Medical History Past Medical History: DM, Other ( END-STAGE RENAL DISEASE ON DIALYSIS THERE IS A HISTORY OF COLON CANCER WITH A COLOSTOMY IN THE LEFT UPPER QUADRANT.) Family History: Other Social History: Single Family Medical History - Family Member Mother History Unknown: Yes Ethnicity: Living Status: Hx Family Cancer: No Hx Family Coronary Artery Disease: No Hx Family Congestive Heart Failure: No Hx Family Hypertension: No Hx Family Stroke: No Hx Family Diabetes: No Hx Family Seizures: No Hx Family Dementia: No Hx Family AIDS: No Hx Family HIV: No Hx Family COPD: No Hx Family Hepatitis: No Hx Family Psychiatric Problems: No Hx Family Tuberculosis: No ED Physical Exam - Physical Examination General/Constitutional: Awake, Well-developed, well-nourished, Alert, Non-toxic appearing Other Head comments:: THERE IS A SMALL LESS THAN HALF CENTIMETER LACERATION IN THE RIGHT OCCIPITAL AREA. THERE IS NO ACTIVE BLEEDING AT THE PRESENT TIME. Eyes: Lids, conjuctiva normal, PERRL, EOMI Skin: No rash, No ecchymosis, Well hydrated, No lymphadenopathy ENMT: External ears, nose nl, Nasal exam nl, Lips, teeth, gums nl ( MULTIPLE MISSING TEETH IN BOTH THE UPPER AND LOWER REGIONS.), Oropharynx nl, Tonsils nl Other Neck comments:: THERE IS DIFFUSE TENDERNESS OVER THE POSTERIOR C-SPINE. MODERATE PARAVERTEBRAL MUSCLE TENDERNESS. NO JVD AND NO THYROMEGALY. Respiratory: Nl effort/Exclusion Cardio Vascular: RRR, No murmur, gallop, rubs, NL S1 S2 Other Cardio Vascular comments:: ADEQUATE PULSES IN ALL FOUR EXTREMITIES. THE PATIENT'S DIALYSIS SHUNT IS IN THE RIGHT UPPER EXTREMITY. GI: No hernia, Nondistended, No McBurney tenderness ( RECTAL EXAM DEFERRED AT MY DISCRETION.) Neuro/Psych: Normal sensory exam, Normal motor strength, Mood normal, No focal deficits ED Labs/Radiology/EKG Results - Lab Results Results: Laboratory Tests 01/15/18 01/15/18 01/16/18 17:02 17:02 05:53 WBC 5.6 4.9 RBC 3.45 L 3.33 L Hgb 11.7 L 11.3 L Hct 35.1 L D 34.0 L MCV 101.6 H 102.2 H MCH 34.0 H 33.9 H MCHC Differential 33.4 33.2 RDW 14.4 14.6 Plt Count 75 L 74 L MPV 7.1 7.1 Neutrophils % 45.1 Lymphocytes % 38.5 Monocytes % 12.6 H Eosinophils % 3.1 Basophils % 0.7 Neutrophils (Manual) 47 Lymphocytes 29 Monocytes 17 H Eosinophils 7 H Platelet Estimate DECREASED PLATELETS Sodium 133 L Potassium 4.7 Chloride 96 L Carbon Dioxide 29.4 Anion Gap 12.3 BUN 51 H Creatinine 7.5 H* Est GFR ( Amer) TNP Est GFR (Non-Af Amer) TNP BUN/Creatinine Ratio 6.8 Glucose 111 H Calcium 9.7 Phosphorus Magnesium Total Bilirubin 0.5 AST 22 ALT 6 L Alkaline Phosphatase 105 H Total Protein 6.4 Albumin 3.7 L Globulin 2.7 Albumin/Globulin Ratio 1.4 Triglycerides Cholesterol LDL Cholesterol Direct HDL Cholesterol 01/16/18 06:00 WBC RBC Hgb Hct MCV MCH MCHC Differential RDW Plt Count MPV Neutrophils % Lymphocytes % Monocytes % Eosinophils % Basophils % Neutrophils (Manual) Lymphocytes Monocytes Eosinophils Platelet Estimate Sodium 138 Potassium 4.5 Chloride 100 Carbon Dioxide 32.3 H Anion Gap 10.2 BUN 39 H Creatinine 6.2 H* Est GFR ( Amer) TNP Est GFR (Non-Af Amer) TNP BUN/Creatinine Ratio 6.3 Glucose 85 Calcium 9.6 Phosphorus 4.5 Magnesium 1.9 Total Bilirubin 0.5 AST 21 ALT 4 L Alkaline Phosphatase 96 Total Protein 6.0 Albumin 3.5 L Globulin 2.5 Albumin/Globulin Ratio 1.4 Triglycerides 64 Cholesterol 67 LDL Cholesterol Direct 26 L HDL Cholesterol 37 LABORATORY CBC WITH NO LEUKOCYTOSIS MILD ANEMIA IN THE 11 RANGE. MILD THROMBOCYTOPENIA. METABOLIC STUDIES: SODIUM AND POTASSIUM ARE BOTH WITHIN THE NORMAL RANGE. RENAL FUNCTION STUDIES ARE WITHIN NORMAL PARAMETERS THE PATIENT IS ON DIALYSIS. LIVER FUNCTION STUDIES ARE ALL WITHIN NORMAL PARAMETERS. RADIOLOGIC FINDINGS: CT OF THE HEAD SHOWED NO ACUTE TRAUMATIC FINDINGS. THERE IS THE EXPECTED CEREBRAL ATROPHY DUE TO THE PATIENT'S AGE. THE C-SPINE SHOWS NO EVIDENCE OF ACUTE FRACTURE OR SUBLUXATION. CT SCAN OF THE RIGHT HIP SHOWS ADVANCED DEGENERATIVE CHANGES. ED Assessment - Assessment General Assessment: CASE SUMMARY: THIS 82-YEAR-OLD MALE WHO HAS CHRONIC RENAL FAILURE AND IS ON DIALYSIS IS AT HIGH RISK FOR FREQUENT FALLS. HIS MOST RECENT FALL WAS LAST EVENING WAS RELATIVELY MINOR INJURY TO HIS HEAD, NECK AND RIGHT HIP AREA. LABORATORY STUDIES WERE FOR THE MOST PART UNREMARKABLE. THE CASE WAS DISCUSSED WITH DR. CAMPA AND HE WILL BE ADMITTED TO THE HOSPITAL FOR FURTHER DIAGNOSTIC TESTING AND TREATMENT INDICATED. ADMITTED IN STABLE CONDITION. MDM DDX GROUND LEVEL FALL: NO INTRACRANIAL BLEEDING BASED ON CT OF THE HEAD.. NO SKULL OR C-SPINE FRACTURE BASED ON CT STUDIES. NO LONG BONE FRACTURES BASED ON PHYSICAL EXAM. ED Septic Shock - . Is Septic Shock (SBP<90, OR Lactate>4 mmol\L) present?: No - <6hrs of presentation: Vital Signs: Vital Signs - 8 hr 01/15/18 11:59 Temp 98.1 F HR 70 RR 16 BP 160/72 O2 Sat % 97 ED Reassessment (Disposition) - Reassessment Reassessment Condition:: Improved - Diagnosis Diagnosis:: CHRONIC RENAL FAILURE ON DIALYSIS. DEGENERATIVE CHANGES RIGHT HIP. HIGH FALL RISK. OSTEOPENIA. COLON CANCER STATUS POST RESECTION. DIABETES, HYPERTENSION. - Patient Disposition Discharge/Transfer:: Acute Care w/in this hosp ED Discharge Plan - Patient Disposition Admit/Discharge/Transfer: Acute Care w/in this hosp Condition at Disposition: Stable
[2018-01-15 17:11] LABS: % BASOPHILS 0.7 % (0.0-2.0); % EOSINOPHILS 3.1 % (0.0-5.0); % LYMPHOCYTES 38.5 % (20.0-50.0); % MONOCYTES 12.6 % (2.0-10.0); % NEUTROPHILS 45.1 % (40.0-80.0); EOSINOPHILE ABSOLUTE 0.2 Th/cmm (0.1-0.4); HEMOGLOBIN 11.7 gm/dL (12-16); LYMPHOCYTE ABSOLUTE 2.2 Th/cmm (1.5-3.0); MEAN CELL VOLUME 101.6 fl (80-99); MEAN CORPUSCULAR HGB CONC 33.4 pg (28.0-36.0); MEAN PLATELET VOLUME 7.1 fl; MONOCYTE ABSOLUTE 0.7 Th/cmm (0.3-1.0); NEUTROPHILE ABSOLUTE 2.5 Th/cmm (1.8-8.0); PLATELET COUNT 75 Th/cmm (150-400); RED BLOOD COUNT 3.45 Mil/cmm (3.80-5.80); RED CELL DISTRIBUTION WIDTH 14.4 % (11.5-20.0); WHITE BLOOD COUNT 5.6 Th/cmm (4.8-10.8)
[2018-01-15 17:20] LABS: HEMATOCRIT 35.1 % (41.0-60)
[2018-01-15 17:30] LABS: ALB/GLOB RATIO 1.4 (1.0-1.8); ALBUMIN 3.7 gm/dL (4.2-5.5); ALKALINE PHOSPHATASE 105 U/L (34-104); ANION GAP 12.3 (7.0-16.0); BILIRUBIN,TOTAL 0.5 mg/dL (0.3-1.0); BUN - UREA NITROGEN 51 mg/dL (7-25); CALCIUM SERUM 9.7 mg/dL (8.6-10.3); CARBON DIOXIDE 29.4 mEq/L (21.0-31.0); CHLORIDE 96 mEq/L (98-107); GLUCOSE 111 mg/dL (70-105); POTASSIUM SERUM 4.7 mEq/L (3.5-5.1); SGOT 22 U/L (13-39); SGPT/ALT 6 U/L (7-52); SODIUM SERUM 133 mEq/L (136-145); TOTAL PROTEIN,SERUM 6.4 gm/dL (6.0-8.3)
[2018-01-15 17:37] LABS: CREATININE - SERUM 7.5 mg/dL (0.7-1.3)
[2018-01-15] MEDS ORDERED: Magnesium Hydroxide (MOM) 30 mL UDC PO PRN (18:24)
[2018-01-15] MEDS ORDERED: Albuterol Nebulizer 2.5mg/3mL HHN PRN (18:24)
[2018-01-15] MEDS ORDERED: Hydrocodone/APAP 10 mg/325 mg Tab PO PRN (18:28)
--- NOTE | 2018-01-15 18:57 | Consultation ---
DATE OF CONSULTATION: 01/15/2018 REASON FOR CONSULTATION: Electrolyte imbalance and fluid management. HISTORY OF PRESENT ILLNESS: This is an 82-year-old male with past medical history of end-stage renal disease on hemodialysis, who came in because of right knee pain. A few hours prior to admission, the patient tried to maneuver himself in his bed in order to eat his lunch. However, he was quite weak and lost his balance. He hit the right parietal area of his head against the desk and fell. He struck his right hip and knee on the floor. He was subsequently brought to the Emergency Room. A CT scan of the head revealed no acute disease. Right hip x-ray showed transverse fracture in the subcapital region of the right hip, which is possibly old. Right knee and skull x-rays were negative for fractures. He denied any loss of consciousness, seizure activity, loss of vision, nausea, vomiting, but continues to have lingering headache. PAST MEDICAL HISTORY: 1. End-stage renal disease, on hemodialysis. 2. Colon CA. 3. Anemia of chronic kidney disease. 4. History of atrial fibrillation. 5. Essential hypertension. 6. Parkinson disease. PAST SURGICAL HISTORY: 1. Status post colectomy with left colostomy in 1980. 2. Status post creation of right AV fistula. CURRENT MEDICATIONS: He is on Ambien, amiodarone, calcitriol, carbidopa levodopa, carvedilol, clonidine, docusate sodium, ferrous sulfate, folic acid, Nephro-Heavenly, Renvela, and vitamin B12. ALLERGIES: No known drug allergies. SOCIAL HISTORY: He did have a history of smoking as well as alcohol consumption during his younger years, but quit when he was diagnosed to have colon CA. He also has a history of IV heroin user. 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 FAMILY HISTORY: Heart disease in his mother. REVIEW OF SYSTEMS: CONSTITUTIONAL: He did complain of weakness. Appetite had been fair. No fever or chills. HEENT: He continues to have lingering headache in the area of injury on his head. However, no dizziness or lightheadedness. Wears glasses due to poor vision, hearing acuity has also diminished. CARDIORESPIRATORY: He has a history of hypertension. Also, atrial fibrillation. At this point, there is no shortness of breath, chest pain, palpitations, diaphoresis, or cough. GASTROINTESTINAL: No nausea, vomiting, abdominal pain or cramping, hematemesis, melena, hematochezia, no diarrhea. ENDOCRINE: No history of diabetes, no thyroid abnormalities, no dyslipidemia. MUSCULOSKELETAL: Multiple joint arthralgias. GENITOURINARY: History of kidney failure on dialysis for several years. HEMATOLOGIC: He has anemia of chronic kidney disease. NEUROPSYCH: No syncopal episode nor seizure activity during and after his fall. PHYSICAL EXAMINATION: GENERAL: The patient is alert, verbal, comfortable. VITAL SIGNS: Blood pressure is 178/73, pulse 69, and afebrile. SKIN: Good turgor, warm, no rash, no jaundice appreciated. HEENT: Head normocephalic, he has slight abrasion on the right parietal region of his head, which is tender to touch. Eyes: Extraocular muscles intact. Pupils equal, round, reactive to light and accommodates. Anicteric sclerae. Pale conjunctivae. Nose, midline nasal septum. Mouth, moist mucosa with adequate dentition. NECK: Supple, no adenopathy, no thyromegaly, no bruits. Trachea palpated in the midline. CHEST AND CARDIOVASCULAR: S1, S2. No rub, murmur, nor gallop appreciated. Point of maximal impulse fifth intercostal space, left midclavicular line. No abdominal or femoral bruits appreciated. LUNGS: Equal expansion. No use of accessory muscles. No supraclavicular retractions. Clear to auscultation without any wheeze. ABDOMEN: Mildly globular, soft. Positive for bowel sounds. No bruits either diastolic or systolic. RECTAL: Deferred. GENITOURINARY: Normal appearing male genitalia. MUSCULOSKELETAL: No effusions present in his joints, but unable to assess his range of motion. EXTREMITIES: No evidence of any edema, cyanosis, or clubbing with palpable femoral, but unable to fully appreciate popliteal and dorsalis pedis pulses. He has a good bruit and thrill over his right AV fistula, he has mild several joints edema of his right hand: NEUROLOGIC: The patient is alert, verbal, motor is 5/5. Cranial nerves III through XII intact. Sensory intact. LABORATORY DATA: Labs are not yet available. IMPRESSION: 1. End-stage renal disease, on hemodialysis. 2. Status post fall with old fracture in the subcapital region of right hip. 3. Colon carcinoma, status post colectomy with colostomy. 4. Anemia of chronic kidney disease. 5. History of atrial fibrillation. 6. Essential hypertension. 7. Parkinson's disease. PLAN: 1. Hemodialysis tonight. 2. Observe for any neurological symptoms. JOB# [id number]
[2018-01-15] MEDS ORDERED: Morphine Sulfate 2 mg/mL 1mL Syr IVP PRN (19:33)
--- NOTE | 2018-01-15 19:34 | History & Physical ---
ADMIT DATE: 01/15/2018 HISTORY OF PRESENT ILLNESS: The patient apparently had history of falls and dizziness backwards. complaining of pain in the neck as well as an x-ray of the hip showed a possible trochanteric fracture. The patient known to have history of hypertension, history of diabetes, and history of end-stage renal disease and the patient is on dialysis. The patient is also having osteoporosis and the patient also had malnutrition. The patient was seen in the Emergency Room, had initial x-rays done and CAT scan of the head and neck was negative, and CAT scan of the hip was not done. The patient was admitted for further investigation including to rule out any cardiovascular problem, cardiac arrhythmia, etc. and also to have orthopedic doctor evaluate his possible fracture. The patient on exam was alert, oriented elderly male. PAST MEDICAL HISTORY: As enumerated. PAST SURGICAL HISTORY: As enumerated above. FAMILY HISTORY: Unremarkable. SYSTEM REVIEW: He came with a pain in the left hip. HEAD: Normal. ENT: Normal. NECK: Supple, nontender. LUNGS: Clear. CARDIOVASCULAR SYSTEM: S1, S2 heard. ABDOMEN: Soft. EXTREMITIES: Left hip pain was noted. The patient is now walking with a limp. The patient also complaining of back of the head pain as well as neck pain. DIAGNOSES: History of fall, possible dizziness, rule out cardiac arrhythmia, history of cardiomyopathy, history of congestive heart failure, history of end-stage renal disease, history of diabetes, history of left hip fracture and history of osteoporosis, history of hypertension, and malnutrition. The patient has been admitted and I will follow the patient and I will have ortho and cardiac consults. [facility]# [id number]
[2018-01-15] MEDS ORDERED: SEVELAMER HYDROCHLORIDE PO SCH (21:00)
[2018-01-16 06:54] LABS: ALB/GLOB RATIO 1.4 (1.0-1.8); ALBUMIN 3.5 gm/dL (4.2-5.5); ALKALINE PHOSPHATASE 96 U/L (34-104); ANION GAP 10.2 (7.0-16.0); BILIRUBIN,TOTAL 0.5 mg/dL (0.3-1.0); BUN - UREA NITROGEN 39 mg/dL (7-25); CALCIUM SERUM 9.6 mg/dL (8.6-10.3); CARBON DIOXIDE 32.3 mEq/L (21.0-31.0); CHLORIDE 100 mEq/L (98-107); CHOLESTEROL 67 mg/dL (<200); GLUCOSE 85 mg/dL (70-105); HDL -HIGH DENSITY LIPOPROTEIN 37 mg/dL (23-92); MAGNESIUM 1.9 mg/dL (1.9-2.7); PHOSPHOROUS 4.5 mg/dL (2.5-5.0); POTASSIUM SERUM 4.5 mEq/L (3.5-5.1); SGOT 21 U/L (13-39); SGPT/ALT 4 U/L (7-52); SODIUM SERUM 138 mEq/L (136-145); TRIGLYCERIDES 64 mg/dL (<150)
[2018-01-16 07:07] LABS: EOSINOPHILE ABSOLUTE 0.2 Th/cmm (0.1-0.4); HEMOGLOBIN 11.3 gm/dL (12-16); LYMPHOCYTE ABSOLUTE 1.7 Th/cmm (1.5-3.0); MANUAL DIFF REQUIRED? YES; MEAN CELL VOLUME 102.2 fl (80-99); MEAN CORPUSCULAR HEMOGLOBIN 33.9 pg (27.0-31.0); MEAN CORPUSCULAR HGB CONC 33.2 pg (28.0-36.0); MEAN PLATELET VOLUME 7.1 fl; MONOCYTE ABSOLUTE 0.7 Th/cmm (0.3-1.0); NEUTROPHILE ABSOLUTE 2.3 Th/cmm (1.8-8.0); PLATELET COUNT 74 Th/cmm (150-400); RED BLOOD COUNT 3.33 Mil/cmm (3.80-5.80); RED CELL DISTRIBUTION WIDTH 14.6 % (11.5-20.0); WHITE BLOOD COUNT 4.9 Th/cmm (4.8-10.8)
[2018-01-16 08:29] LABS: CREATININE - SERUM 6.2 mg/dL (0.7-1.3)
[2018-01-16] MEDS: Ferrous Sulfate 325 MG TAB PO SCH ×2 (09:20→17:15)
--- NOTE | 2018-01-16 09:52 | Diagnostic Imaging Report ---
CT scan of the pelvis without intravenous contrast HISTORY: Pain, fracture Total DLP equals 512 CTDI equals 13.6 Axial sections were obtained from a level above the clavicles down to level below the diaphragm. The exam demonstrates extensive abnormal expansile destructive change about the right hip. Complete obliteration of the right femoral head along with destructive bony changes involving the right acetabulum. Evidence of a large joint effusion. Upward displacement of the overall shaft. Deformity of the cutaneous and subcutaneous tissues over the right ilium. Overall appearance may be associated with inflammatory etiology (septic joint). Neoplasm cannot be definitely excluded. Correlation with patient's medical history and clinical correlation needed. There is a mildly displaced acute fracture involving the right iliac wing. Ostomy noted in the left lower abdomen/pelvis. Extensive atherosclerotic vascular calcification noted. IMPRESSION: 1. Extensive expansile destructive change involving the right hip with complete obliteration of the right femoral head and destructive changes involving the right acetabulum. Associated joint effusion. Overall appearance suggests an inflammatory etiology (question septic joint). Neoplasm cannot be definitely excluded. Correlation with patient history needed. 2. Additional mildly displaced acute fracture involving the right iliac wing.
--- NOTE | 2018-01-16 10:17 | Diagnostic Imaging Report ---
CT scan of the brain without intravenous contrast HISTORY: Headache, trauma Total DLP equals 603 CTDI equals 31.9 Axial sections were obtained from the base of the skull to the vertex. There is prominence/enlargement of the ventricular system size. Associated enlargement of cerebral sulci and subarachnoid cisterns. Findings are consistent with changes of generalized cerebral atrophy. No acute parenchymal abnormalities. No acute cerebral hemorrhage. Hypodensity is seen within the supratentorial white matter regions without mass effect. The findings may be associated with chronic small vessel ischemic disease. No extra-axial masses or abnormal fluid collections. There is opacification of the visualized portion of the left maxillary sinus. Findings may be associated with sinusitis. IMPRESSION: 1. No acute abnormalities 2. Cerebral atrophy 3. Supratentorial white matter changes that may reflect chronic small vessel ischemic disease 4. Opacification of the visualized portion of the left maxillary sinus. Findings may be associated with inflammatory change (sinusitis).
[2018-01-16 11:40] LABS: EOSINOPHIL 7 % (0-5); LYMPHOCYTE 29 % (20-50); MONOCYTE 17 % (2-10); NEUTROPHILS 47 % (40-80); TOTAL CELLS COUNTED 100
[2018-01-16 11:41] LABS: PLATELET ESTIMATE DECREASED PLATELETS (NORMAL)
--- NOTE | 2018-01-16 14:03 | General Progress Note ---
Subjective - Review of Systems Events since last encounter: hip pain neck pain s/p fall Objective - Results Result Diagrams: 01/16/18 05:53 01/16/18 06:00 Recent Labs: Laboratory Last Values WBC 4.9 Th/cmm (4.8-10.8) 01/16/18 05:53 RBC 3.33 Mil/cmm (3.80-5.80) L 01/16/18 05:53 Hgb 11.3 gm/dL (12-16) L 01/16/18 05:53 Hct 34.0 % (41.0-60) L 01/16/18 05:53 MCV 102.2 fl (80-99) H 01/16/18 05:53 MCH 33.9 pg (27.0-31.0) H 01/16/18 05:53 MCHC Differential 33.2 pg (28.0-36.0) 01/16/18 05:53 RDW 14.6 % (11.5-20.0) 01/16/18 05:53 Plt Count 74 Th/cmm (150-400) L 01/16/18 05:53 MPV 7.1 fl 01/16/18 05:53 Neutrophils % 45.1 % (40.0-80.0) 01/15/18 17:02 Lymphocytes % 38.5 % (20.0-50.0) 01/15/18 17:02 Monocytes % 12.6 % (2.0-10.0) H 01/15/18 17:02 Eosinophils % 3.1 % (0.0-5.0) 01/15/18 17:02 Basophils % 0.7 % (0.0-2.0) 01/15/18 17:02 Neutrophils (Manual) 47 % (40-80) 01/16/18 05:53 Lymphocytes 29 % (20-50) 01/16/18 05:53 Monocytes 17 % (2-10) H 01/16/18 05:53 Eosinophils 7 % (0-5) H 01/16/18 05:53 Platelet Estimate DECREASED PLATELETS (NORMAL) 01/16/18 05:53 Sodium 138 mEq/L (136-145) 01/16/18 06:00 Potassium 4.5 mEq/L (3.5-5.1) 01/16/18 06:00 Chloride 100 mEq/L (98-107) 01/16/18 06:00 Carbon Dioxide 32.3 mEq/L (21.0-31.0) H 01/16/18 06:00 Anion Gap 10.2 (7.0-16.0) 01/16/18 06:00 BUN 39 mg/dL (7-25) H 01/16/18 06:00 Creatinine 6.2 mg/dL (0.7-1.3) H* 01/16/18 06:00 Est GFR ( Amer) TNP 01/16/18 06:00 Est GFR (Non-Af Amer) TNP 01/16/18 06:00 BUN/Creatinine Ratio 6.3 01/16/18 06:00 Glucose 85 mg/dL (70-105) 01/16/18 06:00 Calcium 9.6 mg/dL (8.6-10.3) 01/16/18 06:00 Phosphorus 4.5 mg/dL (2.5-5.0) 01/16/18 06:00 Magnesium 1.9 mg/dL (1.9-2.7) 01/16/18 06:00 Total Bilirubin 0.5 mg/dL (0.3-1.0) 01/16/18 06:00 AST 21 U/L (13-39) 01/16/18 06:00 ALT 4 U/L (7-52) L 01/16/18 06:00 Alkaline Phosphatase 96 U/L (34-104) 01/16/18 06:00 Total Protein 6.0 gm/dL (6.0-8.3) 01/16/18 06:00 Albumin 3.5 gm/dL (4.2-5.5) L 01/16/18 06:00 Globulin 2.5 gm/dL 01/16/18 06:00 Albumin/Globulin Ratio 1.4 (1.0-1.8) 01/16/18 06:00 Triglycerides 64 mg/dL (<150) 01/16/18 06:00 Cholesterol 67 mg/dL (<200) 01/16/18 06:00 LDL Cholesterol Direct 26 mg/dL (75-193) L 01/16/18 06:00 HDL Cholesterol 37 mg/dL (23-92) 01/16/18 06:00 - Physical Exam Vitals and I&O: Vital Signs Temp 97.6 F 01/16/18 08:00 Pulse 64 01/16/18 09:20 Resp 19 01/16/18 08:00 BP 161/50 01/16/18 09:20 Pulse Ox 95 01/15/18 20:16 Intake & Output 01/15/18 01/16/18 01/16/18 18:59 06:59 18:59 Intake Total 50 120 Output Total 900 Balance -850 120 Weight (lbs) 80.059 kg 79.832 kg Intake: Oral 50 120 Output: Urine 100 Hemodialysis 800 Active Medications: Current Medications Acetaminophen (Tylenol) 650 mg PO Q4H PRN PRN Reason: Fever > 101 Stop: 03/16/18 18:23 Acetaminophen (Tylenol) 325 mg PO Q6HR PRN PRN Reason: Pain (Mild) Stop: 03/16/18 18:23 Albuterol Sulfate (Albuterol 2.5mg/3ml Neb Ud) 0.63 mg HHN Q4H PRN PRN Reason: Wheezing Stop: 03/16/18 18:23 Amiodarone HCl (Cordarone) 200 mg PO BID [facility] Stop: 03/17/18 08:59 Last Admin: 01/16/18 09:19 Dose: 200 mg Calcitriol (Rocaltrol) 0.25 mcg PO DAILY [facility] Stop: 03/17/18 08:59 Last Admin: 01/16/18 09:20 Dose: 0.25 mcg Carbidopa/Levodopa (Sinemet 25 Mg-250 Mg) 1 tab PO QID [facility] Stop: 03/16/18 20:59 Last Admin: 01/16/18 12:59 Dose: 1 tab Carvedilol (Coreg) 3.125 mg PO QSUN [facility] Stop: 03/16/18 18:29 Last Admin: 01/16/18 09:20 Dose: 3.125 mg Cyanocobalamin (Vitamin B12) 100 mcg PO DAILY [facility] Stop: 03/17/18 08:59 Last Admin: 01/16/18 09:19 Dose: 100 mcg Docusate Sodium (Colace) 100 mg PO DAILY [facility] Stop: 03/17/18 08:59 Last Admin: 01/16/18 09:19 Dose: 100 mg Ferrous Sulfate (Iron) 325 mg PO BID [facility] Stop: 03/17/18 08:59 Last Admin: 01/16/18 09:20 Dose: 325 mg Folic Acid (Folate) 1 mg PO DAILY [facility] Stop: 03/17/18 08:59 Last Admin: 01/16/18 09:19 Dose: 1 mg Magnesium Hydroxide (Milk Of Magnesia) 30 ml PO DAILY PRN PRN Reason: bowel management Stop: 03/16/18 18:23 Morphine Sulfate (Morphine) 2 mg IVP Q4HR PRN PRN Reason: Pain (Severe) Stop: 03/16/18 19:32 Sevelamer Carbonate (Renvela) 2,400 mg PO TID [facility] Stop: 03/17/18 08:59 Last Admin: 01/16/18 12:59 Dose: 2,400 mg Zolpidem Tartrate (Ambien) 5 mg PO HS PRN PRN Reason: Insomnia Stop: 03/16/18 18:23 Last Admin: 01/16/18 00:31 Dose: 5 mg - Procedures Procedures: Procedures Procedure Code Date PERFORMANCE OF URINARY FILTRATION, <6 HRS/DAY [id number] 10/03/17 PERFORMANCE OF URINARY FILTRATION, MULTIPLE [id number] 06/16/17
--- NOTE | 2018-01-16 16:11 | General Progress Note ---
Subjective - Review of Systems Service Date: 01/16/18 Subjective: min scalp pain Objective - Results Result Diagrams: 01/16/18 05:53 01/16/18 06:00 Recent Labs: Laboratory Last Values WBC 4.9 Th/cmm (4.8-10.8) 01/16/18 05:53 RBC 3.33 Mil/cmm (3.80-5.80) L 01/16/18 05:53 Hgb 11.3 gm/dL (12-16) L 01/16/18 05:53 Hct 34.0 % (41.0-60) L 01/16/18 05:53 MCV 102.2 fl (80-99) H 01/16/18 05:53 MCH 33.9 pg (27.0-31.0) H 01/16/18 05:53 MCHC Differential 33.2 pg (28.0-36.0) 01/16/18 05:53 RDW 14.6 % (11.5-20.0) 01/16/18 05:53 Plt Count 74 Th/cmm (150-400) L 01/16/18 05:53 MPV 7.1 fl 01/16/18 05:53 Neutrophils % 45.1 % (40.0-80.0) 01/15/18 17:02 Lymphocytes % 38.5 % (20.0-50.0) 01/15/18 17:02 Monocytes % 12.6 % (2.0-10.0) H 01/15/18 17:02 Eosinophils % 3.1 % (0.0-5.0) 01/15/18 17:02 Basophils % 0.7 % (0.0-2.0) 01/15/18 17:02 Neutrophils (Manual) 47 % (40-80) 01/16/18 05:53 Lymphocytes 29 % (20-50) 01/16/18 05:53 Monocytes 17 % (2-10) H 01/16/18 05:53 Eosinophils 7 % (0-5) H 01/16/18 05:53 Platelet Estimate DECREASED PLATELETS (NORMAL) 01/16/18 05:53 Sodium 138 mEq/L (136-145) 01/16/18 06:00 Potassium 4.5 mEq/L (3.5-5.1) 01/16/18 06:00 Chloride 100 mEq/L (98-107) 01/16/18 06:00 Carbon Dioxide 32.3 mEq/L (21.0-31.0) H 01/16/18 06:00 Anion Gap 10.2 (7.0-16.0) 01/16/18 06:00 BUN 39 mg/dL (7-25) H 01/16/18 06:00 Creatinine 6.2 mg/dL (0.7-1.3) H* 01/16/18 06:00 Est GFR ( Amer) TNP 01/16/18 06:00 Est GFR (Non-Af Amer) TNP 01/16/18 06:00 BUN/Creatinine Ratio 6.3 01/16/18 06:00 Glucose 85 mg/dL (70-105) 01/16/18 06:00 Calcium 9.6 mg/dL (8.6-10.3) 01/16/18 06:00 Phosphorus 4.5 mg/dL (2.5-5.0) 01/16/18 06:00 Magnesium 1.9 mg/dL (1.9-2.7) 01/16/18 06:00 Total Bilirubin 0.5 mg/dL (0.3-1.0) 01/16/18 06:00 AST 21 U/L (13-39) 01/16/18 06:00 ALT 4 U/L (7-52) L 01/16/18 06:00 Alkaline Phosphatase 96 U/L (34-104) 01/16/18 06:00 Total Protein 6.0 gm/dL (6.0-8.3) 01/16/18 06:00 Albumin 3.5 gm/dL (4.2-5.5) L 01/16/18 06:00 Globulin 2.5 gm/dL 01/16/18 06:00 Albumin/Globulin Ratio 1.4 (1.0-1.8) 01/16/18 06:00 Triglycerides 64 mg/dL (<150) 01/16/18 06:00 Cholesterol 67 mg/dL (<200) 01/16/18 06:00 LDL Cholesterol Direct 26 mg/dL (75-193) L 01/16/18 06:00 HDL Cholesterol 37 mg/dL (23-92) 01/16/18 06:00 - Physical Exam Vitals and I&O: Vital Signs Temp 98.4 F 01/16/18 12:00 Pulse 62 01/16/18 12:00 Resp 18 01/16/18 12:00 BP 128/53 01/16/18 12:00 Pulse Ox 95 01/16/18 12:00 Intake & Output 01/15/18 01/16/18 01/16/18 18:59 06:59 18:59 Intake Total 50 120 Output Total 900 Balance -850 120 Weight (lbs) 80.059 kg 79.832 kg Intake: Oral 50 120 Output: Urine 100 Hemodialysis 800 Active Medications: Current Medications Acetaminophen (Tylenol) 650 mg PO Q4H PRN PRN Reason: Fever > 101 Stop: 03/16/18 18:23 Acetaminophen (Tylenol) 325 mg PO Q6HR PRN PRN Reason: Pain (Mild) Stop: 03/16/18 18:23 Albuterol Sulfate (Albuterol 2.5mg/3ml Neb Ud) 0.63 mg HHN Q4H PRN PRN Reason: Wheezing Stop: 03/16/18 18:23 Amiodarone HCl (Cordarone) 200 mg PO BID [facility] Stop: 03/17/18 08:59 Last Admin: 01/16/18 09:19 Dose: 200 mg Calcitriol (Rocaltrol) 0.25 mcg PO DAILY [facility] Stop: 03/17/18 08:59 Last Admin: 01/16/18 09:20 Dose: 0.25 mcg Carbidopa/Levodopa (Sinemet 25 Mg-250 Mg) 1 tab PO QID [facility] Stop: 03/16/18 20:59 Last Admin: 01/16/18 12:59 Dose: 1 tab Carvedilol (Coreg) 3.125 mg PO QSUN [facility] Stop: 03/16/18 18:29 Last Admin: 01/16/18 09:20 Dose: 3.125 mg Cyanocobalamin (Vitamin B12) 100 mcg PO DAILY [facility] Stop: 03/17/18 08:59 Last Admin: 01/16/18 09:19 Dose: 100 mcg Docusate Sodium (Colace) 100 mg PO DAILY [facility] Stop: 03/17/18 08:59 Last Admin: 01/16/18 09:19 Dose: 100 mg Ferrous Sulfate (Iron) 325 mg PO BID [facility] Stop: 03/17/18 08:59 Last Admin: 01/16/18 09:20 Dose: 325 mg Folic Acid (Folate) 1 mg PO DAILY [facility] Stop: 03/17/18 08:59 Last Admin: 01/16/18 09:19 Dose: 1 mg Magnesium Hydroxide (Milk Of Magnesia) 30 ml PO DAILY PRN PRN Reason: bowel management Stop: 03/16/18 18:23 Morphine Sulfate (Morphine) 2 mg IVP Q4HR PRN PRN Reason: Pain (Severe) Stop: 03/16/18 19:32 Sevelamer Carbonate (Renvela) 2,400 mg PO TID [facility] Stop: 03/17/18 08:59 Last Admin: 01/16/18 12:59 Dose: 2,400 mg Zolpidem Tartrate (Ambien) 5 mg PO HS PRN PRN Reason: Insomnia Stop: 03/16/18 18:23 Last Admin: 01/16/18 00:31 Dose: 5 mg General: Alert, No acute distress HEENT: PERRLA, EOMI, Mucous membr. moist/pink, Other (right parietal abrasion) Neck: Supple, +2 carotid pulse wo bruit Cardiovascular: Regular rate, Normal S1, Normal S2 Lungs: Clear to auscultation Abdomen: Bowel sounds, Soft, Other (left colostomy bag) Extremities: no Edema Neurological: Sensation intact Skin: no Rash Psych/Mental Status: Mood NL - Procedures Procedures: Procedures Procedure Code Date PERFORMANCE OF URINARY FILTRATION, <6 HRS/DAY [id number] 10/03/17 PERFORMANCE OF URINARY FILTRATION, MULTIPLE [id number] 06/16/17 Assessment/Plan - Assessment Assessment: ESRD on HD S/P fall, old Fx right hip Colon CA, S/P colectomy, colostomy Anemia of CKD Hx A. fib Ess Htn Parkinson ds - Plan Plan: Lab - Result Diagrams 01/16/18 05:53 01/16/18 06:00 Current Medications Acetaminophen (Tylenol) 650 mg PO Q4H PRN PRN Reason: Fever > 101 Stop: 03/16/18 18:23 Acetaminophen (Tylenol) 325 mg PO Q6HR PRN PRN Reason: Pain (Mild) Stop: 03/16/18 18:23 Albuterol Sulfate (Albuterol 2.5mg/3ml Neb Ud) 0.63 mg HHN Q4H PRN PRN Reason: Wheezing Stop: 03/16/18 18:23 Amiodarone HCl (Cordarone) 200 mg PO BID [facility] Stop: 03/17/18 08:59 Last Admin: 01/16/18 09:19 Dose: 200 mg Calcitriol (Rocaltrol) 0.25 mcg PO DAILY [facility] Stop: 03/17/18 08:59 Last Admin: 01/16/18 09:20 Dose: 0.25 mcg Carbidopa/Levodopa (Sinemet 25 Mg-250 Mg) 1 tab PO QID [facility] Stop: 03/16/18 20:59 Last Admin: 01/16/18 12:59 Dose: 1 tab Carvedilol (Coreg) 3.125 mg PO QSUN [facility] Stop: 03/16/18 18:29 Last Admin: 01/16/18 09:20 Dose: 3.125 mg Cyanocobalamin (Vitamin B12) 100 mcg PO DAILY [facility] Stop: 03/17/18 08:59 Last Admin: 01/16/18 09:19 Dose: 100 mcg Docusate Sodium (Colace) 100 mg PO DAILY [facility] Stop: 03/17/18 08:59 Last Admin: 01/16/18 09:19 Dose: 100 mg Ferrous Sulfate (Iron) 325 mg PO BID [facility] Stop: 03/17/18 08:59 Last Admin: 01/16/18 09:20 Dose: 325 mg Folic Acid (Folate) 1 mg PO DAILY [facility] Stop: 03/17/18 08:59 Last Admin: 01/16/18 09:19 Dose: 1 mg Magnesium Hydroxide (Milk Of Magnesia) 30 ml PO DAILY PRN PRN Reason: bowel management Stop: 03/16/18 18:23 Morphine Sulfate (Morphine) 2 mg IVP Q4HR PRN PRN Reason: Pain (Severe) Stop: 03/16/18 19:32 Sevelamer Carbonate (Renvela) 2,400 mg PO TID [facility] Stop: 03/17/18 08:59 Last Admin: 01/16/18 12:59 Dose: 2,400 mg Zolpidem Tartrate (Ambien) 5 mg PO HS PRN PRN Reason: Insomnia Stop: 03/16/18 18:23 Last Admin: 01/16/18 00:31 Dose: 5 mg Lab - Result Diagrams 01/16/18 05:53 01/16/18 06:00 pt. was dialyzed yesterday & tolerated it well continue analgesics
[2018-01-17] MEDS: Ferrous Sulfate 325 MG TAB PO SCH ×2 (08:12→16:30)
--- NOTE | 2018-01-17 09:43 | General Progress Note ---
Subjective - Review of Systems Events since last encounter: awake in no distress Objective - Results Result Diagrams: 01/16/18 05:53 01/16/18 06:00 Recent Labs: Laboratory Last Values WBC 4.9 Th/cmm (4.8-10.8) 01/16/18 05:53 RBC 3.33 Mil/cmm (3.80-5.80) L 01/16/18 05:53 Hgb 11.3 gm/dL (12-16) L 01/16/18 05:53 Hct 34.0 % (41.0-60) L 01/16/18 05:53 MCV 102.2 fl (80-99) H 01/16/18 05:53 MCH 33.9 pg (27.0-31.0) H 01/16/18 05:53 MCHC Differential 33.2 pg (28.0-36.0) 01/16/18 05:53 RDW 14.6 % (11.5-20.0) 01/16/18 05:53 Plt Count 74 Th/cmm (150-400) L 01/16/18 05:53 MPV 7.1 fl 01/16/18 05:53 Neutrophils % 45.1 % (40.0-80.0) 01/15/18 17:02 Lymphocytes % 38.5 % (20.0-50.0) 01/15/18 17:02 Monocytes % 12.6 % (2.0-10.0) H 01/15/18 17:02 Eosinophils % 3.1 % (0.0-5.0) 01/15/18 17:02 Basophils % 0.7 % (0.0-2.0) 01/15/18 17:02 Neutrophils (Manual) 47 % (40-80) 01/16/18 05:53 Lymphocytes 29 % (20-50) 01/16/18 05:53 Monocytes 17 % (2-10) H 01/16/18 05:53 Eosinophils 7 % (0-5) H 01/16/18 05:53 Platelet Estimate DECREASED PLATELETS (NORMAL) 01/16/18 05:53 Sodium 138 mEq/L (136-145) 01/16/18 06:00 Potassium 4.5 mEq/L (3.5-5.1) 01/16/18 06:00 Chloride 100 mEq/L (98-107) 01/16/18 06:00 Carbon Dioxide 32.3 mEq/L (21.0-31.0) H 01/16/18 06:00 Anion Gap 10.2 (7.0-16.0) 01/16/18 06:00 BUN 39 mg/dL (7-25) H 01/16/18 06:00 Creatinine 6.2 mg/dL (0.7-1.3) H* 01/16/18 06:00 Est GFR ( Amer) TNP 01/16/18 06:00 Est GFR (Non-Af Amer) TNP 01/16/18 06:00 BUN/Creatinine Ratio 6.3 01/16/18 06:00 Glucose 85 mg/dL (70-105) 01/16/18 06:00 Calcium 9.6 mg/dL (8.6-10.3) 01/16/18 06:00 Phosphorus 4.5 mg/dL (2.5-5.0) 01/16/18 06:00 Magnesium 1.9 mg/dL (1.9-2.7) 01/16/18 06:00 Total Bilirubin 0.5 mg/dL (0.3-1.0) 01/16/18 06:00 AST 21 U/L (13-39) 01/16/18 06:00 ALT 4 U/L (7-52) L 01/16/18 06:00 Alkaline Phosphatase 96 U/L (34-104) 01/16/18 06:00 Total Protein 6.0 gm/dL (6.0-8.3) 01/16/18 06:00 Albumin 3.5 gm/dL (4.2-5.5) L 01/16/18 06:00 Globulin 2.5 gm/dL 01/16/18 06:00 Albumin/Globulin Ratio 1.4 (1.0-1.8) 01/16/18 06:00 Triglycerides 64 mg/dL (<150) 01/16/18 06:00 Cholesterol 67 mg/dL (<200) 01/16/18 06:00 LDL Cholesterol Direct 26 mg/dL (75-193) L 01/16/18 06:00 HDL Cholesterol 37 mg/dL (23-92) 01/16/18 06:00 - Physical Exam Vitals and I&O: Vital Signs Temp 97.2 F 01/17/18 00:00 Pulse 66 01/17/18 08:11 Resp 20 01/17/18 04:00 BP 115/71 01/17/18 00:00 Pulse Ox 98 01/17/18 00:00 Intake & Output 01/16/18 01/17/18 01/17/18 18:59 06:59 18:59 Intake Total 120 200 Output Total 200 Balance 120 0 Weight (lbs) 79.832 kg 79.832 kg Intake: Oral 120 200 Output: Urine 200 Active Medications: Current Medications Acetaminophen (Tylenol) 650 mg PO Q4H PRN PRN Reason: Fever > 101 Stop: 03/16/18 18:23 Acetaminophen (Tylenol) 325 mg PO Q6HR PRN PRN Reason: Pain (Mild) Stop: 03/16/18 18:23 Albuterol Sulfate (Albuterol 2.5mg/3ml Neb Ud) 0.63 mg HHN Q4H PRN PRN Reason: Wheezing Stop: 03/16/18 18:23 Amiodarone HCl (Cordarone) 200 mg PO BID [facility] Stop: 03/17/18 08:59 Last Admin: 01/17/18 08:11 Dose: 200 mg Artificial Tears (Artificial Tears Ophth Soln) 1 drop EACH EYE QID [facility] Stop: 03/18/18 08:59 Calcitriol (Rocaltrol) 0.25 mcg PO DAILY [facility] Stop: 03/17/18 08:59 Last Admin: 01/17/18 08:12 Dose: 0.25 mcg Carbidopa/Levodopa (Sinemet 25 Mg-250 Mg) 1 tab PO QID [facility] Stop: 03/16/18 20:59 Last Admin: 01/17/18 08:12 Dose: 1 tab Carvedilol (Coreg) 3.125 mg PO QSUN [facility] Stop: 03/16/18 18:29 Last Admin: 01/16/18 09:20 Dose: 3.125 mg Cyanocobalamin (Vitamin B12) 100 mcg PO DAILY [facility] Stop: 03/17/18 08:59 Last Admin: 01/17/18 08:12 Dose: 100 mcg Docusate Sodium (Colace) 100 mg PO DAILY [facility] Stop: 03/17/18 08:59 Last Admin: 01/17/18 08:12 Dose: Not Given Ferrous Sulfate (Iron) 325 mg PO BID [facility] Stop: 03/17/18 08:59 Last Admin: 01/17/18 08:12 Dose: 325 mg Folic Acid (Folate) 1 mg PO DAILY [facility] Stop: 03/17/18 08:59 Last Admin: 01/17/18 08:12 Dose: 1 mg Magnesium Hydroxide (Milk Of Magnesia) 30 ml PO DAILY PRN PRN Reason: bowel management Stop: 03/16/18 18:23 Morphine Sulfate (Morphine) 2 mg IVP Q4HR PRN PRN Reason: Pain (Severe) Stop: 03/16/18 19:32 Sevelamer Carbonate (Renvela) 2,400 mg PO TIDWM [facility] Stop: 03/17/18 18:59 Last Admin: 01/17/18 08:27 Dose: 2,400 mg Zolpidem Tartrate (Ambien) 10 mg PO HS PRN PRN Reason: Insomnia Stop: 03/17/18 21:38 Last Admin: 01/17/18 00:35 Dose: 10 mg General: Alert, No acute distress HEENT: PERRLA, EOMI, Mucous membr. moist/pink, Other (right parietal abrasion) Neck: Supple, +2 carotid pulse wo bruit Cardiovascular: Regular rate, Normal S1, Normal S2 Lungs: Clear to auscultation Abdomen: Bowel sounds, Soft, Other (left colostomy bag) Extremities: no Edema Neurological: Sensation intact Skin: no Rash Psych/Mental Status: Mood NL - Procedures Procedures: Procedures Procedure Code Date PERFORMANCE OF URINARY FILTRATION, <6 HRS/DAY [id number] 10/03/17 PERFORMANCE OF URINARY FILTRATION, MULTIPLE [id number] 06/16/17
[2018-01-17] MEDS: Polyvinyl Alcohol Ophth Soln 15 mL Bottle EACH EYE SCH ×4 (11:10→20:35)
--- NOTE | 2018-01-17 15:15 | General Progress Note ---
Subjective - Review of Systems Service Date: 01/17/18 Subjective: min. right hip, left pain Objective - Results Result Diagrams: 01/16/18 05:53 01/16/18 06:00 Recent Labs: Laboratory Last Values WBC 4.9 Th/cmm (4.8-10.8) 01/16/18 05:53 RBC 3.33 Mil/cmm (3.80-5.80) L 01/16/18 05:53 Hgb 11.3 gm/dL (12-16) L 01/16/18 05:53 Hct 34.0 % (41.0-60) L 01/16/18 05:53 MCV 102.2 fl (80-99) H 01/16/18 05:53 MCH 33.9 pg (27.0-31.0) H 01/16/18 05:53 MCHC Differential 33.2 pg (28.0-36.0) 01/16/18 05:53 RDW 14.6 % (11.5-20.0) 01/16/18 05:53 Plt Count 74 Th/cmm (150-400) L 01/16/18 05:53 MPV 7.1 fl 01/16/18 05:53 Neutrophils % 45.1 % (40.0-80.0) 01/15/18 17:02 Lymphocytes % 38.5 % (20.0-50.0) 01/15/18 17:02 Monocytes % 12.6 % (2.0-10.0) H 01/15/18 17:02 Eosinophils % 3.1 % (0.0-5.0) 01/15/18 17:02 Basophils % 0.7 % (0.0-2.0) 01/15/18 17:02 Neutrophils (Manual) 47 % (40-80) 01/16/18 05:53 Lymphocytes 29 % (20-50) 01/16/18 05:53 Monocytes 17 % (2-10) H 01/16/18 05:53 Eosinophils 7 % (0-5) H 01/16/18 05:53 Platelet Estimate DECREASED PLATELETS (NORMAL) 01/16/18 05:53 Sodium 138 mEq/L (136-145) 01/16/18 06:00 Potassium 4.5 mEq/L (3.5-5.1) 01/16/18 06:00 Chloride 100 mEq/L (98-107) 01/16/18 06:00 Carbon Dioxide 32.3 mEq/L (21.0-31.0) H 01/16/18 06:00 Anion Gap 10.2 (7.0-16.0) 01/16/18 06:00 BUN 39 mg/dL (7-25) H 01/16/18 06:00 Creatinine 6.2 mg/dL (0.7-1.3) H* 01/16/18 06:00 Est GFR ( Amer) TNP 01/16/18 06:00 Est GFR (Non-Af Amer) TNP 01/16/18 06:00 BUN/Creatinine Ratio 6.3 01/16/18 06:00 Glucose 85 mg/dL (70-105) 01/16/18 06:00 Calcium 9.6 mg/dL (8.6-10.3) 01/16/18 06:00 Phosphorus 4.5 mg/dL (2.5-5.0) 01/16/18 06:00 Magnesium 1.9 mg/dL (1.9-2.7) 01/16/18 06:00 Total Bilirubin 0.5 mg/dL (0.3-1.0) 01/16/18 06:00 AST 21 U/L (13-39) 01/16/18 06:00 ALT 4 U/L (7-52) L 01/16/18 06:00 Alkaline Phosphatase 96 U/L (34-104) 01/16/18 06:00 Total Protein 6.0 gm/dL (6.0-8.3) 01/16/18 06:00 Albumin 3.5 gm/dL (4.2-5.5) L 01/16/18 06:00 Globulin 2.5 gm/dL 01/16/18 06:00 Albumin/Globulin Ratio 1.4 (1.0-1.8) 01/16/18 06:00 Triglycerides 64 mg/dL (<150) 01/16/18 06:00 Cholesterol 67 mg/dL (<200) 01/16/18 06:00 LDL Cholesterol Direct 26 mg/dL (75-193) L 01/16/18 06:00 HDL Cholesterol 37 mg/dL (23-92) 01/16/18 06:00 - Physical Exam Vitals and I&O: Vital Signs Temp 97.2 F 01/17/18 00:00 Pulse 66 01/17/18 09:55 Resp 18 01/17/18 09:55 BP 168/44 01/17/18 09:55 Pulse Ox 98 01/17/18 00:00 Intake & Output 01/16/18 01/17/18 01/17/18 18:59 06:59 18:59 Intake Total 120 200 Output Total 200 Balance 120 0 Weight (lbs) 79.832 kg 79.832 kg Intake: Oral 120 200 Output: Urine 200 Active Medications: Current Medications Acetaminophen (Tylenol) 650 mg PO Q4H PRN PRN Reason: Fever > 101 Stop: 03/16/18 18:23 Acetaminophen (Tylenol) 325 mg PO Q6HR PRN PRN Reason: Pain (Mild) Stop: 03/16/18 18:23 Albuterol Sulfate (Albuterol 2.5mg/3ml Neb Ud) 0.63 mg HHN Q4H PRN PRN Reason: Wheezing Stop: 03/16/18 18:23 Amiodarone HCl (Cordarone) 200 mg PO BID [facility] Stop: 03/17/18 08:59 Last Admin: 01/17/18 08:11 Dose: 200 mg Artificial Tears (Artificial Tears Ophth Soln) 1 drop EACH EYE QID [facility] Stop: 03/18/18 08:59 Last Admin: 01/17/18 11:10 Dose: 1 drop Calcitriol (Rocaltrol) 0.25 mcg PO DAILY [facility] Stop: 03/17/18 08:59 Last Admin: 01/17/18 08:12 Dose: 0.25 mcg Carbidopa/Levodopa (Sinemet 25 Mg-250 Mg) 1 tab PO QID [facility] Stop: 03/16/18 20:59 Last Admin: 01/17/18 12:38 Dose: 1 tab Carvedilol (Coreg) 3.125 mg PO QSUN [facility] Stop: 03/16/18 18:29 Last Admin: 01/16/18 09:20 Dose: 3.125 mg Cyanocobalamin (Vitamin B12) 100 mcg PO DAILY [facility] Stop: 03/17/18 08:59 Last Admin: 01/17/18 08:12 Dose: 100 mcg Docusate Sodium (Colace) 100 mg PO DAILY [facility] Stop: 03/17/18 08:59 Last Admin: 01/17/18 08:12 Dose: Not Given Ferrous Sulfate (Iron) 325 mg PO BID [facility] Stop: 03/17/18 08:59 Last Admin: 01/17/18 08:12 Dose: 325 mg Folic Acid (Folate) 1 mg PO DAILY [facility] Stop: 03/17/18 08:59 Last Admin: 01/17/18 08:12 Dose: 1 mg Magnesium Hydroxide (Milk Of Magnesia) 30 ml PO DAILY PRN PRN Reason: bowel management Stop: 03/16/18 18:23 Morphine Sulfate (Morphine) 2 mg IVP Q4HR PRN PRN Reason: Pain (Severe) Stop: 03/16/18 19:32 Last Admin: 01/17/18 11:09 Dose: 2 mg Sevelamer Carbonate (Renvela) 2,400 mg PO TIDWM [facility] Stop: 03/17/18 18:59 Last Admin: 01/17/18 12:38 Dose: 2,400 mg Zolpidem Tartrate (Ambien) 10 mg PO HS PRN PRN Reason: Insomnia Stop: 03/17/18 21:38 Last Admin: 01/17/18 00:35 Dose: 10 mg General: Alert, Oriented x3, No acute distress HEENT: PERRLA, EOMI, Mucous membr. moist/pink, Other (right parietal abrasion) Neck: Supple, +2 carotid pulse wo bruit Cardiovascular: Regular rate, Normal S1, Normal S2 Lungs: Clear to auscultation Abdomen: Bowel sounds, Soft, Other (left colostomy bag) Extremities: no Edema Neurological: Sensation intact Skin: no Rash Psych/Mental Status: Mood NL - Procedures Procedures: Procedures Procedure Code Date PERFORMANCE OF URINARY FILTRATION, <6 HRS/DAY [id number] 10/03/17 PERFORMANCE OF URINARY FILTRATION, MULTIPLE [id number] 06/16/17 Assessment/Plan - Assessment Assessment: ESRD on HD S/P fall, old Fx right hip Colon CA, S/P colectomy, colostomy Anemia of CKD Hx A. fib Ess Htn Parkinson ds - Plan Plan: Lab - Result Diagrams 01/16/18 05:53 01/16/18 06:00 Current Medications Acetaminophen (Tylenol) 650 mg PO Q4H PRN PRN Reason: Fever > 101 Stop: 03/16/18 18:23 Acetaminophen (Tylenol) 325 mg PO Q6HR PRN PRN Reason: Pain (Mild) Stop: 03/16/18 18:23 Albuterol Sulfate (Albuterol 2.5mg/3ml Neb Ud) 0.63 mg HHN Q4H PRN PRN Reason: Wheezing Stop: 03/16/18 18:23 Amiodarone HCl (Cordarone) 200 mg PO BID [facility] Stop: 03/17/18 08:59 Last Admin: 01/16/18 09:19 Dose: 200 mg Calcitriol (Rocaltrol) 0.25 mcg PO DAILY [facility] Stop: 03/17/18 08:59 Last Admin: 01/16/18 09:20 Dose: 0.25 mcg Carbidopa/Levodopa (Sinemet 25 Mg-250 Mg) 1 tab PO QID [facility] Stop: 03/16/18 20:59 Last Admin: 01/16/18 12:59 Dose: 1 tab Carvedilol (Coreg) 3.125 mg PO QSUN [facility] Stop: 03/16/18 18:29 Last Admin: 01/16/18 09:20 Dose: 3.125 mg Cyanocobalamin (Vitamin B12) 100 mcg PO DAILY [facility] Stop: 03/17/18 08:59 Last Admin: 01/16/18 09:19 Dose: 100 mcg Docusate Sodium (Colace) 100 mg PO DAILY [facility] Stop: 03/17/18 08:59 Last Admin: 01/16/18 09:19 Dose: 100 mg Ferrous Sulfate (Iron) 325 mg PO BID [facility] Stop: 03/17/18 08:59 Last Admin: 01/16/18 09:20 Dose: 325 mg Folic Acid (Folate) 1 mg PO DAILY [facility] Stop: 03/17/18 08:59 Last Admin: 01/16/18 09:19 Dose: 1 mg Magnesium Hydroxide (Milk Of Magnesia) 30 ml PO DAILY PRN PRN Reason: bowel management Stop: 03/16/18 18:23 Morphine Sulfate (Morphine) 2 mg IVP Q4HR PRN PRN Reason: Pain (Severe) Stop: 03/16/18 19:32 Sevelamer Carbonate (Renvela) 2,400 mg PO TID [facility] Stop: 03/17/18 08:59 Last Admin: 01/16/18 12:59 Dose: 2,400 mg Zolpidem Tartrate (Ambien) 5 mg PO HS PRN PRN Reason: Insomnia Stop: 03/16/18 18:23 Last Admin: 01/16/18 00:31 Dose: 5 01/16/18 06:00 continue analgesics Lab - Result Diagrams 01/16/18 05:53 01/16/18 06:00 pt. was dialyzed last Sat & tolerated it well continue analgesics Hd in am
[2018-01-17] MEDS: Hydrocodone/APAP 10 mg/325 mg Tab PO PRN ×2 (16:30→23:02)
--- NOTE | 2018-01-17 23:49 | Consultation ---
DATE OF CONSULTATION: 01/16/[address] Jordan. HISTORY OF PRESENT ILLNESS: This is an 82-year-old male patient, came to the Emergency Room with pain in the left knee. During the hospital stay, the patient had a fall. Following this, the patient had hematoma on the scalp and possible fracture of the right hip. Hence, the patient is admitted. Cardiac consult is requested for possible clearance for surgery. PAST MEDICAL HISTORY: Hypertension; diabetes mellitus type 2; diabetic CKD stage V; end-stage renal disease on dialysis; cardiomyopathy; congestive heart failure; diabetes mellitus type 2; osteoporosis; carcinoma of the colon with colostomy and colectomy, ____ ; iron-deficiency anemia; parkinson's disease, atrial fibrillation; acute fracture of the right iliac wing. PHYSICAL EXAMINATION: VITAL SIGNS: Blood pressure 140/80, pulse 80, respirations 28. HEAD: Normocephalic. No lumps or bumps. EYES: Pupils equal, reactive to light. Fundi show AV nicking, sclerae white, conjunctivae pink. NECK: Carotid 2+. Normal upstroke. JVD flat. Thyroid not palpable. Lymph nodes not palpable. CHEST: Shows increased AP diameter. No kyphosis, scoliosis. LUNGS: Bilateral clear breath sounds. HEART: PMI fifth intercostal space with lateral to midclavicular line. S1, S2. No S3, S4, soft systolic murmur. ABDOMEN: Soft. Liver and spleen not palpable. No organomegaly. Bowel sounds active. NEUROLOGIC: Unremarkable. EXTREMITIES: Peripheral pulses 1+. No pedal edema. The patient has pain, tenderness in the movement of the right hip. CLINICAL IMPRESSION: Right iliac wing fracture, acute; hypertension; diabetes mellitus type 2; diabetic chronic kidney disease stage V; end-stage renal disease, on dialysis; congestive heart failure; systolic dysfunction; cardiomyopathy; nonischemic; osteoporosis; cancer of the colon with colectomy and colostomy; iron deficiency anemia secondary to chronic kidney disease stage V; Parkinson's disease; colostomy for cancer of the colon; atrial fibrillation. PLAN: Admit. The patient is cleared for surgery. The patient to continue aggressively dialysis with ultrafiltration. JOB# [id number]
[2018-01-18] MEDS ORDERED: Albumin 25% 25gm/100mL 25 GM/100 ML BTL IV PRN
[2018-01-18] MEDS: Hydrocodone/APAP 10 mg/325 mg Tab PO PRN ×2 (04:10→10:30)
[2018-01-18 07:01] LABS: % BASOPHILS 0.1 % (0.0-2.0); % EOSINOPHILS 3.9 % (0.0-5.0); % LYMPHOCYTES 31.7 % (20.0-50.0); % NEUTROPHILS 50.3 % (40.0-80.0); EOSINOPHILE ABSOLUTE 0.2 Th/cmm (0.1-0.4); HEMATOCRIT 32.6 % (41.0-60); HEMOGLOBIN 10.8 gm/dL (12-16); LYMPHOCYTE ABSOLUTE 1.7 Th/cmm (1.5-3.0); MEAN CELL VOLUME 101.8 fl (80-99); MEAN CORPUSCULAR HEMOGLOBIN 33.7 pg (27.0-31.0); MEAN CORPUSCULAR HGB CONC 33.1 pg (28.0-36.0); MEAN PLATELET VOLUME 7.2 fl; MONOCYTE ABSOLUTE 0.8 Th/cmm (0.3-1.0); NEUTROPHILE ABSOLUTE 2.8 Th/cmm (1.8-8.0); PLATELET COUNT 80 Th/cmm (150-400); RED CELL DISTRIBUTION WIDTH 13.9 % (11.5-20.0); WHITE BLOOD COUNT 5.5 Th/cmm (4.8-10.8)
[2018-01-18 07:18] LABS: ANION GAP 9.5 (7.0-16.0); BUN - UREA NITROGEN 68 mg/dL (7-25); CALCIUM SERUM 9.4 mg/dL (8.6-10.3); CARBON DIOXIDE 27.9 mEq/L (21.0-31.0); CHLORIDE 99 mEq/L (98-107); GLUCOSE 87 mg/dL (70-105); POTASSIUM SERUM 5.4 mEq/L (3.5-5.1); SODIUM SERUM 131 mEq/L (136-145)
[2018-01-18 07:39] LABS: CREATININE - SERUM 8.8 mg/dL (0.7-1.3)
[2018-01-18] MEDS: Polyvinyl Alcohol Ophth Soln 15 mL Bottle EACH EYE SCH ×4 (12:05→22:16)
[2018-01-18] MEDS: Ferrous Sulfate 325 MG TAB PO SCH ×2 (12:07→16:43)
[2018-01-18] MEDS: Morphine Sulfate 4 mg/mL 1mL Syr IVP PRN ×2 (14:09→22:16)
--- NOTE | 2018-01-18 14:50 | General Progress Note ---
Subjective - Review of Systems Service Date: 01/18/18 Subjective: min. right hip pain, no further parietal pain Objective - Results Result Diagrams: 01/18/18 05:35 01/18/18 05:35 Recent Labs: Laboratory Last Values WBC 5.5 Th/cmm (4.8-10.8) 01/18/18 05:35 RBC 3.20 Mil/cmm (3.80-5.80) L 01/18/18 05:35 Hgb 10.8 gm/dL (12-16) L 01/18/18 05:35 Hct 32.6 % (41.0-60) L 01/18/18 05:35 MCV 101.8 fl (80-99) H 01/18/18 05:35 MCH 33.7 pg (27.0-31.0) H 01/18/18 05:35 MCHC Differential 33.1 pg (28.0-36.0) 01/18/18 05:35 RDW 13.9 % (11.5-20.0) 01/18/18 05:35 Plt Count 80 Th/cmm (150-400) L 01/18/18 05:35 MPV 7.2 fl 01/18/18 05:35 Neutrophils % 50.3 % (40.0-80.0) 01/18/18 05:35 Lymphocytes % 31.7 % (20.0-50.0) 01/18/18 05:35 Monocytes % 14.0 % (2.0-10.0) H 01/18/18 05:35 Eosinophils % 3.9 % (0.0-5.0) 01/18/18 05:35 Basophils % 0.1 % (0.0-2.0) 01/18/18 05:35 Neutrophils (Manual) 47 % (40-80) 01/16/18 05:53 Lymphocytes 29 % (20-50) 01/16/18 05:53 Monocytes 17 % (2-10) H 01/16/18 05:53 Eosinophils 7 % (0-5) H 01/16/18 05:53 Platelet Estimate DECREASED PLATELETS (NORMAL) 01/16/18 05:53 Sodium 131 mEq/L (136-145) L 01/18/18 05:35 Potassium 5.4 mEq/L (3.5-5.1) H 01/18/18 05:35 Chloride 99 mEq/L (98-107) 01/18/18 05:35 Carbon Dioxide 27.9 mEq/L (21.0-31.0) 01/18/18 05:35 Anion Gap 9.5 (7.0-16.0) 01/18/18 05:35 BUN 68 mg/dL (7-25) H 01/18/18 05:35 Creatinine 8.8 mg/dL (0.7-1.3) H* 01/18/18 05:35 Est GFR ( Amer) TNP 01/18/18 05:35 Est GFR (Non-Af Amer) TNP 01/18/18 05:35 BUN/Creatinine Ratio 7.7 01/18/18 05:35 Glucose 87 mg/dL (70-105) 01/18/18 05:35 Calcium 9.4 mg/dL (8.6-10.3) 01/18/18 05:35 Phosphorus 4.5 mg/dL (2.5-5.0) 01/16/18 06:00 Magnesium 1.9 mg/dL (1.9-2.7) 01/16/18 06:00 Total Bilirubin 0.5 mg/dL (0.3-1.0) 01/16/18 06:00 AST 21 U/L (13-39) 01/16/18 06:00 ALT 4 U/L (7-52) L 01/16/18 06:00 Alkaline Phosphatase 96 U/L (34-104) 01/16/18 06:00 Total Protein 6.0 gm/dL (6.0-8.3) 01/16/18 06:00 Albumin 3.5 gm/dL (4.2-5.5) L 01/16/18 06:00 Globulin 2.5 gm/dL 01/16/18 06:00 Albumin/Globulin Ratio 1.4 (1.0-1.8) 01/16/18 06:00 Triglycerides 64 mg/dL (<150) 01/16/18 06:00 Cholesterol 67 mg/dL (<200) 01/16/18 06:00 LDL Cholesterol Direct 26 mg/dL (75-193) L 01/16/18 06:00 HDL Cholesterol 37 mg/dL (23-92) 01/16/18 06:00 - Physical Exam Vitals and I&O: Vital Signs Temp 97.3 F 01/18/18 12:17 Pulse 64 01/18/18 12:17 Resp 20 01/18/18 12:17 BP 171/65 01/18/18 12:17 Pulse Ox 97 01/18/18 12:17 Intake & Output 01/17/18 01/18/18 01/18/18 18:59 06:59 18:59 Intake Total 1000 240 120 Output Total 50 600 Balance 950 -360 120 Weight (lbs) 79.832 kg 81.193 kg 81.193 kg Intake: Oral 1000 240 120 Output: Urine 50 600 Other: # Voids 1 3 # Bowel Movements 0 0 Active Medications: Current Medications Acetaminophen (Tylenol) 650 mg PO Q4H PRN PRN Reason: Fever > 101 Stop: 03/16/18 18:23 Acetaminophen (Tylenol) 325 mg PO Q6HR PRN PRN Reason: Pain (Mild) Stop: 03/16/18 18:23 Acetaminophen/Hydrocodone Bitart (Kelly 10 Mg/325 Mg) 1 tab PO Q6H PRN PRN Reason: moderate- severe pain Stop: 03/18/18 15:38 Last Admin: 01/18/18 10:30 Dose: 1 tab Albuterol Sulfate (Albuterol 2.5mg/3ml Neb Ud) 0.63 mg HHN Q4H PRN PRN Reason: Wheezing Stop: 03/16/18 18:23 Amiodarone HCl (Cordarone) 200 mg PO BID [facility] Stop: 03/17/18 08:59 Last Admin: 01/18/18 08:37 Dose: 200 mg Artificial Tears (Artificial Tears Ophth Soln) 1 drop EACH EYE QID [facility] Stop: 03/18/18 08:59 Last Admin: 01/18/18 12:05 Dose: 1 drop Calcitriol (Rocaltrol) 0.25 mcg PO DAILY [facility] Stop: 03/17/18 08:59 Last Admin: 01/18/18 08:37 Dose: 0.25 mcg Carbidopa/Levodopa (Sinemet 25 Mg-250 Mg) 1 tab PO QID [facility] Stop: 03/16/18 20:59 Last Admin: 01/18/18 12:07 Dose: 1 tab Carvedilol (Coreg) 3.125 mg PO QSUN [facility] Stop: 03/16/18 18:29 Last Admin: 01/16/18 09:20 Dose: 3.125 mg Cyanocobalamin (Vitamin B12) 100 mcg PO DAILY [facility] Stop: 03/17/18 08:59 Last Admin: 01/18/18 12:07 Dose: 100 mcg Docusate Sodium (Colace) 100 mg PO DAILY [facility] Stop: 03/17/18 08:59 Last Admin: 01/18/18 12:01 Dose: Not Given Ferrous Sulfate (Iron) 325 mg PO BID [facility] Stop: 03/17/18 08:59 Last Admin: 01/18/18 12:07 Dose: 325 mg Folic Acid (Folate) 1 mg PO DAILY [facility] Stop: 03/17/18 08:59 Last Admin: 01/18/18 08:37 Dose: 1 mg Albumin Human (Albuminar 25%) 25 gm in 100 mls @ 50 mls/hr IV PRN PRN PRN Reason: BP Support During HD Stop: 01/18/18 23:59 Magnesium Hydroxide (Milk Of Magnesia) 30 ml PO DAILY PRN PRN Reason: bowel management Stop: 03/16/18 18:23 Miscellaneous (Clinical Monitoring) 1 ea MC PRN PRN PRN Reason: RENAL Stop: 03/19/18 10:24 Morphine Sulfate (Morphine) 2 mg IVP Q4H PRN PRN Reason: SEVERE PAIN Stop: 03/18/18 16:40 Last Admin: 01/18/18 14:09 Dose: 2 mg Sevelamer Carbonate (Renvela) 2,400 mg PO TIDWM [facility] Stop: 03/17/18 18:59 Last Admin: 01/18/18 12:04 Dose: 2,400 mg Zolpidem Tartrate (Ambien) 10 mg PO HS PRN PRN Reason: Insomnia Stop: 03/17/18 21:38 Last Admin: 01/17/18 20:35 Dose: 10 mg General: Alert, Oriented x3, No acute distress HEENT: PERRLA, EOMI, Mucous membr. moist/pink, Other (right parietal abrasion) Neck: Supple, +2 carotid pulse wo bruit Cardiovascular: Regular rate, Normal S1, Normal S2 Lungs: Clear to auscultation Abdomen: Bowel sounds, Soft, Other (left colostomy bag) Extremities: no Edema Neurological: Sensation intact Skin: no Rash Psych/Mental Status: Mood NL - Procedures Procedures: Procedures Procedure Code Date PERFORMANCE OF URINARY FILTRATION, <6 HRS/DAY [id number] 10/03/17 PERFORMANCE OF URINARY FILTRATION, MULTIPLE [id number] 06/16/17 Assessment/Plan - Assessment Assessment: ESRD on HD S/P fall, old Fx right hip Colon CA, S/P colectomy, colostomy Anemia of CKD Hx A. fib Ess Htn Parkinson ds - Plan Plan: Lab - Result Diagrams 01/16/18 05:53 01/16/18 06:00 Current Medications Acetaminophen (Tylenol) 650 mg PO Q4H PRN PRN Reason: Fever > 101 Stop: 03/16/18 18:23 Acetaminophen (Tylenol) 325 mg PO Q6HR PRN PRN Reason: Pain (Mild) Stop: 03/16/18 18:23 Albuterol Sulfate (Albuterol 2.5mg/3ml Neb Ud) 0.63 mg HHN Q4H PRN PRN Reason: Wheezing Stop: 03/16/18 18:23 Amiodarone HCl (Cordarone) 200 mg PO BID [facility] Stop: 03/17/18 08:59 Last Admin: 01/16/18 09:19 Dose: 200 mg Calcitriol (Rocaltrol) 0.25 mcg PO DAILY [facility] Stop: 03/17/18 08:59 Last Admin: 01/16/18 09:20 Dose: 0.25 mcg Carbidopa/Levodopa (Sinemet 25 Mg-250 Mg) 1 tab PO QID [facility] Stop: 03/16/18 20:59 Last Admin: 01/16/18 12:59 Dose: 1 tab Carvedilol (Coreg) 3.125 mg PO QSUN [facility] Stop: 03/16/18 18:29 Last Admin: 01/16/18 09:20 Dose: 3.125 mg Cyanocobalamin (Vitamin B12) 100 mcg PO DAILY [facility] Stop: 03/17/18 08:59 Last Admin: 01/16/18 09:19 Dose: 100 mcg Docusate Sodium (Colace) 100 mg PO DAILY [facility] Stop: 03/17/18 08:59 Last Admin: 01/16/18 09:19 Dose: 100 mg Ferrous Sulfate (Iron) 325 mg PO BID [facility] Stop: 03/17/18 08:59 Last Admin: 01/16/18 09:20 Dose: 325 mg Folic Acid (Folate) 1 mg PO DAILY [facility] Stop: 03/17/18 08:59 Last Admin: 01/16/18 09:19 Dose: 1 mg Magnesium Hydroxide (Milk Of Magnesia) 30 ml PO DAILY PRN PRN Reason: bowel management Stop: 03/16/18 18:23 Morphine Sulfate (Morphine) 2 mg IVP Q4HR PRN PRN Reason: Pain (Severe) Stop: 03/16/18 19:32 Sevelamer Carbonate (Renvela) 2,400 mg PO TID [facility] Stop: 03/17/18 08:59 Last Admin: 01/16/18 12:59 Dose: 2,400 mg Zolpidem Tartrate (Ambien) 5 mg PO HS PRN PRN Reason: Insomnia Stop: 03/16/18 18:23 Last Admin: 01/16/18 00:31 Dose: 5 Lab - Result Diagrams 01/18/18 05:35 01/18/18 05:35 currently being dialyzed feels better but still w/lingering right hip pain f/u electrolytes continue analgesics Hd in am
--- NOTE | 2018-01-18 21:06 | Internal Medicine Prog Note ---
Internal Medicine Subjective - Subjective Service Date: 01/18/18 Patient seen and examined:: with staff Patient is:: awake, verbal Patient Complaints of:: other (body pain) Per staff patient has:: tolerating meds Internal Medicine Objective - Results Result Diagrams: 01/18/18 05:35 01/18/18 05:35 Recent Labs: Laboratory Last Values WBC 5.5 Th/cmm (4.8-10.8) 01/18/18 05:35 RBC 3.20 Mil/cmm (3.80-5.80) L 01/18/18 05:35 Hgb 10.8 gm/dL (12-16) L 01/18/18 05:35 Hct 32.6 % (41.0-60) L 01/18/18 05:35 MCV 101.8 fl (80-99) H 01/18/18 05:35 MCH 33.7 pg (27.0-31.0) H 01/18/18 05:35 MCHC Differential 33.1 pg (28.0-36.0) 01/18/18 05:35 RDW 13.9 % (11.5-20.0) 01/18/18 05:35 Plt Count 80 Th/cmm (150-400) L 01/18/18 05:35 MPV 7.2 fl 01/18/18 05:35 Neutrophils % 50.3 % (40.0-80.0) 01/18/18 05:35 Lymphocytes % 31.7 % (20.0-50.0) 01/18/18 05:35 Monocytes % 14.0 % (2.0-10.0) H 01/18/18 05:35 Eosinophils % 3.9 % (0.0-5.0) 01/18/18 05:35 Basophils % 0.1 % (0.0-2.0) 01/18/18 05:35 Neutrophils (Manual) 47 % (40-80) 01/16/18 05:53 Lymphocytes 29 % (20-50) 01/16/18 05:53 Monocytes 17 % (2-10) H 01/16/18 05:53 Eosinophils 7 % (0-5) H 01/16/18 05:53 Platelet Estimate DECREASED PLATELETS (NORMAL) 01/16/18 05:53 Sodium 131 mEq/L (136-145) L 01/18/18 05:35 Potassium 5.4 mEq/L (3.5-5.1) H 01/18/18 05:35 Chloride 99 mEq/L (98-107) 01/18/18 05:35 Carbon Dioxide 27.9 mEq/L (21.0-31.0) 01/18/18 05:35 Anion Gap 9.5 (7.0-16.0) 01/18/18 05:35 BUN 68 mg/dL (7-25) H 01/18/18 05:35 Creatinine 8.8 mg/dL (0.7-1.3) H* 01/18/18 05:35 Est GFR ( Amer) TNP 01/18/18 05:35 Est GFR (Non-Af Amer) TNP 01/18/18 05:35 BUN/Creatinine Ratio 7.7 01/18/18 05:35 Glucose 87 mg/dL (70-105) 01/18/18 05:35 Calcium 9.4 mg/dL (8.6-10.3) 01/18/18 05:35 Phosphorus 4.5 mg/dL (2.5-5.0) 01/16/18 06:00 Magnesium 1.9 mg/dL (1.9-2.7) 01/16/18 06:00 Total Bilirubin 0.5 mg/dL (0.3-1.0) 01/16/18 06:00 AST 21 U/L (13-39) 01/16/18 06:00 ALT 4 U/L (7-52) L 01/16/18 06:00 Alkaline Phosphatase 96 U/L (34-104) 01/16/18 06:00 Total Protein 6.0 gm/dL (6.0-8.3) 01/16/18 06:00 Albumin 3.5 gm/dL (4.2-5.5) L 01/16/18 06:00 Globulin 2.5 gm/dL 01/16/18 06:00 Albumin/Globulin Ratio 1.4 (1.0-1.8) 01/16/18 06:00 Triglycerides 64 mg/dL (<150) 01/16/18 06:00 Cholesterol 67 mg/dL (<200) 01/16/18 06:00 LDL Cholesterol Direct 26 mg/dL (75-193) L 01/16/18 06:00 HDL Cholesterol 37 mg/dL (23-92) 01/16/18 06:00 - Physical Exam Vitals and I&O: Vital Signs Temp 98.9 F 01/18/18 20:00 Pulse 73 01/18/18 20:00 Resp 20 01/18/18 20:00 BP 168/71 01/18/18 20:00 Pulse Ox 94 01/18/18 20:00 Intake & Output 01/18/18 01/18/18 01/19/18 06:59 18:59 06:59 Intake Total 240 120 Output Total 600 Balance -360 120 Weight (lbs) 179 lb 179 lb Intake: Oral 240 120 Output: Urine 600 Other: # Voids 1 3 # Bowel Movements 0 0 Stool Characteristics Liquid Active Medications: Current Medications Acetaminophen (Tylenol) 650 mg PO Q4H PRN PRN Reason: Fever > 101 Stop: 03/16/18 18:23 Acetaminophen (Tylenol) 325 mg PO Q6HR PRN PRN Reason: Pain (Mild) Stop: 03/16/18 18:23 Acetaminophen/Hydrocodone Bitart ([place] 10 Mg/325 Mg) 1 tab PO Q6H PRN PRN Reason: moderate- severe pain Stop: 03/18/18 15:38 Last Admin: 01/18/18 10:30 Dose: 1 tab Albuterol Sulfate (Albuterol 2.5mg/3ml Neb Ud) 0.63 mg HHN Q4H PRN PRN Reason: Wheezing Stop: 03/16/18 18:23 Amiodarone HCl (Cordarone) 200 mg PO BID [facility] Stop: 03/17/18 08:59 Last Admin: 01/18/18 16:41 Dose: 200 mg Artificial Tears (Artificial Tears Ophth Soln) 1 drop EACH EYE QID [facility] Stop: 03/18/18 08:59 Last Admin: 01/18/18 16:43 Dose: 1 drop Calcitriol (Rocaltrol) 0.25 mcg PO DAILY [facility] Stop: 03/17/18 08:59 Last Admin: 01/18/18 08:37 Dose: 0.25 mcg Carbidopa/Levodopa (Sinemet 25 Mg-250 Mg) 1 tab PO QID [facility] Stop: 03/16/18 20:59 Last Admin: 01/18/18 16:44 Dose: 1 tab Carvedilol (Coreg) 3.125 mg PO QSUN [facility] Stop: 03/16/18 18:29 Last Admin: 01/16/18 09:20 Dose: 3.125 mg Cyanocobalamin (Vitamin B12) 100 mcg PO DAILY [facility] Stop: 03/17/18 08:59 Last Admin: 01/18/18 12:07 Dose: 100 mcg Docusate Sodium (Colace) 100 mg PO DAILY [facility] Stop: 03/17/18 08:59 Last Admin: 01/18/18 12:01 Dose: Not Given Ferrous Sulfate (Iron) 325 mg PO BID [facility] Stop: 03/17/18 08:59 Last Admin: 01/18/18 16:43 Dose: 325 mg Folic Acid (Folate) 1 mg PO DAILY [facility] Stop: 03/17/18 08:59 Last Admin: 01/18/18 08:37 Dose: 1 mg Albumin Human (Albuminar 25%) 25 gm in 100 mls @ 50 mls/hr IV PRN PRN PRN Reason: BP Support During HD Stop: 01/18/18 23:59 Magnesium Hydroxide (Milk Of Magnesia) 30 ml PO DAILY PRN PRN Reason: bowel management Stop: 03/16/18 18:23 Miscellaneous (Clinical Monitoring) 1 ea MC PRN PRN PRN Reason: RENAL Stop: 03/19/18 10:24 Morphine Sulfate (Morphine) 2 mg IVP Q4H PRN PRN Reason: SEVERE PAIN Stop: 03/18/18 16:40 Last Admin: 01/18/18 14:09 Dose: 2 mg Sevelamer Carbonate (Renvela) 2,400 mg PO TIDWM [facility] Stop: 03/17/18 18:59 Last Admin: 01/18/18 16:41 Dose: 2,400 mg Zolpidem Tartrate (Ambien) 10 mg PO HS PRN PRN Reason: Insomnia Stop: 03/17/18 21:38 Last Admin: 01/17/18 20:35 Dose: 10 mg General: weak, alert HEENT: NC/AT, PERRLA Neck: Supple Lungs: CTAB Abdomen: soft, non-tender - Procedures Procedures: Procedures Procedure Code Date PERFORMANCE OF URINARY FILTRATION, <6 HRS/DAY [id number] 10/03/17 PERFORMANCE OF URINARY FILTRATION, MULTIPLE [id number] 06/16/17 Internal Medicine Assmt/Plan - Assessment Assessment: hx fall dizziness chf esrd dm2 hx left hip fx malnutrition htn - Plan Plan: fall precautions nephro follow up pain mgmt continue current plan of care
[2018-01-19 07:39] LABS: % BASOPHILS 0.2 % (0.0-2.0); % EOSINOPHILS 3.9 % (0.0-5.0); % LYMPHOCYTES 31.1 % (20.0-50.0); % MONOCYTES 13.8 % (2.0-10.0); EOSINOPHILE ABSOLUTE 0.2 Th/cmm (0.1-0.4); HEMATOCRIT 30.8 % (41.0-60); HEMOGLOBIN 10.4 gm/dL (12-16); LYMPHOCYTE ABSOLUTE 1.6 Th/cmm (1.5-3.0); MEAN CELL VOLUME 101.7 fl (80-99); MEAN CORPUSCULAR HEMOGLOBIN 34.3 pg (27.0-31.0); MEAN CORPUSCULAR HGB CONC 33.7 pg (28.0-36.0); MEAN PLATELET VOLUME 7.2 fl; MONOCYTE ABSOLUTE 0.7 Th/cmm (0.3-1.0); NEUTROPHILE ABSOLUTE 2.7 Th/cmm (1.8-8.0); PLATELET COUNT 86 Th/cmm (150-400); RED BLOOD COUNT 3.03 Mil/cmm (3.80-5.80); RED CELL DISTRIBUTION WIDTH 13.8 % (11.5-20.0); WHITE BLOOD COUNT 5.2 Th/cmm (4.8-10.8)
[2018-01-19 07:51] LABS: ALB/GLOB RATIO 1.3 (1.0-1.8); ALBUMIN 3.2 gm/dL (4.2-5.5); ALKALINE PHOSPHATASE 92 U/L (34-104); ANION GAP 13.9 (7.0-16.0); BILIRUBIN,TOTAL 0.5 mg/dL (0.3-1.0); BUN - UREA NITROGEN 55 mg/dL (7-25); CALCIUM SERUM 9.3 mg/dL (8.6-10.3); CHLORIDE 98 mEq/L (98-107); GLUCOSE 85 mg/dL (70-105); POTASSIUM SERUM 4.9 mEq/L (3.5-5.1); SGOT 18 U/L (13-39); SGPT/ALT 6 U/L (7-52); SODIUM SERUM 135 mEq/L (136-145); TOTAL PROTEIN,SERUM 5.7 gm/dL (6.0-8.3)
[2018-01-19 07:59] LABS: CREATININE - SERUM 7.4 mg/dL (0.7-1.3)
[2018-01-19] MEDS: Ferrous Sulfate 325 MG TAB PO SCH ×2 (08:17→18:17)
[2018-01-19] MEDS: Polyvinyl Alcohol Ophth Soln 15 mL Bottle EACH EYE SCH ×4 (08:57→20:12)
--- NOTE | 2018-01-19 09:19 | General Progress Note ---
Subjective - Review of Systems Events since last encounter: rt hip pain no distress Objective - Results Result Diagrams: 01/19/18 04:50 01/19/18 04:50 Recent Labs: Laboratory Last Values WBC 5.2 Th/cmm (4.8-10.8) 01/19/18 04:50 RBC 3.03 Mil/cmm (3.80-5.80) L 01/19/18 04:50 Hgb 10.4 gm/dL (12-16) L 01/19/18 04:50 Hct 30.8 % (41.0-60) L 01/19/18 04:50 MCV 101.7 fl (80-99) H 01/19/18 04:50 MCH 34.3 pg (27.0-31.0) H 01/19/18 04:50 MCHC Differential 33.7 pg (28.0-36.0) 01/19/18 04:50 RDW 13.8 % (11.5-20.0) 01/19/18 04:50 Plt Count 86 Th/cmm (150-400) L 01/19/18 04:50 MPV 7.2 fl 01/19/18 04:50 Neutrophils % 51.0 % (40.0-80.0) 01/19/18 04:50 Lymphocytes % 31.1 % (20.0-50.0) 01/19/18 04:50 Monocytes % 13.8 % (2.0-10.0) H 01/19/18 04:50 Eosinophils % 3.9 % (0.0-5.0) 01/19/18 04:50 Basophils % 0.2 % (0.0-2.0) 01/19/18 04:50 Neutrophils (Manual) 47 % (40-80) 01/16/18 05:53 Lymphocytes 29 % (20-50) 01/16/18 05:53 Monocytes 17 % (2-10) H 01/16/18 05:53 Eosinophils 7 % (0-5) H 01/16/18 05:53 Platelet Estimate DECREASED PLATELETS (NORMAL) 01/16/18 05:53 Sodium 135 mEq/L (136-145) L 01/19/18 04:50 Potassium 4.9 mEq/L (3.5-5.1) 01/19/18 04:50 Chloride 98 mEq/L (98-107) 01/19/18 04:50 Carbon Dioxide 28.0 mEq/L (21.0-31.0) 01/19/18 04:50 Anion Gap 13.9 (7.0-16.0) 01/19/18 04:50 BUN 55 mg/dL (7-25) H 01/19/18 04:50 Creatinine 7.4 mg/dL (0.7-1.3) H* 01/19/18 04:50 Est GFR ( Amer) TNP 01/19/18 04:50 Est GFR (Non-Af Amer) TNP 01/19/18 04:50 BUN/Creatinine Ratio 7.4 01/19/18 04:50 Glucose 85 mg/dL (70-105) 01/19/18 04:50 Calcium 9.3 mg/dL (8.6-10.3) 01/19/18 04:50 Phosphorus 4.5 mg/dL (2.5-5.0) 01/16/18 06:00 Magnesium 1.9 mg/dL (1.9-2.7) 01/16/18 06:00 Total Bilirubin 0.5 mg/dL (0.3-1.0) 01/19/18 04:50 AST 18 U/L (13-39) 01/19/18 04:50 ALT 6 U/L (7-52) L 01/19/18 04:50 Alkaline Phosphatase 92 U/L (34-104) 01/19/18 04:50 B-Natriuretic Peptide 457.0 pg/mL (5.0-100.0) H 01/19/18 04:50 Total Protein 5.7 gm/dL (6.0-8.3) L 01/19/18 04:50 Albumin 3.2 gm/dL (4.2-5.5) L 01/19/18 04:50 Globulin 2.5 gm/dL 01/19/18 04:50 Albumin/Globulin Ratio 1.3 (1.0-1.8) 01/19/18 04:50 Triglycerides 64 mg/dL (<150) 01/16/18 06:00 Cholesterol 67 mg/dL (<200) 01/16/18 06:00 LDL Cholesterol Direct 26 mg/dL (75-193) L 01/16/18 06:00 HDL Cholesterol 37 mg/dL (23-92) 01/16/18 06:00 - Physical Exam Vitals and I&O: Vital Signs Temp 98.2 F 01/19/18 04:00 Pulse 72 01/19/18 08:17 Resp 20 01/19/18 04:00 BP 147/53 01/19/18 04:00 Pulse Ox 97 01/19/18 04:00 Intake & Output 01/18/18 01/19/18 01/19/18 18:59 06:59 18:59 Intake Total 120 150 Balance 120 150 Weight (lbs) 81.193 kg 82.871 kg 82.554 kg Intake: Oral 120 150 Other: # Voids 3 100 0 # Bowel Movements 0 Stool Characteristics Liquid Liquid Active Medications: Current Medications Acetaminophen (Tylenol) 650 mg PO Q4H PRN PRN Reason: Fever > 101 Stop: 03/16/18 18:23 Acetaminophen (Tylenol) 325 mg PO Q6HR PRN PRN Reason: Pain (Mild) Stop: 03/16/18 18:23 Acetaminophen/Hydrocodone Bitart ([place] 10 Mg/325 Mg) 1 tab PO Q6H PRN PRN Reason: moderate- severe pain Stop: 03/18/18 15:38 Last Admin: 01/18/18 10:30 Dose: 1 tab Albuterol Sulfate (Albuterol 2.5mg/3ml Neb Ud) 0.63 mg HHN Q4H PRN PRN Reason: Wheezing Stop: 03/16/18 18:23 Amiodarone HCl (Cordarone) 200 mg PO BID [facility] Stop: 03/17/18 08:59 Last Admin: 01/19/18 08:17 Dose: 200 mg Artificial Tears (Artificial Tears Ophth Soln) 1 drop EACH EYE QID [facility] Stop: 03/18/18 08:59 Last Admin: 01/19/18 08:57 Dose: 1 drop Calcitriol (Rocaltrol) 0.25 mcg PO DAILY [facility] Stop: 03/17/18 08:59 Last Admin: 01/19/18 08:17 Dose: 0.25 mcg Carbidopa/Levodopa (Sinemet 25 Mg-250 Mg) 1 tab PO QID [facility] Stop: 03/16/18 20:59 Last Admin: 01/19/18 08:17 Dose: 1 tab Carvedilol (Coreg) 3.125 mg PO QSUN [facility] Stop: 03/16/18 18:29 Last Admin: 01/16/18 09:20 Dose: 3.125 mg Cyanocobalamin (Vitamin B12) 100 mcg PO DAILY [facility] Stop: 03/17/18 08:59 Last Admin: 01/19/18 08:16 Dose: 100 mcg Docusate Sodium (Colace) 100 mg PO DAILY [facility] Stop: 03/17/18 08:59 Last Admin: 01/19/18 08:16 Dose: 100 mg Ferrous Sulfate (Iron) 325 mg PO BID [facility] Stop: 03/17/18 08:59 Last Admin: 01/19/18 08:17 Dose: 325 mg Folic Acid (Folate) 1 mg PO DAILY [facility] Stop: 03/17/18 08:59 Last Admin: 01/19/18 08:16 Dose: 1 mg Magnesium Hydroxide (Milk Of Magnesia) 30 ml PO DAILY PRN PRN Reason: bowel management Stop: 03/16/18 18:23 Miscellaneous (Clinical Monitoring) 1 ea MC PRN PRN PRN Reason: RENAL Stop: 03/19/18 10:24 Morphine Sulfate (Morphine) 2 mg IVP Q4H PRN PRN Reason: SEVERE PAIN Stop: 03/18/18 16:40 Last Admin: 01/18/18 22:16 Dose: 2 mg Sevelamer Carbonate (Renvela) 2,400 mg PO TIDWM [facility] Stop: 03/17/18 18:59 Last Admin: 01/19/18 08:17 Dose: 2,400 mg Zolpidem Tartrate (Ambien) 10 mg PO HS PRN PRN Reason: Insomnia Stop: 03/17/18 21:38 Last Admin: 01/19/18 00:23 Dose: 10 mg General: Alert, Oriented x3, No acute distress HEENT: PERRLA, EOMI, Mucous membr. moist/pink, Other (right parietal abrasion) Neck: Supple, +2 carotid pulse wo bruit Cardiovascular: Regular rate, Normal S1, Normal S2 Lungs: Clear to auscultation Abdomen: Bowel sounds, Soft, Other (left colostomy bag) Extremities: no Edema Neurological: Sensation intact Skin: no Rash Psych/Mental Status: Mood NL - Procedures Procedures: Procedures Procedure Code Date PERFORMANCE OF URINARY FILTRATION, <6 HRS/DAY [id number] 10/03/17 PERFORMANCE OF URINARY FILTRATION, MULTIPLE [id number] 06/16/17
[2018-01-19] MEDS: Hydrocodone/APAP 10 mg/325 mg Tab PO PRN ×2 (14:09→20:12)
--- NOTE | 2018-01-19 15:20 | Cardiology ---
The patient of Dr. Jordan. PROCEDURE: Echocardiogram. M-MODE ECHOCARDIOGRAM: Mitral valve, anterior leaflet of mitral valve shows normal excursion, EF velocity. Posterior leaflet of mitral valve shows normal excursion. Left ventricle posterior wall shows increased thickness, normal excursion. Interventricular septum shows increased thickness, normal excursion, hypertrophy of the left ventricle, ejection fraction 50%. Left atrium enlarged. Aortic root shows normal dimension, normal excursion of aortic leaflets. CONCLUSION: Hypertrophy of the left ventricle, left atrial enlargement, ejection fraction 50%. 2D ECHO: Long axis view showed normal sized left ventricle with hypertrophy of the left ventricle. Left atrium enlarged. Aortic root shows normal dimension, normal excursion of aortic leaflets. Short axis view of mitral valve normal. Short axis view of aortic valve normal. Apical four chamber view showed normal sized left ventricle with hypertrophy of the left ventricle. Left atrial enlargement, right ventricular normal, right atrial enlargement. CONCLUSION: Left atrial enlargement, right atrial enlargement, hypertrophy of the left ventricle, ejection fraction 50%. Doppler study shows prominent A wave consistent with poor compliance of left ventricle, mild mitral regurgitation, mild tricuspid regurgitation. [facility]# [id number]
--- NOTE | 2018-01-19 15:44 | General Progress Note ---
Subjective - Review of Systems Service Date: 01/19/18 Subjective: min. right hip pain, but still right knee pain Objective - Results Result Diagrams: 01/19/18 04:50 01/19/18 04:50 Recent Labs: Laboratory Last Values WBC 5.2 Th/cmm (4.8-10.8) 01/19/18 04:50 RBC 3.03 Mil/cmm (3.80-5.80) L 01/19/18 04:50 Hgb 10.4 gm/dL (12-16) L 01/19/18 04:50 Hct 30.8 % (41.0-60) L 01/19/18 04:50 MCV 101.7 fl (80-99) H 01/19/18 04:50 MCH 34.3 pg (27.0-31.0) H 01/19/18 04:50 MCHC Differential 33.7 pg (28.0-36.0) 01/19/18 04:50 RDW 13.8 % (11.5-20.0) 01/19/18 04:50 Plt Count 86 Th/cmm (150-400) L 01/19/18 04:50 MPV 7.2 fl 01/19/18 04:50 Neutrophils % 51.0 % (40.0-80.0) 01/19/18 04:50 Lymphocytes % 31.1 % (20.0-50.0) 01/19/18 04:50 Monocytes % 13.8 % (2.0-10.0) H 01/19/18 04:50 Eosinophils % 3.9 % (0.0-5.0) 01/19/18 04:50 Basophils % 0.2 % (0.0-2.0) 01/19/18 04:50 Neutrophils (Manual) 47 % (40-80) 01/16/18 05:53 Lymphocytes 29 % (20-50) 01/16/18 05:53 Monocytes 17 % (2-10) H 01/16/18 05:53 Eosinophils 7 % (0-5) H 01/16/18 05:53 Platelet Estimate DECREASED PLATELETS (NORMAL) 01/16/18 05:53 Sodium 135 mEq/L (136-145) L 01/19/18 04:50 Potassium 4.9 mEq/L (3.5-5.1) 01/19/18 04:50 Chloride 98 mEq/L (98-107) 01/19/18 04:50 Carbon Dioxide 28.0 mEq/L (21.0-31.0) 01/19/18 04:50 Anion Gap 13.9 (7.0-16.0) 01/19/18 04:50 BUN 55 mg/dL (7-25) H 01/19/18 04:50 Creatinine 7.4 mg/dL (0.7-1.3) H* 01/19/18 04:50 Est GFR ( Amer) TNP 01/19/18 04:50 Est GFR (Non-Af Amer) TNP 01/19/18 04:50 BUN/Creatinine Ratio 7.4 01/19/18 04:50 Glucose 85 mg/dL (70-105) 01/19/18 04:50 Calcium 9.3 mg/dL (8.6-10.3) 01/19/18 04:50 Phosphorus 4.5 mg/dL (2.5-5.0) 01/16/18 06:00 Magnesium 1.9 mg/dL (1.9-2.7) 01/16/18 06:00 Total Bilirubin 0.5 mg/dL (0.3-1.0) 01/19/18 04:50 AST 18 U/L (13-39) 01/19/18 04:50 ALT 6 U/L (7-52) L 01/19/18 04:50 Alkaline Phosphatase 92 U/L (34-104) 01/19/18 04:50 B-Natriuretic Peptide 457.0 pg/mL (5.0-100.0) H 01/19/18 04:50 Total Protein 5.7 gm/dL (6.0-8.3) L 01/19/18 04:50 Albumin 3.2 gm/dL (4.2-5.5) L 01/19/18 04:50 Globulin 2.5 gm/dL 01/19/18 04:50 Albumin/Globulin Ratio 1.3 (1.0-1.8) 01/19/18 04:50 Triglycerides 64 mg/dL (<150) 01/16/18 06:00 Cholesterol 67 mg/dL (<200) 01/16/18 06:00 LDL Cholesterol Direct 26 mg/dL (75-193) L 01/16/18 06:00 HDL Cholesterol 37 mg/dL (23-92) 01/16/18 06:00 - Physical Exam Vitals and I&O: Vital Signs Temp 97.3 F 01/19/18 08:00 Pulse 72 01/19/18 08:17 Resp 20 01/19/18 11:52 BP 143/83 01/19/18 08:00 Pulse Ox 96 01/19/18 08:00 Intake & Output 01/18/18 01/19/18 01/19/18 18:59 06:59 18:59 Intake Total 120 150 Balance 120 150 Weight (lbs) 81.193 kg 82.871 kg 82.554 kg Intake: Oral 120 150 Other: # Voids 3 100 0 # Bowel Movements 0 Stool Characteristics Liquid Liquid Soft Brown Active Medications: Current Medications Acetaminophen (Tylenol) 650 mg PO Q4H PRN PRN Reason: Fever > 101 Stop: 03/16/18 18:23 Acetaminophen (Tylenol) 325 mg PO Q6HR PRN PRN Reason: Pain (Mild) Stop: 03/16/18 18:23 Acetaminophen/Hydrocodone Bitart ([place] 10 Mg/325 Mg) 1 tab PO Q6H PRN PRN Reason: moderate- severe pain Stop: 03/18/18 15:38 Last Admin: 01/19/18 14:09 Dose: 1 tab Albuterol Sulfate (Albuterol 2.5mg/3ml Neb Ud) 0.63 mg HHN Q4H PRN PRN Reason: Wheezing Stop: 03/16/18 18:23 Amiodarone HCl (Cordarone) 200 mg PO BID [facility] Stop: 03/17/18 08:59 Last Admin: 01/19/18 08:17 Dose: 200 mg Artificial Tears (Artificial Tears Ophth Soln) 1 drop EACH EYE QID [facility] Stop: 03/18/18 08:59 Last Admin: 01/19/18 14:07 Dose: 1 drop Calcitriol (Rocaltrol) 0.25 mcg PO DAILY [facility] Stop: 03/17/18 08:59 Last Admin: 01/19/18 08:17 Dose: 0.25 mcg Carbidopa/Levodopa (Sinemet 25 Mg-250 Mg) 1 tab PO QID [facility] Stop: 03/16/18 20:59 Last Admin: 01/19/18 12:47 Dose: 1 tab Carvedilol (Coreg) 3.125 mg PO QSUN [facility] Stop: 03/16/18 18:29 Last Admin: 01/16/18 09:20 Dose: 3.125 mg Cyanocobalamin (Vitamin B12) 100 mcg PO DAILY [facility] Stop: 03/17/18 08:59 Last Admin: 01/19/18 08:16 Dose: 100 mcg Docusate Sodium (Colace) 100 mg PO DAILY [facility] Stop: 03/17/18 08:59 Last Admin: 01/19/18 08:16 Dose: 100 mg Ferrous Sulfate (Iron) 325 mg PO BID [facility] Stop: 03/17/18 08:59 Last Admin: 01/19/18 08:17 Dose: 325 mg Folic Acid (Folate) 1 mg PO DAILY [facility] Stop: 03/17/18 08:59 Last Admin: 01/19/18 08:16 Dose: 1 mg Magnesium Hydroxide (Milk Of Magnesia) 30 ml PO DAILY PRN PRN Reason: bowel management Stop: 03/16/18 18:23 Miscellaneous (Clinical Monitoring) 1 ea MC PRN PRN PRN Reason: RENAL Stop: 03/19/18 10:24 Morphine Sulfate (Morphine) 2 mg IVP Q4H PRN PRN Reason: SEVERE PAIN Stop: 03/18/18 16:40 Last Admin: 01/18/18 22:16 Dose: 2 mg Sevelamer Carbonate (Renvela) 2,400 mg PO TIDWM [facility] Stop: 03/17/18 18:59 Last Admin: 01/19/18 12:47 Dose: 2,400 mg Zolpidem Tartrate (Ambien) 10 mg PO HS PRN PRN Reason: Insomnia Stop: 03/17/18 21:38 Last Admin: 01/19/18 00:23 Dose: 10 mg General: Alert, Oriented x3, No acute distress HEENT: PERRLA, EOMI, Mucous membr. moist/pink, Other (right parietal abrasion) Neck: Supple, +2 carotid pulse wo bruit Cardiovascular: Regular rate, Normal S1, Normal S2 Lungs: Clear to auscultation Abdomen: Bowel sounds, Soft, Other (left colostomy bag) Extremities: no Edema Neurological: Sensation intact Skin: no Rash Psych/Mental Status: Mood NL - Procedures Procedures: Procedures Procedure Code Date PERFORMANCE OF URINARY FILTRATION, <6 HRS/DAY [id number] 10/03/17 PERFORMANCE OF URINARY FILTRATION, MULTIPLE [id number] 06/16/17 Assessment/Plan - Assessment Assessment: ESRD on HD S/P fall, old Fx right hip Colon CA, S/P colectomy, colostomy Anemia of CKD Hx A. fib Ess Htn Parkinson ds - Plan Plan: Lab - Result Diagrams 01/16/18 05:53 01/16/18 06:00 Current Medications Acetaminophen (Tylenol) 650 mg PO Q4H PRN PRN Reason: Fever > 101 Stop: 03/16/18 18:23 Acetaminophen (Tylenol) 325 mg PO Q6HR PRN PRN Reason: Pain (Mild) Stop: 03/16/18 18:23 Albuterol Sulfate (Albuterol 2.5mg/3ml Neb Ud) 0.63 mg HHN Q4H PRN PRN Reason: Wheezing Stop: 03/16/18 18:23 Amiodarone HCl (Cordarone) 200 mg PO BID [facility] Stop: 03/17/18 08:59 Last Admin: 01/16/18 09:19 Dose: 200 mg Calcitriol (Rocaltrol) 0.25 mcg PO DAILY [facility] Stop: 03/17/18 08:59 Last Admin: 01/16/18 09:20 Dose: 0.25 mcg Carbidopa/Levodopa (Sinemet 25 Mg-250 Mg) 1 tab PO QID [facility] Stop: 03/16/18 20:59 Last Admin: 01/16/18 12:59 Dose: 1 tab Carvedilol (Coreg) 3.125 mg PO QSUN [facility] Stop: 03/16/18 18:29 Last Admin: 01/16/18 09:20 Dose: 3.125 mg Cyanocobalamin (Vitamin B12) 100 mcg PO DAILY [facility] Stop: 03/17/18 08:59 Last Admin: 01/16/18 09:19 Dose: 100 mcg Docusate Sodium (Colace) 100 mg PO DAILY [facility] Stop: 03/17/18 08:59 Last Admin: 01/16/18 09:19 Dose: 100 mg Ferrous Sulfate (Iron) 325 mg PO BID [facility] Stop: 03/17/18 08:59 Last Admin: 01/16/18 09:20 Dose: 325 mg Folic Acid (Folate) 1 mg PO DAILY [facility] Stop: 03/17/18 08:59 Last Admin: 01/16/18 09:19 Dose: 1 mg Magnesium Hydroxide (Milk Of Magnesia) 30 ml PO DAILY PRN PRN Reason: bowel management Stop: 03/16/18 18:23 Morphine Sulfate (Morphine) 2 mg IVP Q4HR PRN PRN Reason: Pain (Severe) Stop: 03/16/18 19:32 Sevelamer Carbonate (Renvela) 2,400 mg PO TID [facility] Stop: 03/17/18 08:59 Last Admin: 01/16/18 12:59 Dose: 2,400 mg Zolpidem Tartrate (Ambien) 5 mg PO HS PRN PRN Reason: Insomnia Stop: 03/16/18 18:23 Last Admin: 01/16/18 00:31 Dose: 5 Lab - Result Diagrams 01/19/18 04:50 01/19/18 04:50 schedule for dialysis in am feels better but still w/lingering right knee pain
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
[2018-01-20 07:21] LABS: ALB/GLOB RATIO 1.3 (1.0-1.8); ALBUMIN 3.3 gm/dL (4.2-5.5); ALKALINE PHOSPHATASE 93 U/L (34-104); ANION GAP 11.5 (7.0-16.0); BILIRUBIN,TOTAL 0.5 mg/dL (0.3-1.0); BUN - UREA NITROGEN 73 mg/dL (7-25); CALCIUM SERUM 9.5 mg/dL (8.6-10.3); CARBON DIOXIDE 27.9 mEq/L (21.0-31.0); CHLORIDE 98 mEq/L (98-107); GLUCOSE 95 mg/dL (70-105); POTASSIUM SERUM 5.4 mEq/L (3.5-5.1); SGOT 17 U/L (13-39); SGPT/ALT 4 U/L (7-52); SODIUM SERUM 132 mEq/L (136-145); TOTAL PROTEIN,SERUM 5.8 gm/dL (6.0-8.3)
[2018-01-20 07:52] LABS: CREATININE - SERUM 8.7 mg/dL (0.7-1.3)
[2018-01-20] MEDS: Ferrous Sulfate 325 MG TAB PO SCH ×2 (09:24→18:19)
[2018-01-20] MEDS: Polyvinyl Alcohol Ophth Soln 15 mL Bottle EACH EYE SCH ×3 (09:25→18:19)
--- NOTE | 2018-01-20 11:34 | General Progress Note ---
Subjective - Review of Systems Events since last encounter: c/o right hip pain otherwise in no distress Objective - Results Result Diagrams: 01/19/18 04:50 01/20/18 06:40 Recent Labs: Laboratory Last Values WBC 5.2 Th/cmm (4.8-10.8) 01/19/18 04:50 RBC 3.03 Mil/cmm (3.80-5.80) L 01/19/18 04:50 Hgb 10.4 gm/dL (12-16) L 01/19/18 04:50 Hct 30.8 % (41.0-60) L 01/19/18 04:50 MCV 101.7 fl (80-99) H 01/19/18 04:50 MCH 34.3 pg (27.0-31.0) H 01/19/18 04:50 MCHC Differential 33.7 pg (28.0-36.0) 01/19/18 04:50 RDW 13.8 % (11.5-20.0) 01/19/18 04:50 Plt Count 86 Th/cmm (150-400) L 01/19/18 04:50 MPV 7.2 fl 01/19/18 04:50 Neutrophils % 51.0 % (40.0-80.0) 01/19/18 04:50 Lymphocytes % 31.1 % (20.0-50.0) 01/19/18 04:50 Monocytes % 13.8 % (2.0-10.0) H 01/19/18 04:50 Eosinophils % 3.9 % (0.0-5.0) 01/19/18 04:50 Basophils % 0.2 % (0.0-2.0) 01/19/18 04:50 Neutrophils (Manual) 47 % (40-80) 01/16/18 05:53 Lymphocytes 29 % (20-50) 01/16/18 05:53 Monocytes 17 % (2-10) H 01/16/18 05:53 Eosinophils 7 % (0-5) H 01/16/18 05:53 Platelet Estimate DECREASED PLATELETS (NORMAL) 01/16/18 05:53 Sodium 132 mEq/L (136-145) L 01/20/18 06:40 Potassium 5.4 mEq/L (3.5-5.1) H 01/20/18 06:40 Chloride 98 mEq/L (98-107) 01/20/18 06:40 Carbon Dioxide 27.9 mEq/L (21.0-31.0) 01/20/18 06:40 Anion Gap 11.5 (7.0-16.0) 01/20/18 06:40 BUN 73 mg/dL (7-25) H 01/20/18 06:40 Creatinine 8.7 mg/dL (0.7-1.3) H* 01/20/18 06:40 Est GFR ( Amer) TNP 01/20/18 06:40 Est GFR (Non-Af Amer) TNP 01/20/18 06:40 BUN/Creatinine Ratio 8.4 01/20/18 06:40 Glucose 95 mg/dL (70-105) 01/20/18 06:40 Calcium 9.5 mg/dL (8.6-10.3) 01/20/18 06:40 Phosphorus 4.5 mg/dL (2.5-5.0) 01/16/18 06:00 Magnesium 1.9 mg/dL (1.9-2.7) 01/16/18 06:00 Total Bilirubin 0.5 mg/dL (0.3-1.0) 01/20/18 06:40 AST 17 U/L (13-39) 01/20/18 06:40 ALT 4 U/L (7-52) L 01/20/18 06:40 Alkaline Phosphatase 93 U/L (34-104) 01/20/18 06:40 B-Natriuretic Peptide 457.0 pg/mL (5.0-100.0) H 01/19/18 04:50 Total Protein 5.8 gm/dL (6.0-8.3) L 01/20/18 06:40 Albumin 3.3 gm/dL (4.2-5.5) L 01/20/18 06:40 Globulin 2.5 gm/dL 01/20/18 06:40 Albumin/Globulin Ratio 1.3 (1.0-1.8) 01/20/18 06:40 Triglycerides 64 mg/dL (<150) 01/16/18 06:00 Cholesterol 67 mg/dL (<200) 01/16/18 06:00 LDL Cholesterol Direct 26 mg/dL (75-193) L 01/16/18 06:00 HDL Cholesterol 37 mg/dL (23-92) 01/16/18 06:00 - Physical Exam Vitals and I&O: Vital Signs Temp 97.0 F 01/20/18 07:44 Pulse 62 01/20/18 09:25 Resp 18 01/20/18 07:44 BP 166/55 01/20/18 07:44 Pulse Ox 94 01/20/18 07:44 Intake & Output 01/19/18 01/20/18 01/20/18 18:59 06:59 18:59 Intake Total 450 Balance 450 Weight (lbs) 82.554 kg Intake: Oral 450 Other: # Voids 300 Stool Characteristics Soft Soft Brown Brown Active Medications: Current Medications Acetaminophen (Tylenol) 650 mg PO Q4H PRN PRN Reason: Fever > 101 Stop: 03/16/18 18:23 Acetaminophen (Tylenol) 325 mg PO Q6HR PRN PRN Reason: Pain (Mild) Stop: 03/16/18 18:23 Acetaminophen/Hydrocodone Bitart ([place] 10 Mg/325 Mg) 1 tab PO Q6H PRN PRN Reason: moderate- severe pain Stop: 03/18/18 15:38 Last Admin: 01/19/18 20:12 Dose: 1 tab Albuterol Sulfate (Albuterol 2.5mg/3ml Neb Ud) 0.63 mg HHN Q4H PRN PRN Reason: Wheezing Stop: 03/16/18 18:23 Amiodarone HCl (Cordarone) 200 mg PO BID [facility] Stop: 03/17/18 08:59 Last Admin: 01/20/18 09:25 Dose: 200 mg Artificial Tears (Artificial Tears Ophth Soln) 1 drop EACH EYE QID [facility] Stop: 03/18/18 08:59 Last Admin: 01/20/18 09:25 Dose: 1 drop Calcitriol (Rocaltrol) 0.25 mcg PO DAILY [facility] Stop: 03/17/18 08:59 Last Admin: 01/20/18 09:24 Dose: 0.25 mcg Carbidopa/Levodopa (Sinemet 25 Mg-250 Mg) 1 tab PO QID [facility] Stop: 03/16/18 20:59 Last Admin: 01/20/18 09:25 Dose: 1 tab Carvedilol (Coreg) 3.125 mg PO SuMoWe@0900,1700 [facility] Stop: 03/16/18 18:29 Cyanocobalamin (Vitamin B12) 100 mcg PO DAILY [facility] Stop: 03/17/18 08:59 Last Admin: 01/20/18 09:25 Dose: 100 mcg Docusate Sodium (Colace) 100 mg PO DAILY [facility] Stop: 03/17/18 08:59 Last Admin: 01/20/18 09:24 Dose: 100 mg Ferrous Sulfate (Iron) 325 mg PO BID [facility] Stop: 03/17/18 08:59 Last Admin: 01/20/18 09:24 Dose: 325 mg Folic Acid (Folate) 1 mg PO DAILY [facility] Stop: 03/17/18 08:59 Last Admin: 01/20/18 09:25 Dose: 1 mg Magnesium Hydroxide (Milk Of Magnesia) 30 ml PO DAILY PRN PRN Reason: bowel management Stop: 03/16/18 18:23 Miscellaneous (Clinical Monitoring) 1 ea MC PRN PRN PRN Reason: RENAL Stop: 03/19/18 10:24 Morphine Sulfate (Morphine) 2 mg IVP Q4H PRN PRN Reason: SEVERE PAIN Stop: 03/18/18 16:40 Last Admin: 01/18/18 22:16 Dose: 2 mg Sevelamer Carbonate (Renvela) 2,400 mg PO TIDWM [facility] Stop: 03/17/18 18:59 Last Admin: 01/20/18 07:54 Dose: 2,400 mg Zolpidem Tartrate (Ambien) 10 mg PO HS PRN PRN Reason: Insomnia Stop: 03/17/18 21:38 Last Admin: 01/20/18 00:04 Dose: 10 mg General: Alert, Oriented x3, No acute distress HEENT: PERRLA, EOMI, Mucous membr. moist/pink, Other (right parietal abrasion) Neck: Supple, +2 carotid pulse wo bruit Cardiovascular: Regular rate, Normal S1, Normal S2 Lungs: Clear to auscultation Abdomen: Bowel sounds, Soft, Other (left colostomy bag) Extremities: no Edema Neurological: Sensation intact Skin: no Rash Psych/Mental Status: Mood NL - Procedures Procedures: Procedures Procedure Code Date PERFORMANCE OF URINARY FILTRATION, <6 HRS/DAY [id number] 10/03/17 PERFORMANCE OF URINARY FILTRATION, MULTIPLE [id number] 06/16/17
--- NOTE | 2018-01-20 13:24 | General Progress Note ---
Subjective - Review of Systems Service Date: 01/20/18 Subjective: min. right hip pain, but still right knee pain Objective - Results Result Diagrams: 01/19/18 04:50 01/20/18 06:40 Recent Labs: Laboratory Last Values WBC 5.2 Th/cmm (4.8-10.8) 01/19/18 04:50 RBC 3.03 Mil/cmm (3.80-5.80) L 01/19/18 04:50 Hgb 10.4 gm/dL (12-16) L 01/19/18 04:50 Hct 30.8 % (41.0-60) L 01/19/18 04:50 MCV 101.7 fl (80-99) H 01/19/18 04:50 MCH 34.3 pg (27.0-31.0) H 01/19/18 04:50 MCHC Differential 33.7 pg (28.0-36.0) 01/19/18 04:50 RDW 13.8 % (11.5-20.0) 01/19/18 04:50 Plt Count 86 Th/cmm (150-400) L 01/19/18 04:50 MPV 7.2 fl 01/19/18 04:50 Neutrophils % 51.0 % (40.0-80.0) 01/19/18 04:50 Lymphocytes % 31.1 % (20.0-50.0) 01/19/18 04:50 Monocytes % 13.8 % (2.0-10.0) H 01/19/18 04:50 Eosinophils % 3.9 % (0.0-5.0) 01/19/18 04:50 Basophils % 0.2 % (0.0-2.0) 01/19/18 04:50 Neutrophils (Manual) 47 % (40-80) 01/16/18 05:53 Lymphocytes 29 % (20-50) 01/16/18 05:53 Monocytes 17 % (2-10) H 01/16/18 05:53 Eosinophils 7 % (0-5) H 01/16/18 05:53 Platelet Estimate DECREASED PLATELETS (NORMAL) 01/16/18 05:53 Sodium 132 mEq/L (136-145) L 01/20/18 06:40 Potassium 5.4 mEq/L (3.5-5.1) H 01/20/18 06:40 Chloride 98 mEq/L (98-107) 01/20/18 06:40 Carbon Dioxide 27.9 mEq/L (21.0-31.0) 01/20/18 06:40 Anion Gap 11.5 (7.0-16.0) 01/20/18 06:40 BUN 73 mg/dL (7-25) H 01/20/18 06:40 Creatinine 8.7 mg/dL (0.7-1.3) H* 01/20/18 06:40 Est GFR ( Amer) TNP 01/20/18 06:40 Est GFR (Non-Af Amer) TNP 01/20/18 06:40 BUN/Creatinine Ratio 8.4 01/20/18 06:40 Glucose 95 mg/dL (70-105) 01/20/18 06:40 Calcium 9.5 mg/dL (8.6-10.3) 01/20/18 06:40 Phosphorus 4.5 mg/dL (2.5-5.0) 01/16/18 06:00 Magnesium 1.9 mg/dL (1.9-2.7) 01/16/18 06:00 Total Bilirubin 0.5 mg/dL (0.3-1.0) 01/20/18 06:40 AST 17 U/L (13-39) 01/20/18 06:40 ALT 4 U/L (7-52) L 01/20/18 06:40 Alkaline Phosphatase 93 U/L (34-104) 01/20/18 06:40 B-Natriuretic Peptide 457.0 pg/mL (5.0-100.0) H 01/19/18 04:50 Total Protein 5.8 gm/dL (6.0-8.3) L 01/20/18 06:40 Albumin 3.3 gm/dL (4.2-5.5) L 01/20/18 06:40 Globulin 2.5 gm/dL 01/20/18 06:40 Albumin/Globulin Ratio 1.3 (1.0-1.8) 01/20/18 06:40 Triglycerides 64 mg/dL (<150) 01/16/18 06:00 Cholesterol 67 mg/dL (<200) 01/16/18 06:00 LDL Cholesterol Direct 26 mg/dL (75-193) L 01/16/18 06:00 HDL Cholesterol 37 mg/dL (23-92) 01/16/18 06:00 - Physical Exam Vitals and I&O: Vital Signs Temp 97.0 F 01/20/18 07:44 Pulse 62 01/20/18 09:25 Resp 18 01/20/18 07:44 BP 166/55 01/20/18 07:44 Pulse Ox 94 01/20/18 07:44 Intake & Output 01/19/18 01/20/18 01/20/18 18:59 06:59 18:59 Intake Total 450 Balance 450 Weight (lbs) 82.554 kg Intake: Oral 450 Other: # Voids 300 Stool Characteristics Soft Soft Brown Brown Active Medications: Current Medications Acetaminophen (Tylenol) 650 mg PO Q4H PRN PRN Reason: Fever > 101 Stop: 03/16/18 18:23 Acetaminophen (Tylenol) 325 mg PO Q6HR PRN PRN Reason: Pain (Mild) Stop: 03/16/18 18:23 Acetaminophen/Hydrocodone Bitart ([place] 10 Mg/325 Mg) 1 tab PO Q6H PRN PRN Reason: moderate- severe pain Stop: 03/18/18 15:38 Last Admin: 01/19/18 20:12 Dose: 1 tab Albuterol Sulfate (Albuterol 2.5mg/3ml Neb Ud) 0.63 mg HHN Q4H PRN PRN Reason: Wheezing Stop: 03/16/18 18:23 Amiodarone HCl (Cordarone) 200 mg PO BID [facility] Stop: 03/17/18 08:59 Last Admin: 01/20/18 09:25 Dose: 200 mg Artificial Tears (Artificial Tears Ophth Soln) 1 drop EACH EYE QID [facility] Stop: 03/18/18 08:59 Last Admin: 01/20/18 12:24 Dose: Not Given Calcitriol (Rocaltrol) 0.25 mcg PO DAILY [facility] Stop: 03/17/18 08:59 Last Admin: 01/20/18 09:24 Dose: 0.25 mcg Carbidopa/Levodopa (Sinemet 25 Mg-250 Mg) 1 tab PO QID [facility] Stop: 03/16/18 20:59 Last Admin: 01/20/18 12:23 Dose: Not Given Carvedilol (Coreg) 3.125 mg PO SuMoWe@0900,1700 [facility] Stop: 03/16/18 18:29 Cyanocobalamin (Vitamin B12) 100 mcg PO DAILY [facility] Stop: 03/17/18 08:59 Last Admin: 01/20/18 09:25 Dose: 100 mcg Docusate Sodium (Colace) 100 mg PO DAILY [facility] Stop: 03/17/18 08:59 Last Admin: 01/20/18 09:24 Dose: 100 mg Ferrous Sulfate (Iron) 325 mg PO BID [facility] Stop: 03/17/18 08:59 Last Admin: 01/20/18 09:24 Dose: 325 mg Folic Acid (Folate) 1 mg PO DAILY [facility] Stop: 03/17/18 08:59 Last Admin: 01/20/18 09:25 Dose: 1 mg Magnesium Hydroxide (Milk Of Magnesia) 30 ml PO DAILY PRN PRN Reason: bowel management Stop: 03/16/18 18:23 Miscellaneous (Clinical Monitoring) 1 ea MC PRN PRN PRN Reason: RENAL Stop: 03/19/18 10:24 Morphine Sulfate (Morphine) 2 mg IVP Q4H PRN PRN Reason: SEVERE PAIN Stop: 03/18/18 16:40 Last Admin: 01/18/18 22:16 Dose: 2 mg Sevelamer Carbonate (Renvela) 2,400 mg PO TIDWM [facility] Stop: 03/17/18 18:59 Last Admin: 01/20/18 12:23 Dose: Not Given Zolpidem Tartrate (Ambien) 10 mg PO HS PRN PRN Reason: Insomnia Stop: 03/17/18 21:38 Last Admin: 01/20/18 00:04 Dose: 10 mg General: Alert, Oriented x3, No acute distress HEENT: PERRLA, EOMI, Mucous membr. moist/pink, Other (right parietal abrasion) Neck: Supple, +2 carotid pulse wo bruit Cardiovascular: Regular rate, Normal S1, Normal S2 Lungs: Clear to auscultation Abdomen: Bowel sounds, Soft, Other (left colostomy bag) Extremities: no Edema Neurological: Sensation intact Skin: no Rash Psych/Mental Status: Mood NL - Procedures Procedures: Procedures Procedure Code Date PERFORMANCE OF URINARY FILTRATION, <6 HRS/DAY [id number] 10/03/17 PERFORMANCE OF URINARY FILTRATION, MULTIPLE [id number] 06/16/17 Assessment/Plan - Assessment Assessment: ESRD on HD S/P fall, old Fx right hip Colon CA, S/P colectomy, colostomy Anemia of CKD Hx A. fib Ess Htn Parkinson ds - Plan Plan: Lab - Result Diagrams 01/16/18 05:53 01/16/18 06:00 Current Medications Acetaminophen (Tylenol) 650 mg PO Q4H PRN PRN Reason: Fever > 101 Stop: 03/16/18 18:23 Acetaminophen (Tylenol) 325 mg PO Q6HR PRN PRN Reason: Pain (Mild) Stop: 03/16/18 18:23 Albuterol Sulfate (Albuterol 2.5mg/3ml Neb Ud) 0.63 mg HHN Q4H PRN PRN Reason: Wheezing Stop: 03/16/18 18:23 Amiodarone HCl (Cordarone) 200 mg PO BID [facility] Stop: 03/17/18 08:59 Last Admin: 01/16/18 09:19 Dose: 200 mg Calcitriol (Rocaltrol) 0.25 mcg PO DAILY [facility] Stop: 03/17/18 08:59 Last Admin: 01/16/18 09:20 Dose: 0.25 mcg Carbidopa/Levodopa (Sinemet 25 Mg-250 Mg) 1 tab PO QID [facility] Stop: 03/16/18 20:59 Last Admin: 01/16/18 12:59 Dose: 1 tab Carvedilol (Coreg) 3.125 mg PO QSUN [facility] Stop: 03/16/18 18:29 Last Admin: 01/16/18 09:20 Dose: 3.125 mg Cyanocobalamin (Vitamin B12) 100 mcg PO DAILY G[facility] Stop: 03/17/18 08:59 Last Admin: 01/16/18 09:19 Dose: 100 mcg Docusate Sodium (Colace) 100 mg PO DAILY [facility] Stop: 03/17/18 08:59 Last Admin: 01/16/18 09:19 Dose: 100 mg Ferrous Sulfate (Iron) 325 mg PO BID [facility] Stop: 03/17/18 08:59 Last Admin: 01/16/18 09:20 Dose: 325 mg Folic Acid (Folate) 1 mg PO DAILY [facility]ABY Stop: 03/17/18 08:59 Last Admin: 01/16/18 09:19 Dose: 1 mg Magnesium Hydroxide (Milk Of Magnesia) 30 ml PO DAILY PRN PRN Reason: bowel management Stop: 03/16/18 18:23 Morphine Sulfate (Morphine) 2 mg IVP Q4HR PRN PRN Reason: Pain (Severe) Stop: 03/16/18 19:32 Sevelamer Carbonate (Renvela) 2,400 mg PO TID GABY Stop: 03/17/18 08:59 Last Admin: 01/16/18 12:59 Dose: 2,400 mg Zolpidem Tartrate (Ambien) 5 mg PO HS PRN PRN Reason: Insomnia Stop: 03/16/18 18:23 Last Admin: 01/16/18 00:31 Dose: 5 Lab - Result Diagrams 01/19/18 04:50 01/20/18 06:40 schedule for dialysis today feels better but still w/lingering right knee pain as per Ortho, no need for surgery
[2018-01-20] MEDS: Hydrocodone/APAP 10 mg/325 mg Tab PO PRN (13:28)
--- NOTE | 2018-01-20 14:10 | Diagnostic Imaging Report ---
MRI of the right knee without IV contrast HISTORY: Pain COMPARISON: Left knee MRI the same day Technique: Multiplanar T1, T2, STIR and PD weighted sequences of the right knee were obtained without IV contrast. FINDINGS: There is slight irregularity involving the posterior horn of the medial meniscus. A small radial tear cannot be excluded. No evidence of a lateral meniscal tear. The anterior and posterior cruciate ligaments are intact. The patellar and quadriceps tendons are intact. There is redundancy of the quadriceps tendon likely due to positioning. The medial and lateral collateral ligamentous complexes are intact. Trace joint fluid is noted. Minimal low-grade chondromalacia patella is noted. There is mild edema of the anterior patella. No fracture line identified. Heterogeneous areas of red bone marrow seen within distal femur and proximal tibia. Mild degenerative changes are noted. Low-grade chondromalacia of the medial knee compartment is noted. IMPRESSION: Slight irregularity involving the posterior horn of the medial meniscus. This may represent a very small radial tear. No evidence of a cruciate ligament tear. Mild edema along the anterior patella. Findings may be posttraumatic and may related to bone bruising. Please correlate clinically. No fracture line identified . heterogeneous patchy red bone marrow. These may be due to causes such as anemia, smoking, or other metabolic etiologies. A myeloproliferative disorder cannot be excluded but is less likely. Please correlate focal findings. Mild degenerative changes.
--- NOTE | 2018-01-20 14:16 | Diagnostic Imaging Report ---
MRI of the left knee without IV contrast HISTORY: Pain COMPARISON: Right knee MRI the same day Technique: Multiplanar T1, T2, STIR and PD weighted sequences of the left knee were obtained without IV contrast. Findings: There is a small oblique tear involving the posterior horn of the medial meniscus with extension to the inferior articular surface. There is mild chondromalacia of the medial knee compartment. Areas of subchondral edema and cystic changes are seen along the anterior aspect of the weightbearing portion of the medial femoral condyle. No evidence of a lateral meniscal tear. There is suboptimal assessment of the anterior and posterior cruciate ligament due to patient positioning. No discrete tear is identified. There is edema seen within the tibial plateau greatest along the tibial spine regions. The patellar and quadriceps tendons are intact. Trace joint fluid is noted. The medial and lateral collateral ligaments complexes are intact. Low-grade chondromalacia patella is noted. Mild to moderate degenerative changes are noted. Generalized red bone marrow is noted. Muscle atrophy is noted. IMPRESSION: Small oblique tear involving the posterior horn of the medial meniscus with extension to the inferior articular surface. Mild chondromalacia of the medial knee compartment. Areas of subchondral cystic change and edema are noted along the anterior aspect of the weightbearing portion of the medial femoral condyle. Mild bone marrow edema seen within the tibial plateaus greatest along the tibial spine region. Findings may be related to a recent trauma. No fracture line is identified. Generalized red bone marrow which may be due to etiology such as anemia, smoking, or other metabolic causes. Other etiologies size and a myeloproliferative disorder is considered less likely. Please correlate with clinical findings. Mild to moderate degenerative changes.
--- NOTE | 2018-01-24 18:50 | Discharge Summary ---
DATE OF DISCHARGE: 01/20/2018 SUMMARY: This patient had a fall, sort of fracture of the hip. The patient known to have history of hypertension, diabetes, history of ESRD and malnutrition, osteoporosis and end-stage renal disease. The patient is on dialysis. The patient is seen, had a CAT scan done which showed old fractures, no new fracture, had orthopedic consultation, not doing anything. He had dialysis done by vocational training instructor and he was in stable condition on 01/20/2018. The patient was discharged back to [facility] where I will follow the patient. MEDICATION: Per reconciliation sheet. DIET: Renal diet. ACTIVITY: As tolerated. CONDITION AT TIME OF DISCHARGE: Stable. [facility]# [id number]
== END 2018-01-20 21:25 | disposition home or self-care (01) | DRG 963 ==
LOC: ER 11:46 → TELE 16:16 → MSI 01-20 17:54
PROVIDERS: ADMIT Internal Medicine; ATTEND Internal Medicine
DX: S32.301A Unspecified fracture of right ilium, initial encounter for closed fracture (principal); S72.011A Unspecified intracapsular fracture of right femur, initial encounter for closed fracture; N18.6 End stage renal disease; I13.2 Hypertensive heart and chronic kidney disease with heart failure and with stage 5 chronic kidney disease, or end stage renal disease; E46 Unspecified protein-calorie malnutrition; E11.22 Type 2 diabetes mellitus with diabetic chronic kidney disease; I42.9 Cardiomyopathy, unspecified; G20 Parkinson's disease; I48.91 Unspecified atrial fibrillation; I50.20 Unspecified systolic (congestive) heart failure; M81.0 Age-related osteoporosis without current pathological fracture; S00.03XA Contusion of scalp, initial encounter; W22.8XXA Striking against or struck by other objects, initial encounter; D63.1 Anemia in chronic kidney disease; Z99.2 Dependence on renal dialysis; Z85.038 Personal history of other malignant neoplasm of large intestine; Z93.3 Colostomy status; Y93.89 Activity, other specified; Y92.89 Other specified places as the place of occurrence of the external cause; Y99.8 Other external cause status; Z91.81 History of falling; Z82.49 Family history of ischemic heart disease and other diseases of the circulatory system; Z68.25 Body mass index [BMI] 25.0-25.9, adult
CPT/HCPCS: 36415-UA; 70450-TC; 72192-TC; 73718-TC-LT; 73718-TC-RT; 80048-TC; 80053-TC; 80061-TC; 83735-TC; 83880-TC; 84100-TC; 85007-TC; 85025-TC; 85027-TC; 90937; 96379; J2270; Z7610